=== PATIENT | female | born 2000 | race Two or more races ===

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

== ENCOUNTER → 2019-02-01 | Outpatient (CLI) | payer OTHER ==
--- NOTE | 2019-02-01 17:15 | REP ---
HISTORY: Supervision of normal . Multiple ultrasonographic images of the gravid uterus show a single living intrauterine gestation in the cephalic presentation. Doppler interrogation of the heart shows a heart rate of 172 beats per minute. The placenta is posterior and not low lying. The cervix measures 3.9 cm in length and is closed. The subjective amniotic fluid level is within normal limits. BPD 2.8 cm = 15 weeks 1 days HC 10.4 cm = 14 weeks 6 days AC 8.6 cm = 14 weeks 6 days FL 1.6 cm = 14 weeks 6 days The estimated weight is 108 grams, which is at the 40th percentile for a 14 week 6 day gestational age. The fetus was too small for a anatomical screen which should be performed at 20 to 22 weeks gestation. IMPRESSION: Single living intrauterine gestation as described above with an estimated gestational age of 14 weeks 6 days via composite criteria and an estimated date of delivery of 07/27/2019 by today's exam. Electronically Signed by Carlos Covarrubias DO 02/01/2019 06:01 P
== END ==
LOC: M RAD 15:04
PROVIDERS: ATTEND Obstetrics & Gynecology
DX: Z36.87 Encounter for antenatal screening for uncertain dates (principal); O26.849 Uterine size-date discrepancy, unspecified trimester; Z3A.14 14 weeks gestation of pregnancy

== ENCOUNTER 2019-03-01 17:13 | Emergency (ER) | payer OTHER ==
[~2019-03-01] VITALS: Ht 154.9 cm; Wt 40.9 kg
[2019-03-01 17:42] LABS: BASO % 0.2 % (0.0-1.0); EOS % 0.1 % (0.0-3.0); HEMATOCRIT 31.6 % (36.0-47.0); HEMOGLOBIN 10.1 g/dl (12.0-15.5); LYMPH # 0.8 10^3/uL (1.5-5.0); LYMPH % 3.7 % (24.0-44.0); MEAN CORPUSCULAR HEMOGLOBIN 27.7 pg (27.0-33.0); MEAN CORPUSCULAR VOLUME 86.8 fl (80.0-96.0); MONO # 0.8 10^3/uL (0.0-0.8); MONO % 3.8 % (0.0-5.0); NEUTROPHILS # 18.4 10^3/uL (1.5-8.5); NEUTROPHILS % 91.5 % (36.0-66.0); PLATELET COUNT, AUTOMATED 393 10^3/uL (150-450); RED BLOOD COUNT 3.64 10^6/uL (4.00-5.40); WHITE BLOOD COUNT 20.1 10^3/uL (4.0-10.0)
[2019-03-01 18:01] LABS: BLOOD UREA NITROGEN 8 MG/DL (7-18); CALCIUM LEVEL 8.7 MG/DL (8.5-10.1); CARBON DIOXIDE LEVEL 21 MEQ/L (21-32); CHLORIDE LEVEL 111 MEQ/L (98-107); CREATININE FOR GFR 0.62 MG/DL (0.55-1.30); GLUCOSE, FASTING 109 MG/DL (70-100); POTASSIUM SERUM 4.1 MEQ/L (3.5-5.1); SODIUM LEVEL 140 MEQ/L (136-145)
[2019-03-01] MEDS ORDERED: MORPHINE 4 MG/ML 1ML VIAL/SYRINGE (J2270) IV ONE (20:00)
[2019-03-01] MEDS ORDERED: ISOVUE-370 76% 100ML VIAL (Q9967) As Ordered ONE (20:01)
[2019-03-01 21:16] VITALS: BP 117/57
[2019-03-01 21:21] LABS: ALBUMIN 2.8 GM/DL (3.2-5.2); BILIRUBIN,DIRECT 0.1 MG/DL (0.0-0.2); BILIRUBIN,TOTAL 0.3 MG/DL (0.2-1.0); TOTAL PROTEIN 6.1 GM/DL (6.4-8.2)
--- NOTE | 2019-03-01 21:27 | REPVR ---
EXAM: CT Abdomen and Pelvis With Contrast EXAM DATE/TIME: 03/01/2019 8:06 PM CLINICAL HISTORY: 18 years old, female; Fever; Abdominal pain; Generalized; Prior surgery; Surgery date: 3-7 days post-operative; Additional info: Abd, pelvic, back pain, fever, p/o dnc, ab TECHNIQUE: Imaging protocol: Computed tomography of the abdomen and pelvis with intravenous contrast. Radiation optimization: All CT scans at this facility use at least one of these dose optimization techniques: automated exposure control; mA and/or kV adjustment per patient size (includes targeted exams where dose is matched to clinical indication); or iterative reconstruction. Contrast material: ISOVUE 370; Contrast volume: 100 ml; Contrast route: IV; COMPARISON: CT ABD PELVIS W/O CONTRAST 07/27/2018 10:48 AM FINDINGS: Liver: Normal. No mass. Gallbladder and bile ducts: Normal. No calcified stones. No ductal dilation. Pancreas: Normal. No ductal dilation. Spleen: Normal. No splenomegaly. Adrenals: Normal. No mass. Kidneys and ureters: Normal. No hydronephrosis. Stomach and bowel: Moderately dilated fluid filled large and small bowel loops are present. Appendix: The appendix is not seen as a separate structure. Intraperitoneal space: Unremarkable. No free air. No significant fluid collection. Vasculature: There is a circumaortic left renal vein. Lymph nodes: Unremarkable. No enlarged lymph nodes. Bladder: Unremarkable as visualized. Reproductive: The uterus is enlarged measuring 10.6 x 6.5 x 8.7 cm.Fluid is noted within the endometrial canal. Bones/joints: Apparent underlying dextroscoliosis of the lumbar spine. No acute fracture. Soft tissues: Unremarkable. IMPRESSION: 1. Generalized ileus. 2. Enlarged uterus with fluid in the endometrial canal consistent with history of recent dilatation and curettage. Endometritis should be excluded on clinical grounds Electronically signed by: Denise Wynne On 03/01/2019 21:26:43 PM
[2019-03-01] MEDS ORDERED: cefTRIAXone SOD 1 GM in D5W MINI-BAG PLUS 50 ML IV ONE (21:45)
[2019-03-01] MEDS ORDERED: CIPR-249 PO (22:40)
[2019-03-02] MEDS ORDERED: FLAG500T PO (09:07)
--- NOTE | 2019-03-06 11:59 | ED PDOC ---
Post-Departure Follow-Up dr dinae faxed formal report of ct abd/p for fu Ryley Araujo MD Mar 06, 2019 11:59
== END 2019-03-01 22:51 | disposition home or self-care (01) ==
LOC: M ED 17:13
DX: N10 Acute pyelonephritis (principal); F17.200 Nicotine dependence, unspecified, uncomplicated
CPT/HCPCS: 74177; 80048; 80076; 81001; 83605; 84702; 85025; 86850; 86900; 86901; 87040; 87088; 87186; 87210; 96374; 99284; J0696; J2270; Q9967

== ENCOUNTER 2019-03-12 09:31 | Emergency (ER) | payer OTHER ==
[~2019-03-12] VITALS: Ht 157.5 cm; Wt 37.3 kg
[~2019-03-12 09:31] MED LIST changes: +CIPR-249 PO; +FLAG500T PO
[2019-03-12] MEDS ORDERED: CIPR500T3 (09:39)
[2019-03-12] MEDS ORDERED: ACETAMINOPHEN TAB 650MG DOSE (2X325MG) PO ONE (12:45)
[2019-03-12 13:28] LABS: BASO # 0.1 10^3/uL (0.0-0.2); EOS # 0.1 10^3/uL (0.0-0.5); EOS % 1.3 % (0.0-3.0); HEMATOCRIT 36.8 % (36.0-47.0); HEMOGLOBIN 11.2 g/dl (12.0-15.5); LYMPH # 2.2 10^3/uL (1.5-5.0); LYMPH % 36.5 % (24.0-44.0); MEAN CORPUSCULAR HEMOGLOBIN 26.4 pg (27.0-33.0); MEAN CORPUSCULAR HGB CONC 30.4 g/dl (32.0-36.5); MEAN CORPUSCULAR VOLUME 86.6 fl (80.0-96.0); MONO # 0.5 10^3/uL (0.0-0.8); MONO % 8.4 % (0.0-5.0); NEUTROPHILS # 3.1 10^3/uL (1.5-8.5); NEUTROPHILS % 52.3 % (36.0-66.0); PLATELET COUNT, AUTOMATED 719 10^3/uL (150-450); RED BLOOD COUNT 4.25 10^6/uL (4.00-5.40)
[2019-03-12 13:43] LABS: BLOOD UREA NITROGEN 9 MG/DL (7-18); CALCIUM LEVEL 9.6 MG/DL (8.5-10.1); CARBON DIOXIDE LEVEL 22 MEQ/L (21-32); CHLORIDE LEVEL 108 MEQ/L (98-107); CREATININE FOR GFR 0.71 MG/DL (0.55-1.30); GLUCOSE, FASTING 80 MG/DL (70-100); SODIUM LEVEL 139 MEQ/L (136-145)
[2019-03-12 14:10] LABS: HCG, SERUM QUALITATIVE POSITIVE (NEGATIVE)
[2019-03-12 15:09] LABS: ALT/SGPT 13 U/L (12-78); BILIRUBIN,DIRECT 0.2 MG/DL (0.0-0.2); BILIRUBIN,TOTAL 0.7 MG/DL (0.2-1.0); HCG, SERUM QUANTITATIVE 8 MIU/ML; LIPASE 117 U/L (73-393); TOTAL PROTEIN 8.4 GM/DL (6.4-8.2)
[2019-03-12 16:47] LABS: CHLAMYDIA DNA AMPLIFICATION NEGATIVE (NEGATIVE); GC DNA AMPLIFICATION NEGATIVE (NEGATIVE)
--- NOTE | 2019-03-12 17:39 | REPVR ---
PROCEDURE INFORMATION: Exam: US First Trimester, Transabdominal and US , Transvaginal Exam date and time: 03/12/2019 4:52 PM Clinical history: 19 years old, female; Pain; Other: D and c done 02/23/2019; Gestational age or lmp: Unk; Additional info: Pain, eval for iup TECHNIQUE: Imaging protocol: Real-time transabdominal obstetrical ultrasound of the maternal pelvis and a first trimester , less than 14 weeks 0 days, with image documentation. Transvaginal imaging was used for better evaluation of the fetus and adnexa. COMPARISON: US OBS SINGEL GEST 02/01/2019 3:14 PM FINDINGS: GESTATION: Gestation: No intrauterine gestational sac is identified. Heart rate: N/A. Placenta: N/A. Amniotic fluid: N/A. BIOMETRY: Estimated gestational age: N/A. MATERNAL: Uterus: Uterus measures 7.9 x 4.2 x 8.6 cm. AP endometrial stripe thickness measures 1 mm. Cervix: Unremarkable. Right adnexa: Right ovary measures 2.1 x 2.9 x 1.6 cm. Positive blood flow. Left adnexa: Left ovary measures 2.9 x 3.2 x 1.2 cm. Positive blood flow. Intraperitoneal: No intraperitoneal free fluid. IMPRESSION: No intrauterine gestation or evidence of retained products of conception. Electronically signed by: Ileana Henry On 03/12/2019 17:39:42 PM
--- NOTE | 2019-03-12 21:44 | REPVR ---
PROCEDURE INFORMATION: Exam: MR Lumbar Spine Without Contrast. Exam date and time: 03/12/2019 9:04 PM Clinical history: 19 years old, female; Low back pain; Patient HX: Left sided tingling, chest pain, nki priors on pacs. Best images due to pts inability to lie still; Additional info: Low back pain, left leg weakness TECHNIQUE: Imaging protocol: Multiplanar magnetic resonance images of the lumbar spine without intravenous contrast. COMPARISON: MRI-Spine, L.S. without con 06/14/2014 9:39 AM FINDINGS: Vertebrae: There is no fracture. There is a mild thoracolumbar dextroscoliosis. Alignment is otherwise normal. STIR images demonstrate no evidence of marrow edema or marrow infiltrating lesion. Spinal cord: The lower thoracic spinal cord, conus and cauda equina are normal. There is no evidence of thecal sac or nerve root impingement. T12-L1: No central stenosis, foraminal stenosis or disc bulge. L1-L2: No significant disc disease. No significant spinal stenosis. L2-L3: No significant disc disease. No significant spinal stenosis. L3-L4: No significant disc disease. No significant spinal stenosis. L4-L5: No significant disc disease. No significant spinal stenosis. L5-S1: No significant disc disease. No significant spinal stenosis. Soft tissues: There is no evidence of paraspinous or intraspinal soft tissue mass, hemorrhage or fluid collection. IMPRESSION: Normal lumbar spine MRI. Electronically signed by: Shiva Lin On 03/12/2019 21:43:51 PM
[2019-03-12 22:02] VITALS: BP 129/83
== END 2019-03-12 22:25 | disposition home or self-care (01) ==
LOC: M ED 09:31
DX: M54.5 Low back pain (principal); M41.9 Scoliosis, unspecified; F17.200 Nicotine dependence, unspecified, uncomplicated

== ENCOUNTER 2019-03-14 11:23 | Inpatient (IN) | payer OTHER ==
[~2019-03-14] VITALS: Ht 157.5 cm; Wt 38.3 kg
[~2019-03-14 11:23] MED LIST changes: +CIPR500T3
[2019-03-14 11:44] LABS: HEMATOCRIT 38.1 % (36.0-47.0); HEMOGLOBIN 11.9 g/dl (12.0-15.5); MEAN CORPUSCULAR HEMOGLOBIN 26.7 pg (27.0-33.0); MEAN CORPUSCULAR HGB CONC 31.2 g/dl (32.0-36.5); MEAN CORPUSCULAR VOLUME 85.6 fl (80.0-96.0); PLATELET COUNT, AUTOMATED 815 10^3/uL (150-450); RED BLOOD COUNT 4.45 10^6/uL (4.00-5.40); WHITE BLOOD COUNT 9.7 10^3/uL (4.0-10.0)
[2019-03-14 12:06] LABS: HCG, SERUM QUALITATIVE NEGATIVE (NEGATIVE)
[2019-03-14 12:31] LABS: ACETAMINOPHEN LEVEL < 2.0 UG/ML (10.0-30.0); ALBUMIN 4.2 GM/DL (3.2-5.2); ALT/SGPT 12 U/L (12-78); BILIRUBIN,DIRECT 0.2 MG/DL (0.0-0.2); BILIRUBIN,TOTAL 0.7 MG/DL (0.2-1.0); BLOOD UREA NITROGEN 10 MG/DL (7-18); CALCIUM LEVEL 9.3 MG/DL (8.5-10.1); CARBON DIOXIDE LEVEL 21 MEQ/L (21-32); CHLORIDE LEVEL 106 MEQ/L (98-107); CREATININE FOR GFR 1.04 MG/DL (0.55-1.30); ETHYL ALCOHOL (ETHANOL) < 0.003 % (0.000-0.010); GLUCOSE, FASTING 104 MG/DL (70-100); POTASSIUM SERUM 3.7 MEQ/L (3.5-5.1); SALICYLATE LEVEL 1.7 MG/DL (5.0-30.0); SODIUM LEVEL 141 MEQ/L (136-145); THYROID STIMULATING HORMONE 0.716 uIU/ML (0.463-3.98); TOTAL PROTEIN 8.4 GM/DL (6.4-8.2)
[2019-03-14 15:24] LABS: AMPHETAMINES LEVEL URINE NEGATIVE (NEGATIVE); BARBITURATES URINE NEGATIVE (NEGATIVE); BENZODIAZEPINES URINE NEGATIVE (NEGATIVE); CANNABINOIDS URINE POSITIVE (NEGATIVE); COCAINE METABOLITE URINE NEGATIVE (NEGATIVE); METHADONE URINE NEGATIVE (NEGATIVE); OPIATES URINE NEGATIVE (NEGATIVE); PHENCYCLIDINE URINE NEGATIVE (NEGATIVE)
[2019-03-14] MEDS ORDERED: MOM 30ML SUSPENSION UDC PO PRN (17:15)
[2019-03-14] MEDS ORDERED: MAALOX 30 ML SUSP *UDC PO PRN (17:15)
[2019-03-14] MEDS: ACETAMINOPHEN TAB 650MG DOSE (2X325MG) PO PRN (19:52)
[2019-03-15 06:23] VITALS: BP 125/82
--- NOTE | 2019-03-15 08:19 | MHHPEPDOC ---
[facility] History & Physical History and Physical New Patient Aron Diaz MRN: N/A Date of : N/A Date of Service: 03/15/2019 Chief Complaint "I need to walk." History of Present Illness The patient, a 19-year-old woman, presented to [facility] in a psychotic state having been wandering on our parking lot where she was noted to be fairly distorted and unable to care for herself. She was brought in and admitted. When I attempted to meet her on the unit, she was still fairly confused and altered. She was unable to engage in any meaningful interview stating that she felt that she "need to go to the park and was writing various nonsensical statements on paper." Review Of Systems Unable to engage due to severity of psychosis. Past Psychiatric History History of inpatient admissions, last in July 2018. Currently follows up with . Was on Invega in the past, but reportedly has had noncompliance with a reported diagnosis of schizoaffective disorder. Allergies Please see below. Family Psychiatric History Unable to gauge due to patient's severe psychosis and thought blocking. Social History The patient lives in local area. Has never been . Has reportedly a 2-year-old child. Graduated the 10th grade and then had GED. Unclear if she has any legal charges. Never been in the . Substance Abuse History Patient's unable to answer any meaningful questions as she's still fairly sick. Medical History Unknown if any past medical history. Mental Status Examination General: Poor hygiene Speech: Pressured Thought processes: Tangential with cling associations MSK: Smooth and coordinated gait, no signs of tremors or involuntary orofacial movements Thought content: Paranoid and bizarre Abstract reasoning, and computation: Impaired Description of associations: Impaired Description of abnormal or psychotic thoughts: Unable to answer question Judgment: Poor Insight: Poor Orientation: Alert and orientated 3 Cognition: Grossly normal Recent and remote memory: Intact Attention span and concentration: Impaired secondary to thought process Fund of knowledge: Adequate Mood: "I need to go to the park" Affect: Flat with little reactivity Diagnoses Schizoaffective disorder. Cannabis use disorder, unspecified. Assessment and Plan Schizoaffective disorder: We'll restart Invega 3 mg nightly and offered to patient. Cannabis use disorder: We'll evaluate when patient's more clear to determine severity. Disposition The patient will need to have an admission likely lasting longer than 2 mi dnights in order to treat her severe psychosis and impairs ability to take care of herself. Problem List 1. Altered thoughts. 2. Substance use. Initial Treatment Plan 1. Patient was admitted on a 38 legal status. 2. Complete history was obtained. 3. With patients permission, family will be contacted and database will be expanded. 4. Patients medication regimen will be reviewed and changed accordingly. 5. Patient will be provided with protected environment. 6. Patient will be treated with individual, group, and milieu therapies. 7. Patient will receive supportive psych-education. 8. Discharge planning will commence immediately. 9. Outpatient follow-up treatment will be strongly recommended. 10. The initial treatment plan will focus initially on: Estimated Length Of Stay Four days. Time Spent 20 minutes. Vital Signs Vital Signs Date Time Temp Pulse Resp B/P (MAP) Pulse Ox O2 Delivery O2 Flow Rate FiO2 03/15/19 06:23 99.2 73 16 125/82 (96) 03/14/19 18:02 100 Room Air Laboratory Data 24H Labs Laboratory Tests 2 03/14/19 11:30: Nucleated Red Blood Cells % (auto) 0.0, Anion Gap 14, Calcium Level 9.3, Aspartate Amino Transf (AST/SGOT) 11, Alanine Aminotransferase (ALT/SGPT) 12, Alkaline Phosphatase 73, Total Bilirubin 0.7, Direct Bilirubin 0.2, Total Protein 8.4H, Albumin 4.2, Albumin/Globulin Ratio 1.00, Thyroid Stimulating Hormone (TSH) 0.716, Human Chorionic Gonadotropin, Qual NEGATIVE, Salicylates Level 1.7L, Acetaminophen Level < 2.0L, Ethyl Alcohol Level < 0.003 03/14/19 14:38: Urine Color YELLOW, Urine Appearance TURBIDH, Urine pH 6.0, Urine Specific [place] 1.026, Urine Protein 1+H, Urine Glucose (UA) NEGATIVE, Urine Ketones 2+H, Urine Blood 1+H, Urine Nitrite NEGATIVE, Urine Bilirubin NEGATIVE, Urine Urobilinogen 0.2, Urine Leukocyte Esterase NEGATIVE, Urine WBC (Auto) 1, Urine RBC (Auto) 0, Urine Hyaline Casts (Auto) 0, Urine Bacteria (Auto) NEGATIVE, Urine Squamous Epithelial Cells 2, Urine Amorphous Sediment MODERATEH, Urine Mucus (Auto) LARGE, Urine Sperm (Auto) , Urine Amphetamines Screen NEGATIVE, Urine Benzodiazepines Screen NEGATIVE, Urine Opiates Screen NEGATIVE, Urine Methadone Screen NEGATIVE, Urine Barbiturates Screen NEGATIVE, Urine Phencyclidine Screen NEGATIVE, Urine Cocaine Metabolite Screen NEGATIVE, Urine Cannabinoids Screen POSITIVEH CBC/BMP Laboratory Tests 03/14/19 11:30 Red Blood Count 4.45, Mean Corpuscular Volume 85.6, Mean Corpuscular Hemoglobin 26.7 L, Mean Corpuscular Hemoglobin Concent 31.2 L, Red Cell Distribution Width 15.7 H Medications No Active Prescriptions or Reported Meds Allergies Coded Allergies: No Known Allergies (Unverified , 12/21/18) EVELIN PEREZ DO Mar 15, 2019 08:19
[2019-03-15] MEDS ORDERED: INFLUENZA QUADRIVALENT PF VACCINE 0.5ML SYRINGE (90686) IM ONE (09:00)
--- NOTE | 2019-03-15 17:39 | CR.PDOC ---
General Date of Consultation: Mar 15, 2019 Consultation REASON FOR CONSULTATION/CHIEF COMPLAINT: Physical exam HISTORY OF PRESENT ILLNESS: Patient is 19 years old female with past medical history of psychoaffective disorder, tobacco abuse, drug abuse presented hospital with acute psychosis. Patient denied any health condition except mental. Patient denies fever, chills, nausea, no any neurological deficit, no skin rash vomiting, palpitations, shortness of breath, diarrhea or dysuria ALLERGIES: Please see below. ROS 10 point review system is negative except mentioned above HOME MEDICATIONS: Please see below. PAST MEDICAL HISTORY: 1. Psychoaffective disorder, depression, suicidal ideation, tobacco abuse PAST SURGICAL HISTORY: None FAMILY HISTORY: Father: Healthy Mother: Patient stated that mother has mental condition SOCIAL HISTORY: Tobacco use: Smokes 3 cigarettes a day ETOH: Occasional Illicit drug use: Morphine, marijuana, Lyrica IV drug use: Morphine PHYSICAL EXAMINATION: VITAL SIGNS: Please see below. GENERAL APPEARANCE: Flat affect HEENT: PERRLA, EOMI RESPIRATORY: CTA CARDIOVASCULAR: S1-S2 ABDOMEN: Nontender nondistended EXTREMITIES: No swelling, no cyanosis NEUROLOGICAL: No focal deficiency LABORATORY DATA: Please see below. ASSESSMENT/PLAN: Patient is 19 years old female with past medical history of psychoaffective disorder, tobacco abuse, drug abuse presented hospital with acute psychosis. Patient doesn't have any acute cardiopulmonary, neurological, skin, gastrointestinal, diseases. Patient told me she would like to be tested for HIV and hepatitis. Vital Signs/I&O Vital Signs Date Time Temp Pulse Resp B/P (MAP) Pulse Ox O2 Delivery O2 Flow Rate FiO2 03/15/19 06:23 99.2 73 16 125/82 (96) 03/14/19 18:02 100 Room Air Allergies Coded Allergies: No Known Allergies (Unverified , 12/21/18) Home Medications No Active Prescriptions or Reported Meds LEWIS PULIDO DO Mar 15, 2019 17:39
[2019-03-15 18:48] VITALS: BP 100/60
[2019-03-15] MEDS ORDERED: PALIPERIDONE 3 MG ER TAB (INVEGA) PO SCH (21:00)
[2019-03-16] VITALS (9 sets, daily range): BP systolic 90–138; BP diastolic 49–81
[2019-03-16] MEDS: traZODone 50 MG TAB PO PRN ×2 (00:06→20:10)
[2019-03-16] MEDS ORDERED: diphenhydrAMINE INJ 50MG/ML VIAL (J1200) IM STA (01:17)
[2019-03-16] MEDS ORDERED: HALOPERIDOL 5 MG/ML VIAL (J1630) IM STA (01:17)
[2019-03-16] MEDS ORDERED: LORazepam 2 MG/ML VIAL (J2060) IM STA (01:17)
--- NOTE | 2019-03-16 01:34 | MHIR ---
General Date: Mar 16, 2019 Time Initiated: 12:00 Restraint Documentation Order/Evaluation FACE TO FACE: [Yes]. PHYSICIAN ASSESSMENT: patient was agitated, agitating other patients, not re directable, yelling, screaming in the hallways, being profane, verbally and phy sically aggressive, she hit one of the safety aid REASON FOR RESTRAINT: Patient poses imminent danger of harming self or others: As above, patient is dangerous to others, she is also showing behavioral pro blems, at times she acts normally and then, she acts aggressively/abusive. She grabbed a chair and put it in front of the door. Mood and affect were labile. DE-ESCALATION INTERVENTIONS ATTEMPTED BEFORE USE OF RESTRAINTS: Staff support, re direction, offered PRN's, attempted de escalating her. [MECHANICAL AND/OR CHEMICAL] RESTRAINTS USED: Both LENGTH OF TIME ORDERED IN RESTRAINTS: 240 minutes. WHEN TO DISCONTINUE RESTRAINTS: When the patient is no longer a threat to themselves or others Post evaluation of restraint due in 24 hours. NEVIN CRANE MD Mar 16, 2019 01:34
[2019-03-16 16:06] LABS: HEPATITIS C VIRUS ABY INDEX 0.1 INDEX (<0.8); HIV 1&2 SCREEN CENTAUR NEGATIVE (NEGATIVE)
--- NOTE | 2019-03-16 18:50 | MHIPNPDOC ---
[facility] Progress Note Progress Note Inpatient Progress Note Aron Diaz MRN: N/A Date of : N/A Date of Service: 03/16/2019 History of Present Illness The patient, a 19-year-old woman, presented to [facility] in a psychotic state having been wandering on our parking lot where she was noted to be fairly distorted and unable to care for herself. She was brought in and admitted. When I attempted to meet her on the unit, she was still fairly confused and altered. She was unable to engage in any meaningful interview stating that she felt that she "need to go to the park and was writing various nonsensical statements on paper." Interval History The patient's attempted to be met with today. She's able to answer more questions. She had been coded the previous evening, sedated with medications due to becoming violent suddenly. She's met within the office with the door open as the patient has a history of becoming fairly violent. She sits bizarrely on the chair and answers a few questions saying she has "no problems." She has become much less focused on writing various odd statements, but has still continued having difficulty with her overall focus. She at the end of the interview becomes tearful in unusual way, sitting in the office, requiring to be put on a wheelchair to be taken back to her room, as she becomes fairly still. She has not taken the Invega last night, but did take trazodone. She reports that she does not want to take the Invega even after prompting. Review Of Systems General: Denies fever or weight changes Cardiovascular: Denies Chest pain or palpations GI: Denies Nausea, vomiting, or bowel changes Respiratory: Denies shortness of breath or cough Neuro: Denies dizziness, tremors Derm: Denies any rashes or pruritus : Denies any dysuria or urinary difficulty MSK: Denies any muscle tightness or stiffness HEENT: Denies any vision changes or headaches Heme/Lymph: denies any bruising or bleeding Endo: denies any cold/heat intolerance or water intake changes Psychotherapy None on this visit. Vital Signs Reviewed. Mental Status Examination General: Poor hygiene Speech: Sparse Thought processes: Tangential with cling associations MSK: Smooth and coordinated gait, no signs of tremors or involuntary orofacial movements Thought content: Paranoid and bizarre Abstract reasoning, and computation: Impaired Description of associations: Impaired Description of abnormal or psychotic thoughts: Unable to answer question Judgment: Poor Insight: Poor Orientation: Alert and orientated 3 Cognition: Grossly normal Recent and remote memory: Intact Attention span and concentration: Impaired secondary to thought process Fund of knowledge: Adequate Mood: "I've no problems" Affect: Flat with little reactivity Diagnoses Schizoaffective disorder. Cannabis use disorder, unspecified. Assessment and Plan Schizoaffective disorder: Continue to offer Invega 3 mg nightly. Cannabis use disorder: We'll evaluate when patient's more clear to determine severity. Disposition The patient will need a further inpatient admission due to her severe psychosis impairing her ability to care for herself. She remains bizarre and likely a danger to herself and others due to her severely impairing mental status. Time Spent 20 minutes [id number]. Tuesday Vital Signs Vital Signs Date Time Temp Pulse Resp B/P (MAP) Pulse Ox O2 Delivery O2 Flow Rate FiO2 03/16/19 18:24 99.6 96 16 116/81 (93) 03/16/19 03:05 100 03/14/19 18:02 Room Air Laboratory Data 24H Labs Laboratory Tests 2 03/16/19 14:41: Hepatitis C Antibody Index 0.1, HIV Antigen/Antibody Combo Qual NEGATIVE Current Medications Current Medications Medications (Trade) Dose Ordered Sig/Jordy Route PRN Reason Start Time Stop Time Status Last Admin Dose Admin Acetaminophen (Tylenol Tab) 650 mg Q6HP PRN PO HEADACHE or DISCOMFORT 03/14/19 17:15 03/14/19 19:52 Al Hydrox/Mg Hydrox/Simethicone (Mylanta) 30 ml Q4HP PRN PO HEARTBURN/INDIGESTION 03/14/19 17:15 Diphenhydramine HCl (Benadryl) 50 mg STAT STAT IM 03/16/19 01:17 03/16/19 01:20 DC 03/16/19 01:39 Haloperidol (Haldol) 10 mg STAT STAT IM 03/16/19 01:17 03/16/19 01:20 DC 03/16/19 01:39 Home Med (Med Rec Complete!) ASDIRECTED XX 03/14/19 14:30 03/14/19 14:33 DC Lorazepam (Ativan) 2 mg STAT STAT IM 9/27/19 01:17 03/16/19 01:20 DC 03/16/19 01:39 Magnesium Hydroxide (Milk Of Magnesia) 30 ml DAILYPRN PRN PO CONSTIPATION 03/14/19 17:15 Olanzapine (ZyPREXA ZYDIS) 5 mg Q4HP PRN PO ANXIETY/AGITATION 03/16/19 18:00 Olanzapine (ZyPREXA ZYDIS) 10 mg QHS PO 03/16/19 21:00 Paliperidone (Invega) 3 mg QHS PO 03/15/19 21:00 03/16/19 17:55 DC 03/15/19 21:28 Trazodone HCl (Desyrel) 50 mg QHSP PRN PO INSOMNIA 03/14/19 17:15 03/16/19 00:06 Allergies Coded Allergies: No Known Allergies (Unverified , 12/21/18) EVELIN PEREZ DO Mar 16, 2019 18:50
[2019-03-16] MEDS: OLANZapine ORAL DISINTEGRATING TAB 5MG PO SCH (20:10)
[2019-03-16] MEDS: ACETAMINOPHEN TAB 650MG DOSE (2X325MG) PO PRN (21:06)
[2019-03-17] VITALS (9 sets, daily range): BP systolic 85–128; BP diastolic 54–85
[2019-03-17] MEDS: ACETAMINOPHEN TAB 650MG DOSE (2X325MG) PO PRN (06:48)
[2019-03-17] MEDS ORDERED: HALOPERIDOL 5 MG/ML VIAL (J1630) IM STA (08:40)
[2019-03-17] MEDS ORDERED: diphenhydrAMINE INJ 50MG/ML VIAL (J1200) IM STA (08:40)
[2019-03-17] MEDS ORDERED: LORazepam 2 MG/ML VIAL (J2060) IM STA (08:40)
--- NOTE | 2019-03-17 10:05 | MHIR ---
General Date: Mar 17, 2019 Time Initiated: 09:15 Restraint Documentation Order/Evaluation FACE TO FACE: Yes PHYSICIAN ASSESSMENT: attack member of staff REASON FOR RESTRAINT: Patient poses imminent danger of harming self or others: physically violent DE-ESCALATION INTERVENTIONS ATTEMPTED BEFORE USE OF RESTRAINTS:verbal, po offered [MECHANICAL AND/OR CHEMICAL] RESTRAINTS USED: IM Haldol 10mg, ativan 2, diphen 50mg LENGTH OF TIME ORDERED IN RESTRAINTS: 240 minutes. WHEN TO DISCONTINUE RESTRAINTS: able to remain in behavioral control Post evaluation of restraint due in 24 hours. EVELIN PEREZ DO Mar 17, 2019 10:05
--- NOTE | 2019-03-17 13:42 | MHIPNPDOC ---
[facility] Progress Note Progress Note Inpatient Progress Note Aron Diaz MRN: N/A Date of : N/A Date of Service: 03/17/2019 History of Present Illness The patient, a 19-year-old woman, presented to [facility] in a psychotic state having been wandering on our parking lot where she was noted to be fairly distorted and unable to care for herself. She was brought in and admitted. When I attempted to meet her on the unit, she was still fairly confused and altered. She was unable to engage in any meaningful interview stating that she felt that she "need to go to the park and was writing various nonsensical statements on paper." Interval History The patient is unable to be met with today as she was fairly agitating in the morning and required sedation. She was subsequently too fatigued to answer questions. She has had difficulty with agitation, bizarreness, unusual crying and screaming for no reason and wandering the halls in a bizarre manner, becoming agitated with little to no provocation. Later in the evening, she had placed a request for discharge in court hearing. Review Of Systems Unclear due to mental status. Psychotherapy None on this visit. Vital Signs Reviewed. Mental Status Examination General: Poor hygiene Speech: Minimal due to sedation Thought processes: Unknown MSK: No tremors Thought content: Unknown Abstract reasoning, and computation: Impaired Description of associations: Impaired Description of abnormal or psychotic thoughts: Unknown Judgment: Poor Insight: Poor Orientation: Somnolence Cognition: Unknown Recent and remote memory: Unknown Attention span and concentration: Unknown Fund of knowledge: Unknown Mood: "Ahh" Affect: Sedated and somnolence Diagnoses Schizoaffective disorder. Cannabis use disorder, unspecified. Assessment and Plan Schizoaffective disorder: Continue to offer Invega 3 mg nightly. We will pursue court usp and treatment over objection. Cannabis use disorder: We will evaluate when patient's more clear to determine severity. Disposition The patient will need further inpatient admission due to her severe psychosis and inability to care for self. Time Spent 10 minutes [id number]. Tuesday Vital Signs Vital Signs Date Time Temp Pulse Resp B/P (MAP) Pulse Ox O2 Delivery O2 Flow Rate FiO2 03/17/19 11:12 79 16 85/54 03/17/19 08:45 98.8 03/16/19 03:05 100 03/14/19 18:02 Room Air Laboratory Data 24H Labs Laboratory Tests 2 03/16/19 14:41: Hepatitis C Antibody Index 0.1, HIV Antigen/Antibody Combo Qual NEGATIVE Current Medications Current Medications Medications (Trade) Dose Ordered Sig/Jordy Route PRN Reason Start Time Stop Time Status Last Admin Dose Admin Acetaminophen (Tylenol Tab) 650 mg Q6HP PRN PO HEADACHE or DISCOMFORT 03/14/19 17:15 03/17/19 06:48 Al Hydrox/Mg Hydrox/Simethicone (Mylanta) 30 ml Q4HP PRN PO HEARTBURN/INDIGESTION 03/14/19 17:15 Diphenhydramine HCl (Benadryl) 50 mg STAT STAT IM 03/16/19 01:17 03/16/19 01:20 DC 03/16/19 01:39 Diphenhydramine HCl (Benadryl) 50 mg STAT STAT IM 03/17/19 08:40 03/17/19 08:43 DC 03/17/19 08:59 Haloperidol (Haldol) 10 mg STAT STAT IM 03/16/19 01:17 03/16/19 01:20 DC 03/16/19 01:39 Haloperidol (Haldol) 10 mg STAT STAT IM 03/17/19 08:40 03/17/19 08:43 DC 03/17/19 08:59 Home Med (Med Rec Complete!) ASDIRECTED XX 03/14/19 14:30 03/14/19 14:33 DC Lorazepam (Ativan) 2 mg STAT STAT IM 03/16/19 01:17 03/16/19 01:20 DC 03/16/19 01:39 Lorazepam (Ativan) 2 mg STAT STAT IM 03/17/19 08:40 03/17/19 08:43 DC 03/17/19 08:59 Magnesium Hydroxide (Milk Of Magnesia) 30 ml DAILYPRN PRN PO CONSTIPATION 03/14/19 17:15 03/17/19 02:02 Olanzapine (ZyPREXA ZYDIS) 5 mg Q4HP PRN PO ANXIETY/AGITATION 03/16/19 18:00 Olanzapine (ZyPREXA ZYDIS) 10 mg QHS PO 03/16/19 21:00 9/27/19 20:10 Paliperidone (Invega) 3 mg QHS PO 03/15/19 21:00 03/16/19 17:55 DC 03/15/19 21:28 Trazodone HCl (Desyrel) 50 mg QHSP PRN PO INSOMNIA 03/14/19 17:15 03/16/19 20:10 Allergies Coded Allergies: No Known Allergies (Unverified , 12/21/18) EVELIN PEREZ DO Mar 17, 2019 13:41
[2019-03-17] MEDS: traZODone 50 MG TAB PO PRN (20:56)
[2019-03-17] MEDS: OLANZapine ORAL DISINTEGRATING TAB 5MG PO SCH (20:56)
[2019-03-17] MEDS: OLANZapine ORAL DISINTEGRATING TAB 5MG PO PRN (23:36)
[2019-03-18] MEDS ORDERED: diphenhydrAMINE INJ 50MG/ML VIAL (J1200) IM STA (00:12)
[2019-03-18] MEDS ORDERED: LORazepam 2 MG/ML VIAL (J2060) IM STA ×2 (00:12→10:14)
[2019-03-18] MEDS ORDERED: HALOPERIDOL 5 MG/ML VIAL (J1630) IM STA (00:12)
[2019-03-18 06:35] VITALS: BP 95/48
[2019-03-18] MEDS ORDERED: chlorproMAZINE INJ 50MG/2ML AMP (J3230) IM STA (10:14)
[2019-03-18 10:30] VITALS: BP 118/60
[2019-03-18 10:45] VITALS: BP 102/62
[2019-03-18] MEDS: ACETAMINOPHEN TAB 650MG DOSE (2X325MG) PO PRN (11:04)
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
[2019-03-18 15:48] VITALS: BP 125/73
[2019-03-18] MEDS: traZODone 50 MG TAB PO PRN (20:43)
[2019-03-18] MEDS: OLANZapine ORAL DISINTEGRATING TAB 5MG PO SCH (20:43)
[2019-03-18] MEDS: OLANZapine ORAL DISINTEGRATING TAB 5MG PO PRN (23:00)
[2019-03-18] MEDS ORDERED: chlorproMAZINE 25 MG TAB (Q0161) PO ONE (23:12)
[2019-03-18] MEDS ORDERED: chlorproMAZINE INJ 50MG/2ML AMP (J3230) IM ONE (23:25)
[2019-03-19] VITALS (7 sets, daily range): BP systolic 105–138; BP diastolic 68–85
[2019-03-19] MEDS ORDERED: LORazepam 2 MG/ML VIAL (J2060) IM STA (06:39)
[2019-03-19] MEDS ORDERED: HALOPERIDOL 5 MG/ML VIAL (J1630) IM STA (06:39)
[2019-03-19] MEDS ORDERED: diphenhydrAMINE INJ 50MG/ML VIAL (J1200) IM STA (06:39)
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
--- NOTE | 2019-03-19 13:30 | MHPR ---
General Date: Mar 19, 2019 Time: 13:28 Post-Restraint Evaluation THE OUTCOME OF THE RESTRAINT: patient became able to become clam and leave restraints EFFECTIVENESS OF THE RESTRAINT: Mechanical and/or chemical: positive ANY EVIDENCE THAT THE PATIENT WAS AFFECTED EMOTIONALLY: no ANY NEED FOR COUNSELING/ASSISTANCE: unable to due to psychosis CHANGES IN TREATMENT PLAN: restart standing invega RECOMMENDATIONS FOR FUTURE INCIDENTS: close monitoring, aggression precautions EVELIN PEREZ DO Mar 19, 2019 13:29
[2019-03-19] MEDS: OLANZapine ORAL DISINTEGRATING TAB 5MG PO SCH (21:09)
[2019-03-20 00:14] LABS: HBV HBV DNA not detected IU/mL (.); HBVCOREDIFF1 Negative (Negative); HBVCOREDIFF2 Negative (Negative); HEPATITIS BE ANTIBODY Negative (Negative); HEPATITIS BE ANTIGEN Negative (Negative)
[2019-03-20] MEDS: traZODone 50 MG TAB PO PRN (01:55)
[2019-03-20] MEDS: PALIPERIDONE 3 MG ER TAB (INVEGA) PO SCH ×2 (02:45→21:00)
[2019-03-20] MEDS: OLANZapine ORAL DISINTEGRATING TAB 5MG PO PRN (02:46)
[2019-03-20 06:57] VITALS: BP 121/87
--- NOTE | 2019-03-20 14:14 | MHIPNPDOC ---
[facility] Progress Note Progress Note Inpatient Progress Note Aron Diaz MRN: N/A Date of : N/A Date of Service: 03/20/2019 History of Present Illness The patient, a 19-year-old woman, presented to [facility] in a psychotic state having been wandering on our parking lot where she was noted to be fairly distorted and unable to care for herself. She was brought in and admitted. When I attempted to meet her on the unit, she was still fairly confused and altered. She was unable to engage in any meaningful interview stating that she felt that she "need to go to the park and was writing various nonsensical statements on paper." Interval History The patient is able to be met with today. She's been much less agitated. She had taken her Invega the previous evening. She does not remember taking it. She does report having a history of a tick bite and although distorted is able to discuss some aspects of her care. She reports that she is "fine", feels that her mother is mentally ill. She still remains on a distant one to one, but has been able to be around others with much less stimulation. She has not been attending groups and is pending court retention this Tuesday. Review Of Systems General: Denies any fever, chills, or appetite changes Cardiovascular: Denies Chest pain or palpations GI: Denies Nausea, vomiting, or bowel changes Respiratory: Denies shortness of breath or cough Neuro: Denies dizziness, tremors Derm: Denies any rashes or pruritus : Denies any urinary pain or dysfunction MSK: Denies any muscle tightness or stiffness HEENT: Denies any vision changes or headaches Heme/Lymph: denies any bruising or bleeding Endo: Denies any cold/heat intolerance or water intake changes Psychotherapy None on this visit. Vital Signs Reviewed. Mental Status Examination General: Poor hygiene Speech: Answers only to questions Thought processes: Tangential. MSK: No tremors Thought content: Bizarre. Abstract reasoning, and computation: Impaired Description of associations: Impaired Description of abnormal or psychotic thoughts: Denies suicidal or homicidal ideation. Denies auditory or visual hallucinations. However, appears to be responding to internal stimuli Judgment: Poor Insight: Poor Orientation: Alert and oriented to surrounding Cognition: Grossly intact Recent and remote memory: Mildly impaired Attention span and concentration: Mildly impaired due to her thought process Fund of knowledge: Poor Mood: "Okay" Affect: Flat with little reactivity. Diagnoses Schizoaffective disorder. Cannabis use disorder, unspecified. Assessment and Plan Schizoaffective disorder: continue Invega 3 mg nightly. Cannabis use disorder, unspecified: continue to monitor possible contribution. Will perform Lyme titers due to reported history of exposure to ticks. Disposition The patient will need further inpatient admission due to her severe psychosis and inability to care for self. Time Spent 15 minutes [id number] Tuesday Vital Signs Vital Signs Date Time Temp Pulse Resp B/P (MAP) Pulse Ox O2 Delivery O2 Flow Rate FiO2 03/20/19 06:57 98.3 120 14 121/87 (98) 03/19/19 08:58 100 03/14/19 18:02 Room Air Current Medications Current Medications Medications (Trade) Dose Ordered Sig/Jordy Route PRN Reason Start Time Stop Time Status Last Admin Dose Admin Acetaminophen (Tylenol Tab) 650 mg Q6HP PRN PO HEADACHE or DISCOMFORT 03/14/19 17:15 03/18/19 11:04 Al Hydrox/Mg Hydrox/Simethicone (Mylanta) 30 ml Q4HP PRN PO HEARTBURN/INDIGESTION 03/14/19 17:15 Chlorpromazine HCl (Thorazine) 150 mg STAT STAT IM 03/18/19 10:14 03/18/19 10:17 DC 03/18/19 10:34 Diphenhydramine HCl (Benadryl) 50 mg STAT STAT IM 03/16/19 01:17 03/16/19 01:20 DC 03/16/19 01:39 Diphenhydramine HCl (Benadryl) 50 mg STAT STAT IM 03/17/19 08:40 03/17/19 08:43 DC 03/17/19 08:59 Diphenhydramine HCl (Benadryl) 50 mg STAT STAT IM 03/18/19 00:12 03/18/19 00:15 DC 03/18/19 00:31 Diphenhydramine HCl (Benadryl) 100 mg STAT STAT IM 03/19/19 06:39 03/19/19 06:42 DC 03/19/19 06:56 Haloperidol (Haldol) 10 mg STAT STAT IM 03/16/19 01:17 03/16/19 01:20 DC 03/16/19 01:39 Haloperidol (Haldol) 10 mg STAT STAT IM 03/17/19 08:40 03/17/19 08:43 DC 03/17/19 08:59 Haloperidol (Haldol) 10 mg STAT STAT IM 03/18/19 00:12 03/18/19 00:14 DC 03/18/19 00:30 Haloperidol (Haldol) 15 mg STAT STAT IM 03/19/19 06:39 03/19/19 06:42 DC 03/19/19 06:57 Home Med (Med Rec Complete!) ASDIRECTED XX 03/14/19 14:30 03/14/19 14:33 DC Lorazepam (Ativan) 1 mg STAT STAT IM 03/18/19 10:14 03/18/19 10:17 DC 03/18/19 10:33 Lorazepam (Ativan) 2 mg STAT STAT IM 03/16/19 01:17 03/16/19 01:20 DC 03/16/19 01:39 Lorazepam (Ativan) 2 mg STAT STAT IM 03/17/19 08:40 03/17/19 08:43 DC 03/17/19 08:59 Lorazepam (Ativan) 2 mg STAT STAT IM 03/18/19 00:12 03/18/19 00:14 DC 03/18/19 00:31 Lorazepam (Ativan) 2 mg STAT STAT IM 03/19/19 06:39 03/19/19 06:42 DC 03/19/19 06:57 Magnesium Hydroxide (Milk Of Magnesia) 30 ml DAILYPRN PRN PO CONSTIPATION 03/14/19 17:15 03/17/19 02:02 Olanzapine (ZyPREXA ZYDIS) 5 mg Q4HP PRN PO ANXIETY/AGITATION 03/16/19 18:00 03/20/19 02:46 Olanzapine (ZyPREXA ZYDIS) 10 mg QHS PO 03/16/19 21:00 03/19/19 21:09 Paliperidone (Invega) 3 mg QHS PO 03/15/19 21:00 03/16/19 17:55 DC 03/15/19 21:28 Paliperidone (Invega) 3 mg QHS PO 03/19/19 21:00 03/20/19 02:45 Trazodone HCl (Desyrel) 50 mg QHSP PRN PO INSOMNIA 03/14/19 17:15 03/20/19 01:55 Allergies Coded Allergies: No Known Allergies (Unverified , 12/21/18) EVELIN PEREZ DO Mar 20, 2019 14:14
[2019-03-20 16:48] VITALS: BP 131/84
[2019-03-20] MEDS: OLANZapine ORAL DISINTEGRATING TAB 5MG PO SCH (21:00)
[2019-03-21] VITALS (7 sets, daily range): BP systolic 105–125; BP diastolic 68–78
[2019-03-21] MEDS: OLANZapine ORAL DISINTEGRATING TAB 5MG PO PRN (06:47)
[2019-03-21] MEDS ORDERED: chlorproMAZINE INJ 50MG/2ML AMP (J3230) IM ONE (09:00)
[2019-03-21] MEDS ORDERED: LORazepam 2 MG/ML VIAL (J2060) IM ONE (09:00)
--- NOTE | 2019-03-21 10:15 | MHIR ---
General Date: Mar 21, 2019 Time Initiated: 09:16 Restraint Documentation Order/Evaluation FACE TO FACE: yes PHYSICIAN ASSESSMENT: aggressive uncontrolled REASON FOR RESTRAINT: Patient poses imminent danger of harming self or others: throwing clothing around the room, unable to be controlled, threatening to other patients DE-ESCALATION INTERVENTIONS ATTEMPTED BEFORE USE OF RESTRAINTS:verbal [MECHANICAL AND/OR CHEMICAL] RESTRAINTS USED: Thorzaine 100mg IM/ativan 1mg LENGTH OF TIME ORDERED IN RESTRAINTS: 240 minutes. WHEN TO DISCONTINUE RESTRAINTS: behavioral control Post evaluation of restraint due in 24 hours. EVELIN PEREZ DO Mar 21, 2019 10:15
--- NOTE | 2019-03-21 10:16 | MHIPNPDOC ---
[facility] Progress Note Progress Note Inpatient Progress Note Aron Diaz MRN: N/A Date of : N/A Date of Service: 03/21/2019 History of Present Illness The patient, a 19-year-old woman, presented to [facility] in a psychotic state having been wandering on our parking lot where she was noted to be fairly distorted and unable to care for herself. She was brought in and admitted. When I attempted to meet her on the unit, she was still fairly confused and altered. She was unable to engage in any meaningful interview stating that she felt that she "need to go to the park and was writing various nonsensical statements on paper." Interval History The patient is attempted to be met with today. She does engage this provider. We meet in her room. However, her one-to-one is observing the door is open as the patient can become highly agitated. She requests of the door closed; however, this provider explained his uncomfortability with that prospect due to her re cent aggression. The patient has been coded nearly daily in the morning for bizarre behavior, including taking off her clothes. She is unable to remember the instance when spoken to. She states she is "fine," bizarrely staring off into the wall, saying that she does not want to take medications as she "doesn't need them." She has now attended groups and still remains bizarre and confused, and at times appears delusional, feeling that people are out to get her putting thoughts in her head or are conspiring against her. Review Of Systems General: Denies any fever, chills, or appetite changes Cardiovascular: Denies Chest pain or palpations GI: Denies Nausea, vomiting, or bowel changes Respiratory: Denies shortness of breath or cough Neuro: Denies dizziness, tremors Derm: Denies any rashes or pruritus : Denies any urinary pain or dysfunction MSK: Denies any muscle tightness or stiffness HEENT: Denies any vision changes or headaches Heme/Lymph: denies any bruising or bleeding Endo: Denies any cold/heat intolerance or water intake changes Psychotherapy None on this visit. Vital Signs Reviewed. Mental Status Examination General: Poor hygiene Speech: Answers only to questions Thought processes: Tangential. MSK: No tremors Thought content: Bizarre. Abstract reasoning, and computation: Impaired Description of associations: Impaired Description of abnormal or psychotic thoughts: Denies suicidal or homicidal ideation. Denies auditory or visual hallucinations. However, appears to be responding to internal stimuli Judgment: Poor Insight: Poor Orientation: Alert and oriented to surrounding Cognition: Grossly intact Recent and remote memory: Mildly impaired Attention span and concentration: Mildly impaired due to her thought process Fund of knowledge: Poor Mood: "Okay" Affect: Flat with little reactivity. Diagnoses Schizoaffective disorder. Cannabis use disorder, unspecified. Assessment and Plan Schizoaffective disorder: continue Invega 3 mg nightly. Cannabis use disorder, unspecified: continue to monitor possible contribution. Will perform Lyme titers due to reported history of exposure to ticks. Disposition The patient will need further inpatient admission due to her severe psychosis and inability to care for self. Time Spent 15 minutes face to face. Tuesday Vital Signs Vital Signs Date Time Temp Pulse Resp B/P (MAP) Pulse Ox O2 Delivery O2 Flow Rate FiO2 03/21/19 06:30 98.7 121 16 105/72 (83) 03/19/19 08:58 100 Current Medications Current Medications Medications (Trade) Dose Ordered Sig/Jordy Route PRN Reason Start Time Stop Time Status Last Admin Dose Admin Acetaminophen (Tylenol Tab) 650 mg Q6HP PRN PO HEADACHE or DISCOMFORT 03/14/19 17:15 03/18/19 11:04 Al Hydrox/Mg Hydrox/Simethicone (Mylanta) 30 ml Q4HP PRN PO HEARTBURN/INDIGESTION 03/14/19 17:15 Chlorpromazine HCl (Thorazine) 150 mg STAT STAT IM 03/18/19 10:14 03/18/19 10:17 DC 03/18/19 10:34 Diphenhydramine HCl (Benadryl) 50 mg STAT STAT IM 03/16/19 01:17 03/16/19 01:20 DC 03/16/19 01:39 Diphenhydramine HCl (Benadryl) 50 mg STAT STAT IM 03/17/19 08:40 03/17/19 08:43 DC 03/17/19 08:59 Diphenhydramine HCl (Benadryl) 50 mg STAT STAT IM 03/18/19 00:12 03/18/19 00:15 DC 03/18/19 00:31 Diphenhydramine HCl (Benadryl) 100 mg STAT STAT IM 03/19/19 06:39 03/19/19 06:42 DC 03/19/19 06:56 Haloperidol (Haldol) 10 mg STAT STAT IM 03/16/19 01:17 03/16/19 01:20 DC 03/16/19 01:39 Haloperidol (Haldol) 10 mg STAT STAT IM 03/17/19 08:40 03/17/19 08:43 DC 03/17/19 08:59 Haloperidol (Haldol) 10 mg STAT STAT IM 03/18/19 00:12 03/18/19 00:14 DC 03/18/19 00:30 Haloperidol (Haldol) 15 mg STAT STAT IM 03/19/19 06:39 03/19/19 06:42 DC 03/19/19 06:57 Home Med (Med Rec Complete!) ASDIRECTED XX 03/14/19 14:30 03/14/19 14:33 DC Lorazepam (Ativan) 1 mg STAT STAT IM 03/18/19 10:14 03/18/19 10:17 DC 03/18/19 10:33 Lorazepam (Ativan) 2 mg STAT STAT IM 03/16/19 01:17 03/16/19 01:20 DC 03/16/19 01:39 Lorazepam (Ativan) 2 mg STAT STAT IM 03/17/19 08:40 03/17/19 08:43 DC 03/17/19 08:59 Lorazepam (Ativan) 2 mg STAT STAT IM 03/18/19 00:12 03/18/19 00:14 DC 03/18/19 00:31 Lorazepam (Ativan) 2 mg STAT STAT IM 03/19/19 06:39 03/19/19 06:42 DC 03/19/19 06:57 Magnesium Hydroxide (Milk Of Magnesia) 30 ml DAILYPRN PRN PO CONSTIPATION 03/14/19 17:15 03/17/19 02:02 Olanzapine (ZyPREXA ZYDIS) 5 mg Q4HP PRN PO ANXIETY/AGITATION 03/16/19 18:00 03/21/19 06:47 Olanzapine (ZyPREXA ZYDIS) 10 mg QHS PO 03/16/19 21:00 03/19/19 21:09 Paliperidone (Invega) 3 mg QHS PO 03/15/19 21:00 03/16/19 17:55 DC 03/15/19 21:28 Paliperidone (Invega) 3 mg QHS PO 03/19/19 21:00 03/20/19 02:45 Trazodone HCl (Desyrel) 50 mg QHSP PRN PO INSOMNIA 03/14/19 17:15 03/20/19 01:55 Allergies Coded Allergies: No Known Allergies (Unverified , 12/21/18) EVELIN PEREZ DO Mar 21, 2019 10:16
[2019-03-21] MEDS ORDERED: PROPRANOLOL 10 MG TAB PO ONE (15:00)
--- NOTE | 2019-03-21 18:34 | MHPR ---
General Date: Mar 16, 2019 Time: 08:30 Post-Restraint Evaluation THE OUTCOME OF THE RESTRAINT: it was positive, she was able to calm down EFFECTIVENESS OF THE RESTRAINT: Mechanical and/or chemical: Both, it was positive. ANY EVIDENCE THAT THE PATIENT WAS AFFECTED EMOTIONALLY: Not in a negative way, she was able to calm down, she was still paranoid but she was not agitated or aggressive as she was before the restraints. ANY NEED FOR COUNSELING/ASSISTANCE: Re direction because she's still psychotic, support, PRN medications CHANGES IN TREATMENT PLAN: will need to be closely monitored (she is already). will continue to be on her PRN's, maybe consider adding or increasing her medi cation. RECOMMENDATIONS FOR FUTURE INCIDENTS: Provide PRN medications, attempt de escalation. (this was done), provide support and re directions. Patient is psychotic, these episodes will cease when her psychosis gets better.. THIS IS A LATE ENTRY. THE PATIENT WAS SEEN ON 03/16/19 NEVIN CRANE MD Mar 21, 2019 18:34
[2019-03-21] MEDS: PALIPERIDONE 3 MG ER TAB (INVEGA) PO SCH (21:00)
[2019-03-21] MEDS: OLANZapine ORAL DISINTEGRATING TAB 5MG PO SCH (21:00)
[2019-03-21] MEDS ORDERED: LORazepam 2 MG TAB PO ONE (22:45)
--- NOTE | 2019-03-22 08:19 | MHIPNPDOC ---
[facility] Progress Note Progress Note Inpatient Progress Note Aron Diaz MRN: N/A Date of : N/A Date of Service: 03/22/2019 History of Present Illness The patient, a 19-year-old woman, presented to [facility] in a psychotic state having been wandering on our parking lot where she was noted to be fairly distorted and unable to care for herself. She was brought in and admitted. When I attempted to meet her on the unit, she was still fairly confused and altered. She was unable to engage in any meaningful interview stating that she felt that she "need to go to the park and was writing various nonsensical statements on paper." Interval History The patient is attempting to be met with, however, she was still fairly altered this morning, requiring sedation and was unable to answer my questions for the majority of the day due to sedation. She walked around the unit and at times staff reported that she would talk about going to court, however, when the [facility] legal deputy attorney general appeared, she declined to go to court and when prompted by staff, she was amenable to taking her meds this evening. She still gets coated nearly regularly due to bizarre behavior where she'll throw her clothes off, become aggressive and be completely uncontrollable putting herself into danger. Review Of Systems Unable due to sedation. Psychotherapy None on this visit. Vital Signs Reviewed. Mental Status Examination General: Poor hygiene Speech: Sparse due to sedation Thought processes: Tangential. MSK: No tremors Thought content: Bizarre. Abstract reasoning, and computation: Impaired Description of associations: Impaired Description of abnormal or psychotic thoughts: Denies suicidal or homicidal ideation. Denies auditory or visual hallucinations. However, appears to be responding to internal stimuli Judgment: Poor Insight: Poor Orientation: Sedated due to medication Cognition: Grossly intact Recent and remote memory: Mildly impaired Attention span and concentration: Mildly impaired due to her thought process Fund of knowledge: Poor Mood: "Sedated" Affect: Sedation Diagnoses Schizoaffective disorder. Cannabis use disorder, unspecified. Assessment and Plan Schizoaffective disorder: Continue Invega 3 mg nightly, augment with 10 mg of Zyprexa in order to gain more control of her psychosis Cannabis use disorder, unspecified: continue to monitor possible contribution. Will perform Lyme titers due to reported history of exposure to ticks. Disposition The patient will need further inpatient admission due to her severe psychosis and inability to care for self. Time Spent Ten minutes. Vital Signs Vital Signs Date Time Temp Pulse Resp B/P (MAP) Pulse Ox O2 Delivery O2 Flow Rate FiO2 03/21/19 16:14 98.8 103 16 125/78 (94) 03/21/19 10:52 100 Laboratory Data 24H Labs Laboratory Tests 2 03/21/19 12:47: Current Medications Current Medications Medications (Trade) Dose Ordered Sig/Jordy Route PRN Reason Start Time Stop Time Status Last Admin Dose Admin Acetaminophen (Tylenol Tab) 650 mg Q6HP PRN PO HEADACHE or DISCOMFORT 03/14/19 17:15 03/18/19 11:04 Al Hydrox/Mg Hydrox/Simethicone (Mylanta) 30 ml Q4HP PRN PO HEARTBURN/INDIGESTION 03/14/19 17:15 Chlorpromazine HCl (Thorazine) 150 mg STAT STAT IM 03/18/19 10:14 03/18/19 10:17 DC 03/18/19 10:34 Diphenhydramine HCl (Benadryl) 50 mg STAT STAT IM 03/16/19 01:17 03/16/19 01:20 DC 03/16/19 01:39 Diphenhydramine HCl (Benadryl) 50 mg STAT STAT IM 03/17/19 08:40 03/17/19 08:43 DC 03/17/19 08:59 Diphenhydramine HCl (Benadryl) 50 mg STAT STAT IM 03/18/19 00:12 03/18/19 00:15 DC 03/18/19 00:31 Diphenhydramine HCl (Benadryl) 100 mg STAT STAT IM 03/19/19 06:39 03/19/19 06:42 DC 03/19/19 06:56 Haloperidol (Haldol) 10 mg STAT STAT IM 03/16/19 01:17 03/16/19 01:20 DC 03/16/19 01:39 Haloperidol (Haldol) 10 mg STAT STAT IM 03/17/19 08:40 03/17/19 08:43 DC 03/17/19 08:59 Haloperidol (Haldol) 10 mg STAT STAT IM 03/18/19 00:12 03/18/19 00:14 DC 03/18/19 00:30 Haloperidol (Haldol) 15 mg STAT STAT IM 03/19/19 06:39 03/19/19 06:42 DC 03/19/19 06:57 Home Med (Med Rec Complete!) ASDIRECTED XX 03/14/19 14:30 03/14/19 14:33 DC Lorazepam (Ativan) 1 mg STAT STAT IM 03/18/19 10:14 03/18/19 10:17 DC 03/18/19 10:33 Lorazepam (Ativan) 2 mg STAT STAT IM 03/16/19 01:17 03/16/19 01:20 DC 03/16/19 01:39 Lorazepam (Ativan) 2 mg STAT STAT IM 03/17/19 08:40 03/17/19 08:43 DC 03/17/19 08:59 Lorazepam (Ativan) 2 mg STAT STAT IM 03/18/19 00:12 03/18/19 00:14 DC 03/18/19 00:31 Lorazepam (Ativan) 2 mg STAT STAT IM 03/19/19 06:39 03/19/19 06:42 DC 03/19/19 06:57 Magnesium Hydroxide (Milk Of Magnesia) 30 ml DAILYPRN PRN PO CONSTIPATION 03/14/19 17:15 03/17/19 02:02 Olanzapine (ZyPREXA ZYDIS) 5 mg Q4HP PRN PO ANXIETY/AGITATION 03/16/19 18:00 03/21/19 06:47 Olanzapine (ZyPREXA ZYDIS) 10 mg QHS PO 03/16/19 21:00 03/19/19 21:09 Paliperidone (Invega) 3 mg QHS PO 03/15/19 21:00 03/16/19 17:55 DC 03/15/19 21:28 Paliperidone (Invega) 3 mg QHS PO 03/19/19 21:00 03/20/19 02:45 Trazodone HCl (Desyrel) 50 mg QHSP PRN PO INSOMNIA 03/14/19 17:15 03/20/19 01:55 Allergies Coded Allergies: No Known Allergies (Unverified , 12/21/18) EVELIN PEREZ DO Mar 22, 2019 08:19
[2019-03-22] MEDS: ACETAMINOPHEN TAB 650MG DOSE (2X325MG) PO PRN (08:50)
[2019-03-22] MEDS ORDERED: OLANZapine INTRAMUSCULAR 10 MG VIAL (S0166) IM STA (10:22)
--- NOTE | 2019-03-22 11:06 | MHIR ---
General Date: Mar 22, 2019 Time Initiated: 10:47 Restraint Documentation Order/Evaluation FACE TO FACE:Yes PHYSICIAN ASSESSMENT:aggressive, threatening REASON FOR RESTRAINT: Patient poses imminent danger of harming self or others: yelling, lashing out at staff DE-ESCALATION INTERVENTIONS ATTEMPTED BEFORE USE OF RESTRAINTS: verbal, redirection, PO medications [MECHANICAL AND/OR CHEMICAL] RESTRAINTS USED: Olanzapine 10mg IM, more than 24hr since Ativan dose LENGTH OF TIME ORDERED IN RESTRAINTS: 240 minutes. WHEN TO DISCONTINUE RESTRAINTS: when able to be non violent Post evaluation of restraint due in 24 hours. EVELIN PEREZ DO Mar 22, 2019 11:05
[2019-03-22 11:15] VITALS: BP 118/78
[2019-03-22 18:00] VITALS: BP 131/95
[2019-03-22] MEDS: OLANZapine ORAL DISINTEGRATING TAB 5MG PO SCH (22:04)
[2019-03-22] MEDS: PALIPERIDONE 3 MG ER TAB (INVEGA) PO SCH (22:04)
[2019-03-23 00:06] LABS: Lyme Disease IgG/IgM Antibodie <0.91 ISR (0.00-0.90); Lyme Disease IgM Ab Quantitati <0.80 index (0.00-0.79)
[2019-03-23] MEDS: traZODone 50 MG TAB PO PRN (01:38)
[2019-03-23] MEDS: OLANZapine ORAL DISINTEGRATING TAB 5MG PO PRN ×2 (03:10→09:20)
--- NOTE | 2019-03-23 09:41 | MHIPNPDOC ---
[facility] Progress Note Progress Note Inpatient Progress Note Aron Diaz MRN: N/A Date of : N/A Date of Service: 03/23/2019 History of Present Illness The patient, a 19-year-old woman, presented to [facility] in a psychotic state having been wandering on our parking lot where she was noted to be fairly distorted and unable to care for herself. She was brought in and admitted. When I attempted to meet her on the unit, she was still fairly confused and altered. She was unable to engage in any meaningful interview stating that she felt that she "need to go to the park and was writing various nonsensical statements on paper." Interval History The patient is met with today. She does request to meet with me and does remember my name today. She is somewhat less bizarre. She has taken her medication last night and states that she does not wish to go to court and court was canceled for today. The patient was met within her room with the sitter present. She still maintains that "there is no problem," but reports she will take the medication. She does not want to have it forced on her, however, she still has been coded today again needing intramuscular injection of Haldol as she became increasingly more agitated. The patient has become less bizarre over today as she has been on a combination of Invega and olanzapine in night, which appears to be slowing down her tangential thought process. Her Lyme disease panel came back negative and it appears that the patient's psychosis slowly resolving further supporting the diagnosis of schizophrenia versus schizoaffective disorder. The patient reports no significant side effects, however, she interacts only superficially with this provider. She does cry inappropriately at times and had made unusual and contradictory statements, stating that she was starving herself, but that she was also hungry and then when redirected, went to get food. Review Of Systems General: Denies fever or appetite changes Cardiovascular: Denies Chest pain or palpitations GI: Denies Nausea, vomiting, or bowel changes Respiratory: Denies shortness of breath or cough Neuro: Denies dizziness, tremors Derm: Denies any rashes or pruritus : Denies any dysuria or urinary dysfunction MSK: Denies any muscle tightness or stiffness HEENT: Denies any vision changes or headaches Heme/Lymph: Denies any bruising or bleeding Endo: Denies any cold/heat intolerance or water intake changes Psychotherapy None on this visit. Vital Signs Reviewed. Mental Status Examination General: Poor hygiene Speech: Sparse, only answers to questions Thought processes: Less tangential MSK: No tremors Thought content: Bizarre and contradictory Abstract reasoning, and computation: Impaired Description of associations: Impaired Description of abnormal or psychotic thoughts: Denies suicidal or homicidal ideation. Denies auditory or visual hallucinations. However, appears to be responding to internal stimuli Judgment: Poor Insight: Poor Orientation: Alert and oriented to surroundings Cognition: Grossly intact Recent and remote memory: Continue to be mildly impaired Attention span and concentration: Mildly impaired Fund of knowledge: Poor Mood: "Okay" Affect: Bizarre flat affect with inappropriate crying, unprovoked Diagnoses Schizoaffective disorder. Cannabis use disorder, unspecified. Assessment and Plan Schizoaffective disorder: Continue Invega 3 mg nightly, augment with 10 mg of Zyprexa in order to gain more control of her psychosis Cannabis use disorder, unspecified: continue to monitor possible contribution. Disposition The patient will need further inpatient admission due to her severe psychosis and inability to care for self. Time Spent 15 minutes [id number] Tuesday Vital Signs Vital Signs Date Time Temp Pulse Resp B/P (MAP) Pulse Ox O2 Delivery O2 Flow Rate FiO2 03/22/19 18:00 99.2 108 20 131/95 (107) 03/22/19 11:15 100 Current Medications Current Medications Medications (Trade) Dose Ordered Sig/Jordy Route PRN Reason Start Time Stop Time Status Last Admin Dose Admin Acetaminophen (Tylenol Tab) 650 mg Q6HP PRN PO HEADACHE or DISCOMFORT 03/14/19 17:15 03/22/19 08:50 Al Hydrox/Mg Hydrox/Simethicone (Mylanta) 30 ml Q4HP PRN PO HEARTBURN/INDIGESTION 03/14/19 17:15 Chlorpromazine HCl (Thorazine) 150 mg STAT STAT IM 03/18/19 10:14 03/18/19 10:17 DC 03/18/19 10:34 Diphenhydramine HCl (Benadryl) 50 mg STAT STAT IM 03/16/19 01:17 03/16/19 01:20 DC 03/16/19 01:39 Diphenhydramine HCl (Benadryl) 50 mg STAT STAT IM 03/17/19 08:40 03/17/19 08:43 DC 03/17/19 08:59 Diphenhydramine HCl (Benadryl) 50 mg STAT STAT IM 03/18/19 00:12 03/18/19 00:15 DC 03/18/19 00:31 Diphenhydramine HCl (Benadryl) 100 mg STAT STAT IM 03/19/19 06:39 03/19/19 06:42 DC 03/19/19 06:56 Haloperidol (Haldol) 10 mg STAT STAT IM 03/16/19 01:17 03/16/19 01:20 DC 03/16/19 01:39 Haloperidol (Haldol) 10 mg STAT STAT IM 03/17/19 08:40 03/17/19 08:43 DC 03/17/19 08:59 Haloperidol (Haldol) 10 mg STAT STAT IM 03/18/19 00:12 03/18/19 00:14 DC 03/18/19 00:30 Haloperidol (Haldol) 15 mg STAT STAT IM 03/19/19 06:39 03/19/19 06:42 DC 03/19/19 06:57 Home Med (Med Rec Complete!) ASDIRECTED XX 03/14/19 14:30 03/14/19 14:33 DC Lorazepam (Ativan) 1 mg STAT STAT IM 03/18/19 10:14 03/18/19 10:17 DC 03/18/19 10:33 Lorazepam (Ativan) 2 mg STAT STAT IM 03/16/19 01:17 03/16/19 01:20 DC 03/16/19 01:39 Lorazepam (Ativan) 2 mg STAT STAT IM 03/17/19 08:40 03/17/19 08:43 DC 03/17/19 08:59 Lorazepam (Ativan) 2 mg STAT STAT IM 03/18/19 00:12 03/18/19 00:14 DC 03/18/19 00:31 Lorazepam (Ativan) 2 mg STAT STAT IM 03/19/19 06:39 03/19/19 06:42 DC 03/19/19 06:57 Magnesium Hydroxide (Milk Of Magnesia) 30 ml DAILYPRN PRN PO CONSTIPATION 03/14/19 17:15 03/17/19 02:02 Olanzapine (ZyPREXA ZYDIS) 5 mg Q4HP PRN PO ANXIETY/AGITATION 03/16/19 18:00 03/23/19 09:20 Olanzapine (ZyPREXA ZYDIS) 10 mg QHS PO 03/16/19 21:00 03/22/19 22:04 Olanzapine (Zyprexa Intramuscular) 10 mg STAT STAT IM 03/22/19 10:22 03/22/19 10:26 DC 03/22/19 10:41 Paliperidone (Invega) 3 mg QHS PO 03/15/19 21:00 03/16/19 17:55 DC 03/15/19 21:28 Paliperidone (Invega) 3 mg QHS PO 03/19/19 21:00 03/22/19 22:04 Trazodone HCl (Desyrel) 50 mg QHSP PRN PO INSOMNIA 03/14/19 17:15 03/23/19 01:38 Allergies Coded Allergies: No Known Allergies (Unverified , 12/21/18) EVELIN PEREZ DO Mar 23, 2019 09:41
[2019-03-23] MEDS ORDERED: HALOPERIDOL 10 MG TAB PO ONE (12:45)
[2019-03-23] MEDS ORDERED: HALOPERIDOL 5 MG/ML VIAL (J1630) IM ONE (12:45)
[2019-03-23 15:43] VITALS: BP 138/53
[2019-03-23] MEDS: PALIPERIDONE 3 MG ER TAB (INVEGA) PO SCH (20:27)
[2019-03-23] MEDS: OLANZapine ORAL DISINTEGRATING TAB 5MG PO SCH (20:27)
[2019-03-24] MEDS: OLANZapine ORAL DISINTEGRATING TAB 5MG PO PRN (09:11)
[2019-03-24 16:06] VITALS: BP 135/84
--- NOTE | 2019-03-24 20:04 | MHIPNPDOC ---
[facility] Progress Note Progress Note DATE OF SERVICE: 03/24/19 HISTORY: As per ED report upon admission: "pt states, "I'm sad because I miss my son." Pt is very guarded throughout interview, but reports feeling suicidal with no plan for an unknown amt of time.States her son(age 1) resides with his Father and reports she's been unable to see him which is triggering suicidal thoughts. Admits she has not been taking medication or attending outpt tx for unknown amt of time. Again, interview was very limited therefore PSA contacted pt's mother(Hannah Monroy, )for additional details. Spoke to pt's Mother who reports pt was diagnosed with Schizoaffective Disorder Jul, 2018. Admits she's been doing fairly well until about one month ago where she's been "hanging out with some bad people." Mother suspects she's been abusing drugs again which is triggering paranoia and delusions. Apparently, pt is trying to predict her future and believes the devil is coming after her if "her day does not go as predicted." Mother adds pt missed last appt with K[facility], currently non-compliant with medication. Today, pt appeared confused after pt walked to Mother's work from her residence and did not know her name. Additionally, pt has been responding to internal stimuli, but pt denies AH/VH to" VITAL SIGNS: See below. NEW TEST RESULTS: See below CURRENT MEDICATIONS: See below. MENTAL STATUS EXAMINATION: Patient is a 19 -year old female, who is alert, cooperative, dressed in hospital clothes, laying in bed. Speech: Is normal rate, tone and volume. spontaneous and fluent.. Language skills are fair. Thought processes including: disorganized, she can't remember why she has been admitted, she is still psychotic. Thought content: paranoid delusions, although they are less intense, she still is responding to internal stimuli although she tries to minimize her symptoms. Description of associations: loose. Description of abnormal or psychotic thoughts: paranoid delusions, ideas of reference, she denies t/A/V/ hallucinations, but she's responding to internal stimuli Judgment: Poor Insight: Poor Orientation: to place and person but not to date and time Recent and remote memory: Limited at this time, she's disorganized Attention span and concentration: Poor Mood: Sad/depressed . Affect: mood congruent, constricted. DIAGNOSES: 1. Schizoaffective Disorder ASSESSMENT: the patient has remained in behavioral control the whole day. she wanted to see me because she was curious as of why she was admitted back in July 2018, when she was under my care. I told her just a few facts and after that, she was able to tell me the rest of the story. She tells me that she was told that her HCG was 8 and she is concerned about that, she wants me to tell her if this is true or not. she's still delusional, disorganized. she has not been aggressive/violent today. She seems depressed and reports feeling depressed because she is away fom her son. MANAGEMENT PLAN: As per Dr. Shah TIME SPENT: 15 minutes. Vital Signs Vital Signs Date Time Temp Pulse Resp B/P (MAP) Pulse Ox O2 Delivery O2 Flow Rate FiO2 03/24/19 16:06 98.1 100 16 135/84 (101) 03/22/19 11:15 100 Current Medications Current Medications Medications (Trade) Dose Ordered Sig/Jordy Route PRN Reason Start Time Stop Time Status Last Admin Dose Admin Acetaminophen (Tylenol Tab) 650 mg Q6HP PRN PO HEADACHE or DISCOMFORT 03/14/19 17:15 03/22/19 08:50 Al Hydrox/Mg Hydrox/Simethicone (Mylanta) 30 ml Q4HP PRN PO HEARTBURN/INDIGESTION 03/14/19 17:15 Chlorpromazine HCl (Thorazine) 150 mg STAT STAT IM 03/18/19 10:14 03/18/19 10:17 DC 03/18/19 10:34 Diphenhydramine HCl (Benadryl) 50 mg STAT STAT IM 03/16/19 01:17 03/16/19 01:20 DC 03/16/19 01:39 Diphenhydramine HCl (Benadryl) 50 mg STAT STAT IM 03/17/19 08:40 03/17/19 08:43 DC 03/17/19 08:59 Diphenhydramine HCl (Benadryl) 50 mg STAT STAT IM 03/18/19 00:12 03/18/19 00:15 DC 03/18/19 00:31 Diphenhydramine HCl (Benadryl) 100 mg STAT STAT IM 03/19/19 06:39 03/19/19 06:42 DC 03/19/19 06:56 Haloperidol (Haldol) 10 mg STAT STAT IM 03/16/19 01:17 03/16/19 01:20 DC 03/16/19 01:39 Haloperidol (Haldol) 10 mg STAT STAT IM 03/17/19 08:40 03/17/19 08:43 DC 03/17/19 08:59 Haloperidol (Haldol) 10 mg STAT STAT IM 03/18/19 00:12 03/18/19 00:14 DC 03/18/19 00:30 Haloperidol (Haldol) 15 mg STAT STAT IM 03/19/19 06:39 03/19/19 06:42 DC 03/19/19 06:57 Home Med (Med Rec Complete!) ASDIRECTED XX 03/14/19 14:30 03/14/19 14:33 DC Lorazepam (Ativan) 1 mg STAT STAT IM 03/18/19 10:14 03/18/19 10:17 DC 03/18/19 10:33 Lorazepam (Ativan) 2 mg STAT STAT IM 03/16/19 01:17 03/16/19 01:20 DC 03/16/19 01:39 Lorazepam (Ativan) 2 mg STAT STAT IM 03/17/19 08:40 03/17/19 08:43 DC 03/17/19 08:59 Lorazepam (Ativan) 2 mg STAT STAT IM 03/18/19 00:12 03/18/19 00:14 DC 03/18/19 00:31 Lorazepam (Ativan) 2 mg STAT STAT IM 03/19/19 06:39 03/19/19 06:42 DC 03/19/19 06:57 Magnesium Hydroxide (Milk Of Magnesia) 30 ml DAILYPRN PRN PO CONSTIPATION 03/14/19 17:15 03/17/19 02:02 Olanzapine (ZyPREXA ZYDIS) 5 mg Q4HP PRN PO ANXIETY/AGITATION 03/16/19 18:00 03/24/19 09:11 Olanzapine (ZyPREXA ZYDIS) 10 mg QHS PO 03/16/19 21:00 03/23/19 20:27 Olanzapine (Zyprexa Intramuscular) 10 mg STAT STAT IM 03/22/19 10:22 03/22/19 10:26 DC 03/22/19 10:41 Paliperidone (Invega) 3 mg QHS PO 03/15/19 21:00 03/16/19 17:55 DC 03/15/19 21:28 Paliperidone (Invega) 3 mg QHS PO 03/19/19 21:00 03/23/19 17:54 DC 03/22/19 22:04 Paliperidone (Invega) 6 mg QHS PO 03/23/19 21:00 03/23/19 20:27 Trazodone HCl (Desyrel) 50 mg QHSP PRN PO INSOMNIA 03/14/19 17:15 03/23/19 12:38 DC 03/23/19 01:38 Allergies Coded Allergies: No Known Allergies (Unverified , 12/21/18) NEVIN CRANE MD Mar 24, 2019 20:04
[2019-03-24] MEDS: PALIPERIDONE 3 MG ER TAB (INVEGA) PO SCH (20:40)
[2019-03-24] MEDS: OLANZapine ORAL DISINTEGRATING TAB 5MG PO SCH (20:40)
[2019-03-25] MEDS: OLANZapine ORAL DISINTEGRATING TAB 5MG PO PRN (08:08)
[2019-03-25 16:06] VITALS: BP 124/64
[2019-03-25] MEDS: PALIPERIDONE 3 MG ER TAB (INVEGA) PO SCH (20:16)
[2019-03-25] MEDS: OLANZapine ORAL DISINTEGRATING TAB 5MG PO SCH (20:16)
[2019-03-26] MEDS: OLANZapine ORAL DISINTEGRATING TAB 5MG PO PRN ×2 (01:13→17:55)
--- NOTE | 2019-03-26 09:29 | MHIPNPDOC ---
[facility] Progress Note Progress Note Inpatient Progress Note Aron Diaz MRN: N/A Date of : N/A Date of Service: 03/26/2019 History of Present Illness The patient, a 19-year-old woman, presented to [facility] in a psychotic state having been wandering on our parking lot where she was noted to be fairly distorted and unable to care for herself. She was brought in and admitted. When I attempted to meet her on the unit, she was still fairly confused and altered. She was unable to engage in any meaningful interview stating that she felt that she "need to go to the park and was writing various nonsensical statements on paper." Interval History The patient was met with in the hallway. She still remembered this provider. She was still somewhat bizarre, but her grooming has improved as she was freshly groomed. She is still on sitter, but has had no behavioral problems overnight or during the weekend. She initially had asked about her diagnosis earlier in the day, but appeared fixated on having an EKG as someone had "told her something was wrong with her heart." The patient still remain bizarre switching to various topics such as being "cursed" and "wanting to go", but does not appear to stay on this line of questioning very long. She does go to some of the creative arts groups and is increasing her activity and becoming more social. She has been taking the medication fairly consistently. Review Of Systems General: Denies fever or appetite changes Cardiovascular: Denies Chest pain or palpitations GI: Denies Nausea, vomiting, or bowel changes Respiratory: Denies shortness of breath or cough Neuro: Denies dizziness, tremors Derm: Denies any rashes or pruritus : Denies any dysuria or urinary dysfunction MSK: Denies any muscle tightness or stiffness HEENT: Denies any vision changes or headaches Heme/Lymph: Denies any bruising or bleeding Endo: Denies any cold/heat intolerance or water intake changes Psychotherapy None on this visit. Vital Signs Reviewed. Mental Status Examination General: improved hygiene Speech: Improved Thought processes: Less tangential MSK: No tremors Thought content: Bizarre and contradictory Abstract reasoning, and computation: Impaired Description of associations: Impaired Description of abnormal or psychotic thoughts: Denies suicidal or homicidal ideation. Denies auditory or visual hallucinations. Does not appear to be responding to internal stimuli Judgment: Mildly improved Insight: Poor Orientation: Alert and oriented to surroundings Cognition: Grossly intact Recent and remote memory: Continue to be mildly impaired Attention span and concentration: Mildly impaired Fund of knowledge: Poor Mood: "Okay" Affect: Less bizarre Diagnoses Schizoaffective disorder. Cannabis use disorder, unspecified. Assessment and Plan Schizoaffective disorder: Increase Invega to 9 mg nightly with decreasing Zyprexa to 5 mg as a cross titration. EKG will be done as she has gone a significant amount of Thorazine and does have mild tachycardia. Cannabis use disorder, unspecified: continue to monitor possible contribution. Disposition The patient will need further inpatient admission due to her severe psychosis and inability to care for self. Time Spent 15 minutes face to face. Tuesday Vital Signs Vital Signs Date Time Temp Pulse Resp B/P (MAP) Pulse Ox O2 Delivery O2 Flow Rate FiO2 03/25/19 16:06 98.2 89 16 124/64 (84) 03/22/19 11:15 100 Current Medications Current Medications Medications (Trade) Dose Ordered Sig/Jordy Route PRN Reason Start Time Stop Time Status Last Admin Dose Admin Acetaminophen (Tylenol Tab) 650 mg Q6HP PRN PO HEADACHE or DISCOMFORT 03/14/19 17:15 03/22/19 08:50 Al Hydrox/Mg Hydrox/Simethicone (Mylanta) 30 ml Q4HP PRN PO HEARTBURN/INDIGESTION 03/14/19 17:15 Chlorpromazine HCl (Thorazine) 150 mg STAT STAT IM 03/18/19 10:14 03/18/19 10:17 DC 03/18/19 10:34 Diphenhydramine HCl (Benadryl) 50 mg STAT STAT IM 03/16/19 01:17 03/16/19 01:20 DC 03/16/19 01:39 Diphenhydramine HCl (Benadryl) 50 mg STAT STAT IM 03/17/19 08:40 03/17/19 08:43 DC 03/17/19 08:59 Diphenhydramine HCl (Benadryl) 50 mg STAT STAT IM 03/18/19 00:12 03/18/19 00:15 DC 03/18/19 00:31 Diphenhydramine HCl (Benadryl) 100 mg STAT STAT IM 03/19/19 06:39 03/19/19 06:42 DC 03/19/19 06:56 Haloperidol (Haldol) 10 mg STAT STAT IM 03/16/19 01:17 03/16/19 01:20 DC 03/16/19 01:39 Haloperidol (Haldol) 10 mg STAT STAT IM 03/17/19 08:40 03/17/19 08:43 DC 03/17/19 08:59 Haloperidol (Haldol) 10 mg STAT STAT IM 03/18/19 00:12 03/18/19 00:14 DC 03/18/19 00:30 Haloperidol (Haldol) 15 mg STAT STAT IM 03/19/19 06:39 03/19/19 06:42 DC 03/19/19 06:57 Home Med (Med Rec Complete!) ASDIRECTED XX 03/14/19 14:30 03/14/19 14:33 DC Lorazepam (Ativan) 1 mg STAT STAT IM 03/18/19 10:14 03/18/19 10:17 DC 03/18/19 10:33 Lorazepam (Ativan) 2 mg STAT STAT IM 03/16/19 01:17 03/16/19 01:20 DC 03/16/19 01:39 Lorazepam (Ativan) 2 mg STAT STAT IM 03/17/19 08:40 03/17/19 08:43 DC 03/17/19 08:59 Lorazepam (Ativan) 2 mg STAT STAT IM 03/18/19 00:12 03/18/19 00:14 DC 03/18/19 00:31 Lorazepam (Ativan) 2 mg STAT STAT IM 03/19/19 06:39 03/19/19 06:42 DC 03/19/19 06:57 Magnesium Hydroxide (Milk Of Magnesia) 30 ml DAILYPRN PRN PO CONSTIPATION 03/14/19 17:15 03/17/19 02:02 Olanzapine (ZyPREXA ZYDIS) 5 mg Q4HP PRN PO ANXIETY/AGITATION 03/16/19 18:00 03/26/19 01:13 Olanzapine (ZyPREXA ZYDIS) 10 mg QHS PO 03/16/19 21:00 03/25/19 20:16 Olanzapine (Zyprexa Intramuscular) 10 mg STAT STAT IM 03/22/19 10:22 03/22/19 10:26 DC 03/22/19 10:41 Paliperidone (Invega) 3 mg QHS PO 03/15/19 21:00 03/16/19 17:55 DC 03/15/19 21:28 Paliperidone (Invega) 3 mg QHS PO 03/19/19 21:00 03/23/19 17:54 DC 03/22/19 22:04 Paliperidone (Invega) 6 mg QHS PO 03/23/19 21:00 03/25/19 20:16 Trazodone HCl (Desyrel) 50 mg QHSP PRN PO INSOMNIA 03/14/19 17:15 03/23/19 12:38 DC 03/23/19 01:38 Allergies Coded Allergies: No Known Allergies (Unverified , 12/21/18) EVELIN PEREZ DO Mar 26, 2019 09:29
[2019-03-26] MEDS: ACETAMINOPHEN TAB 650MG DOSE (2X325MG) PO PRN (12:17)
[2019-03-26 15:45] VITALS: BP 136/87
[2019-03-26] MEDS: PALIPERIDONE 3 MG ER TAB (INVEGA) PO SCH (22:03)
[2019-03-26] MEDS: OLANZapine ORAL DISINTEGRATING TAB 5MG PO SCH (22:03)
[2019-03-27] MEDS: OLANZapine ORAL DISINTEGRATING TAB 5MG PO PRN (00:37)
[2019-03-27 06:36] VITALS: BP 137/70
--- NOTE | 2019-03-27 12:11 | MHIPNPDOC ---
[facility] Progress Note Progress Note Inpatient Progress Note Aron Diaz MRN: N/A Date of : N/A Date of Service: 03/27/2019 History of Present Illness The patient, a 19-year-old woman, presented to [facility] in a psychotic state having been wandering on our parking lot where she was noted to be fairly distorted and unable to care for herself. She was brought in and admitted. When I attempted to meet her on the unit, she was still fairly confused and altered. She was unable to engage in any meaningful interview stating that she felt that she "need to go to the park and was writing various nonsensical statements on paper." Interval History The patient is met with today. She does request to meet with me, does remember. She does feel somewhat upset, however, she is still somewhat bizarre. She's gotten her regular clothes and has been getting dressed and has much better hygiene. She reports that she feels "fine" and that she "doesn't need medication." However, she still has difficulty focusing on one conversation. She has had notably some more intrusive behavior per staff, however, no aggression and she has been off the one-to-one. She does talk about being sad that she can't see her son due to living restrictions. However, she still has difficulty focusing on one subject, feeling that she is "cursed." She has no significant cling associations in her speech; jumping from one topic to the next. She has been attending groups and is notably more amenable to interviews. Review Of Systems General: Denies fever or appetite changes Cardiovascular: Denies Chest pain or palpitations GI: Denies Nausea, vomiting, or bowel changes Respiratory: Denies shortness of breath or cough Neuro: Denies dizziness, tremors Derm: Denies any rashes or pruritus : Denies any dysuria or urinary dysfunction MSK: Denies any muscle tightness or stiffness HEENT: Denies any vision changes or headaches Heme/Lymph: Denies any bruising or bleeding Endo: Denies any cold/heat intolerance or water intake changes Psychotherapy None on this visit. Vital Signs Reviewed. Mental Status Examination General: improved hygiene Speech: Improved Thought processes: Less tangential MSK: No tremors Thought content: Bizarre and contradictory Abstract reasoning, and computation: Impaired Description of associations: Impaired Description of abnormal or psychotic thoughts: Denies suicidal or homicidal ideation. Denies auditory or visual hallucinations. Does not appear to be responding to internal stimuli Judgment: Mildly improved Insight: Poor Orientation: Alert and oriented to surroundings Cognition: Grossly intact Recent and remote memory: Continue to be mildly impaired Attention span and concentration: Mildly impaired secondary to thought process. Fund of knowledge: Poor Mood: "Okay" Affect: Less flat Diagnoses Schizoaffective disorder. Cannabis use disorder, unspecified. Assessment and Plan Schizoaffective disorder: Continue Invega 9 mg nightly, Zyprexa 5 with plan to taper off of Zyprexa fully before discontinuing. EKG within normal limits, no significant findings. Cannabis use disorder, unspecified: continue to monitor possible contribution. Disposition The patient will need further inpatient admission due to her severe psychosis and inability to care for self. Time Spent 15 minutes [id number]. Tuesday Vital Signs Vital Signs Date Time Temp Pulse Resp B/P (MAP) Pulse Ox O2 Delivery O2 Flow Rate FiO2 03/27/19 06:36 97.8 105 16 137/70 (92) 03/22/19 11:15 100 Current Medications Current Medications Medications (Trade) Dose Ordered Sig/Jordy Route PRN Reason Start Time Stop Time Status Last Admin Dose Admin Acetaminophen (Tylenol Tab) 650 mg Q6HP PRN PO HEADACHE or DISCOMFORT 03/14/19 17:15 03/26/19 12:17 Al Hydrox/Mg Hydrox/Simethicone (Mylanta) 30 ml Q4HP PRN PO HEARTBURN/INDIGESTION 03/14/19 17:15 Chlorpromazine HCl (Thorazine) 150 mg STAT STAT IM 03/18/19 10:14 03/18/19 10:17 DC 03/18/19 10:34 Diphenhydramine HCl (Benadryl) 50 mg STAT STAT IM 03/16/19 01:17 03/16/19 01:20 DC 03/16/19 01:39 Diphenhydramine HCl (Benadryl) 50 mg STAT STAT IM 03/17/19 08:40 03/17/19 08:43 DC 03/17/19 08:59 Diphenhydramine HCl (Benadryl) 50 mg STAT STAT IM 03/18/19 00:12 03/18/19 00:15 DC 03/18/19 00:31 Diphenhydramine HCl (Benadryl) 100 mg STAT STAT IM 03/19/19 06:39 03/19/19 06:42 DC 03/19/19 06:56 Haloperidol (Haldol) 10 mg STAT STAT IM 03/16/19 01:17 03/16/19 01:20 DC 03/16/19 01:39 Haloperidol (Haldol) 10 mg STAT STAT IM 03/17/19 08:40 03/17/19 08:43 DC 03/17/19 08:59 Haloperidol (Haldol) 10 mg STAT STAT IM 03/18/19 00:12 03/18/19 00:14 DC 03/18/19 00:30 Haloperidol (Haldol) 15 mg STAT STAT IM 03/19/19 06:39 03/19/19 06:42 DC 03/19/19 06:57 Home Med (Med Rec Complete!) ASDIRECTED XX 03/14/19 14:30 03/14/19 14:33 DC Lorazepam (Ativan) 1 mg STAT STAT IM 03/18/19 10:14 03/18/19 10:17 DC 03/18/19 10:33 Lorazepam (Ativan) 2 mg STAT STAT IM 03/16/19 01:17 03/16/19 01:20 DC 03/16/19 01:39 Lorazepam (Ativan) 2 mg STAT STAT IM 03/17/19 08:40 03/17/19 08:43 DC 03/17/19 08:59 Lorazepam (Ativan) 2 mg STAT STAT IM 03/18/19 00:12 03/18/19 00:14 DC 03/18/19 00:31 Lorazepam (Ativan) 2 mg STAT STAT IM 03/19/19 06:39 03/19/19 06:42 DC 03/19/19 06:57 Magnesium Hydroxide (Milk Of Magnesia) 30 ml DAILYPRN PRN PO CONSTIPATION 03/14/19 17:15 03/17/19 02:02 Olanzapine (ZyPREXA ZYDIS) 5 mg Q4HP PRN PO ANXIETY/AGITATION 03/16/19 18:00 03/27/19 00:37 Olanzapine (ZyPREXA ZYDIS) 5 mg QHS PO 03/26/19 21:00 03/26/19 22:03 Olanzapine (ZyPREXA ZYDIS) 10 mg QHS PO 03/16/19 21:00 03/26/19 14:42 DC 03/25/19 20:16 Olanzapine (Zyprexa Intramuscular) 10 mg STAT STAT IM 03/22/19 10:22 03/22/19 10:26 DC 03/22/19 10:41 Paliperidone (Invega) 3 mg QHS PO 03/15/19 21:00 03/16/19 17:55 DC 03/15/19 21:28 Paliperidone (Invega) 3 mg QHS PO 03/19/19 21:00 03/23/19 17:54 DC 03/22/19 22:04 Paliperidone (Invega) 6 mg QHS PO 03/23/19 21:00 03/26/19 14:42 DC 03/25/19 20:16 Paliperidone (Invega) 9 mg QHS PO 03/26/19 21:00 03/26/19 22:03 Trazodone HCl (Desyrel) 50 mg QHSP PRN PO INSOMNIA 03/14/19 17:15 03/23/19 12:38 DC 03/23/19 01:38 Allergies Coded Allergies: No Known Allergies (Unverified , 12/21/18) EVELIN PEREZ DO Mar 27, 2019 12:11
[2019-03-27 17:58] VITALS: BP 134/78
[2019-03-27] MEDS: OLANZapine ORAL DISINTEGRATING TAB 5MG PO SCH (23:23)
[2019-03-27] MEDS: PALIPERIDONE 3 MG ER TAB (INVEGA) PO SCH (23:23)
[2019-03-28 06:27] VITALS: BP 145/70
--- NOTE | 2019-03-28 08:15 | ECGEPIP ---
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
[2019-03-28] MEDS: ACETAMINOPHEN TAB 650MG DOSE (2X325MG) PO PRN (08:45)
--- NOTE | 2019-03-28 16:33 | MHIPNPDOC ---
[facility] Progress Note Progress Note Inpatient Progress Note Aron Diaz MRN: N/A Date of : N/A Date of Service: 03/28/2019 History of Present Illness The patient, a 19-year-old woman, presented to [facility] in a psychotic state having been wandering on our parking lot where she was noted to be fairly distorted and unable to care for herself. She was brought in and admitted. When I attempted to meet her on the unit, she was still fairly confused and altered. She was unable to engage in any meaningful interview stating that she felt that she "need to go to the park and was writing various nonsensical statements on paper." Interval History The patient is attempted to be met with. She is still psychotic, but more interviewable. She reports that she feels suspicious where she reports any eye movements indicate that one is "lying." She continues to report that she is "cursed and sad" that she is not able to see her son as his birthday is next day. She reports that she still has difficulty understanding why she is here and her diagnosis, however, when attempting to explain to her she bizarrely stares at this provider and walks away. She's had no violent outbursts and generally has been well-behaved on the unit. Review Of Systems General: Denies fever or appetite changes Cardiovascular: Denies Chest pain or palpitations GI: Denies Nausea, vomiting, or bowel changes Respiratory: Denies shortness of breath or cough Neuro: Denies dizziness, tremors Derm: Denies any rashes or pruritus : Denies any dysuria or urinary dysfunction MSK: Denies any muscle tightness or stiffness HEENT: Denies any vision changes or headaches Heme/Lymph: Denies any bruising or bleeding Endo: Denies any cold/heat intolerance or water intake changes Psychotherapy None on this visit. Vital Signs Reviewed. Mental Status Examination General: improved hygiene Speech: Sparse Thought processes: Less tangential MSK: No tremors Thought content: Bizarre and contradictory Abstract reasoning, and computation: Impaired Description of associations: Impaired Description of abnormal or psychotic thoughts: Denies suicidal or homicidal ideation. Denies auditory or visual hallucinations. Does not appear to be responding to internal stimuli Judgment: Mildly improved Insight: Poor Orientation: Alert and oriented to surroundings Cognition: Grossly intact Recent and remote memory: Continue to be mildly impaired Attention span and concentration: Mildly impaired secondary to thought process. Fund of knowledge: Poor Mood: "Okay" Affect: Less flat Change speech to sparse. Diagnoses Schizoaffective disorder. Cannabis use disorder, unspecified. Assessment and Plan Schizoaffective disorder: Continue Invega 9 mg nightly. Discontinue Zyprexa. Start Depakote 250 mg nightly. Specialist review indicates abnormal rhythm with some tachycardia, referral to hospitalist for further workup. Cannabis use disorder, unspecified: continue to monitor possible contribution. Disposition The patient will need further inpatient admission due to her severe psychosis and inability to care for self. Time Spent 15 minutes [id number]. Tuesday Vital Signs Vital Signs Date Time Temp Pulse Resp B/P (MAP) Pulse Ox O2 Delivery O2 Flow Rate FiO2 03/28/19 06:27 99.2 120 16 145/70 (95) 03/22/19 11:15 100 Current Medications Current Medications Medications (Trade) Dose Ordered Sig/Jordy Route PRN Reason Start Time Stop Time Status Last Admin Dose Admin Acetaminophen (Tylenol Tab) 650 mg Q6HP PRN PO HEADACHE or DISCOMFORT 03/14/19 17:15 03/28/19 08:45 Al Hydrox/Mg Hydrox/Simethicone (Mylanta) 30 ml Q4HP PRN PO HEARTBURN/INDIGESTION 03/14/19 17:15 03/28/19 06:13 Chlorpromazine HCl (Thorazine) 150 mg STAT STAT IM 03/18/19 10:14 03/18/19 10:17 DC 03/18/19 10:34 Diphenhydramine HCl (Benadryl) 50 mg STAT STAT IM 03/16/19 01:17 03/16/19 01:20 DC 03/16/19 01:39 Diphenhydramine HCl (Benadryl) 50 mg STAT STAT IM 03/17/19 08:40 03/17/19 08:43 DC 03/17/19 08:59 Diphenhydramine HCl (Benadryl) 50 mg STAT STAT IM 03/18/19 00:12 03/18/19 00:15 DC 03/18/19 00:31 Diphenhydramine HCl (Benadryl) 100 mg STAT STAT IM 03/19/19 06:39 03/19/19 06:42 DC 03/19/19 06:56 Haloperidol (Haldol) 10 mg STAT STAT IM 03/16/19 01:17 03/16/19 01:20 DC 03/16/19 01:39 Haloperidol (Haldol) 10 mg STAT STAT IM 03/17/19 08:40 03/17/19 08:43 DC 03/17/19 08:59 Haloperidol (Haldol) 10 mg STAT STAT IM 03/18/19 00:12 03/18/19 00:14 DC 03/18/19 00:30 Haloperidol (Haldol) 15 mg STAT STAT IM 03/19/19 06:39 03/19/19 06:42 DC 03/19/19 06:57 Home Med (Med Rec Complete!) ASDIRECTED XX 03/14/19 14:30 03/14/19 14:33 DC Lorazepam (Ativan) 1 mg STAT STAT IM 03/18/19 10:14 03/18/19 10:17 DC 03/18/19 10:33 Lorazepam (Ativan) 2 mg STAT STAT IM 03/16/19 01:17 03/16/19 01:20 DC 03/16/19 01:39 Lorazepam (Ativan) 2 mg STAT STAT IM 03/17/19 08:40 03/17/19 08:43 DC 03/17/19 08:59 Lorazepam (Ativan) 2 mg STAT STAT IM 03/18/19 00:12 03/18/19 00:14 DC 03/18/19 00:31 Lorazepam (Ativan) 2 mg STAT STAT IM 03/19/19 06:39 03/19/19 06:42 DC 03/19/19 06:57 Magnesium Hydroxide (Milk Of Magnesia) 30 ml DAILYPRN PRN PO CONSTIPATION 03/14/19 17:15 03/17/19 02:02 Olanzapine (ZyPREXA ZYDIS) 5 mg Q4HP PRN PO ANXIETY/AGITATION 03/16/19 18:00 03/27/19 00:37 Olanzapine (ZyPREXA ZYDIS) 5 mg QHS PO 03/26/19 21:00 03/27/19 23:23 Olanzapine (ZyPREXA ZYDIS) 10 mg QHS PO 03/16/19 21:00 03/26/19 14:42 DC 10/6/19 20:16 Olanzapine (Zyprexa Intramuscular) 10 mg STAT STAT IM 03/22/19 10:22 03/22/19 10:26 DC 03/22/19 10:41 Paliperidone (Invega) 3 mg QHS PO 03/15/19 21:00 03/16/19 17:55 DC 03/15/19 21:28 Paliperidone (Invega) 3 mg QHS PO 03/19/19 21:00 03/23/19 17:54 DC 03/22/19 22:04 Paliperidone (Invega) 6 mg QHS PO 03/23/19 21:00 03/26/19 14:42 DC 03/25/19 20:16 Paliperidone (Invega) 9 mg QHS PO 03/26/19 21:00 03/27/19 23:23 Trazodone HCl (Desyrel) 50 mg QHSP PRN PO INSOMNIA 03/14/19 17:15 03/23/19 12:38 DC 03/23/19 01:38 Allergies Coded Allergies: No Known Allergies (Unverified , 12/21/18) EVELIN PEREZ DO Mar 28, 2019 16:33
[2019-03-28 17:54] VITALS: BP 134/68
[2019-03-28] MEDS: OLANZapine ORAL DISINTEGRATING TAB 5MG PO SCH (20:42)
[2019-03-28] MEDS: PALIPERIDONE 3 MG ER TAB (INVEGA) PO SCH (20:42)
[2019-03-29 06:46] VITALS: BP 126/64
[2019-03-29] MEDS: OLANZapine ORAL DISINTEGRATING TAB 5MG PO PRN (08:11)
--- NOTE | 2019-03-29 08:34 | HPEPDOC ---
General Date of Admission Mar 14, 2019 at 17:12 Date of Service: Mar 29, 2019 Attending Physician: SHAUN PAT MD Chief Complaint The patient is a 19-year-old female admitted with a reason for visit of Unspecified Psycotic Disorder. Source: Patient, RN/MD, Old records Exam Limitations: No limitations Timing/Duration: Day(s) Severity: Mild History of Present Illness Medical Consultation from Inpatient Mental Unit for Abnormal EKG-Physical Examination 19 years old female had abnormal EKG showing sinus tachycardia with ventricular rate of 100 and QT/QTC of 332/389, MD interval of 134 and QRS duration of 86. She denies chest pain, dizziness, shortness of breath, heart palpitations, numbness, tingling and nausea, vomiting when EKG was taken. 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 She denies all other having hypertension, diabetes, hyperlipidemia, kidney disease and any recent sexually transmitted infections except mental. Home Medications No Active Prescriptions or Reported Meds Allergies Coded Allergies: No Known Allergies (Unverified , 12/21/18) Past Medical History Medical History See HPI Surgical History None Family History Significant Family History: Other (Mother-Mental health) Social History * Smoker: current smoker, cigarettes Alcohol: occationally Drugs: marijuana, prescription drugs (Lyrica), IV drug use (Morphine) Recent Travel/Sick Contacts: Denies: Recent travel, Recent sick contacts Psychosocial History: Depression, Emotional problems, Prior suicide attempt, Other (Schzioaffective Disorder) A-FIB/CHADSVASC A-FIB History Current/History of A-Fib/PAF?: No Review of Systems Skin: Denies: Rash, Lesions, Jaundice, Bruising, Itching, Dry, Breakdown, Nail Changes, Other Gastrointestinal: Denies: Nausea, Vomiting, Abdominal Pain, Diarrhea, Constipation, Melena, Hematochezia, Other Symptoms Genitourinary: Denies: Dysuria, Frequency, Incontinence, Hematuria, Retention, Other Symptoms Hematologic: Denies: Bruising, Bleeding Excessively, Petecchia, Purpura, Enlarged Lymph Nodes, Other Hematologic Endocrine: Denies: Polydipsia, Polyphagia, Polyuria, Heat Intolerance, Cold Intolerance, Other Endocrine Sx Musculoskeletal: Denies: Neck Pain, Back Pain, Shoulder Pain, Arm Pain, Hand Pain, Leg Pain, Foot Pain, Joint Pain, Muscle Pain, Spasms, Other Symptoms Psych: Reports: Depression Physical Examination General Exam: Positive: Alert, Cooperative Eye Exam: Positive: PERRLA, Conjunctiva & lids normal, EOMI ENT Exam: Positive: Atraumatic, Mucous membr. moist/pink, Pharynx Normal, Other ENT (Left ceruminosis) Neck Exam: Positive: Supple, +2 carotid pulse wo bruit Chest Exam: Positive: Clear to auscultation, Normal air movement Heart Exam: Positive: Normal S1, Normal S2 Telemetry: Positive: No significant arrhythmia Abdomen Exam: Positive: Normal bowel sounds, Soft Extremity Exam: Positive: Normal pulses Skin Exam: Positive: Nl turgor and temperature Neuro Exam: Positive: Normal Gait, Normal Speech, Normal Tone, Cranial Nerves 3-12 NL Psych Exam: Positive: Oriented x 3, Other (somnolent, flat affect, untrusting of nursing staff members ) Vital Signs Vital Signs Date Time Temp Pulse Resp B/P (MAP) Pulse Ox O2 Delivery O2 Flow Rate FiO2 03/29/19 06:46 98.1 116 14 126/64 (84) Problems (1) Sinus tachycardia by electrocardiogram Status: Acute Discussed With: Patient Problem Specific Plan: Monitor Clinically, Repeat Tests Problem Text: 19 years old female with past medical history of psychoaffective disorder, tobacco abuse, drug abuse presented hospital with acute psychosis. She had abnormal EKG showing sinus tachycardia and BMP showed abnormal fasting blood glucose level of 104 and CBC Hemoglobin 11.4. Abnormal EKG Plan Monitor Vital Signs Repeat EKG Cardiac labs: Check trop, CK, lipid panel, Magnesium, Phosphorous, CBC, TSH with Free T4 Abnormal Fasting Glucose-Acute Check Hemoglobin A1c, Fasting CMP Anemia-Acute Check-Ferritin, Transferrin, Iron with TIBC Ceruminosis-Acute Debrox otic 5-6 drops to both ears x bid x 4 days. Suicidal Ideation/-Acute on Chronic Continue to follow Mental Health Unit Psychiatry recommendations and plan Psychoaffective disorder, depression, suicidal ideation, tobacco abuse Prognosis: Good DVT Prophylaxis: Low Risk Discharge: Pending on Inpatient Mental Health Plan / VTE VTE Prophylaxis Ordered?: No VTE Exclusion Mechanical Proph: Low Risk for VTE VTE Exclusion Pharmacological: At Low Risk for VTE Plan Diet: Continue Current Activity: Continue Current Medications: Other Med: (Debrox for cerumen impaction/excessive cerumen buildup) Diagnostics: Check Labs, Repeat EKG Anticipated Discharge: Psych MARCO OSORIO Mar 29, 2019 08:34
[2019-03-29 09:29] LABS: BASO # 0.1 10^3/uL (0.0-0.2); BASO % 0.9 % (0.0-1.0); EOS # 0.2 10^3/uL (0.0-0.5); EOS % 1.9 % (0.0-3.0); HEMATOCRIT 37.4 % (36.0-47.0); HEMOGLOBIN 11.1 g/dl (12.0-15.5); LYMPH # 2.1 10^3/uL (1.5-5.0); LYMPH % 26.3 % (24.0-44.0); MEAN CORPUSCULAR HEMOGLOBIN 24.9 pg (27.0-33.0); MEAN CORPUSCULAR HGB CONC 29.7 g/dl (32.0-36.5); MONO # 0.6 10^3/uL (0.0-0.8); NEUTROPHILS # 5.2 10^3/uL (1.5-8.5); NEUTROPHILS % 63.7 % (36.0-66.0); PLATELET COUNT, AUTOMATED 451 10^3/uL (150-450); RED BLOOD COUNT 4.45 10^6/uL (4.00-5.40); WHITE BLOOD COUNT 8.1 10^3/uL (4.0-10.0)
[2019-03-29 09:36] LABS: BLOOD UREA NITROGEN 9 MG/DL (7-18); CARBON DIOXIDE LEVEL 25 MEQ/L (21-32); CHLORIDE LEVEL 110 MEQ/L (98-107); CREATININE FOR GFR 0.77 MG/DL (0.55-1.30); GLUCOSE, FASTING 77 MG/DL (70-100); POTASSIUM SERUM 4.3 MEQ/L (3.5-5.1); SODIUM LEVEL 142 MEQ/L (136-145)
[2019-03-29 09:37] LABS: ALT/SGPT 33 U/L (12-78); BILIRUBIN,TOTAL 0.3 MG/DL (0.2-1.0); CPK CREATINE PHOSPHOKINASE 56 U/L (26-192); MAGNESIUM LEVEL 2.2 MG/DL (1.8-2.4); PHOSPHORUS LEVEL 3.3 MG/DL (2.5-4.9); TOTAL PROTEIN 8.2 GM/DL (6.4-8.2); TROPONIN I < 0.02 NG/ML (< 0.10)
[2019-03-29 09:42] LABS: FREE T4 1.17 NG/DL (0.78-1.33); PERCENT SATURATION 4.6 % (13.2-45.0); THYROID STIMULATING HORMONE 1.01 uIU/ML (0.463-3.98)
[2019-03-29 10:22] LABS: HEMOGLOBIN A1c 5.2 %
--- NOTE | 2019-03-29 10:53 | MHIPNPDOC ---
[facility] Progress Note Progress Note Inpatient Progress Note Aron Diaz MRN: N/A Date of : N/A Date of Service: 03/29/2019 History of Present Illness The patient, a 19-year-old woman, presented to [facility] in a psychotic state having been wandering on our parking lot where she was noted to be fairly distorted and unable to care for herself. She was brought in and admitted. When I attempted to meet her on the unit, she was still fairly confused and altered. She was unable to engage in any meaningful interview stating that she felt that she "need to go to the park and was writing various nonsensical statements on paper." Interval History The patient is attempted to be met with. She still remains somewhat distorted, able to participate in interview, but it is fairly limited in scope at this time. She notes that she's unhappy as her son's birthday is today. She is tearful. However she reports that she is "fine" and doesn't take any "medications." She has not been violent overnight and has become much more behaviorally controlled since she started taking medication regularly. She's been off the 1:1 attending groups. Review Of Systems General: Denies fever or appetite changes Cardiovascular: Denies Chest pain or palpitations GI: Denies Nausea, vomiting, or bowel changes Respiratory: Denies shortness of breath or cough Neuro: Denies dizziness, tremors Derm: Denies any rashes or pruritus : Denies any dysuria or urinary dysfunction MSK: Denies any muscle tightness or stiffness HEENT: Denies any vision changes or headaches Heme/Lymph: Denies any bruising or bleeding Endo: Denies any cold/heat intolerance or water intake changes Psychotherapy None on this visit. Vital Signs Reviewed. Mental Status Examination General: improved hygiene Speech: Sparse Thought processes: Less tangential MSK: No tremors Thought content: Bizarre and contradictory Abstract reasoning, and computation: Impaired Description of associations: Impaired Description of abnormal or psychotic thoughts: Denies suicidal or homicidal ideation. Denies auditory or visual hallucinations. Does not appear to be responding to internal stimuli Judgment: Mildly improved Insight: Poor Orientation: Alert and oriented to surroundings Cognition: Grossly intact Recent and remote memory: Continue to be mildly impaired Attention span and concentration: Mildly impaired secondary to thought process. Fund of knowledge: Poor Mood: "Okay" Affect: Less flat Change speech to sparse. Diagnoses Schizoaffective disorder. Cannabis use disorder, unspecified. Assessment and Plan Schizoaffective disorder: Continue Invega 9 mg nightly. Continue Depakote 250 mg nightly. Hospitalist review in process for EKG and tachycardia. Cannabis use disorder, unspecified: continue to monitor possible contribution. Disposition The patient will need further inpatient admission due to her severe psychosis and inability to care for self. Time Spent 15 minutes [id number]. Vital Signs Vital Signs Date Time Temp Pulse Resp B/P (MAP) Pulse Ox O2 Delivery O2 Flow Rate FiO2 03/29/19 06:46 98.1 116 14 126/64 (84) Laboratory Data 24H Labs Laboratory Tests 2 03/29/19 08:40: Immature Granulocyte % (Auto) 0.2, White Blood Count 8.1, Red Blood Count 4.45, Hemoglobin 11.1L, Hematocrit 37.4, Mean Corpuscular Volume 84.0, Mean Corpuscular Hemoglobin 24.9L, Mean Corpuscular Hemoglobin Concent 29.7L, Red Cell Distribution Width 16.0H, Platelet Count 451H, Neutrophils (%) (Auto) 63.7, Lymphocytes (%) (Auto) 26.3, Monocytes (%) (Auto) 7.0H, Eosinophils (%) (Auto) 1.9, Basophils (%) (Auto) 0.9, Neutrophils # (Auto) 5.2, Lymphocytes # (Auto) 2.1, Monocytes # (Auto) 0.6, Eosinophils # (Auto) 0.2, Basophils # (Auto) 0.1, Nucleated Red Blood Cells % (auto) 0.0, Anion Gap 7L, Estimated Mean Plasma Glucose 103, Hemoglobin A1c 5.2, Blood Urea Nitrogen 9, Creatinine 0.77, Sodium Level 142, Potassium Level 4.3, Chloride Level 110H, Carbon Dioxide Level 25, Calcium Level 9.0, Phosphorus Level 3.3, Aspartate Amino Transf (AST/SGOT) 11, Alanine Aminotransferase (ALT/SGPT) 33, Total Creatine Kinase 56, Alkaline Christy sphatase 76, Total Bilirubin 0.3, Total Protein 8.2, Albumin 4.0, Magnesium Level 2.2, Iron Level 19L, Total Iron Binding Capacity 410, Transferrin % Saturation 4.6L, Ferritin 7L, Troponin I < 0.02, Albumin/Globulin Ratio 0.95L, Thyroid Stimulating Hormone (TSH) 1.010, Free Thyroxine 1.17 CBC/BMP Laboratory Tests 03/29/19 08:40 Red Blood Count 4.45, Mean Corpuscular Volume 84.0, Mean Corpuscular Hemoglobin 24.9 L, Mean Corpuscular Hemoglobin Concent 29.7 L, Red Cell Distribution Width 16.0 H, Neutrophils (%) (Auto) 63.7, Lymphocytes (%) (Auto) 26.3, Monocytes (%) (Auto) 7.0 H, Eosinophils (%) (Auto) 1.9, Basophils (%) (Auto) 0.9, Neutrophils # (Auto) 5.2, Lymphocytes # (Auto) 2.1, Monocytes # (Auto) 0.6, Eosinophils # (Auto) 0.2, Basophils # (Auto) 0.1, Calcium Level 9.0, Phosphorus Level 3.3, Aspartate Amino Transf (AST/SGOT) 11, Alanine Aminotransferase (ALT/SGPT) 33, Total Creatine Kinase 56, Alkaline Phosphatase 76, Total Bilirubin 0.3, Total Protein 8.2, Albumin 4.0 Current Medications Current Medications Medications (Trade) Dose Ordered Sig/Jordy Route PRN Reason Start Time Stop Time Status Last Admin Dose Admin Acetaminophen (Tylenol Tab) 650 mg Q6HP PRN PO HEADACHE or DISCOMFORT 03/14/19 17:15 03/28/19 08:45 Al Hydrox/Mg Hydrox/Simethicone (Mylanta) 30 ml Q4HP PRN PO HEARTBURN/INDIGESTION 03/14/19 17:15 03/28/19 06:13 Chlorpromazine HCl (Thorazine) 150 mg STAT STAT IM 03/18/19 10:14 03/18/19 10:17 DC 03/18/19 10:34 Diphenhydramine HCl (Benadryl) 50 mg STAT STAT IM 03/16/19 01:17 03/16/19 01:20 DC 03/16/19 01:39 Diphenhydramine HCl (Benadryl) 50 mg STAT STAT IM 03/17/19 08:40 03/17/19 08:43 DC 03/17/19 08:59 Diphenhydramine HCl (Benadryl) 50 mg STAT STAT IM 03/18/19 00:12 03/18/19 00:15 DC 03/18/19 00:31 Diphenhydramine HCl (Benadryl) 100 mg STAT STAT IM 03/19/19 06:39 03/19/19 06:42 DC 03/19/19 06:56 Haloperidol (Haldol) 10 mg STAT STAT IM 03/16/19 01:17 03/16/19 01:20 DC 03/16/19 01:39 Haloperidol (Haldol) 10 mg STAT STAT IM 03/17/19 08:40 03/17/19 08:43 DC 03/17/19 08:59 Haloperidol (Haldol) 10 mg STAT STAT IM 03/18/19 00:12 03/18/19 00:14 DC 03/18/19 00:30 Haloperidol (Haldol) 15 mg STAT STAT IM 03/19/19 06:39 03/19/19 06:42 DC 03/19/19 06:57 Home Med (Med Rec Complete!) ASDIRECTED XX 03/14/19 14:30 03/14/19 14:33 DC Lorazepam (Ativan) 1 mg STAT STAT IM 03/18/19 10:14 03/18/19 10:17 DC 03/18/19 10:33 Lorazepam (Ativan) 2 mg STAT STAT IM 03/16/19 01:17 03/16/19 01:20 DC 03/16/19 01:39 Lorazepam (Ativan) 2 mg STAT STAT IM 03/17/19 08:40 03/17/19 08:43 DC 03/17/19 08:59 Lorazepam (Ativan) 2 mg STAT STAT IM 03/18/19 00:12 03/18/19 00:14 DC 03/18/19 00:31 Lorazepam (Ativan) 2 mg STAT STAT IM 03/19/19 06:39 03/19/19 06:42 DC 03/19/19 06:57 Magnesium Hydroxide (Milk Of Magnesia) 30 ml DAILYPRN PRN PO CONSTIPATION 03/14/19 17:15 03/17/19 02:02 Olanzapine (ZyPREXA ZYDIS) 5 mg Q4HP PRN PO ANXIETY/AGITATION 03/16/19 18:00 03/29/19 08:11 Olanzapine (ZyPREXA ZYDIS) 5 mg QHS PO 03/26/19 21:00 03/28/19 20:42 Olanzapine (ZyPREXA ZYDIS) 10 mg QHS PO 03/16/19 21:00 03/26/19 14:42 DC 03/25/19 20:16 Olanzapine (Zyprexa Intramuscular) 10 mg STAT STAT IM 03/22/19 10:22 03/22/19 10:26 DC 03/22/19 10:41 Paliperidone (Invega) 3 mg QHS PO 03/15/19 21:00 03/16/19 17:55 DC 03/15/19 21:28 Paliperidone (Invega) 3 mg QHS PO 03/19/19 21:00 03/23/19 17:54 DC 03/22/19 22:04 Paliperidone (Invega) 6 mg QHS PO 03/23/19 21:00 03/26/19 14:42 DC 03/25/19 20:16 Paliperidone (Invega) 9 mg QHS PO 03/26/19 21:00 03/28/19 20:42 Trazodone HCl (Desyrel) 50 mg QHSP PRN PO INSOMNIA 03/14/19 17:15 03/23/19 12:38 DC 03/23/19 01:38 Allergies Coded Allergies: No Known Allergies (Unverified , 12/21/18) EVELIN PEREZ DO Mar 29, 2019 10:53
[2019-03-29 18:22] VITALS: BP 125/76
[2019-03-29] MEDS: PALIPERIDONE 3 MG ER TAB (INVEGA) PO SCH (20:43)
[2019-03-29] MEDS: DIVALPROEX 250MG *ER* TAB PO SCH (20:43)
[2019-03-29] MEDS: CARBAMIDE PEROXIDE 6.5% OTIC SOLN 15ML AU SCH (21:00)
[2019-03-30 06:13] VITALS: BP 139/86
[2019-03-30] MEDS: CARBAMIDE PEROXIDE 6.5% OTIC SOLN 15ML AU SCH ×2 (08:03→22:02)
[2019-03-30] MEDS: OLANZapine ORAL DISINTEGRATING TAB 5MG PO PRN (11:34)
[2019-03-30 14:50] VITALS: BP 134/78
[2019-03-30] MEDS: LORazepam 1 MG TAB PO PRN (15:52)
[2019-03-30 15:56] LABS: BASO # 0.1 10^3/uL (0.0-0.2); BASO % 0.7 % (0.0-1.0); EOS # 0.1 10^3/uL (0.0-0.5); EOS % 0.8 % (0.0-3.0); HEMATOCRIT 36.4 % (36.0-47.0); HEMOGLOBIN 10.9 g/dl (12.0-15.5); LYMPH # 2.8 10^3/uL (1.5-5.0); LYMPH % 28.7 % (24.0-44.0); MEAN CORPUSCULAR HGB CONC 29.9 g/dl (32.0-36.5); MEAN CORPUSCULAR VOLUME 83.5 fl (80.0-96.0); MONO # 0.7 10^3/uL (0.0-0.8); MONO % 6.9 % (0.0-5.0); NEUTROPHILS % 62.5 % (36.0-66.0); PLATELET COUNT, AUTOMATED 448 10^3/uL (150-450); RED BLOOD COUNT 4.36 10^6/uL (4.00-5.40); WHITE BLOOD COUNT 9.6 10^3/uL (4.0-10.0)
[2019-03-30] MEDS: FERROUS SULFATE 325MG TAB PO SCH (16:20)
[2019-03-30 16:27] LABS: BLOOD UREA NITROGEN 7 MG/DL (7-18); CALCIUM LEVEL 8.8 MG/DL (8.5-10.1); CARBON DIOXIDE LEVEL 25 MEQ/L (21-32); CHLORIDE LEVEL 108 MEQ/L (98-107); CREATININE FOR GFR 0.67 MG/DL (0.55-1.30); GLUCOSE, FASTING 97 MG/DL (70-100); POTASSIUM SERUM 3.8 MEQ/L (3.5-5.1); SODIUM LEVEL 139 MEQ/L (136-145)
[2019-03-30 17:29] VITALS: BP 134/78
[2019-03-30] MEDS: PALIPERIDONE 3 MG ER TAB (INVEGA) PO SCH (22:02)
[2019-03-30] MEDS: DIVALPROEX 250MG *ER* TAB PO SCH (22:02)
[2019-03-30] MEDS: DOCUSATE SODIUM 100 MG CAP PO SCH (22:02)
[2019-03-31 06:42] VITALS: BP 100/69
[2019-03-31] MEDS: FERROUS SULFATE 325MG TAB PO SCH (08:32)
[2019-03-31] MEDS: ATENOLOL 12.5MG PER 1/2 TABLET PO SCH (08:33)
[2019-03-31] MEDS: DOCUSATE SODIUM 100 MG CAP PO SCH ×2 (08:33→20:38)
[2019-03-31] MEDS: CARBAMIDE PEROXIDE 6.5% OTIC SOLN 15ML AU SCH ×2 (08:34→20:39)
--- NOTE | 2019-03-31 09:53 | ECGEPIP ---
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
--- NOTE | 2019-03-31 10:07 | ECGEPIP ---
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
[2019-03-31] MEDS: OLANZapine ORAL DISINTEGRATING TAB 5MG PO PRN (10:33)
[2019-03-31 15:58] VITALS: BP 98/54
[2019-03-31] MEDS: PALIPERIDONE 3 MG ER TAB (INVEGA) PO SCH (20:39)
[2019-03-31] MEDS: DIVALPROEX 250MG *ER* TAB PO SCH (20:39)
[2019-03-31] MEDS: LORazepam 1 MG TAB PO PRN (22:13)
[2019-04-01 06:33] VITALS: BP 120/72
[2019-04-01] MEDS: DOCUSATE SODIUM 100 MG CAP PO SCH ×2 (08:42→20:27)
[2019-04-01] MEDS: FERROUS SULFATE 325MG TAB PO SCH (08:42)
[2019-04-01] MEDS: CARBAMIDE PEROXIDE 6.5% OTIC SOLN 15ML AU SCH ×2 (08:43→20:28)
[2019-04-01] MEDS: ATENOLOL 12.5MG PER 1/2 TABLET PO SCH (08:43)
[2019-04-01 15:54] VITALS: BP 107/54
[2019-04-01] MEDS: LORazepam 1 MG TAB PO PRN (20:27)
[2019-04-01] MEDS: DIVALPROEX 250MG *ER* TAB PO SCH (20:27)
[2019-04-01] MEDS: PALIPERIDONE 3 MG ER TAB (INVEGA) PO SCH (20:27)
[2019-04-02 06:21] VITALS: BP 109/57
[2019-04-02] MEDS: CARBAMIDE PEROXIDE 6.5% OTIC SOLN 15ML AU SCH (09:00)
[2019-04-02] MEDS: OLANZapine ORAL DISINTEGRATING TAB 5MG PO PRN (09:01)
[2019-04-02] MEDS: DOCUSATE SODIUM 100 MG CAP PO SCH ×2 (09:01→20:58)
[2019-04-02] MEDS: FERROUS SULFATE 325MG TAB PO SCH (09:01)
[2019-04-02] MEDS: ATENOLOL 12.5MG PER 1/2 TABLET PO SCH (09:01)
[2019-04-02] MEDS: ACETAMINOPHEN TAB 650MG DOSE (2X325MG) PO PRN (09:02)
--- NOTE | 2019-04-02 10:19 | MHIPNPDOC ---
[facility] Progress Note Progress Note Inpatient Progress Note Aron Diaz MRN: N/A Date of : N/A Date of Service: 04/02/2019 History of Present Illness The patient, a 19-year-old woman, presented to [facility] in a psychotic state having been wandering on our parking lot where she was noted to be fairly distorted and unable to care for herself. She was brought in and admitted. When I attempted to meet her on the unit, she was still fairly confused and altered. She was unable to engage in any meaningful interview stating that she felt that she "need to go to the park and was writing various nonsensical statements on paper." Interval History The patient's met with today. She's still fairly bizarre and delusional at times, however, she's becoming more focused and able to interact with an interview. She consented to having the first loading dose of paliperidone. She did ask this provider whether "it stops her from having babies." Discussed with patient that it would not and that it's possible to have children while on it. The patient became fairly tired and then laid down. She consented to a short interview where she still continues to have difficulty understanding why she's here. She had revoked the release for her mother over the weekend reporting that her sister would give her mother information. The patient has been attending groups much more interested, has had no major behavioral problems over the weekend and no further violent outbursts. She reports that she's feeling "more clear and less depressed." Review Of Systems General: Denies fever or appetite changes Cardiovascular: Denies Chest pain or palpitations GI: Denies Nausea, vomiting, or bowel changes Respiratory: Denies shortness of breath or cough Neuro: Denies dizziness, tremors Derm: Denies any rashes or pruritus : Denies any dysuria or urinary dysfunction MSK: Denies any muscle tightness or stiffness HEENT: Denies any vision changes or headaches Heme/Lymph: Denies any bruising or bleeding Endo: Denies any cold/heat intolerance or water intake changes Psychotherapy None on this visit. Vital Signs Reviewed. Mental Status Examination General: Good hygiene Speech: Less sparse Thought processes: More linear, but circumstantial primarily. MSK: No tremors Thought content: Continues to be bizarre, but less so Abstract reasoning, and computation: Mildly impaired Description of associations: Impaired Description of abnormal or psychotic thoughts: Denies suicidal or homicidal ideation. Denies auditory or visual hallucinations. Does not appear to be responding to internal stimuli Judgment: Mildly improved Insight: Poor Orientation: Alert and oriented to surroundings Cognition: Grossly intact Recent and remote memory: Continue to be mildly impaired Attention span and concentration: Mildly impaired secondary to thought process. Fund of knowledge: Poor Mood: "Okay" Affect: Less flat Diagnoses Schizoaffective disorder. Cannabis use disorder, unspecified. Assessment and Plan Schizoaffective disorder: Continue Invega 9 mg nightly, Depakote 250 mg nightly. Hospitalist started low-dose beta isabel for her tachycardia as there does not appear to be overt cardiovascular pathology. Gave patient first dose of Invega Sustenna 254 mg with next dose in 3 to 5 days at 254 making mild improvements. Cannabis use disorder, unspecified: continue to monitor possible contribution. Disposition The patient will need further inpatient admission due to her severe psychosis and inability to care for self. She continues to need significant prompting for feeding herself and attending to very basic needs. She generally is impaired to the point where she's unable to cooperate with basic discharge planning or navigating her rudimentary need such as food intake, which requires still prompting. Time Spent 15 minutes. Tuesday Vital Signs Vital Signs Date Time Temp Pulse Resp B/P (MAP) Pulse Ox O2 Delivery O2 Flow Rate FiO2 04/02/19 09:01 130 139/82 04/02/19 06:21 98.8 14 03/30/19 14:50 99 Current Medications Current Medications Medications (Trade) Dose Ordered Sig/Jordy Route PRN Reason Start Time Stop Time Status Last Admin Dose Admin Acetaminophen (Tylenol Tab) 650 mg Q6HP PRN PO HEADACHE or DISCOMFORT 03/14/19 17:15 04/02/19 09:02 Al Hydrox/Mg Hydrox/Simethicone (Mylanta) 30 ml Q4HP PRN PO HEARTBURN/INDIGESTION 03/14/19 17:15 03/28/19 06:13 Atenolol (Tenormin) 12.5 mg DAILY PO 03/31/19 09:00 04/02/19 09:01 Carbamide Peroxide (Debrox) 5 drop BID AU 03/29/19 21:00 04/02/19 09:01 DC 04/02/19 09:00 Chlorpromazine HCl (Thorazine) 150 mg STAT STAT IM 03/18/19 10:14 03/18/19 10:17 DC 03/18/19 10:34 Diphenhydramine HCl (Benadryl) 50 mg STAT STAT IM 03/16/19 01:17 03/16/19 01:20 DC 03/16/19 01:39 Diphenhydramine HCl (Benadryl) 50 mg STAT STAT IM 03/17/19 08:40 03/17/19 08:43 DC 03/17/19 08:59 Diphenhydramine HCl (Benadryl) 50 mg STAT STAT IM 03/18/19 00:12 03/18/19 00:15 DC 03/18/19 00:31 Diphenhydramine HCl (Benadryl) 100 mg STAT STAT IM 03/19/19 06:39 03/19/19 06:42 DC 03/19/19 06:56 Divalproex Sodium (Depakote Er) 250 mg QHS PO 03/29/19 21:00 04/01/19 20:27 Docusate Sodium (Colace) 100 mg BID PO 03/30/19 21:00 04/02/19 09:01 Ferrous Sulfate (Ferrous Sulfate) 325 mg DAILY PO 03/30/19 09:00 04/02/19 09:01 Haloperidol (Haldol) 10 mg STAT STAT IM 03/16/19 01:17 03/16/19 01:20 DC 03/16/19 01:39 Haloperidol (Haldol) 10 mg STAT STAT IM 03/17/19 08:40 03/17/19 08:43 DC 03/17/19 08:59 Haloperidol (Haldol) 10 mg STAT STAT IM 03/18/19 00:12 03/18/19 00:14 DC 03/18/19 00:30 Haloperidol (Haldol) 15 mg STAT STAT IM 03/19/19 06:39 03/19/19 06:42 DC 03/19/19 06:57 Home Med (Med Rec Complete!) ASDIRECTED XX 03/14/19 14:30 03/14/19 14:33 DC Lorazepam (Ativan) 1 mg Q6HP PRN PO ANXIETY/AGITATION 03/30/19 15:45 04/01/19 20:27 Lorazepam (Ativan) 1 mg STAT STAT IM 03/18/19 10:14 03/18/19 10:17 DC 03/18/19 10:33 Lorazepam (Ativan) 2 mg STAT STAT IM 03/16/19 01:17 03/16/19 01:20 DC 03/16/19 01:39 Lorazepam (Ativan) 2 mg STAT STAT IM 03/17/19 08:40 03/17/19 08:43 DC 03/17/19 08:59 Lorazepam (Ativan) 2 mg STAT STAT IM 03/18/19 00:12 03/18/19 00:14 DC 03/18/19 00:31 Lorazepam (Ativan) 2 mg STAT STAT IM 03/19/19 06:39 03/19/19 06:42 DC 03/19/19 06:57 Magnesium Hydroxide (Milk Of Magnesia) 30 ml DAILYPRN PRN PO CONSTIPATION 03/14/19 17:15 03/17/19 02:02 Olanzapine (ZyPREXA ZYDIS) 5 mg Q4HP PRN PO ANXIETY/AGITATION 03/16/19 18:00 04/02/19 09:01 Olanzapine (ZyPREXA ZYDIS) 5 mg QHS PO 03/26/19 21:00 03/29/19 10:58 DC 03/28/19 20:42 Olanzapine (ZyPREXA ZYDIS) 10 mg QHS PO 03/16/19 21:00 03/26/19 14:42 DC 03/25/19 20:16 Olanzapine (Zyprexa Intramuscular) 10 mg STAT STAT IM 03/22/19 10:22 03/22/19 10:26 DC 03/22/19 10:41 Paliperidone (Invega) 3 mg QHS PO 03/15/19 21:00 03/16/19 17:55 DC 03/15/19 21:28 Paliperidone (Invega) 3 mg QHS PO 03/19/19 21:00 03/23/19 17:54 DC 03/22/19 22:04 Paliperidone (Invega) 6 mg QHS PO 03/23/19 21:00 03/26/19 14:42 DC 03/25/19 20:16 Paliperidone (Invega) 9 mg QHS PO 03/26/19 21:00 04/01/19 20:27 Trazodone HCl (Desyrel) 50 mg QHSP PRN PO INSOMNIA 03/14/19 17:15 03/23/19 12:38 DC 03/23/19 01:38 Allergies Coded Allergies: No Known Allergies (Unverified , 12/21/18) EVELIN PEREZ DO Apr 02, 2019 10:19
[2019-04-02] MEDS ORDERED: PALIPERIDONE PALMITATE 234MG/1.5ML INJ (INVEGA)(J2426)(FREE PSY INPT ONLY) IM ONE (12:00)
[2019-04-02 15:39] VITALS: BP 111/53
[2019-04-02] MEDS: DIVALPROEX 250MG *ER* TAB PO SCH (20:58)
[2019-04-02] MEDS: PALIPERIDONE 3 MG ER TAB (INVEGA) PO SCH (20:59)
[2019-04-02] MEDS ORDERED: TEMAZEPAM 7.5 MG CAP PO ONE (22:15)
[2019-04-03] MEDS: OLANZapine ORAL DISINTEGRATING TAB 5MG PO PRN (01:21)
[2019-04-03 06:50] VITALS: BP 108/69
[2019-04-03] MEDS: FERROUS SULFATE 325MG TAB PO SCH (08:05)
[2019-04-03] MEDS: DOCUSATE SODIUM 100 MG CAP PO SCH ×2 (08:05→20:06)
[2019-04-03] MEDS: ATENOLOL 12.5MG PER 1/2 TABLET PO SCH (08:07)
--- NOTE | 2019-04-03 11:56 | MHIPNPDOC ---
[facility] Progress Note Progress Note Aron Diaz Inpatient Progress Note Aron Diaz Select Gender MRN: N/A Date of : MM/DD/YYYY Date of Service: 04/03/2019 History of Present Illness The patient, a 19-year-old woman, presented to [facility] in a psychotic state having been wandering on our parking lot where she was noted to be fairly distorted and unable to care for herself. She was brought in and admitted. When I attempted to meet her on the unit, she was still fairly confused and altered. She was unable to engage in any meaningful interview stating that she felt that she "need to go to the park and was writing various nonsensical statements on paper." Interval History The patient is met with today. She is much more clear. She is able to have much more cogent conversation. She describes that she does not remember the events that led her into the hospital. When she was told about them, she appeared quite surprised. She has been much more amenable. She has been taking care of herself, attending to her needs, although at times she does have a bizarre stare. She has made significant improvement since her injection. She reports that she is feeling much improved and staff appeared to support this. She is able to have much more cogent conversations and is able to relay information about how she feels. She is much less semantically/bizarrely preoccupied. No behavioral problems overnight, has been off the 1:1 sitter for sometime. Review Of Systems General: Denies fever or weight changes Cardiovascular: Denies Chest pain or palpations GI: Denies Nausea, vomiting, or bowel changes Respiratory: Denies shortness of breath or cough Neuro: Denies dizziness, tremors Derm: Denies any rashes or pruritus : Denies any dysuria or sexual dysfunction MSK: Denies any muscle tightness or stiffness HEENT: Denies any vision changes or headaches Heme/Lymph: denies any bruising or bleeding Endo: denies any cold/heat intolerance or water intake changes Psychotherapy None on this visit. Vital Signs Reviewed. Mental Status Examination General: Good hygiene Speech: Fluid Thought processes: Linear MSK: No tremors Thought content: Significantly less bizarre Abstract reasoning, and computation: Approaching normal Description of associations: Approaching normal Description of abnormal or psychotic thoughts: Denies suicidal or homicidal ideation. Denies auditory or visual hallucinations. Does not appear to be responding to internal stimuli Judgment: Improved Insight: Improved Orientation: Alert and oriented to surroundings Cognition: Grossly intact Recent and remote memory: Impairment likely secondary to psychotic process, but current recent memory is intact Attention span and concentration: Intact Fund of knowledge: Improved Mood: "Okay" Affect: More euthymic Diagnoses Schizoaffective disorder. Cannabis use disorder, unspecified. Assessment and Plan Schizoaffective disorder: Continue Invega 9 mg nightly as well as Depakote 250 mg nightly. Invega Sustenna before discharge, potentially . Cannabis use disorder, unspecified: continue to monitor possible contribution. Disposition The patient will need another few days of observation in order to ensure that her improvements are sustained and proper discharge will need to be undertaken. Time Spent 15 minutes [id number]. Vital Signs Vital Signs Date Time Temp Pulse Resp B/P (MAP) Pulse Ox O2 Delivery O2 Flow Rate FiO2 04/03/19 08:07 120 135/67 04/03/19 06:50 98.6 12 03/30/19 14:50 99 Current Medications Current Medications Medications (Trade) Dose Ordered Sig/Jordy Route PRN Reason Start Time Stop Time Status Last Admin Dose Admin Acetaminophen (Tylenol Tab) 650 mg Q6HP PRN PO HEADACHE or DISCOMFORT 03/14/19 17:15 04/02/19 09:02 Al Hydrox/Mg Hydrox/Simethicone (Mylanta) 30 ml Q4HP PRN PO HEARTBURN/INDIGESTION 03/14/19 17:15 03/28/19 06:13 Atenolol (Tenormin) 12.5 mg DAILY PO 03/31/19 09:00 04/03/19 08:07 Carbamide Peroxide (Debrox) 5 drop BID AU 03/29/19 21:00 04/02/19 09:01 DC 04/02/19 09:00 Chlorpromazine HCl (Thorazine) 150 mg STAT STAT IM 03/18/19 10:14 03/18/19 10:17 DC 03/18/19 10:34 Diphenhydramine HCl (Benadryl) 50 mg STAT STAT IM 03/16/19 01:17 03/16/19 01:20 DC 03/16/19 01:39 Diphenhydramine HCl (Benadryl) 50 mg STAT STAT IM 03/17/19 08:40 03/17/19 08:43 DC 03/17/19 08:59 Diphenhydramine HCl (Benadryl) 50 mg STAT STAT IM 03/18/19 00:12 03/18/19 00:15 DC 03/18/19 00:31 Diphenhydramine HCl (Benadryl) 100 mg STAT STAT IM 03/19/19 06:39 03/19/19 06:42 DC 03/19/19 06:56 Divalproex Sodium (Depakote Er) 250 mg QHS PO 03/29/19 21:00 04/02/19 20:58 Docusate Sodium (Colace) 100 mg BID PO 03/30/19 21:00 04/03/19 08:05 Ferrous Sulfate (Ferrous Sulfate) 325 mg DAILY PO 03/30/19 09:00 04/03/19 08:05 Haloperidol (Haldol) 10 mg STAT STAT IM 03/16/19 01:17 03/16/19 01:20 DC 03/16/19 01:39 Haloperidol (Haldol) 10 mg STAT STAT IM 03/17/19 08:40 03/17/19 08:43 DC 03/17/19 08:59 Haloperidol (Haldol) 10 mg STAT STAT IM 03/18/19 00:12 03/18/19 00:14 DC 03/18/19 00:30 Haloperidol (Haldol) 15 mg STAT STAT IM 03/19/19 06:39 03/19/19 06:42 DC 03/19/19 06:57 Home Med (Med Rec Complete!) ASDIRECTED XX 03/14/19 14:30 03/14/19 14:33 DC Lorazepam (Ativan) 1 mg Q6HP PRN PO ANXIETY/AGITATION 03/30/19 15:45 04/01/19 20:27 Lorazepam (Ativan) 1 mg STAT STAT IM 03/18/19 10:14 03/18/19 10:17 DC 03/18/19 10:33 Lorazepam (Ativan) 2 mg STAT STAT IM 03/16/19 01:17 03/16/19 01:20 DC 03/16/19 01:39 Lorazepam (Ativan) 2 mg STAT STAT IM 03/17/19 08:40 03/17/19 08:43 DC 03/17/19 08:59 Lorazepam (Ativan) 2 mg STAT STAT IM 03/18/19 00:12 03/18/19 00:14 DC 03/18/19 00:31 Lorazepam (Ativan) 2 mg STAT STAT IM 03/19/19 06:39 03/19/19 06:42 DC 03/19/19 06:57 Magnesium Hydroxide (Milk Of Magnesia) 30 ml DAILYPRN PRN PO CONSTIPATION 03/14/19 17:15 03/17/19 02:02 Olanzapine (ZyPREXA ZYDIS) 5 mg Q4HP PRN PO ANXIETY/AGITATION 03/16/19 18:00 04/03/19 01:21 Olanzapine (ZyPREXA ZYDIS) 5 mg QHS PO 03/26/19 21:00 03/29/19 10:58 DC 03/28/19 20:42 Olanzapine (ZyPREXA ZYDIS) 10 mg QHS PO 03/16/19 21:00 03/26/19 14:42 DC 03/25/19 20:16 Olanzapine (Zyprexa Intramuscular) 10 mg STAT STAT IM 03/22/19 10:22 03/22/19 10:26 DC 03/22/19 10:41 Paliperidone (Invega) 3 mg QHS PO 03/15/19 21:00 03/16/19 17:55 DC 03/15/19 21:28 Paliperidone (Invega) 3 mg QHS PO 03/19/19 21:00 03/23/19 17:54 DC 03/22/19 22:04 Paliperidone (Invega) 6 mg QHS PO 03/23/19 21:00 03/26/19 14:42 DC 03/25/19 20:16 Paliperidone (Invega) 9 mg QHS PO 03/26/19 21:00 04/02/19 20:59 Trazodone HCl (Desyrel) 50 mg QHSP PRN PO INSOMNIA 03/14/19 17:15 03/23/19 12:38 DC 03/23/19 01:38 Allergies Coded Allergies: No Known Allergies (Unverified , 12/21/18) EVELIN PEREZ DO Apr 03, 2019 11:56
[2019-04-03 16:05] VITALS: BP 119/66
[2019-04-03] MEDS: PALIPERIDONE 3 MG ER TAB (INVEGA) PO SCH (20:06)
[2019-04-03] MEDS: DIVALPROEX 250MG *ER* TAB PO SCH (20:06)
[2019-04-03] MEDS: traZODone 50 MG TAB PO PRN (21:34)
[2019-04-04] MEDS: OLANZapine ORAL DISINTEGRATING TAB 5MG PO PRN (02:38)
[2019-04-04 06:21] VITALS: BP 129/70
[2019-04-04] MEDS: FERROUS SULFATE 325MG TAB PO SCH (08:53)
[2019-04-04] MEDS: DOCUSATE SODIUM 100 MG CAP PO SCH ×2 (08:53→21:19)
[2019-04-04] MEDS: ATENOLOL 12.5MG PER 1/2 TABLET PO SCH (08:53)
[2019-04-04] MEDS: LORazepam 1 MG TAB PO PRN (08:54)
--- NOTE | 2019-04-04 10:57 | MHIPNPDOC ---
[facility] Progress Note Progress Note Aron Diaz Inpatient Progress Note Aron Diaz Select Gender MRN: N/A Date of : MM/DD/YYYY Date of Service: 04/04/2019 History of Present Illness The patient, a 19-year-old woman, presented to [facility] in a psychotic state having been wandering on our parking lot where she was noted to be fairly distorted and unable to care for herself. She was brought in and admitted. When I attempted to meet her on the unit, she was still fairly confused and altered. She was unable to engage in any meaningful interview stating that she felt that she "need to go to the park and was writing various nonsensical statements on paper." Interval History The patient is met with today, she is doing much better, she has been , she reports she is feeling "good" and "like myself again." Staff noticed a significant improvement, she is attending to all of her needs, although at times she does have a blank stare. She has not been endorsing any bizarre or delusional ideation. She reports that she is "fine" taking the Invega Sustenna, but she does report some sedation from the Depakote at night. She will be to get the next dose of Invega tomorrow with the dose to be continued as an outpatient. Review Of Systems General: Denies fever or weight changes Cardiovascular: Denies Chest pain or palpations GI: Denies Nausea, vomiting, or bowel changes Respiratory: Denies shortness of breath or cough Neuro: Denies dizziness, tremors Derm: Denies any rashes or pruritus : Denies any dysuria or sexual dysfunction MSK: Denies any muscle tightness or stiffness HEENT: Denies any change in vision change or headaches Heme/Lymph: denies any bruising or bleeding Endo: denies any cold/heat intolerance or water intake changes Psychotherapy None on this visit. Vital Signs Reviewed. Mental Status Examination General: Good hygiene Speech: Fluid Thought processes: Linear MSK: No tremors Thought content: No bizarre thoughts provoked, future orientated. Abstract reasoning, and computation: Intact. Description of associations: Intact. Description of abnormal or psychotic thoughts: Denies suicidal or homicidal ideation. Denies auditory or visual hallucinations. Does not appear to be respon ding to internal stimuli Judgment: Improved Insight: Improved Orientation: Alert and oriented to surroundings Cognition: Grossly intact Recent and remote memory: Intact Attention span and concentration: Intact Fund of knowledge: Improved Mood: "Okay" Affect: Euthymic with a slightly constricted range. Diagnoses Schizoaffective disorder. Cannabis use disorder, unspecified. Assessment and Plan Schizoaffective disorder: Discontinue oral Invega and Depakote as too sedating. Will give injection tomorrow as second in series where patient will then resume monthly injections after she leaves with discharge tomorrow. Cannabis use disorder, unspecified: continue to monitor possible contribution. Disposition Discharge tomorrow if clinical stability continue. Time Spent 15 minutes [id number]. Vital Signs Vital Signs Date Time Temp Pulse Resp B/P (MAP) Pulse Ox O2 Delivery O2 Flow Rate FiO2 04/04/19 08:53 118 121/69 04/04/19 06:21 98.1 16 03/30/19 14:50 99 Current Medications Current Medications Medications (Trade) Dose Ordered Sig/Jordy Route PRN Reason Start Time Stop Time Status Last Admin Dose Admin Acetaminophen (Tylenol Tab) 650 mg Q6HP PRN PO HEADACHE or DISCOMFORT 03/14/19 17:15 04/02/19 09:02 Al Hydrox/Mg Hydrox/Simethicone (Mylanta) 30 ml Q4HP PRN PO HEARTBURN/INDIGESTION 03/14/19 17:15 03/28/19 06:13 Atenolol (Tenormin) 12.5 mg DAILY PO 03/31/19 09:00 04/04/19 08:53 Carbamide Peroxide (Debrox) 5 drop BID AU 03/29/19 21:00 04/02/19 09:01 DC 04/02/19 09:00 Chlorpromazine HCl (Thorazine) 150 mg STAT STAT IM 03/18/19 10:14 03/18/19 10:17 DC 03/18/19 10:34 Diphenhydramine HCl (Benadryl) 50 mg STAT STAT IM 03/16/19 01:17 03/16/19 01:20 DC 03/16/19 01:39 Diphenhydramine HCl (Benadryl) 50 mg STAT STAT IM 03/17/19 08:40 03/17/19 08:43 DC 03/17/19 08:59 Diphenhydramine HCl (Benadryl) 50 mg STAT STAT IM 03/18/19 00:12 03/18/19 00:15 DC 03/18/19 00:31 Diphenhydramine HCl (Benadryl) 100 mg STAT STAT IM 03/19/19 06:39 03/19/19 06:42 DC 03/19/19 06:56 Divalproex Sodium (Depakote Er) 250 mg QHS PO 03/29/19 21:00 04/03/19 20:06 Docusate Sodium (Colace) 100 mg BID PO 03/30/19 21:00 04/04/19 08:53 Ferrous Sulfate (Ferrous Sulfate) 325 mg DAILY PO 03/30/19 09:00 04/04/19 08:53 Haloperidol (Haldol) 10 mg STAT STAT IM 03/16/19 01:17 03/16/19 01:20 DC 03/16/19 01:39 Haloperidol (Haldol) 10 mg STAT STAT IM 03/17/19 08:40 03/17/19 08:43 DC 03/17/19 08:59 Haloperidol (Haldol) 10 mg STAT STAT IM 03/18/19 00:12 03/18/19 00:14 DC 03/18/19 00:30 Haloperidol (Haldol) 15 mg STAT STAT IM 03/19/19 06:39 03/19/19 06:42 DC 03/19/19 06:57 Home Med (Med Rec Complete!) ASDIRECTED XX 03/14/19 14:30 03/14/19 14:33 DC Lorazepam (Ativan) 1 mg Q6HP PRN PO ANXIETY/AGITATION 03/30/19 15:45 04/04/19 08:54 Lorazepam (Ativan) 1 mg STAT STAT IM 03/18/19 10:14 03/18/19 10:17 DC 03/18/19 10:33 Lorazepam (Ativan) 2 mg STAT STAT IM 03/16/19 01:17 03/16/19 01:20 DC 03/16/19 01:39 Lorazepam (Ativan) 2 mg STAT STAT IM 03/17/19 08:40 03/17/19 08:43 DC 03/17/19 08:59 Lorazepam (Ativan) 2 mg STAT STAT IM 03/18/19 00:12 03/18/19 00:14 DC 03/18/19 00:31 Lorazepam (Ativan) 2 mg STAT STAT IM 03/19/19 06:39 03/19/19 06:42 DC 03/19/19 06:57 Magnesium Hydroxide (Milk Of Magnesia) 30 ml DAILYPRN PRN PO CONSTIPATION 03/14/19 17:15 03/17/19 02:02 Olanzapine (ZyPREXA ZYDIS) 5 mg Q4HP PRN PO ANXIETY/AGITATION 03/16/19 18:00 04/04/19 02:38 Olanzapine (ZyPREXA ZYDIS) 5 mg QHS PO 03/26/19 21:00 03/29/19 10:58 DC 03/28/19 20:42 Olanzapine (ZyPREXA ZYDIS) 10 mg QHS PO 03/16/19 21:00 03/26/19 14:42 DC 03/25/19 20:16 Olanzapine (Zyprexa Intramuscular) 10 mg STAT STAT IM 03/22/19 10:22 03/22/19 10:26 DC 03/22/19 10:41 Paliperidone (Invega) 3 mg QHS PO 03/15/19 21:00 03/16/19 17:55 DC 03/15/19 21:28 Paliperidone (Invega) 3 mg QHS PO 03/19/19 21:00 03/23/19 17:54 DC 03/22/19 22:04 Paliperidone (Invega) 6 mg QHS PO 03/23/19 21:00 03/26/19 14:42 DC 03/25/19 20:16 Paliperidone (Invega) 9 mg QHS PO 03/26/19 21:00 04/03/19 20:06 Trazodone HCl (Desyrel) 50 mg QHSP PRN PO INSOMNIA 03/14/19 17:15 03/23/19 12:38 DC 03/23/19 01:38 Trazodone HCl (Desyrel) 50 mg QHSP PRN PO INSOMNIA 04/03/19 17:15 04/03/19 21:34 Allergies Coded Allergies: No Known Allergies (Unverified , 12/21/18) EVELIN PEREZ DO Apr 04, 2019 10:57
[2019-04-04 16:10] VITALS: BP 107/56
[2019-04-04] MEDS: traZODone 50 MG TAB PO PRN (21:19)
[2019-04-05 06:14] VITALS: BP 117/75
[2019-04-05] MEDS ORDERED: INVE234I IM (07:21)
[2019-04-05] MEDS ORDERED: ATEN25TA PO (07:21)
[2019-04-05] MEDS ORDERED: TRAZ-252 PO (07:21)
[2019-04-05] MEDS ORDERED: PALIPERIDONE PALMITATE 234MG/1.5ML INJ (INVEGA)(J2426)(FREE PSY INPT ONLY) IM ONE (08:00)
[2019-04-05 08:46] VITALS: BP 134/79
[2019-04-05] MEDS: ATENOLOL 12.5MG PER 1/2 TABLET PO SCH (08:46)
[2019-04-05] MEDS: FERROUS SULFATE 325MG TAB PO SCH (08:46)
[2019-04-05] MEDS: DOCUSATE SODIUM 100 MG CAP PO SCH (08:50)
[2019-04-05] MEDS ORDERED: PALIPERIDONE PALMITATE 156MG/1ML INJ(INVEGA)(J2426)(FREE PSY INPT ONLY) IM ONE (09:00)
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
== END 2019-04-05 14:10 | disposition home or self-care (01) | DRG 750 ==
LOC: M ED 11:23 → M ED INP 17:12 → M PSY 18:20
PROVIDERS: ADMIT Psychiatry & Neurology Psychiatry; ATTEND Psychiatry & Neurology Addiction Medicine
DX: F25.9 Schizoaffective disorder, unspecified (principal); Z91.14 Patient's other noncompliance with medication regimen; D64.9 Anemia, unspecified; F12.10 Cannabis abuse, uncomplicated; Z81.8 Family history of other mental and behavioral disorders; F17.210 Nicotine dependence, cigarettes, uncomplicated; R00.0 Tachycardia, unspecified; H61.23 Impacted cerumen, bilateral

== ENCOUNTER 2019-05-23 15:34 | Emergency (ER) | payer OTHER ==
[~2019-05-23] VITALS: Ht 157.5 cm; Wt 41.4 kg
[~2019-05-23 15:34] MED LIST changes: +ATEN25TA PO; +INVE234I IM; +TRAZ-252 PO
[2019-05-23] MEDS ORDERED: ACETAMINOPHEN TAB 650MG DOSE (2X325MG) PO ONE (16:45)
[2019-05-23 17:00] VITALS: BP 107/66
== END 2019-05-23 17:06 | disposition left against medical advice (07) ==
LOC: M ED 15:34
DX: Z53.21 Procedure and treatment not carried out due to patient leaving prior to being seen by health care provider (principal); R10.12 Left upper quadrant pain; F20.9 Schizophrenia, unspecified; F17.200 Nicotine dependence, unspecified, uncomplicated; Z79.899 Other long term (current) drug therapy

== ENCOUNTER 2019-06-14 11:33 | Emergency (ER) | payer OTHER ==
[~2019-06-14] VITALS: Ht 154.9 cm; Wt 43.9 kg
[2019-06-14] MEDS ORDERED: OLAN5TAB PO (11:41)
[2019-06-14] MEDS ORDERED: BACT800T5 PO (12:36)
[2019-06-14 12:46] VITALS: BP 120/81
== END 2019-06-14 12:47 | disposition home or self-care (01) ==
LOC: M ED 11:33
DX: N39.0 Urinary tract infection, site not specified (principal); R31.9 Hematuria, unspecified; F17.200 Nicotine dependence, unspecified, uncomplicated; Z79.899 Other long term (current) drug therapy

== ENCOUNTER 2020-01-23 21:16 | Inpatient (IN) | payer MEDICAID, OTHER ==
[~2020-01-23 21:16] MED LIST changes: +BACT800T5 PO; +OLAN5TAB PO
[2020-01-24] MEDS ORDERED: ACETAMINOPHEN TAB 650MG DOSE (2X325MG) ONE (16:39)
[2020-01-24] MEDS ORDERED: traZODone 50 MG TAB ONE (20:48)
[2020-01-24] MEDS ORDERED: haloperidoL 5 MG TAB ONE (20:48)
[2020-01-24] MEDS ORDERED: OLANZapine ORAL DISINTEGRATING TAB 5MG ONE (20:48)
[2020-01-25] MEDS ORDERED: haloperidoL 5 MG TAB ONE ×2 (08:41→20:39)
[2020-01-25] MEDS ORDERED: traZODone 50 MG TAB ONE (20:39)
[2020-01-25] MEDS ORDERED: OLANZapine ORAL DISINTEGRATING TAB 5MG ONE (21:50)
[2020-01-26] MEDS ORDERED: haloperidoL 5 MG TAB ONE ×2 (09:28→20:06)
[2020-01-26] MEDS ORDERED: ONDANSETRON 4 MG ORAL DISINTEGRATING TAB ONE (09:28)
[2020-01-26] MEDS ORDERED: OLANZapine ORAL DISINTEGRATING TAB 5MG ONE ×2 (14:27→20:06)
[2020-01-26] MEDS ORDERED: HALOPERIDOL DECANOATE 100 MG/ML VIAL (J1631) ONE (18:05)
[2020-01-26] MEDS ORDERED: traZODone 50 MG TAB ONE (20:06)
[2020-01-27] MEDS ORDERED: traZODone 50 MG TAB ONE (02:03)
[2020-01-27] MEDS ORDERED: OLANZapine ORAL DISINTEGRATING TAB 5MG ONE (08:00)
[2020-01-27] MEDS ORDERED: haloperidoL 5 MG TAB ONE (08:00)
[2020-02-22 12:48] LABS: HEMATOCRIT 37.8 % (36.0-47.0); HEMOGLOBIN 12.3 g/dl (12.0-15.5); MEAN CORPUSCULAR HEMOGLOBIN 28.3 pg (27.0-33.0); MEAN CORPUSCULAR HGB CONC 32.5 g/dl (32.0-36.5); MEAN CORPUSCULAR VOLUME 87.1 fl (80.0-96.0); PLATELET COUNT, AUTOMATED 423 10^3/uL (150-450); RED BLOOD COUNT 4.34 10^6/uL (4.00-5.40)
[2020-04-11 08:49] LABS: ACETAMINOPHEN LEVEL < 2.0 UG/ML (10.0-30.0); ALBUMIN 4.7 GM/DL (3.2-5.2); ALT/SGPT 19 U/L (12-78); AMPHETAMINES LEVEL URINE NEGATIVE (NEGATIVE); BARBITURATES URINE NEGATIVE (NEGATIVE); BENZODIAZEPINES URINE NEGATIVE (NEGATIVE); BILIRUBIN,DIRECT 0.2 MG/DL (0.0-0.2); BILIRUBIN,TOTAL 0.4 MG/DL (0.2-1.0); BLOOD UREA NITROGEN 9 MG/DL (7-18); CALCIUM LEVEL 9.3 MG/DL (8.5-10.1); CANNABINOIDS URINE POSITIVE (NEGATIVE); CARBON DIOXIDE LEVEL 26 MEQ/L (21-32); CHLORIDE LEVEL 107 MEQ/L (98-107); COCAINE METABOLITE URINE NEGATIVE (NEGATIVE); CREATININE FOR GFR 0.85 MG/DL (0.55-1.30); ETHYL ALCOHOL (ETHANOL) < 0.003 % (0.000-0.010); GLOMERULAR FILTRATION RATE > 60.0 (>60); GLUCOSE, FASTING 101 MG/DL (70-100); METHADONE URINE NEGATIVE (NEGATIVE); OPIATES URINE NEGATIVE (NEGATIVE); PHENCYCLIDINE URINE NEGATIVE (NEGATIVE); POTASSIUM SERUM 3.6 MEQ/L (3.5-5.1); SODIUM LEVEL 141 MEQ/L (136-145); THYROID STIMULATING HORMONE 0.939 uIU/ML (0.463-3.98); TOTAL PROTEIN 8.4 GM/DL (6.4-8.2)
[2020-04-18 14:18] LABS: HCG, SERUM QUALITATIVE NEGATIVE (NEGATIVE)
[2020-04-21 20:19] LABS: ALT/SGPT 16 IU/L (0-32); AMYLASE 45 U/L (25-115); LIPASE 93 U/L (73-393)
== END 2020-01-27 14:30 | disposition home or self-care (01) | DRG 750 ==
LOC: M ED 21:16 → M PSY 01-24 04:45 → M ED 01-24 21:16
PROVIDERS: ADMIT Orthopaedic Surgery; ATTEND Orthopaedic Surgery
DX: F25.0 Schizoaffective disorder, bipolar type (principal); F17.210 Nicotine dependence, cigarettes, uncomplicated; M54.5 Low back pain; F12.90 Cannabis use, unspecified, uncomplicated

== ENCOUNTER 2020-03-24 15:07 | Emergency (ER) | payer MEDICAID, OTHER ==
[~2020-03-24] VITALS: Ht 154.9 cm; Wt 43.7 kg
[2020-03-24 15:08] VITALS: BP 121/60
[2020-03-24] MEDS ORDERED: GABA-843 (15:19)
[2020-03-24] MEDS ORDERED: BENZ0.5T23 (15:19)
[2020-03-24] MEDS ORDERED: haloperidol (15:19)
== END 2020-03-24 16:37 | disposition left against medical advice (07) ==
LOC: M ED 15:07
DX: Z53.21 Procedure and treatment not carried out due to patient leaving prior to being seen by health care provider (principal)

== ENCOUNTER → 2020-03-30 | Outpatient (CLI) | payer OTHER ==
[~2020-03-30] MED LIST changes: +BENZ0.5T23; +GABA-843; +haloperidol
--- NOTE | 2020-04-01 08:19 | REP ---
SCOLIOSIS SERIES: 2-VIEWS HISTORY: Back pain. COMPARISION RADIOGRAPHS: 05/31/2014. FINDINGS: ( cut out :32 to 1:04), previously 7 degrees. No structural vertebral anomaly is seen. IMPRESSION: S-shaped scoliotic curve. Evidence of progression as above. MTDD
== END ==
LOC: M RAD 12:14
PROVIDERS: ATTEND Nurse Practitioner Family
DX: M41.55 Other secondary scoliosis, thoracolumbar region (principal)

== ENCOUNTER → 2020-04-03 | Outpatient (REF) | payer OTHER, MEDICAID ==
[2020-04-03 18:06] LABS: APPEARANCE, URINE TURBID (CLEAR); BACTERIA, URINE AUTO 1+ (NEGATIVE); BILIRUBIN, URINE AUTO NEGATIVE (NEGATIVE); BLOOD, URINE BLOOD 3+ (NEGATIVE); COLOR, URINE YELLOW (YELLOW); GLUCOSE, URINE (UA) AUTO NEGATIVE (NEGATIVE); KETONE, URINE AUTO TRACE mg/dL (NEGATIVE); LEUKOCYTE ESTERASE, URINE AUTO 3+ (NEGATIVE); MUCUS, URINE LARGE (NEGATIVE); NITRITE, URINE AUTO NEGATIVE (NEGATIVE); PROTEIN, URINE AUTO 2+ mg/dL (NEGATIVE); RBC, URINE AUTO TNTC /HPF (0-3); SPECIFIC GRAVITY URINE AUTO 1.024 (1.002-1.035); SQUAMOUS EPITHELIAL CELL UR AU 1 /HPF (0-6); UROBILINOGEN, URINE AUTO 0.2 mg/dL (0.0-2.0); WBC, URINE AUTO TNTC /HPF (0-3)
== END ==
LOC: M LAB REF 17:10
PROVIDERS: ATTEND Nurse Practitioner Family
DX: R30.0 Dysuria (principal); N39.0 Urinary tract infection, site not specified

== ENCOUNTER 2021-04-11 15:59 | Emergency (ER) | payer OTHER, MEDICAID ==
[~2021-04-11] VITALS: Ht 154.9 cm; Wt 38.7 kg
[~2021-04-11 15:59] MED LIST changes: +GABA-282; -GABA-843; +OLAN1TAB16 PO; -OLAN5TAB PO
--- OUTSIDE RECORDS SUMMARY | 2021-04-11 16:09 | CCD ---
Author Author [facility] Address Unknown Phone Unavailable Care Team Providers Care Rn Patient Services Name Role Phone Ant, Marce REWARDS CONSULTANT REWARDS CONSULTANT Unavailable Unavailable Analy Lara MD Unavailable Unavailable Analy Lara MD Unavailable Unavailable Analy Lara MD Unavailable Unavailable Analy Lara MD Unavailable Unavailable Analy Lara MD Unavailable Unavailable Analy Lara MD Unavailable Unavailable Analy Lara MD Unavailable Unavailable Analy Lara MD Unavailable Unavailable Green MOLD PULLER MOLD PULLER, Albina Unavailable Unavailable Green MOLD PULLER MOLD PULLER, Albina Unavailable Unavailable Green MOLD PULLER MOLD PULLER, Albina Unavailable Unavailable Green MOLD PULLER MOLD PULLER, Albina Unavailable Unavailable Green MOLD PULLER MOLD PULLER, Albina Unavailable Unavailable Ant, A Marce REWARDS CONSULTANT Unavailable Unavailable Ant, A Marce REWARDS CONSULTANT Unavailable Unavailable Ant, A Marce REWARDS CONSULTANT Unavailable Unavailable Ant, A Marce REWARDS CONSULTANT Unavailable Unavailable Ant, A Marce REWARDS CONSULTANT Unavailable Unavailable Ant, A Marce REWARDS CONSULTANT Unavailable Unavailable Ant, A Marce REWARDS CONSULTANT Unavailable Unavailable Ant, A Marce REWARDS CONSULTANT Unavailable Unavailable Ant, A Marce REWARDS CONSULTANT Unavailable Unavailable Ant, A Marce REWARDS CONSULTANT Unavailable Unavailable Ant, A Marce REWARDS CONSULTANT Unavailable Unavailable Ant, A Marce REWARDS CONSULTANT Unavailable Unavailable Ant, A Marce REWARDS CONSULTANT Unavailable Unavailable Ant, A Marce REWARDS CONSULTANT Unavailable Unavailable Ant, A Marce REWARDS CONSULTANT Unavailable Unavailable Atn, A Marce REWARDS CONSULTANT Unavailable Unavailable Ant, A Marce REWARDS CONSULTANT Unavailable Unavailable Ant, A Marce REWARDS CONSULTANT Unavailable Unavailable Ant, A Marce REWARDS CONSULTANT Unavailable Unavailable Ant, A Marce REWARDS CONSULTANT Unavailable Unavailable Ant, A Marce REWARDS CONSULTANT Unavailable Unavailable Ant, A Marce REWARDS CONSULTANT Unavailable Unavailable Ant, A Marce REWARDS CONSULTANT Unavailable Unavailable Ant, A Marce REWARDS CONSULTANT Unavailable Unavailable Ant, A Marce REWARDS CONSULTANT Unavailable Unavailable Ant, A Marce REWARDS CONSULTANT Unavailable Unavailable Ant, A Marce REWARDS CONSULTANT Unavailable Unavailable Ant, A Marce REWARDS CONSULTANT Unavailable Unavailable Ant, A Marce REWARDS CONSULTANT Unavailable Unavailable Ant, A Marce REWARDS CONSULTANT Unavailable Unavailable Ant, A Marce REWARDS CONSULTANT Unavailable Unavailable Re-disclosure Warning The records that you are about to access may contain information from federally-assisted alcohol or drug abuse programs. If such information is present, then the following federally mandated warning applies: This information has been disclosed to you from records protected by federal confidentiality rules (42 CFR part 2). The federal rules prohibit you from making any further disclosure of this information unless further disclosure is expressly permitted by the written consent of the person to whom it pertains or as otherwise permitted by 42 CFR part 2. A general authorization for the release of medical or other information is NOT sufficient for this purpose. The Federal rules restrict any use of the information to criminally investigate or prosecute any alcohol or drug abuse patient.The records that you are about to access may contain highly sensitive health information, the redisclosure of which is protected by Article 27-F of the [facility] Public Health law. If you continue you may have access to information: Regarding HIV / AIDS; Provided by facilities licensed or operated by the [facility] Office of Mental Health; or Provided by the [facility] Office for People With Developmental Disabilities. If such information is present, then the following [facility] mandated warning applies: This information has been disclosed to you from confidential records which are protected by state law. State law prohibits you from making any further disclosure of this information without the specific written consent of the person to whom it pertains, or as otherwise permitted by law. Any unauthorized further disclosure in violation of state law may result in a fine or mcfp sentence or both. A general authorization for the release of medical or other information is NOT sufficient authorization for further disc losure. Allergies and Adverse Reactions Type Description Substance Reaction Status Data Source(s ) Allergy to substance Allergy to substance Allergy to substance [facility] ([facility]) Allergy to substance Allergy to substance Allergy to substance [facility] ([facility]) Allergy to substance Allergy to substance Allergy to substance [facility] ([facility]) Family History Family Member Name Family Member Gender Family Member Status Date o f Status Description Data Source(s) Unknown Unknown Problem [facility] ([facility]) father's side Encounters Encounter Providers Location Date Indications Data Source(s ) Shelly Lara MD: [address] [place] [id number], Ph. Attender: Shelly Lara MD [facility] Medical 09/25/2020 12:00:00 AM EDT [facility] ([facility]) Shelly Lara MD: [address], [place] [address], Ph. Attender: Shelly Lara MD [facility] Medical 06/09/2020 12:00:00 AM EST [facility] ([facility]) Shelly Lara MD: [address], [place] [address], Ph. Attender: Shelly Lara MD [facility] Medical 06/09/2020 12:00:00 AM EST [facility] ([facility]) Shelly Lara MD: [address], [place] [address], Ph. Attender: Shelly Lara MD [facility] Medical 05/12/2020 12:00:00 AM EST [facility] ([facility]) Shelly Lara MD: [address] [place] [address], Ph. Attender: Shelly Lara MD [facility] Medical 05/12/2020 12:00:00 AM EST [facility] ([facility]) Shelly Lara MD: [address] [place] [address], Ph. Attender: Shelly Lara MD [facility] Medical 05/12/2020 12:00:00 AM EST [facility] ([facility]) OutpatientOFFICE VISIT, EST Attender: Albina Patel MOLD PULLER MOLD PULLER [place] [facility] 05/08/2020 02:15:00 PM EST - 05/08/2020 02:15:00 PM EST Human immunodeficiency virus [HIV] counselingOther sex counselingEncntr screen for infections w sexl mode of transmissEncounter for oth general cnsl and advice on contraceptionEncounter for initial prescription of injectable contracepEncounter for test, result negative Next[facility] ([facility]) Human immunodeficiency virus [HIV] couns eling Other sex counseling Encntr screen for infections w sexl mode of transmiss Encounter for oth general cnsl and advic e on contraception Encounter for initial prescription of in jectable contracep Encounter for test, result neg ative Outpatient Attender: DAWOOD SEAY FP 04/05/2020 02:09:[address] [facility] Outpatient Attender: Marce SEAY FP 04/05/2020 02:0 9:[address] [facility] Outpatient Attender: DAWOOD SEAY FP 04/04/2020 02:09:[address] [facility] Outpatient Attender: Marce SEAY FP 04/04/2020 02:0 9:[address] [facility] Outpatient Attender: DAWOOD SEAY FP 04/03/2020 03:38:[address] [facility] Outpatient Attender: DAWOOD SEAY FP 04/03/2020 02:43:[address] [facility] Outpatient Attender: DAWOOD SEAY FP 03/27/2020 11:53:[address] [facility] Outpatient Attender: DAWOOD SEAY FP 03/24/2020 04:44:[address] [facility] Outpatient Attender: DAWOOD SEAY FP 03/13/2020 11:27:[address] [facility] Outpatient Attender: DAWOOD SEAY FP 03/10/2020 02:14:[address] [facility] Outpatient Attender: Marce SEAY FP 03/10/2020 01:1 2:[address] [facility] Outpatient Attender: DAWOOD SEAY FP 02/29/2020 10:31:[address] [facility] Outpatient Attender: Marce SEAY FP 02/28/2020 02:4 9:[address] [facility] Outpatient Attender: Marce SEAY FP 02/21/2020 08:5 4:[address] [facility] Outpatient Attender: DAWOOD SEAY FP 02/18/2020 01:34:[address] [facility] Outpatient Attender: Marce Cain REWARDS CONSULTANT FP 02/15/2020 03:5 4:[address] [facility] Outpatient Attender: Marce Cain REWARDS CONSULTANT FP 02/15/2020 01:5 7:[address] [facility] Outpatient Attender: DAWOOD Cain REWARDS CONSULTANT FP 02/14/2020 03:25:[address] [facility] Outpatient Attender: DAWOOD Cain REWARDS CONSULTANT FP 02/14/2020 03:17:[address] [facility] Outpatient Attender: DAWOOD Cain REWARDS CONSULTANT FP 02/14/2020 02:35:[address] [facility] Outpatient Attender: Marce Cain REWARDS CONSULTANT 02/13/2020 02:1 8:[address] [facility] Outpatient Attender: Marce Cain REWARDS CONSULTANT FP 02/12/2020 03:2 2:[address] [facility] Outpatient Attender: Marce Cain REWARDS CONSULTANT 02/12/2020 02:2 5:[address] [facility] Medications Medication Brand Name Start Date Product Form Dose Route Admi nistrative Instructions Pharmacy Instructions Status Indications Reaction Description Data Source(s) medroxyprogesterone acetate 150 MG/ML In jectable Suspension medroxyprogesterone 150 mg/mL intramuscular suspension medroxyprogesterone 150 mg/mL intramuscu lar suspension 05/08/2020 12:00:00 AM EST active IM every 10-13 weeks [facility] ([facility] medroxyprogesterone acetate 150 MG/ML In jectable Suspension medroxyprogesterone 150 mg/mL intramuscular suspension medroxyprogesterone 150 mg/mL intramuscu lar suspension 05/28/2019 12:00:00 AM EST complet ed IM every 10-13 weeks [facility] ([facility]) Atenolol 25 MG Oral Tablet atenolol 25 m g tablet TAKE ONE-HALF TABLET BY MOUTH ONCE DAILY FOR heart rate atenolol 25 mg tablet TAKE ONE-HALF TABL ET BY MOUTH ONCE DAILY FOR heart rate completed atenolol 25 MG Oral Tablet [facility] ([facility]) olanzapine 5 MG Oral Tablet olanzapine 5 mg tablet TAKE ONE TABLET BY MOUTH AT BEDTIME olanzapine 5 mg tablet TAKE ONE TABLET BY MOUTH AT BEDTIME completed olanzapine 5 MG Oral Tablet ATHAntonietta VOGT ([facility]) Atenolol 25 MG Oral Tablet atenolol 25 m g tablet TAKE ONE-HALF TABLET BY MOUTH ONCE DAILY FOR heart rate atenolol 25 mg tablet TAKE ONE-HALF TABL ET BY MOUTH ONCE DAILY FOR heart rate completed atenolol 25 MG Oral Tablet [facility]IA ([facility]) Atenolol 25 MG Oral Tablet atenolol 25 mg tablet atenolol 25 mg tablet completed NextGen ([facility]) 1/2 tab once daily Atenolol 25 MG Oral Tablet atenolol 25 m g tablet TAKE ONE-HALF TABLET BY MOUTH ONCE DAILY FOR heart rate atenolol 25 mg tablet TAKE ONE-HALF TABL ET BY MOUTH ONCE DAILY FOR heart rate completed atenolol 25 MG Oral Tablet [facility] ([facility]) Sulfamethoxazole 800 MG / Trimethoprim 1 60 MG Oral Tablet sulfamethoxazole 800 mg-trimethoprim 160 mg tablet sulfamethoxazole 800 mg-trimethoprim 160 mg tablet completed sulfame thoxazole 800 MG / trimethoprim 160 MG Oral Tablet [facility]ONIA ([facility]) Sulfamethoxazole 800 MG / Trimethoprim 1 60 MG Oral Tablet sulfamethoxazole 800 mg-trimethoprim 160 mg tablet sulfamethoxazole 800 mg-trimethoprim 160 mg tablet completed sulfame thoxazole 800 MG / trimethoprim 160 MG Oral Tablet [facility] ([facility]) gabapentin 300 MG Oral Capsule gabapenti n 300 mg capsule TAKE ONE CAPSULE BY MOUTH TWICE DAILY NEEDED gabapentin 300 mg capsule TAKE ONE CAPSU LE BY MOUTH TWICE DAILY NEEDED completed gabapentin 300 MG Oral Capsule [facility] ([facility]) haloperidol decanoate 50 mg/mL intramuscular solution INJECT DIRECTED [id number] completed haloperidol de canoate 50 MG/ML Injection [facility]ONIA ([facility]) Sulfamethoxazole 800 MG / Trimethoprim 1 60 MG Oral Tablet sulfamethoxazole 800 mg-trimethoprim 160 mg tablet sulfamethoxazole 800 mg-trimethoprim 160 mg tablet completed sulfame thoxazole 800 MG / trimethoprim 160 MG Oral Tablet [facility]IA ([facility]) olanzapine 5 MG Oral Tablet olanzapine 5 mg tablet TAKE ONE TABLET BY MOUTH AT BEDTIME olanzapine 5 mg tablet TAKE ONE TABLET BY MOUTH AT BEDTIME completed olanzapine 5 MG Oral Tablet ATHE NA ([facility]) haloperidol decanoate 50 mg/mL intramuscular solution INJECT DIRECTED [id number] completed haloperidol de canoate 50 MG/ML Injection [facility]ONIA ([facility]) olanzapine 5 MG Oral Tablet olanzapine 5 mg tablet TAKE ONE TABLET BY MOUTH AT BEDTIME olanzapine 5 mg tablet TAKE ONE TABLET BY MOUTH AT BEDTIME completed olanzapine 5 MG Oral Tablet ATHE NA ([facility]) gabapentin 300 MG Oral Capsule gabapenti n 300 mg capsule TAKE ONE CAPSULE BY MOUTH TWICE DAILY NEEDED gabapentin 300 mg capsule TAKE ONE CAPSU LE BY MOUTH TWICE DAILY NEEDED completed gabapentin 300 MG Oral Capsule TONIA ([facility]) haloperidol decanoate 50 mg/mL intramuscular solution INJECT DIRECTED [id number] completed haloperidol de canoate 50 MG/ML Injection [facility]ONIA ([facility]) Insurance Providers Payer name Policy type / Coverage type Policy ID Covered green party ID Covered green party's relationship to alvarez Policy Alvarez Plan Information Medicaid Dental O [id number] S [id number] [facility] [id number] S [id number] [facility] [id number] S [id number] Medicaid Dental O [id number] S [id number] Medicaid S [id number] S [id number] Managed Care - Community Plan [facility] P [id number] S [id number] Managed Care - Community Plan [facility] P [id number] S [id number] Medicaid S [id number] S [id number] Managed Care - Community Plan [facility] P [id number] S [id number] Managed Care - Community Plan [facility] P [id number] S [id number] Medicaid S [id number] S [id number] Managed Care - Community Plan [facility] P [id number] S [id number] Managed Care - [facility] Community Plan P [id number] S [id number] Medicaid S [id number] S [id number] Managed Care - [facility] Community Plan P [id number] S [id number] Medicaid S [id number] S [id number] [facility] [id number] self [id number] Managed Care - [facility] Community Plan P [id number] S [id number] [place] [id number] SP [id number] V [id number] [facility] COMMUNITY PLAN [facility] [id number] SP [id number] [facility](MCAID) O [id number] S [id number] [facility] [id number] SP [id number] [place] [id number] SP [id number] [employer] COMMUNITY PLAN MCDHMO [id number] SP [id number] MEDICAID [id number] SP [id number] Managed Care - Community Plan [facility] P [id number] S [id number] SELF PAY ONLY [id number] SP [id number] [place] [id number] SP [id number] [facility] (HMO[facility] [id number] Self [id number] [facility](MCAID) P [id number] S [id number] D Managed Care [facility] O [id number] S [id number] D [facility] Care [facility] P UNAVAILABLE S UNAVAILABLE BLUE CROSS JHAVERI PLAN [id number] SP [id number] [facility] JHAVERI PLAN [id number] [facility] [id number] SF2 [id number] [employer] P [id number] S [id number] Problems, Conditions, and Diagnoses Code Display Name Description Problem Type Effective Dates Data Source(s) 788.1 Dysuria Dysuria 04/03/2020 03:36:[address] [facility] 882622912 Urinary tract infection, site not specif ied Urinary tract infection, site not specified 04/03/2020 03:36:[address] [facility] 53378991 Dysuria Dysuria Problem 04/03/2020 12:00:00 AM ED T [facility] ([facility]) 24233170 Urinary tract infectious disease Urinary Tract I nfectious Disease Problem 04/03/2020 12:00:00 AM EDT [facility] ([facility]) Surgeries/Procedures Procedure Description Date Indications Data Source(s) CVR Senior Research Executive.Svc. STI / H 05/08/2020 12:00:00 AM EST - 05/08/2020 12:00:00 AM EST [facility] ([facility]) CVR Senior Research Executive.Svc. Other 05/08/2020 12:00:00 AM EST - 2019 12:00:00 AM EST [facility] ([facility]) CVR Senior Research Executive.Svc. Contraceptive 05/08/2020 12 :00:00 AM EST - 05/08/2020 12:00:00 AM EST [facility] ([facility]) CVR Med.Svc. Height/Weight 05/08/2020 12 :00:00 AM EST - 05/08/2020 12:00:00 AM EST [facility] ([facility]) CVR Blood Pressure 05/08/2020 12:00:00 AM EST - 2019 12:00:00 AM EST [facility] ([facility]) HCS Without Test 05/08/2020 12:00:00 AM EST - 05/08/20 20 12:00:00 AM EST [facility] ([facility]) THER/PROPH/DIAG INJ, SC/IM 05/08/2020 12 :00:00 AM EST - 05/08/2020 12:00:00 AM EST [facility] ([facility]) Depo/Medroxyprogesterone Inj. 150 Mg Nurse/CA 05/08/2020 12:00:00 AM EST - 05/08/2020 12:00:00 AM EST [facility] ([facility]) CVR BC Ending Method HORM.INJ. 3 MOS 12:00:00 AM EST - 05/08/2020 12:00:00 AM EST [facility] ([facility]) N.GONORRHOEAE, URINE 05/08/2020 12:00:00 AM EST - 05/08/2020 12:00:00 AM EST [facility] ([facility]) CHYLMD TRACH, URINE 05/08/2020 12:00:00 AM EST - 05/08 12:00:00 AM EST [facility] ([facility]) OFFICE VISIT, EST 05/08/2020 12:00:00 AM EST - 020 12:00:00 AM EST [facility] ([facility]) URINE TEST 05/08/2020 12:00:00 AM EST - 05/08/2020 12:00:00 AM EST NextGen ([facility]) Results ID Date Data Source [id number] 05/08/2020 02:50:36 PM EST Next ([facility]) Name Value Range Interpretation Code Description Data Dot rce(s) Supporting Document(s) NegativeLot: [id number]: 08/17/2021 High Sensitivity Urine Test Gucci ([facility]) ID Date Data Source [id number] 04/03/2020 04:02:[address] [facility] Name Value Range Interpretation Code Description Data Dot rce(s) Supporting Document(s) APPEARANCE U TURBID CLEAR H [facility] SPEC GR URIN 1.024 1.002-1.035 N [facility] F [facility] UA COLOR YELLOW YELLOW N [facility] ID Date Data Source [id number] 04/03/2020 04:02:[address] [facility] Name Value Range Interpretation Code Description Data Dot rce(s) Supporting Document(s) URINECULTRTN NO GROWTH N [facility] ID Date Data Source [id number] 04/03/2020 02:42:[address] [facility] Measurements & CalculationsHeight: 62 inches (5 ft. 2 in.) 157.48 cm Weight: 91.2 pounds 41.45 kg Body Mass Index (BMI): 16.74BMI Interpretation: UnderweightBody Surface Area (BSA): 1.37Weight Management Education Done (Nutrition/Physical Activity)Vital SignsTemperature: 97.5FPulse Rate: 93 beats/minuteRespiratory Rate: 16 respirations/minuteBlood Pressure: 113/77 O2 Saturation: 98% Vital Signs performed by: Kiera Pierre MA, April 03, 2020 2:57 PMVital Signs performed by: Kiera Pierre MA, April 03, 2020 2:57 PMLabs In-House Urine TestsTest Result Reference Range Normal ValueRoutine Urinalysis Color: yellow Yellow Appearance: cloudy Clear Leukocytes: 2+ Negative Nitrite: negative Negative Urobilinogen: 4 Negative Protein: 3+ Negative pH: 6.0 5.0-6.5 Blood: 3+ Negative Specific [place]: 1.030 1.020>=1.030 Ketone: negative Negative Bilirubin: negative Negative Glucose: negative NegativeKiera Pierre MA, April 03, 2020 3:18 PMInitial Intake Information From: patientRoom #: 9Infectious Disease / Travel ScreeningRecent travel for you or any close contacts? NoHave you had any close contact with anyone diagnosed with or under investigation for COVID-19 (coronavirus)? NoFever? NoRespiratory symptoms: cough, cold, congestion, shortness of breath, difficulty breathing? NoLoss of smell? NoLoss of taste? NoSmoking, Tobacco, Vaping or Smoke Exposure StatusSmoke Status: current every day smokerTobacco Use: YesAdv to Quit: YesDo you vape? NoPassive Smoke Exposure: YesPassive Smoke Exposure comments: motherMenstrual HistoryLast Menstrual Period (LMP): 03/20/2020LMP History: DefiniteAny possibility of ? NoHealthcare HistorySince your last office visit...Have you been [facility] the [facility]: [facility]Have you been to an emergency room (ER) or urgent care clinic? [facility] - but left without being seenEmergency room (ER) or urgent care date reported today: 03/27/2020Have you seen another healthcare provider? No - community clinic Have you seen a dentist? Yes - [facility] date reported today: 03/2016Intake performed by: Kiera Pierre MA, April 03, 2020 2:48 PMRate Your HealthIn general, would you say your health is? GoodPain AssessmentAre you currently having any pain which... You would like your provider to address? Yes Affects your activity level? YesDepression Screening - PHQ-2Over the last two weeks, have you... Had little interest or pleasure in doing things? Not at all Been feeling down, depressed, or hopeless? Not at all PHQ-2 Score: 0Anxiety Screening - CARLO-2Over the last two weeks, have you been... Feeling nervous, anxious, or on edge? Several days Unable to stop or control worrying? Nearly every day CARLO-2 Score: 4Food InsecurityWithin the past year...Did you worry whether your food would run out before you got money to buy more? Never trueWas there a time when the food you bought didn't last and you didn't have money to get more? Never trueGeneralized Anxiety Disorder 7-Item Screening (CARLO-7)Answer Guide:0 = Not at all1 = Several days2 = Over half the days3 = Nearly every dayOver the last 2 weeks, how often have you been bothered by the following problems?Feeling nervous, anxious, or on edge: 1Not being able to stop or control worryinWorrying too much about different things: 3Trouble relaxinBeing so restless that it's hard to sit still: 3Becoming easily nguyen oyed or irritable: 3Feeling afraid as if something awful might happen: 3Answer Guide:0 = Not difficult at all1 = Somewhat difficult2 = Very difficult3 = Extremely difficultHow difficult have these made it for you to do your work, take care of things at home, or get along with other people? 3GAD-7 Screening Results CARLO-2 Score: 4GAD-7 Score: 19Functional Impairment: Extremely difficultRecommendation: Severe anxietyPain AssessmentPain ScaleNumeric Rating Scale: 5 / 10Location: back painDuration: chronicFrequency: DailyCharacter/Quality: aching, pressure and pinchingScreening, Brief Intervention, & Referral to Treatment (SBIRT)Pre-Screening Questions How many times have you have 4 or more drinks in a day? 0How many times have you used an illegal drug or used a prescription medication for a non-medical reason? 365Performed by: Kiera Pierre MA, April 03, 2020 2:51 PMPatient History Medical History:AnxietyBipolar disorderDepressionPTSDSchizophreniaSurgical History:Tonsillectomy adnoids removed Family History:FH AsthmaFH AllergiesFH DiabetesFH HypertensionFH Mental IllnessFH HepatitisSocial/Personal History:Single. Not homeless. Lives with her Mother and 1 younger sisterParents are separetedNo contact with her fatherNot employed. 11th grade WHSSex at : Female. Sexual orientation: Heterosexual. Gender identity: Female. Sexually Active: No. Advised to Quit/Tobacco Education: YesChief Complaintfollow-up visit back pain/anx/dep room 9History of Present Illness (HPI)20 YO female here for back pain and anxiety follow up. Pt states she went to [facility] ER last week with s/s of UTI but didn't stay to be seen. Pt states current symptoms are pain and burning with urinating and blood tinged urine. Pt states urine frequency, pain and burning started about 1 weeks ago. Pt refused flu vaccine today. HPI performed by: Marce SEAY, April 03, 2020 3:21 PMTransitions of Care InboundProblem ReviewProblem List was reviewed and/or updated during this visit.Medication Reconciliation & ReviewMedication List was reviewed and/or updated during this visit, including review of any gvvo-lrq-tobwckh medications, herbal therapies, and/or supplements.Allergy ReviewAllergy List was reviewed and/or updated during this visit.Adult Preventive CareProvider Calculated and Reviewed all Clinical Protocols for patient today. Screening Tobacco Screening: Smoking Status: current every day smoker (04/03/2020) Tobacco Use: Currently (04/03/2020) Advised to Quit: Yes (04/03/2020)Labs/Meds/Other Counseling-Nutrition and Physical Activity:BMI Interpretation: Underweight (04/03/2020) Counseling: Done (04/03/2020) Physical Activity: Done (04/03/2020)Cancer Screening Pap Smear/HPV TestingReviewed: Review of Systems General: Denies loss of appetite, chills, dizziness, fatigue, fever, continued fever, headache, feeling ill, sweats, night sweats, sleep disturbances, weight loss. Eyes: Denies blurring of vision, double vision, irritation, discharge, vision loss, eye pain, eye swelling, droop y eyelid, sensitivity to light, redness, itching. Ears/Nose/Throat: Denies earache, ear discharge, ringing in ears, decreased hearing, nasal congestion, nosebleeds, runny nose, sore throat, hoarseness, difficulty swallowing, dry mouth, tooth pain, bleeding gums, swollen glands. Cardiovascular: Denies chest pain, palpitations, feeling faint, trouble breathing w/exertion, SOB upon lying down, SOB at night, peripheral edema, elevated blood pressure, decreased heart rate. Respiratory: Denies cough, difficulty breathing, shortness of breath, excessive sputum, coughing up blood, wheezing, chest pain. Gastrointestinal: Denies nausea, vomiting, bleeding, burning, itching, irritation, cramps, diarrhea, constipation. Genitourinary: Complains of pain with urination, burning with urination, urinary frequency, urinary hesitancy, urinary urgency, urinary urgency at night, incomplete emptying, blood in urine. Denies urinary incontinence, absence of menstrual period, heavy menstrual period, prolonged me nstrual period, pelvic pain. Musculoskeletal: Complains of back pain. Denies joint pain, leg pain, other pain-see comments, joint swelling, body aches, muscle aches, muscle cramps, muscle weakness, stiffness, recent injury. Skin: Denies rash, hives, redness, itching, dryness, nail changes, suspicious lesions, athlete's foot, rash on palms, rash on bottom of feet. Neurologic: Denies muscle impairment, weakness, numbness/tingling, seizures, slurred speech, feeling faint, tremors, vertigo, paralysis on one side, paralysis on both sides. Psychiatric: Complains of depression, anxiety. Denies memory loss, mental disturbance, suicidal ideation, homicidal ideation, hallucinations, paranoia, feeling stressed, hearing voices. Endocrine: Denies cold intolerance, heat intolerance, excessive thirst, excessive hunger, excessive urination, weight loss, weight gain. Heme/Lymphatic: Denies abnormal bruising, bleeding, enlarged lymph nodes. Physical ExamGeneral Appearance: well nourished, well hydrated, no acute distressEyes, External: conjunctivae and lids normal, EOMIRespiratory, Auscultation: clear to auscultation bilaterally; no rales, rhonchi, or wheezesRespiratory, Effort: no intercostal retractions or use of accessory musclesCardiovascular, Auscultation: S1, S2 audible; no murmur, rub, or gallop; RRRPeripheral Circulation: no clubbing, cyanosis, edema, or varicositiesAbdomen: soft, non-tender, no masses, bowel sounds normalGait & Station: normalSkin, Inspection: no rashes, lesions, or ulcerationsOrientation: oriented to time, place, and personMood & Affect: no depression, anxiety, or agitationJudgment & Insight: intactCare Management Plan Transitions of CareInboundRate Your HealthIn general, would you say your health is? GoodAssessment & Plan Problems:Added: Urinary tract infection, site not specified (AUC90-E56.0) Assessment: Instructions: We have sent a prescription to your pharmacy today. Please take medication as prescribed. Please report any major side effects. Please try to maintain adequate intake of water daily and good personal hygiene.Dysuria (ICD- 788.1) (BFU09-K78.0) Assessment: Instructions: UA done in office positive for UTI. We have sent a prescription to treat with ABX, We will send urine to lab for culture.Assessed:Anxiety depression (ICD-300.4) (ZJU97-E96.8) Assessment: Instructions: Please continue medications as prescribed. Please continue to monitor, report and avoid triggers causing increased anxiety and or depression. Please keep your appointment with your specialist.BACK PAIN (ICD- 724.5) (LJT15-R19.9) Assessment: Instructions: We have made a referral for you today. We will contact you to set this up. Please continue medication as prescribed. Please try to avoid streneous activities.Assessment not Saved Anxiety depression (BTR01-Q50.8): Patient Instructions/Care Plan: Urinary tract infection- site not specified: We have sent a prescription to your pharmacy today. Please take medication as prescribed. Please report any major side effects. Please try to maintain adequate intake of water daily and good personal hygiene.Dysuria: UA done in office positive for UTI. We have sent a prescription to treat with ABX, We will send urine to lab for culture.Anxiety depression: Please continue medications as prescribed. Please continue to monitor, report and avoid triggers causing increased anxiety and or depression. Please keep your appointment with your specialist.BACK PAIN: We have made a referral for you today. We will contact you to set this up. Please continue medication as prescribed. Please try to avoid streneous activit ies. Plan developed in collaboration with patient and/or familyMedications:BACTRIM DS 800-160 MG ORAL TABLETBENZTROPINE MESYLATE 0.5 MG ORAL TABLETHALOPERIDOL 5 MG ORAL TABLETGABAPENTIN 300 MG ORAL CAPSULEBETAMETHASONE DIPROPIONATE AUG 0.05 % EXTERNAL CREAMTRAZODONE HCL 50 MG ORAL TABLETMedication Changes:New Prescription:BACTRIM DS 800-160 MG ORAL TABLET-take one tablet by mouth twice daily x 7 days Qty: 14[Tablet] Refills: 0 Method: ElectronicAllergies:* SKIN SO SOFT LOTION (Mild)Orders:Orthopaedics Consult [CPT-10195] Urinalysis-manual [CPT-49965] URINALYSIS [CPT-34959] Urine Culture & Sensitivity [CPT-66657] Adult - Ofc Vst, EST, Level III [CPT-62295] Follow-Up Return to clinic: as scheduled and as needed Clinical Visit Summary CompletedMedications:BACTRIM DS 800-160 MG ORAL TABLET (SULFAMETHOXAZOLE- TRIMETHOPRIM) take one tablet by mouth twice daily x 7 days #14[Tablet] x 0 Route:ORAL Entered and Authorized by: Marce SEAY Method used: Electronically to [facility]* (retail) [address] [place] [address] Note to Pharmacy: Route: ORAL; Indications: URINARY TRACT INFECTION, SITE NOT SPECIFIED RxID: [id number] signed by Marce SEAY on 04/04/2020 at 2:08 PM Name Value Range Interpretation Code Description Data Dot rce(s) Supporting Document(s) ID Date Data Source [id number] 04/03/2020 02:42:[address] [facility] Name Value Range Interpretation Code Description Data Dot rce(s) Supporting Document(s) APPEARANCE U cloudy [facility] BILIRUBIN UR negative [facility] BLOOD UR DIP 3+ [facility] GLUCOSE, URN negative [facility] KETONES URN negative [facility] NITRITE URN negative [facility] PH URINE 6.[address] [facility] PROTEIN, URN 3+ [facility] SPEC GR URIN 1.030 [facility] UA COLOR yellow [facility] UROBILINOGEN 4 [facility] WBC DIPSTK U 2+ [facility] ID Date Data Source [id number] 03/03/2020 04:34:[address] [facility] Measurements & CalculationsHeight: 62 inches 157.48 cm Weight: 94 pounds 42.73 kg Body Mass Index (BMI): 17.25BMI Interpretation: UnderweightBody Surface Area (BSA): 1.39Weight Management Education Done (Nutrition/Physical Activity)Vital SignsTemperature: 98.1FPulse Rate: 88 beats/minuteRespiratory Rate: 14 respirations/minuteBlood Pressure: 111/77 O2 Saturation: 98% Vital Signs performed by: Faye Jeffries LPN, March 03, 2020 4:35 PMVital Signs performed by: Faye Jeffries LPN, March 03, 2020 4:35 PMInitial Intake Information From: patientRoom #: 11Infectious Disease / Travel ScreeningRecent travel for you or any close contacts? NoHave you had any close contact with anyone diagnosed with or under investigation for COVID-19 (coronavirus)? NoFever? NoRespiratory symptoms: cough, cold, congestion, shortness of breath, difficulty breathing? NoLoss of smell? NoLoss of taste? NoSmoking, Tobacco, Vaping or Smoke Exposure StatusSmoke Status: current every day smokerTobacco Use: YesAdv to Quit: YesDo you vape? NoPassive Smoke Exposure: YesPassive Smoke Exposure comments: MotherMenstrual HistoryAny possibility of ? YesComments: Irregular periods Healthcare HistorySince your last office visit...Have you been admitted to the hospital? NoHave you been to an emergency room (ER) or urgent care clinic? NoHave you seen another healthcare provider? YesHave you seen a dentist? Yes - NCFHRate Your HealthIn general, would you say your health is? GoodPain AssessmentAre you currently having any pain which... You would like your provider to address? No Affects your activity level? NoDepression Screening - PHQ-2Over the last two weeks, have you... Had little interest or pleasure in doing things? Not at all Been feeling down, depressed, or hopeless? Not at all PHQ-2 Score: 0Anxiety Screening - CARLO-2Over the last two weeks, have you been... Feeling nervous, anxious, or on edge? Not at all Unable to stop or control worrying? Not at all CARLO-2 Score: 0Food InsecurityWithin the past year...Did you worry whether your food would run out before you got money to buy more? Never trueWas there a time when the food you bought didn't last and you didn't have money to get more? Never trueScreening, Brief Intervention, & Referral to Treatment (SBIRT)Pre-Screening Questions How many times have you have 4 or more drinks in a day? 0How many times have you used an illegal drug or used a prescription medication for a non-medical reason? 365Performed by: Faye Jeffries LPN, March 03, 2020 4:52 PMPatient History Medical History:AnxietyBipolar disorderDepressionPTSDSchizophreniaSurgical History:Tonsillectomy adnoids removed Family History:FH AsthmaFH AllergiesFH DiabetesFH HypertensionFH Mental IllnessFH HepatitisSocial/Personal History:Single. Not homeless. Lives with her Mother and 1 younger sisterParents are separetedNo contact with her fatherNot employed. 11th grade WHSSex at : Female. Sexual orientation: Heterosexual. Gender identity: Female. Sexually Active: No. Advised to Quit/Tobacco Education: YesChief Complaint anxiety/Depression room 11 follow-up visitHistory of Present Illness (HPI)19 YO female here for follow up on anxiety/depression Pt states took last antipsychotic medication this AM, requesting arefill of Haldol until seen bt Dr Lara. Pt states doing well on PO Haldol. Pt denies other concerns today. HPI performed by: Marce SEAY, March 03, 2020 5:05 PMTransitions of Care InboundProblem ReviewProblem List was reviewed and/or updated during this visit.Medication Reconciliation & ReviewMedication List was reviewed and/or updated during this visit, including review of any efqc-rez-ehcfwmj medications, herbal therapies, and/or supplements.Allergy ReviewAllergy List was reviewed and/or updated during this visit.Adult Preventive CareProvider Calculated and Reviewed all Clinical Protocols for patient today. Screening Tobacco Screening: Smoking Status: current every day smoker (03/03/2020) Tobacco Use: Currently (03/03/2020) Advised to Quit: Yes (03/03/2020)Labs/Meds/Other Counseling- Nutrition and Physical Activity:BMI Interpretation: Underweight (03/03/2020) Counseling: Done (03/03/2020) Physical Activity: Done (03/03/2020)Review of Systems General: Denies loss of appetite, chills, dizziness, fatigue, fever, continued fever, headache, feeling ill, sweats, night sweats, sleep disturbances, weight loss. Eyes: Denies blurring of vision, double vision, irritation, discharge, vision loss, eye pain, eye swelling, droopy eyelid, sensi tivity to light, redness, itching. Ears/Nose/Throat: Denies earache, ear discharge, ringing in ears, decreased hearing, nasal congestion, nosebleeds, runny nose, sore throat, hoarseness, difficulty swallowing, dry mouth, tooth pain, bleeding gums, swollen glands. Cardiovascular: Denies chest pain, palpitations, feeling faint, trouble breathing w/exertion, SOB upon lying down, SOB at night, peripheral edema, elevated blood pressure, decreased heart rate. Respiratory: Denies cough, difficulty breathing, shortness of breath, excessive sputum, coughing up blood, wheezing, chest pain. Breast: Denies discoloration, tenderness, breast changes, breast lump, nipple discharge. Gastrointestinal: Denies nausea, vomiting, bleeding, burning, itching, irritation, cramps, diarrhea, constipation. Genitourinary: Denies urinary incontinence, pain with urination, burning with urination, urinary frequency, urinary hesitancy, urinary urgency, urinary urgency at night, incomplete emptying, blood in urine. Muscu loskeletal: Denies back pain, joint pain, leg pain, other pain-see comments, joint swelling, body aches, muscle aches, muscle cramps, muscle weakness, stiffness, recent injury. Skin: Denies rash, hives, redness, itching, dryness, nail changes, suspicious lesions, athlete's foot, rash on palms, rash on bottom of feet. Neurologic: Denies muscle impairment, weakness, numbness/tingling, seizures, slurred speech, feeling faint, tremors, vertigo, paralysis on one side, paralysis on both sides. Psychiatric: Complains of anxiety. Denies depression, memory loss, mental disturbance, suicidal ideation, homicidal ideation, hallucinations, paranoia, feeling stressed, hearing voices. Endocrine: Denies cold intolerance, heat intolerance, excessive thirst, excessive hunger, excessive urination, weight loss, weight gain. Physical ExamGeneral Appearance: well nourished, well hydrated, no acute distressEyes, External: conjunctivae and lids normal, EOMIRespiratory, Auscultation: clear to auscultation bilaterally; no rales, rhonchi, or wheezesRespiratory, Effort: no intercostal retractions or use of accessory musclesCardiovascular, Auscultation: S1, S2 audible; no murmur, rub, or gallop; RRRPeripheral Circulation: no clubbing, cyanosis, edema, or varicositiesAbdomen: soft, non-tender, no masses, bowel sounds normalGait & Station: normalSkin, Inspection: no rashes, lesions, or ulcerationsOrientation: oriented to time, place, and personMood & Affect: no depression, anxiety, or agitationJudgment & Insight: intactCare Management Plan Transitions of CareInboundRate Your HealthIn general, would you say your health is? GoodAssessment & Plan Problems:Assessed:Schizoaffective disorder, bipolar (ICD-295.70) (MTO85-S32.9) Assessment: Instructions: We have sent a prescription to your pharmacy today. Please take medication as prescribed. Please report any major side effects. Please continue to monitor, report and avoid triggers causing increased anxiety and or depression. Please keep your esperanza eduled appointment with Dr Lara.Nicotine dependence, unspecified, uncomplicated (HSW99-Q85.200) Assessment: Instructions: Please continue to try to cut back on your smoking with a goal to quit. Please let us know if you need assistance in doing so.Assessment not SavedDecrease in appetite (ICD10- R63.0): Patient Instructions/Care Plan: Schizoaffective disorder- bipolar: We have sent a prescription to your pharmacy today. Please take medication as prescribed. Please report any major side effects. Please continue to monitor, report and avoid triggers causing increased anxiety and or depression. Please keep your scheduled appointment with Dr Lara.Nicotine dependence- unspecified- uncomplicated: Please continue to try to cut back on your smoking with a goal to quit. Please let us know if you need assistance in doing so. Plan developed in collaboration with patient and/or familyMedications:HALOPERIDOL 5 MG ORAL TABLETGABAPENTIN 300 MG ORAL CAPSULEBETAMETHASONE DIPROPIONATE AUG 0.05 % EXTERNAL CREAMTRAZODONE HCL 50 MG ORAL TABLETMedication Changes:New Prescription:HALOPERIDOL 5 MG ORAL TABLET-take one tablet by mouth twice dsaily Qty: 14[Tablet] Refills: 0 Method: ElectronicRemoved:ATENOLOL 25 MG ORAL TABLET-take .5mg po for HR for 7 daysAllergies:* SKIN SO SOFT LOTION (Mild)Orders:Adult - Ofc Vst, EST, Level III [CPT-64700] Follow-Up Return to clinic: as scheduled and as needed. Clinical Visit Summary CompletedMedications:HALOPERIDOL 5 MG ORAL TABLET (HALOPERIDOL) take one tablet by mouth twice dsaily #14[Tablet] x 0 Route:ORAL Entered and Authorized by: Marce SEAY Method used: Electronically to [facility]* (retail) [address] [place] [address] Note to Pharmacy: Route: ORAL; Indications: SCHIZOAFFECTIVE DISORDER, BIPOLAR RxID: [id number] signed by Marce SEAY on 03/10/2020 at 1:11 AM Name Value Range Interpretation Code Description Data Dot rce(s) Supporting Document(s) ID Date Data Source [id number] 02/18/2020 02:01:[address] [facility] Measurements & CalculationsHeight: 62 inches (5 ft. 2 in.) 157.48 cm Weight: 90 pounds 40.91 kg Body Mass Index (BMI): 16.52BMI Interpretation: UnderweightBody Surface Area (BSA): 1.36Weight Management Education Done (Nutrition/Physical Activity)Vital SignsTemperature: 97.7FPulse Rate: 95 beats/minuteRespiratory Rate: 14 respirations/minuteBlood Pressure: 119/87 O2 Saturation: 98% Vital Signs performed by: Faye Jeffries LPN, February 18, 2020 2:06 PMVital Signs performed by: Faye Jeffries LPN, February 18, 2020 2:06 PMInitial Intake Information From: patientRoom #: 11Infectious Disease / Travel ScreeningRecent travel for you or any close contacts? NoHave you had any close contact with anyone diagnosed with or under investigation for COVID-19 (coronavirus)? NoFever? NoRespiratory symptoms: cough, cold, congestion, shortness of breath, difficulty breathing? NoLoss of smell? NoLoss of taste? NoSmoking, Tobacco, Vaping or Smoke Exposure StatusSmoke Status: current every day smokerTobacco Use: YesAdv to Quit: YesDo you vape? NoMenstrual HistoryAny possibility of ? NoComments: irregular periods Healthcare HistorySince your last office visit...Have you been admitted to the hospital? Yes - [facility] MHHave you been to an emergency room (ER) or urgent care clinic? NoHave you seen another healthcare provider? NoHave you seen a dentist? Yes - NCFHIntake performed by: Faye Jeffries LPN, February 18, 2020 2:09 PMRate Your HealthIn general, would you say your health is? Very GoodPain AssessmentAre you currently having any pain which... You would like your provider to address? Yes Affects your activity level? YesDepression Screening - PHQ-2Over the last two weeks, have you... Had little interest or pleasure in doing things? Nearly every day Been feeling down, depressed, or hopeless? Not at all PHQ-2 Score: 3Anxiety Screening - CARLO-2Over the last two weeks, have you been... Feeling nervous, anxious, or on edge? Not at all Unable to stop or control worrying? Nearly every day CARLO-2 Score: 3Generalized Anxiety Disorder 7-Item Screening (CARLO-7)Answer Guide:0 = Not at all1 = Several days2 = Over half the days3 = Nearly every dayOver the last 2 weeks, how often have you been bothered by the following problems?Feeling nervous, anxious, or on edge: 0Not being able to stop or control worryinWorrying too much about different things: 3Trouble relaxinBeing so restless that it's hard to sit still: 3Becoming easily annoyed or irritable: 3Feeling afraid as if something awful might happen: 3Answer Guide:0 = Not difficult at all1 = Somewhat difficult2 = Very difficult3 = Extremely difficultHow difficult have these made it for you to do your work, take care of things at home, or get along with other people? 2GAD-7 Screening Results CARLO-2 Score: 3GAD-7 Score: 18Functional Impairment: Very difficultRecommendation: Severe anxietyPHQ-9 1. Over the last 2 weeks, patient reports the following frequency of symptoms: a. Little interest or pleasure in doing things -Nearly every day b. Feeling down, depressed, or hopeless -Not at all c. Trouble falling asleep, staying asleep, or sleeping too much -Nearly every day d. Feeling tired or having little energy -Nearly every day e. Poor appetite or overeating -Nearly every day f. Feeling bad about yourself, feeling that you are a failure, or feeling that you have let yourself or your family down -Nearly every day g. Trouble concentrating on things such as reading the newspaper or watching television -Nearly every day h. Moving or speaking so slowly that other people could have noticed. Or being so fidgety or restless that you have been moving around a lot more than usual -Nearly every day i. Thinking that you would be better off or that you want to hurt yourself in some way -Not at all2. If you checked off any problems, how difficult have these problems made it for you to do your work, take care of things at home, or get along with other people? -Extremely DifficultToday's PHQ-9 Results Score: 21 Severity: Severe Diagnosis Recommendation: Major Depression Functional Impairment: Extremely DifficultToday's Follow-Up Action Depression follow-up done. Follow-Up Action: chronic depression. scheduled to Dr Peck AssessmentPain ScaleNumeric Rating Scale: Location: backDuration: yearsFrequency: DailyCharacter/Quality: aching, pressure and pinchingIs the pain radiating? YesTo what body part(s) is the pain radiating? to legs Screening, Brief Intervention, & Referral to Treatment (SBIRT)Pre-Screening Questions How many times have you have 4 or more drinks in a day? 0How many times have you used an illegal drug or used a prescription medication for a non-medical reason? 365Performed by: Faye Jeffries LPN, February 18, 2020 2:13 PMPatient History Medical History:AnxietyBipolar disorderDepressionPTSDSchizophreniaSurgical History:Tonsillectomy adnoids removed Family History:FH AsthmaFH AllergiesFH DiabetesFH HypertensionFH Mental IllnessFH HepatitisSocial/Personal History:Single. Not homeless. Lives with her Mother and 1 younger sisterParents are separetedNo contact with her fatherNot employed. 11th grade WHSSex at : Female. Sexual orientation: Heterosexual. Gender identity: Female. Sexually Active: No. Advised to Quit/Tobacco Education: YesChief Complaintfollow-up visit anxiety/depression room 11History of Present Illness (HPI)19 yo female here today with concerns of increased back pain and increased anxiety that have been ongoing. Pt states as a child she did a lot of heavy lifting that hurt her back. Pt states pain is constnat..Pt states pain have been ongoing for about 6-7 year. Pt state feels like Scoliosis is getting worst. HPI performed by: Marce SEAY, February 18, 2020 2:40 PMTransitions of Care InboundProblem ReviewProblem List was reviewed and/or updated during this visit.Medication Reconciliation & ReviewMedication List was reviewed and/or updated during this visit, including review of any vzkw-psq-gaazrok medications, herbal therapies, and/or supplements.Allergy ReviewAllergy List was reviewed and/or updated during this visit.Adult Preventive CareProvider Calculated and Reviewed all Clinical Protocols for patient today. Screening Tobacco Screening: Smoking Status: current every day smoker (02/18/2020) Tobacco Use: Currently (02/18/2020) Advised to Quit: Yes (02/18/2020)Labs/Meds/Other Counseling- Nutrition and Physical Activity:BMI Interpretation: Underweight (02/18/2020) Counseling: Done (02/18/2020) Physical Activity: Done (02/18/2020)Review of Systems General: Denies loss of appetite, chills, dizziness, fatigue, fever, continued fever, headache, feeling ill, sweats, night sweats, sleep disturbances, weight loss. Eyes: Denies blurring of vision, double vision, irritation, discharge, vision loss, eye pain, eye swelling, droopy eyelid, sensitivity to light, redness, itching. Ears/Nose/Throat: Denies earache, ear discharge, ringing in ears, decreased hearing, nasal congestion, nosebleeds, runny nose, sore throat, hoarseness, difficulty swallowing, dry mouth, tooth pain, bleeding gums, swollen glands. Cardiovascular: Denies chest pain, palpitations, feeling faint, trouble breathing w/exertion, SOB upon lying down, SOB at night, peripheral edema, elevated blood pressure, decreased heart rate. Respiratory: Denies cough, difficulty breathing, shortness of breath, excessive sputum, coughing up blood, wheezing, chest pain. Breast: Denies discoloration, tenderness, breast changes, breast lump, nipple discharge. Gastrointestinal: Denies nausea, vomiting, diarrhea, constipation. Genitourinary: Denies urinary incontinence, pain with urination, burning with urination, urinary frequency, urinary hesitancy, urinary urgency, urinary urgency at night, incomplete emptying, blood in urine. Musculoskeletal: Complains of back pain. Denies joint pain, leg pain, other pain-see comments, joint swelling, body aches, muscle aches, muscle cramps, muscle weakness, stiffness, recent injury. Skin: Denies rash, hives, redness, itching, dryness, nail changes, suspicious lesions, athlete's foot, rash on palms, rash on bottom of feet. Neurologic: Denies muscle impairment, weakness, numbness/tingling, seizures, slurred speech, feeling faint, tremors, vertigo, paralysis on one side, paralysis on both sides. Psychiatric: Complains of anxiety. Endocrine: Denies cold intolerance, heat intolerance, excessive thirst, excessive hunger, excessive urination, weight loss, weight gain. Physical ExamGeneral Appearance: well nourished, well hydrated, no acute distressEyes, External: conjunctivae and lids normal, EOMIRespiratory, Auscultation: clear to auscultation bilaterally; no rales, rhonchi, or wheezesRespiratory, Effort: no intercostal retractions or use of ac cessory musclesCardiovascular, Auscultation: S1, S2 audible; no murmur, rub, or gallop; RRRPeripheral Circulation: no clubbing, cyanosis, edema, or varicositiesAbdomen: soft, non-tender, no masses, bowel sounds normalGait & Station: normalBack: lumbar pain on palpationSkin, Inspection: no rashes, lesions, or ulcerationsOrientation: oriented to time, place, and personMood & Affect: no depression, anxiety, or agitationJudgment & Insight: intactCare Management Plan Transitions of CareInboundRate Your HealthIn general, would you say your health is? Very GoodAssessment & Plan Problems:Assessed:Nicotine dependence, unspecified, uncomplicated (BRI07-V80.200) Assessment: 7 cigarettes daily. Instructions: Please continue to try to cut back on your smoking with a goal to quit. Please let us know if you need assistance in doing so.Scoliosis (ICD-737.30) (WEL94-E15.20) Assessment: Instructions: Xray ordered. We have sent a prescription to your pharmacy today. Please take medication as prescribed. Please report any major side effects.Anxiety depression (ICD-300.4) (UBD70-I40.8) Assessment: Instructions: Please continue medications as prescribed. Please continue to monitor, report and avoid triggers causing increased anxiety and or depression. Please let us know if you need additional assistance.Please keep your appointment with your specialist.BACK PAIN (ICD-724.5) (MSU85-X17.9) Assessment: Instructions: We have sent a prescription for you today. Please take medication as prescribed. Please report any major side effects. Please try to avoid streneous activities. We have made a referral for you with PT we will contact you to set this up.Patient Instructions/Care Plan: Nicotine dependence- unspecified- uncomplicated: Please continue to try to cut back on your smoking with a goal to quit. Please let us know if you need assistance in doing so.Scoliosis: Xray ordered. We have sent a prescription to your pharmacy today. Please take medication as prescribed. Please report any major side effects.Anxiety depression: Please continue medications as prescribed. Please continue to monitor, report and avoid triggers causing increased anxiety and or depression. Please let us know if you need additional assistance.Please keep your appointment with your specialist.BACK PAIN: We have sent a prescription for you today. Please take medication as prescribed. Please report any major side effects. Please try to avoid streneous activities. We have made a referral for you with PT we will contact you to set this up. Plan developed in collaboration with patient and/or familyMedications:GABAPENTIN 300 MG ORAL CAPSULEBETAMETHASONE DIPROPIONATE AUG 0.05 % EXTERNAL CREAMTRAZODONE HCL 50 MG ORAL TABLETATENOLOL 25 MG ORAL TABLETMedication Changes:Refilled:TRAZODONE HCL 50 MG ORAL TABLET-PO at bedtime PRN for insomina for 7 days Qty: 30[Tablet] Refills: 2 Method: ElectronicNew Prescription:GABAPENTIN 300 MG ORAL CAPSULE-take one tablet by mouth twice daily as needed Qty: 60[Capsule] Refills: 2 Method: ElectronicRemoved:ZYPREXA 5 MG ORAL TABLET-One at bedtime Qty: 30[Tablet] Refills: 1Allergies:* SKIN SO SOFT LOTION (Mild)Orders:Scoliosis Series [CPT-54935] Physical Therapy Consult [CPT-16790] Adult - Ofc Vst, EST, Level IV [CPT-08579] Follow-Up Return to clinic: 4-6 weeks for follow up. Clinical Visit Summary CompletedMedications:TRAZODONE HCL 50 MG ORAL TABLET (TRA ZODONE HCL) PO at bedtime PRN for insomina for 7 days #30[Tablet] x 2 Route:ORAL Entered and Authorized by: Marce SEAY Method used: Electronically to [facility]* (retail) [address] [place] [address] Note to Pharmacy: Route: ORAL; RxID: [id number] ZYPREXA 5 MG ORAL TABLET (OLANZAPINE) One at bedtime #30[Tablet] x 1 Route:ORAL Entered by: Marce SEAY Authorized by: Shelly Lara MD Method used: Electronically to [facility]* (retail) [address] [place] [address] RxID: [id number] 300 MG ORAL CAPSULE (GABAPENTIN) take one tablet by mouth twice daily as needed #60[Capsule] x 2 Route:ORAL Entered and Authorized by: Marce SEAY Method used: Electronically to [facility]* (retail) [address] [place] [address] Note to Pharmacy: Route: ORAL; Indications: BACK PAIN RxID: [id number] signed by Marce SEAY on 02/28/2020 at 11:28 AM Name Value Range Interpretation Code Description Data Dot rce(s) Supporting Document(s) Procedure Social History Code Duration Value Status Description Data Source(s ) 05/08/2020 12:00:00 AM EST Light cigarette smoker (1-9 cigs/day) completed Light cigarette smoker (1-9 cigs/day) [facility] ([facility]) Smoking 05/08/2020 12:00:00 AM EST Light tobacco smoker comple jacy Light tobacco smoker [facility] ([facility]) Vital Signs ID Date Data Source UNK Name Value Range Interpretation Code Description Data Source(s) Body height 62 [in_i] 62 [in_i] [facility] ([facility]) Body mass index (BMI) [Ratio] 18.1 kg/m2 18.1 k g/m2 [facility] ([facility]) Body weight 1580.8 [oz_av] 1580.8 [oz_av] ATHCONSTANCE A ([facility]) Body mass index (BMI) [Ratio] 16.4 kg/m2 16.4 k g/m2 [facility] ([facility]) Body weight 1430.4 [oz_av] 1430.4 [oz_av] ATHCONSTANCE A ([facility]) Body height 62 [in_i] 62 [in_i] [facility] ([facility]) Body height 62 [in_i] 62 [in_i] [facility] ([facility]) Body mass index (BMI) [Ratio] 16.4 kg/m2 16.4 k g/m2 [facility] ([facility]) Body weight 1430.4 [oz_av] 1430.4 [oz_av] ATHCONSTNACE A ([facility]) Body height 62 [in_i] 62 [in_i] [facility] ([facility]) Body mass index (BMI) [Ratio] 16.4 kg/m2 16.4 k g/m2 [facility] ([facility]) Body weight 1430.4 [oz_av] 1430.4 [oz_av] ATHEN A ([facility]) Body height 62 [in_i] 62 [in_i] [facility] ([facility]) Body mass index (BMI) [Ratio] 16.4 kg/m2 16.4 k g/m2 [facility] ([facility]) Body weight 1430.4 [oz_av] 1430.4 [oz_av] ATHEN A ([facility]) Body height 62 [in_i] 62 [in_i] [facility] ([facility]) Body mass index (BMI) [Ratio] 16.4 kg/m2 16.4 k g/m2 [facility] ([facility]) Body weight 1430.4 [oz_av] 1430.4 [oz_av] ATHEN A ([facility]) Body height 156.21 cm 156.21 cm [facility] Body weight 40.007 kg 40.007 kg [facility] Systolic blood pressure 117 mm[Hg] 117 mm[Hg] N [facility] ([facility]) Diastolic blood pressure 81 mm[Hg] 81 mm[Hg] [facility] ([facility]) Body mass index (BMI) [Ratio] 16.40 kg/m2 Underweight 16.4 0 kg/m2 [facility] ([facility]) Diastolic blood pressure 77 mm[Hg] 77 mm[Hg] [facility] ([facility]) Body height 62 [in_i] 62 [in_i] [facility] ([facility]) Body mass index (BMI) [Ratio] 16.74 kg/m2 16.74 kg/m2 [facility] ([facility]) Systolic blood pressure 113 mm[Hg] 113 mm[Hg] A THENA ([facility]) Body weight 1459.2 [oz_av] 1459.2 [oz_av] ATHEN A ([facility]) Body height 62 [in_i] 62 [in_i] [facility] ([facility]) Body mass index (BMI) [Ratio] 16.73 kg/m2 16.73 kg/m2 [facility] ([facility]) Body weight 1458.08 [oz_av] 1458.08 [oz_av] ATH SHELDON ([facility]) Body height 62 [in_i] 62 [in_i] [facility] ([facility]) Body mass index (BMI) [Ratio] 17.46 kg/m2 17.46 kg/m2 [facility] ([facility]) Body weight 1522.08 [oz_av] 1522.08 [oz_av] ATH SHELDON ([facility]) Diastolic blood pressure 77 mm[Hg] 77 mm[Hg] [facility] ([facility]) Body height 62 [in_i] 62 [in_i] [facility] ([facility]) Body mass index (BMI) [Ratio] 17.25 kg/m2 17.25 kg/m2 [facility] ([facility]) Systolic blood pressure 111 mm[Hg] 111 [facility]Hg[facility] Body weight 1504 [oz_av] 1504 [oz_av] [facility] ([facility]) Diastolic blood pressure 87 mm[Hg] 87 mm[Hg] [facility] ([facility]) Body height 62 [in_i] 62 [in_i] [facility] ([facility]) Systolic blood pressure 119 mm[Hg] 119 mm[Hg] A [facility] ([facility]) Body weight 1440 [oz_av] 1440 [oz_av] [facility] ([facility]) Diastolic blood pressure 87 mm[Hg] 87 mm[Hg] [facility] ([facility]) Body height 62 [in_i] 62 [in_i] [facility] ([facility]) Systolic blood pressure 119 mm[Hg] 119 mm[Hg] A [facility] ([facility]) Body weight 1440 [oz_av] 1440 [oz_av] [facility] ([facility]) Diastolic blood pressure 87 mm[Hg] 87 mm[Hg] [facility] ([facility]) Body height 62 [in_i] 62 [in_i] [facility] ([facility]) Body mass index (BMI) [Ratio] 16.52 kg/m2 16.52 kg/m2 [facility] ([facility]) Systolic blood pressure 119 mm[Hg] 119 mm[Hg] [facility] Body weight 1440 [oz_av] 1440 [oz_av] [facility] ([facility]) Patient Treatment Plan of Care Planned Activity Planned Date Details Description Data Source (s) medroxyprogesterone acetate 150 MG/ML Injectable Suspe nsion 05/08/2020 12:00:00 AM EST [facility] medroxy[facility] acetate 150 MG/ML Injectable Suspe nsion 05/28/2019 12:00:00 AM EST [facility] Sulfamethoxazole 800 MG / Trimethoprim 160 MG Oral Tablet [facility] ([facility]) olanzapine 5 MG Oral Tablet [facility] ([facility]) haloperidol decanoate 50 mg/mL intramuscular solution INJECT DIR ECTED [facility] ([facility]) gabapentin 300 MG Oral Capsule [facility] ([facility]) Atenolol 25 MG Oral Tablet A THENA ([facility]) Sulfamethoxazole 800 MG / Trimethoprim 160 MG Oral Tablet [facility] ([facility]) olanzapine 5 MG Oral Tablet [facility] ([facility]) haloperidol decanoate 50 mg/mL intramuscular solution INJECT DIR ECTED [facility] ([facility]) Atenolol 25 MG Oral Tablet A THENA ([facility]) Sulfamethoxazole 800 MG / Trimethoprim 160 MG Oral Tablet [facility] ([facility]) olanzapine 5 MG Oral Tablet [facility] ([facility]) haloperidol decanoate 50 mg/mL intramuscular solution INJECT DIR ECTED [facility] ([facility]) gabapentin 300 MG Oral Capsule [facility] ([facility]) Atenolol 25 MG Oral Tablet A THENA ([facility]) Atenolol 25 MG Oral Tablet N [facility] ([facility])
[2021-04-11 20:31] LABS: BASO % 0.3 % (0.0-1.0); EOS # 0.1 10^3/uL (0.0-0.5); EOS % 0.4 % (0.0-3.0); HEMATOCRIT 33.8 % (36.0-47.0); HEMOGLOBIN 10.9 g/dl (12.0-15.5); LYMPH # 2.6 10^3/uL (1.5-5.0); LYMPH % 19.2 % (24.0-44.0); MEAN CORPUSCULAR HEMOGLOBIN 28.5 pg (27.0-33.0); MEAN CORPUSCULAR HGB CONC 32.2 g/dl (32.0-36.5); MEAN CORPUSCULAR VOLUME 88.5 fl (80.0-96.0); MONO # 0.8 10^3/uL (0.0-0.8); MONO % 5.5 % (2.0-8.0); NEUTROPHILS # 10.2 10^3/uL (1.5-8.5); NEUTROPHILS % 74.2 % (36.0-66.0); PLATELET COUNT, AUTOMATED 339 10^3/uL (150-450); RED BLOOD COUNT 3.82 10^6/uL (4.00-5.40); WHITE BLOOD COUNT 13.7 10^3/uL (4.0-10.0)
--- OUTSIDE RECORDS SUMMARY | 2021-04-11 20:43 | CCD ---
Author Author [facility] Address Unknown Phone Unavailable Care Team Providers Care Agricultural Adviser Name Role Phone Ant, Marce PERSONAL PROTECTION SPECIALIST PERSONAL PROTECTION SPECIALIST Unavailable Unavailable Analy Lara MD Unavailable Unavailable Analy Lara MD Unavailable Unavailable Analy Lara MD Unavailable Unavailable Analy Lara MD Unavailable Unavailable Analy Lara MD Unavailable Unavailable Analy Lara MD Unavailable Unavailable Analy Lara MD Unavailable Unavailable Analy Lara MD Unavailable Unavailable Green COATING MIXER SUPERVISOR COATING MIXER SUPERVISOR, Albina Unavailable Unavailable Green COATING MIXER SUPERVISOR COATING MIXER SUPERVISOR, Albina Unavailable Unavailable Green COATING MIXER SUPERVISOR COATING MIXER SUPERVISOR, Albina Unavailable Unavailable Green COATING MIXER SUPERVISOR COATING MIXER SUPERVISOR, Albina Unavailable Unavailable Green COATING MIXER SUPERVISOR COATING MIXER SUPERVISOR, Albina Unavailable Unavailable Ant, A Marce PERSONAL PROTECTION SPECIALIST Unavailable Unavailable Ant, A Marce PERSONAL PROTECTION SPECIALIST Unavailable Unavailable Ant, A Marce PERSONAL PROTECTION SPECIALIST Unavailable Unavailable Ant, A Marce PERSONAL PROTECTION SPECIALIST Unavailable Unavailable Ant, A Marce PERSONAL PROTECTION SPECIALIST Unavailable Unavailable Ant, A Marce PERSONAL PROTECTION SPECIALIST Unavailable Unavailable Ant, A Marce PERSONAL PROTECTION SPECIALIST Unavailable Unavailable Ant, A Marce PERSONAL PROTECTION SPECIALIST Unavailable Unavailable Ant, A Marce PERSONAL PROTECTION SPECIALIST Unavailable Unavailable Ant, A Marce PERSONAL PROTECTION SPECIALIST Unavailable Unavailable Ant, A Marce PERSONAL PROTECTION SPECIALIST Unavailable Unavailable Ant, A Marce PERSONAL PROTECTION SPECIALIST Unavailable Unavailable Ant, A Marce PERSONAL PROTECTION SPECIALIST Unavailable Unavailable Ant, A Marce PERSONAL PROTECTION SPECIALIST Unavailable Unavailable Ant, A Marce PERSONAL PROTECTION SPECIALIST Unavailable Unavailable Ant, A Marce PERSONAL PROTECTION SPECIALIST Unavailable Unavailable Ant, A Marce PERSONAL PROTECTION SPECIALIST Unavailable Unavailable Ant, A Marce PERSONAL PROTECTION SPECIALIST Unavailable Unavailable Ant, A Marce PERSONAL PROTECTION SPECIALIST Unavailable Unavailable Ant, A Marce PERSONAL PROTECTION SPECIALIST Unavailable Unavailable Ant, A Marce PERSONAL PROTECTION SPECIALIST Unavailable Unavailable Ant, A Marce PERSONAL PROTECTION SPECIALIST Unavailable Unavailable Ant, A Marce PERSONAL PROTECTION SPECIALIST Unavailable Unavailable Ant, A Marce PERSONAL PROTECTION SPECIALIST Unavailable Unavailable Ant, A Marce PERSONAL PROTECTION SPECIALIST Unavailable Unavailable Ant, A Marce PERSONAL PROTECTION SPECIALIST Unavailable Unavailable Ant, A Marce PERSONAL PROTECTION SPECIALIST Unavailable Unavailable Ant, A Marce PERSONAL PROTECTION SPECIALIST Unavailable Unavailable Ant, A Marce PERSONAL PROTECTION SPECIALIST Unavailable Unavailable Ant, A Marce PERSONAL PROTECTION SPECIALIST Unavailable Unavailable Ant, A Marce PERSONAL PROTECTION SPECIALIST Unavailable Unavailable Re-disclosure Warning The records that [...] law may result in a fine or senior living sentence or both. A general authorization for the release of medical or other information is NOT sufficient authorization for further disc losure. Allergies and Adverse Reactions Type Description Substance Reaction Status Data Source(s ) Allergy to substance Allergy to substance Allergy to substance [place] ([facility]) Allergy to substance Allergy to substance Allergy to substance [facility] ([facility]) Allergy to substance Allergy to substance Allergy to substance [facility] ([facility]) Family History Family Member Name Family Member Gender Family Member Status Date o f Status Description Data Source(s) Unknown Unknown Problem [facility] ([facility]) father's side Encounters Encounter Providers Location Date Indications Data Source(s ) Shlely Lara MD: [address] [place] [phone], Ph. Attender: Shelly Lara MD [facility] Medical 09/25/2020 12:00:00 AM EDT [place] ([facility]) Shelly Lara MD: [address], [place] [address], Ph. Attender: Shelly Lara MD [facility] Medical 06/09/2020 12:00:00 AM EST [facility] ([facility]) Shelly Lara MD: [address], [place] [address], Ph. Attender: Shelly Lara MD [facility] Medical 06/09/2020 12:00:00 AM EST [facility] ([facility]) Shelly Lara MD: [address], [place] [address], Ph. Attender: Shelly Lara MD [facility] Medical 05/12/2020 12:00:00 AM EST [facility] ([facility]) Shelly Lara MD: [address] [place] [address], Ph. Attender: Shelly Lara MD [facility] Medical 05/12/2020 12:00:00 AM EST [facility] ([facility]) Shelly Lara MD: [address] [place] [address], Ph. Attender: Shelly Lara MD [facility] Medical 05/12/2020 12:00:00 AM EST [facility] ([facility]) OutpatientOFFICE VISIT, EST Attender: Albina Patel COATING MIXER SUPERVISOR COATING MIXER SUPERVISOR MI Oates 05/08/2020 02:15:00 PM EST - 05/08/2020 02:15:00 PM EST Human immunodeficiency virus [HIV] counselingOther sex counselingEncntr screen for infections w sexl mode of transmissEncounter for oth general cnsl and advice on contraceptionEncounter for initial prescription of injectable contracepEncounter for test, result negative [facility] ([facility]) Human immunodeficiency virus [HIV] couns eling Other sex counseling Encntr screen for infections w sexl mode of transmiss Encounter for oth general cnsl and advic e on contraception Encounter for initial prescription of in jectable contracep Encounter for test, result neg ative Outpatient Attender: DAWOOD SEAY FP 04/05/2020 02:09:00 P M EDT [facility] Outpatient Attender: Marce SEAY FP 04/05/2020 02:0 9:00 PM EDT [facility] Outpatient Attender: DAWOOD SEAY FP 04/04/2020 02:09:02 P M EDT [facility] Outpatient Attender: Marce SEAY FP 04/04/2020 02:0 9:01 PM EDT [facility] Outpatient Attender: DAWOOD SEAY FP 04/03/2020 03:38:03 P M EDT [facility] Outpatient Attender: DAWOOD SEAY FP 04/03/2020 02:43:01 P M EDT [facility] Outpatient Attender: DAWOOD SEAY FP 03/27/2020 11:53:01 A M EDT [facility] Outpatient Attender: DAWOOD SEAY FP 03/24/2020 04:44:00 P M EDT [facility] Outpatient Attender: DAWOOD SEAY FP 03/13/2020 11:27:01 A M EDT [facility] Outpatient Attender: DAWOOD SEAY FP 03/10/2020 02:14:01 P M EDT [facility] Outpatient Attender: Marce SEAY FP 03/10/2020 01:1 2:00 AM EDT [facility] Outpatient Attender: DAWOOD SEAY FP 02/29/2020 10:31:00 A M EDT [facility] Outpatient Attender: Marce SEAY FP 02/28/2020 02:4 9:35 PM EDT [facility] Outpatient Attender: Marce SEAY FP 02/21/2020 08:5 4:04 AM EDT [facility] Outpatient Attender: DAWOOD SEAY FP 02/18/2020 01:34:01 P M EDT [facility] Outpatient Attender: Marce Cain PERSONAL PROTECTION SPECIALIST FP 02/15/2020 03:5 4:09 PM EDT [facility] Outpatient Attender: Marce Cain PERSONAL PROTECTION SPECIALIST FP 02/15/2020 01:5 7:02 PM EDT [facility] Outpatient Attender: DAWOOD Cain PERSONAL PROTECTION SPECIALIST FP 02/14/2020 03:25:00 P M EDT [facility] Outpatient Attender: DAWOOD Cain PERSONAL PROTECTION SPECIALIST FP 02/14/2020 03:17:00 P M EDT [facility] Outpatient Attender: DAWOOD Cain PERSONAL PROTECTION SPECIALIST FP 02/14/2020 02:35:00 P M EDT [facility] Outpatient Attender: Marce Cain PERSONAL PROTECTION SPECIALIST 02/13/2020 02:1 8:00 PM EDT [facility] Outpatient Attender: Marce Cain PERSONAL PROTECTION SPECIALIST FP 02/12/2020 03:2 2:00 PM EDT [facility] Outpatient Attender: Marce Cain PERSONAL PROTECTION SPECIALIST 02/12/2020 02:2 5:02 PM EDT [facility] Medications Medication Brand Name Start Date Product Form Dose Route Admi nistrative Instructions Pharmacy Instructions Status Indications Reaction Description Data Source(s) medroxyprogesterone acetate 150 MG/ML In jectable Suspension medroxyprogesterone 150 mg/mL intramuscular suspension medroxyprogesterone 150 mg/mL intramuscu lar suspension 05/08/2020 12:00:00 AM EST active IM every 10-13 weeks [facility] ([facility] medroxyprogesterone acetate 150 MG/ML In jectable Suspension medroxyprogesterone 150 mg/mL intramuscular suspension medroxyprogesterone 150 mg/mL intramuscu lar suspension 05/28/2019 12:00:00 AM EST complet ed IM every 10-13 weeks [facility] ([facility]) Atenolol 25 MG Oral Tablet atenolol 25 m g tablet TAKE ONE-HALF TABLET BY MOUTH ONCE DAILY FOR heart rate atenolol 25 mg tablet TAKE ONE-HALF TABL ET BY MOUTH ONCE DAILY FOR heart rate completed atenolol 25 MG Oral Tablet [place] ([facility]) olanzapine 5 MG Oral Tablet olanzapine 5 mg tablet TAKE ONE TABLET BY MOUTH AT BEDTIME olanzapine 5 mg tablet TAKE ONE TABLET BY MOUTH AT BEDTIME completed olanzapine 5 MG Oral Tablet ATHAntonietta VOGT ([facility]) Atenolol 25 MG Oral Tablet atenolol 25 m g tablet TAKE ONE-HALF TABLET BY MOUTH ONCE DAILY FOR heart rate atenolol 25 mg tablet TAKE ONE-HALF TABL ET BY MOUTH ONCE DAILY FOR heart rate completed atenolol 25 MG Oral Tablet [facility] ([facility]) Atenolol 25 MG Oral Tablet atenolol 25 mg tablet atenolol 25 mg tablet completed [facility] ([facility]) 1/2 tab once daily Atenolol 25 MG Oral Tablet atenolol 25 m g tablet TAKE ONE-HALF TABLET BY MOUTH ONCE DAILY FOR heart rate atenolol 25 mg tablet TAKE ONE-HALF TABL ET BY MOUTH ONCE DAILY FOR heart rate completed atenolol 25 MG Oral Tablet [place] ([facility]) Sulfamethoxazole 800 MG / Trimethoprim 1 60 MG Oral Tablet sulfamethoxazole 800 mg-trimethoprim 160 mg tablet sulfamethoxazole 800 mg-trimethoprim 160 mg tablet completed sulfame thoxazole 800 MG / trimethoprim 160 MG Oral Tablet [facility] ([facility]) Sulfamethoxazole 800 MG / Trimethoprim 1 60 MG Oral Tablet sulfamethoxazole 800 mg-trimethoprim 160 mg tablet sulfamethoxazole 800 mg-trimethoprim 160 mg tablet completed sulfame thoxazole 800 MG / trimethoprim 160 MG Oral Tablet [place] ([facility]) gabapentin 300 MG Oral Capsule gabapenti n 300 mg capsule TAKE ONE CAPSULE BY MOUTH TWICE DAILY NEEDED gabapentin 300 mg capsule TAKE ONE CAPSU LE BY MOUTH TWICE DAILY NEEDED completed gabapentin 300 MG Oral Capsule [place] ([facility]) haloperidol decanoate 50 mg/mL intramuscular solution INJECT DIRECTED [id number] completed haloperidol de canoate 50 MG/ML Injection [facility] ([facility]) Sulfamethoxazole 800 MG / Trimethoprim 1 60 MG Oral Tablet sulfamethoxazole 800 mg-trimethoprim 160 mg tablet sulfamethoxazole 800 mg-trimethoprim 160 mg tablet completed sulfame thoxazole 800 MG / trimethoprim 160 MG Oral Tablet [facility] ([facility]) olanzapine 5 MG Oral Tablet olanzapine 5 mg tablet TAKE ONE TABLET BY MOUTH AT BEDTIME olanzapine 5 mg tablet TAKE ONE TABLET BY MOUTH AT BEDTIME completed olanzapine 5 MG Oral Tablet ATHE NA ([facility]) haloperidol decanoate 50 mg/mL intramuscular solution INJECT DIRECTED [id number] completed haloperidol de canoate 50 MG/ML Injection [facility] ([facility]) olanzapine 5 MG Oral Tablet olanzapine 5 mg tablet TAKE ONE TABLET BY MOUTH AT BEDTIME olanzapine 5 mg tablet TAKE ONE TABLET BY MOUTH AT BEDTIME completed olanzapine 5 MG Oral Tablet ATHE NA ([facility]) gabapentin 300 MG Oral Capsule gabapenti n 300 mg capsule TAKE ONE CAPSULE BY MOUTH TWICE DAILY NEEDED gabapentin 300 mg capsule TAKE ONE CAPSU LE BY MOUTH TWICE DAILY NEEDED completed gabapentin 300 MG Oral Capsule [facility] ([facility]) haloperidol decanoate 50 mg/mL intramuscular solution INJECT DIRECTED [id number] completed haloperidol de canoate 50 MG/ML Injection [facility] ([facility]) Insurance Providers Payer name Policy type / Coverage type Policy ID Covered constitution party ID Covered constitution party's relationship to alvarez Policy Alvarez Plan Information Medicaid Dental O [id number] S [id number] [facility] [id number] S [id number] D [facility] O [id number] S [id number] Medicaid Dental O [id number] S [id number] Medicaid S [id number] S [id number] Managed Care - Community Plan [facility] P [id number] S [id number] Managed Care - Community Plan [facility] P [id number] S [id number] Medicaid S [id number] S [id number] Managed Care - Community Plan [facility] P [id number] S [id number] Managed Care - Community Plan [facility] P [id number] S [id number] Medicaid S [id number] S [id number] Managed Care - Community Plan [facility] P [id number] S [id number] Managed Care - [facility] Community Plan P [id number] S [id number] Medicaid S [id number] S [id number] Managed Care - [facility] Community Plan P [id number] S [id number] Medicaid S [id number] S [id number] [facility] [id number] self [id number] Managed Care - [facility] Community Plan P [id number] S [id number] [place] [id number] SP [id number] V [id number] [facility] COMMUNITY PLAN [facility] [id number] SP [id number] [facility](MCAID) O [id number] S [id number] [facility] [id number] SP [id number] [facility] [id number] SP [id number] [employer] COMMUNITY PLAN MCDHMO [id number] SP [id number] MEDICAID [id number] SP [id number] Managed Care - Community Plan [facility] P [id number] S [id number] SELF PAY ONLY [id number] SP [id number] [place] [id number] SP [id number] [facility] (HMO) [id number] Self [id number] [facility](MCAID) P [id number] S [id number] D Managed Care [facility] O [id number] S [id number] D [facility] Care [facility] P UNAVAILABLE S UNAVAILABLE [employer]UE [employer] JHAVERI PLAN [id number] SP [id number] [facility] JHAVERI PLAN [id number] [facility] [id number] SF2 [id number] [employer] P [id number] S [id number] Problems, Conditions, and Diagnoses Code Display Name Description Problem Type Effective Dates Data Source(s) 788.1 Dysuria Dysuria 04/03/2020 03:36:52 PM ED T [facility] [id number] Urinary tract infection, site not specif ied Urinary tract infection, site not specified 04/03/2020 03:36:52 PM EDT [facility] [id number] Dysuria Dysuria Problem 04/03/2020 12:00:00 AM ED T [place] ([facility]) [id number] Urinary tract infectious disease Urinary Tract I nfectious Disease Problem 04/03/2020 12:00:00 AM EDT [place] ([facility]) Surgeries/Procedures Procedure Description Date Indications Data Source(s) CVR Neurosurgery Spine Physician.Svc. STI / H 05/08/2020 12:00:00 AM EST - 05/08/2020 12:00:00 AM EST [facility] ([facility]) CVR Neurosurgery Spine Physician.Svc. Other 05/08/2020 12:00:00 AM EST - 2019 12:00:00 AM EST [facility] ([facility]) CVR Neurosurgery Spine Physician.Svc. Contraceptive 05/08/2020 12 :00:00 AM EST - 05/08/2020 12:00:00 AM EST [facility] ([facility]) CVR Med.Svc. Height/Weight 05/08/2020 12 :00:00 AM EST - 05/08/2020 12:00:00 AM EST [facility] ([facility]) CVR Blood Pressure 05/08/2020 12:00:00 AM EST - 2019 12:00:00 AM EST [facility] ([facility]) HCS Without Test 05/08/2020 12:00:00 AM EST - 05/08/20 20 12:00:00 AM EST [facility] ([facility]) THER/PROPH/DIAG INJ, SC/IM 05/08/2020 12 :00:00 AM EST - 05/08/2020 12:00:00 AM EST [facility] ([facility]) Depo/Medroxyprogesterone Inj. 150 Mg Nurse/CA 05/08/2020 12:00:00 AM EST - 05/08/2020 12:00:00 AM EST [facility] ([facility]) CVR BC Ending Method HORM.INJ. 3 MOS 12:00:00 AM EST - 05/08/2020 12:00:00 AM EST [facility] ([facility]) N.GONORRHOEAE, URINE 05/08/2020 12:00:00 AM EST - 05/08/2020 12:00:00 AM EST [facility] ([facility]) CHYLMD TRACH, URINE 05/08/2020 12:00:00 AM EST - 05/08 12:00:00 AM EST [facility] ([facility]) OFFICE VISIT, EST 05/08/2020 12:00:00 AM EST - 020 12:00:00 AM EST [facility] ([facility]) URINE TEST 05/08/2020 12:00:00 AM EST - 05/08/2020 12:00:00 AM EST [facility] ([facility]) Results ID Date Data Source [id number] 05/08/2020 02:50:36 PM EST Next ([facility]) Name Value Range Interpretation Code Description Data Dot rce(s) Supporting Document(s) NegativeLot: [id number]: 08/17/2021 High Sensitivity Urine Test [facility] ([facility]) ID Date Data Source [id number] 04/03/2020 04:02:00 PM EDT [facility] Name Value Range Interpretation Code Description Data Dot rce(s) Supporting Document(s) APPEARANCE U TURBID CLEAR H [facility] SPEC GR URIN 1.024 1.002-1.035 N [facility] F [facility] UA COLOR YELLOW YELLOW N [facility] ID Date Data Source [id number] 04/03/2020 04:02:00 PM EDT [facility] Name Value Range Interpretation Code Description Data Dot rce(s) Supporting Document(s) URINECULTRTN NO GROWTH N [facility] ID Date Data Source [id number] 04/03/2020 02:42:44 PM EDT [facility] Measurements & CalculationsHeight: 62 inches (5 ft. [...] pH: 6.0 5.0-6.5 Blood: 3+ Negative Specific [place]: 1.030 1.020>=1.030 Ketone: negative Negative Bilirubin: negative [...] [facility]: [facility]Have you been to an emergency room (ER) or urgent care clinic? Yes - [facility] ER - but left without being seenEmergency [...] follow up. Pt states she went to [facility] ER last week with s/s of UTI [...] during this visit, including review of any qdsq-rnp-jwifjat medications, herbal therapies, and/or supplements.Allergy ReviewAllergy List [...] Problems:Added: Urinary tract infection, site not specified (USF60-D93.0) Assessment: Instructions: We have sent a prescription to your pharmacy today. Please take medication as prescribed. Please report any major side effects. Please try to maintain adequate intake of water daily and good personal hygiene.Dysuria (ICD- 788.1) (TNF46-R72.0) Assessment: Instructions: UA done in office positive for UTI. We have sent a prescription to treat with ABX, We will send urine to lab for culture.Assessed:Anxiety depression (ICD-300.4) (VAE28-I42.8) Assessment: Instructions: Please continue medications as prescribed. Please continue to monitor, report and avoid triggers causing increased anxiety and or depression. Please keep your appointment with your specialist.BACK PAIN (ICD- 724.5) (DOD01-O57.9) Assessment: Instructions: We have made a referral for you today. We will contact you to set this up. Please continue medication as prescribed. Please try to avoid streneous activities.Assessment not Saved Anxiety depression (TYK04-X86.8): Patient Instructions/Care Plan: Urinary tract infection- site [...] ElectronicAllergies:* SKIN SO SOFT LOTION (Mild)Orders:Orthopaedics Consult [CPT-87304] Urinalysis-manual [CPT-15759] URINALYSIS [CPT-28129] Urine Culture & Sensitivity [CPT-08822] Adult - Ofc Vst, EST, Level III [CPT-43320] Follow-Up Return to clinic: as scheduled and as needed Clinical Visit Summary CompletedMedications:BACTRIM DS 800-160 MG ORAL TABLET (SULFAMETHOXAZOLE- TRIMETHOPRIM) take one tablet by mouth twice daily x 7 days #14[Tablet] x 0 Route:ORAL Entered and Authorized by: Marce SEAY Method used: Electronically to [facility]* (retail) [address] [place] [address] Note to Pharmacy: Route: ORAL; Indications: URINARY TRACT INFECTION, SITE NOT SPECIFIED RxID: [id number] signed by Marce SEAY on 04/04/2020 at 2:08 PM Name Value Range Interpretation Code Description Data Dot rce(s) Supporting Document(s) ID Date Data Source [id number] 04/03/2020 02:42:44 PM EDT [facility] Name Value Range Interpretation Code Description Data Dot rce(s) Supporting Document(s) APPEARANCE U cloudy [facility] BILIRUBIN UR negative [facility] BLOOD UR DIP 3+ [facility] GLUCOSE, URN negative [facility] KETONES URN negative [facility] NITRITE URN negative [facility] PH URINE 6.0 [facility] PROTEIN, URN 3+ [facility] SPEC GR URIN 1.030 [facility] UA COLOR yellow [facility] UROBILINOGEN 4 [facility] WBC DIPSTK U 2+ [facility] ID Date Data Source [id number] 03/03/2020 04:34:35 PM EDT [facility] Measurements & CalculationsHeight: 62 inches 157.48 cm [...] during this visit, including review of any yiuj-lun-ttqrsgk medications, herbal therapies, and/or supplements.Allergy ReviewAllergy List [...] GoodAssessment & Plan Problems:Assessed:Schizoaffective disorder, bipolar (ICD-295.70) (BQQ90-A26.9) Assessment: Instructions: We have sent a prescription to your pharmacy today. Please take medication as prescribed. Please report any major side effects. Please continue to monitor, report and avoid triggers causing increased anxiety and or depression. Please keep your esperanza eduled appointment with Dr Lara.Nicotine dependence, unspecified, uncomplicated (ZOC72-C42.200) Assessment: Instructions: Please continue to try to [...] (Mild)Orders:Adult - Ofc Vst, EST, Level III [CPT-21467] Follow-Up Return to clinic: as scheduled and as needed. Clinical Visit Summary CompletedMedications:HALOPERIDOL 5 MG ORAL TABLET (HALOPERIDOL) take one tablet by mouth twice dsaily #14[Tablet] x 0 Route:ORAL Entered and Authorized by: Marce SEAY Method used: Electronically to [facility]* (retail) [address] [place] [address] Note to Pharmacy: Route: ORAL; Indications: SCHIZOAFFECTIVE DISORDER, BIPOLAR RxID: [id number] signed by Marce SEAY on 03/10/2020 at 1:11 AM Name Value Range Interpretation Code Description Data Dot rce(s) Supporting Document(s) ID Date Data Source [id number] 02/18/2020 02:01:17 PM EDT [facility] Measurements & CalculationsHeight: 62 inches (5 ft. [...] been admitted to the hospital? Yes - [facility] MHHave you been to an emergency [...] during this visit, including review of any tvnp-har-zczfumc medications, herbal therapies, and/or supplements.Allergy ReviewAllergy List [...] GoodAssessment & Plan Problems:Assessed:Nicotine dependence, unspecified, uncomplicated (IKT10-S91.200) Assessment: 7 cigarettes daily. Instructions: Please continue to try to cut back on your smoking with a goal to quit. Please let us know if you need assistance in doing so.Scoliosis (ICD-737.30) (WIA94-C92.20) Assessment: Instructions: Xray ordered. We have sent a prescription to your pharmacy today. Please take medication as prescribed. Please report any major side effects.Anxiety depression (ICD-300.4) (CGM08-N43.8) Assessment: Instructions: Please continue medications as prescribed. Please continue to monitor, report and avoid triggers causing increased anxiety and or depression. Please let us know if you need additional assistance.Please keep your appointment with your specialist.BACK PAIN (ICD-724.5) (WGY19-X64.9) Assessment: Instructions: We have sent a prescription [...] 1Allergies:* SKIN SO SOFT LOTION (Mild)Orders:Scoliosis Series [CPT-58948] Physical Therapy Consult [CPT-06757] Adult - Ofc Vst, EST, Level IV [CPT-46437] Follow-Up Return to clinic: 4-6 weeks for follow up. Clinical Visit Summary CompletedMedications:TRAZODONE HCL 50 MG ORAL TABLET (TRA ZODONE HCL) PO at bedtime PRN for insomina for 7 days #30[Tablet] x 2 Route:ORAL Entered and Authorized by: Marce SEAY Method used: Electronically to [facility]* (retail) [address] [place] [address] Note to Pharmacy: Route: ORAL; RxID: [id number] ZYPREXA 5 MG ORAL TABLET (OLANZAPINE) One at bedtime #30[Tablet] x 1 Route:ORAL Entered by: Marce SEAY Authorized by: Shelly Lara MD Method used: Electronically to [facility]* (retail) [address] [place] [address] RxID: [id number] 300 MG ORAL CAPSULE (GABAPENTIN) take one tablet by mouth twice daily as needed #60[Capsule] x 2 Route:ORAL Entered and Authorized by: Marce SEAY Method used: Electronically to [facility]* (retail) [address] [place] [address] Note to Pharmacy: Route: ORAL; Indications: BACK PAIN RxID: [id number] signed by Marce SEAY on 02/28/2020 at 11:28 AM Name Value Range Interpretation Code Description Data Dot rce(s) Supporting Document(s) Procedure Social History Code Duration Value Status Description Data Source(s ) 05/08/2020 12:00:00 AM EST Light cigarette smoker (1-9 cigs/day) completed Light cigarette smoker (1-9 cigs/day) [facility] ([facility]) Smoking 05/08/2020 12:00:00 AM EST Light tobacco smoker comple jacy Light tobacco smoker [facility] ([facility]) Vital Signs ID Date Data Source UNK Name Value Range Interpretation Code Description Data Source(s) Body height 62 [in_i] 62 [in_i] TONIA ([facility]) Body mass index (BMI) [Ratio] 18.1 kg/m2 18.1 k g/m2 TONIA ([facility]) Body weight 1580.8 [oz_av] 1580.8 [oz_av] ATHCONSTANCE Coleman ([facility]) Body height 62 [in_i] 62 [in_i] TONIA ([facility]) Body mass index (BMI) [Ratio] 16.4 kg/m2 16.4 k g/m2 TONIA ([facility]) Body weight 1430.4 [oz_av] 1430.4 [oz_av] ATHCONSTANCE Coleman ([facility]) Body height 62 [in_i] 62 [in_i] TONIA ([facility]) Body mass index (BMI) [Ratio] 16.4 kg/m2 16.4 k g/m2 TONIA ([facility]) Body weight 1430.4 [oz_av] 1430.4 [oz_av] ATHEN Jared ([facility]) Body height 62 [in_i] 62 [in_i] TONIA ([facility]) Body height 62 [in_i] 62 [in_i] TONIA ([facility]) Body mass index (BMI) [Ratio] 16.4 kg/m2 16.4 k g/m2 TONIA ([facility]) Body weight 1430.4 [oz_av] 1430.4 [oz_av] ATHEN A ([facility]) Body mass index (BMI) [Ratio] 16.4 kg/m2 16.4 k g/m2 TONIA ([facility]) Body weight 1430.4 [oz_av] 1430.4 [oz_av] ATHEN A ([facility]) Body height 62 [in_i] 62 [in_i] TONIA ([facility]) Body mass index (BMI) [Ratio] 16.4 kg/m2 16.4 k g/m2 TONIA ([facility]) Body weight 1430.4 [oz_av] 1430.4 [oz_av] ATHEN A ([facility]) Body height 156.21 cm 156.21 cm [facility] ([facility]) Body weight 40.007 kg 40.007 kg [facility] ([facility]) Systolic blood pressure 117 mm[Hg] 117 mm[Hg] N extGen ([facility]) Diastolic blood pressure 81 mm[Hg] 81 mm[Hg] [facility] ([facility]) Body mass index (BMI) [Ratio] 16.40 kg/m2 Underweight 16.4 0 kg/m2 [facility] ([facility]) Diastolic blood pressure 77 mm[Hg] 77 mm[Hg] TONIA ([facility]) Body height 62 [in_i] 62 [in_i] TONIA ([facility]) Body mass index (BMI) [Ratio] 16.74 kg/m2 16.74 kg/m2 TONIA ([facility]) Systolic blood pressure 113 mm[Hg] 113 mm[Hg] A THENA ([facility]) Body weight 1459.2 [oz_av] 1459.2 [oz_av] ATHEN A ([facility]) Body height 62 [in_i] 62 [in_i] TONIA ([facility]) Body mass index (BMI) [Ratio] 16.73 kg/m2 16.73 kg/m2 TONIA ([facility]) Body weight 1458.08 [oz_av] 1458.08 [oz_av] ATH SHELDON ([facility]) Body height 62 [in_i] 62 [in_i] TONIA ([facility]) Body mass index (BMI) [Ratio] 17.46 kg/m2 17.46 kg/m2 TONIA ([facility]) Body weight 1522.08 [oz_av] 1522.08 [oz_av] ATH SHELDON ([facility]) Diastolic blood pressure 77 mm[Hg] 77 mm[Hg] TONIA ([facility]) Body height 62 [in_i] 62 [in_i] TONIA ([facility]) Body mass index (BMI) [Ratio] 17.25 kg/m2 17.25 kg/m2 TONIA ([facility]) Systolic blood pressure 111 mm[Hg] 111 mm[Hg] [facility]) Body weight 1504 [oz_av] 1504 [oz_av] TONIA ([facility]) Diastolic blood pressure 87 mm[Hg] 87 mm[Hg] TONIA ([facility]) Body height 62 [in_i] 62 [in_i] TONIA ([facility]) Systolic blood pressure 119 mm[Hg] 119 mm[Hg] A [facility] ([facility]) Body weight 1440 [oz_av] 1440 [oz_av] TONIA ([facility]) Diastolic blood pressure 87 mm[Hg] 87 mm[Hg] TONIA ([facility]) Body height 62 [in_i] 62 [in_i] TONIA ([facility]) Systolic blood pressure 119 mm[Hg] 119 mm[Hg] A [facility] ([facility]) Body weight 1440 [oz_av] 1440 [oz_av] TONIA ([facility]) Diastolic blood pressure 87 mm[Hg] 87 mm[Hg] TONIA ([facility]) Body height 62 [in_i] 62 [in_i] TONIA ([facility]) Body mass index (BMI) [Ratio] 16.52 kg/m2 16.52 kg/m2 TONIA ([facility]) Systolic blood pressure 119 mm[Hg] 119 mm[Hg] A [facility]) Body weight 1440 [oz_av] 1440 [oz_av] TONIA ([facility]) Patient Treatment Plan of Care Planned Activity Planned Date Details Description Data Source (s) medroxyprogesterone acetate 150 MG/ML Injectable Suspe nsion 05/08/2020 12:00:00 AM EST [facility] medroxyprogesterone acetate 150 MG/ML Injectable Suspe nsion 05/28/2019 12:00:00 AM EST [facility] Sulfamethoxazole 800 MG / Trimethoprim 160 MG Oral Tablet TONIA ([facility]) olanzapine 5 MG Oral Tablet TONIA ([facility]) haloperidol decanoate 50 mg/mL intramuscular solution INJECT DIR ECTED TONIA ([facility]) gabapentin 300 MG Oral Capsule TONIA ([facility]) Atenolol 25 MG Oral Tablet A THENA ([facility]) Sulfamethoxazole 800 MG / Trimethoprim 160 MG Oral Tablet TONIA ([facility]) olanzapine 5 MG Oral Tablet TONIA ([facility]) haloperidol decanoate 50 mg/mL intramuscular solution INJECT DIR ECTED TONIA ([facility]) Atenolol 25 MG Oral Tablet A THENA ([facility]) Sulfamethoxazole 800 MG / Trimethoprim 160 MG Oral Tablet TONIA ([facility]) olanzapine 5 MG Oral Tablet TONIA ([facility]) haloperidol decanoate 50 mg/mL intramuscular solution INJECT DIR ECTED TONIA ([facility]) gabapentin 300 MG Oral Capsule TONIA ([facility]) Atenolol 25 MG Oral Tablet A THENA ([facility]) Atenolol 25 MG Oral Tablet N extGen ([facility])
[2021-04-11 20:55] LABS: BLOOD UREA NITROGEN 3 MG/DL (7-18); CALCIUM LEVEL 7.7 MG/DL (8.5-10.1); CARBON DIOXIDE LEVEL 25 MEQ/L (21-32); CHLORIDE LEVEL 106 MEQ/L (98-107); CREATININE FOR GFR 0.38 MG/DL (0.55-1.30); GLOMERULAR FILTRATION RATE > 60.0 (>60); GLUCOSE, FASTING 79 MG/DL (70-100); POTASSIUM SERUM 3.6 MEQ/L (3.5-5.1); SODIUM LEVEL 138 MEQ/L (136-145)
[2021-04-11 21:52] LABS: GC DNA AMPLIFICATION NEGATIVE (NEGATIVE)
[2021-04-11 22:10] LABS: HCG, SERUM QUANTITATIVE 25821 MIU/ML
[2021-04-11] MEDS ORDERED: ONDA4TAB6 PO (22:45)
[2021-04-11 22:51] VITALS: BP 110/55
--- NOTE | 2021-04-11 23:59 | REPVR ---
PROCEDURE INFORMATION: Exam: US , Limited Exam date and time: 04/11/2021 10:26 PM Age: 21 years old Clinical indication: Lmp or gestational age (in weeks): 18wks; Vag bleeding; ; Additional info: , vaginal bleeding lmp 12/01/20 TECHNIQUE: Imaging protocol: Real-time ultrasound of the maternal uterus with image documentation. Exam focused on the clinical indication. COMPARISON: US OBS SINGEL GEST 02/01/2019 3:14 PM FINDINGS: Last menstrual period: 12/01/2020 Gestation: There is a single live intrauterine . Presentation: Cephalic Placenta: No placenta previa or perigestational hemorrhage is noted. The location of the placenta is anterior and above the lower uterine segment. Amniotic fluid: Within normal limits. Amniotic fluid index: 9.7 cm (8.9-20.6) DOPPLER: Umbilical artery Doppler: PSV = 30 cm/s. EDV = 8.55 cm/s. S/D ratio = 3.51. RI = 0.72. There is normal continuous forward flow in the umbilical artery during diastole and no absent or reversed end-diastolic flow is noted. MATERNAL: Cervix: The cervix is closed and measures 3.3 cm in length. Right adnexa: There is a 2 cm x 0.7 cm x 1.3 cm thick walled hypoechoic right ovarian cyst. The color Doppler flow and spectral waveforms within the right ovary are within normal limits, without evidence for right ovarian torsion. Left adnexa: The left ovary was not visualized due to obscuration by intestinal gas. IMPRESSION: 1. Single live intrauterine in cephalic presentation. 2. No perigestational hemorrhage or placental previa identified. Electronically signed by: Kaz Finch On 04/11/2021 23:58:27 PM
== END 2021-04-11 23:00 | disposition home or self-care (01) ==
LOC: M ED 15:59
DX: O99.012 Anemia complicating pregnancy, second trimester (principal); O99.112 Other diseases of the blood and blood-forming organs and certain disorders involving the immune mechanism complicating pregnancy, second trimester; D72.829 Elevated white blood cell count, unspecified; O99.282 Endocrine, nutritional and metabolic diseases complicating pregnancy, second trimester; E83.51 Hypocalcemia; O26.892 Other specified pregnancy related conditions, second trimester; M41.9 Scoliosis, unspecified; O99.342 Other mental disorders complicating pregnancy, second trimester; F20.9 Schizophrenia, unspecified; O99.332 Smoking (tobacco) complicating pregnancy, second trimester; F17.210 Nicotine dependence, cigarettes, uncomplicated; Z3A.18 18 weeks gestation of pregnancy

== ENCOUNTER → 2021-04-14 | Outpatient (CLI) | payer OTHER, MEDICAID ==
[~2021-04-14] MED LIST changes: +ONDA4TAB6 PO
[2021-04-14 18:00] LABS: HEMATOCRIT 36.3 % (36.0-47.0); HEMOGLOBIN 11.5 g/dl (12.0-15.5); MEAN CORPUSCULAR HGB CONC 31.7 g/dl (32.0-36.5); MEAN CORPUSCULAR VOLUME 88.5 fl (80.0-96.0); PLATELET COUNT, AUTOMATED 383 10^3/uL (150-450); WHITE BLOOD COUNT 13.6 10^3/uL (4.0-10.0)
[2021-04-14 19:37] LABS: GC DNA AMPLIFICATION NEGATIVE (NEGATIVE)
[2021-04-14 21:47] LABS: HEPATITIS C VIRUS ABY INDEX < 0.0 INDEX (<0.8); HIV 1&2 SCREEN CENTAUR NEGATIVE (NEGATIVE)
== END ==
LOC: M PLALAB 14:03
PROVIDERS: ATTEND Advanced Practice Midwife
DX: Z34.92 Encounter for supervision of normal pregnancy, unspecified, second trimester (principal); Z3A.00 Weeks of gestation of pregnancy not specified

== ENCOUNTER → 2021-04-28 | Outpatient (CLI) | payer OTHER, MEDICAID ==
--- NOTE | 2021-04-28 16:15 | REP ---
INDICATION: ANATOMY. COMPARISON: 04/11/2021. TECHNIQUE: Real-time sonographic evaluation of the gravid uterus performed. Transabdominal and endovaginal imaging utilized. FINDINGS: Estimated gestational age is21 weeks 1 day, EDC 09/07/2021. Today's measurements indicate appropriate growth. Presentation: Transverse Placenta anterior, grade 1, without evidence of placenta previa. heart rate is recorded at 153 beats per minute. Amniotic fluid is subjectively normal. Closed cervical length is measured at 4.1 cm. Biometry chart: BPD: 49 mm, 20 weeks 6 days, 42nd percentile. HC: 182 mm, 20 weeks 4 days, 34th percentile AC: 157 mm, 20 weeks 6 days, 43rd percentile Femur length: 33 mm, 20 weeks 1 days, 25th percentile HC to AC ratio: 1.16, normal range 1.05-1.24. Estimated weight: 360g, 18th percentile. anatomy: Cranium: Grossly normal Lateral Ventricles/Choroid Plexus: Grossly normal Posterior Fossa/Cerebellum: Grossly normal Nose/lips/profile: Grossly normal Four chamber heart: Grossly normal Right ventricular outflow tract: Grossly normal Left ventricular outflow tract: Grossly normal Left-sided stomach: Grossly normal Kidneys: Grossly normal Bladder: Grossly normal Cord Insertion: Grossly normal 3 vessel cord: Grossly normal Spine: Not well seen due to position. IMPRESSION: Viable single intrauterine gestation as above. <Electronically signed by Hitesh Masters > 04/28/21 [id number]
== END ==
LOC: M WHC 08:04
PROVIDERS: ATTEND Advanced Practice Midwife
DX: Z36.9 Encounter for antenatal screening, unspecified (principal); Z3A.21 21 weeks gestation of pregnancy

== ENCOUNTER 2021-05-21 16:13 | Emergency (ER) | payer OTHER, MEDICAID ==
[~2021-05-21] VITALS: Ht 157.5 cm; Wt 40.3 kg
[2021-05-21 16:14] VITALS: BP 117/62
[2021-05-21] MEDS ORDERED: NEUR600T PO (16:19)
[2021-05-21] MEDS ORDERED: HALO5TA (16:20)
[2021-05-21] MEDS ORDERED: BENZ0.5T23 (16:20)
--- OUTSIDE RECORDS SUMMARY | 2021-05-21 16:22 | CCD ---
Author Author [facility] Organization [facility] ems Address Unknown Phone Unavailable Care Team Providers Care Novelty Maker Name Role Phone Terence Quigley Unavailable PROBLEMS Type Condition ICD9-CM Code [id number] Code Onset Dates Condition S tatus W/U Status Risk SNOMED Code Notes Problem Supervision of other normal Z34.80 Ac tive confirm [id number] ALLERGIES No Known Allergies ENCOUNTERS from 1999 to 2021-04-15 Encounter Location Date Provider Diagnosis [facility] [address] [facility] [phone] [place] [address] Mar, Terence Quigley Encounter for superv ision of normal in second trimester Z34.92 and 19 weeks gestation of Z3A.19 IMMUNIZATIONS No Information SOCIAL HISTORY Tobacco Use: Social History Observation Description Date Details (start date - stop date) Current Smoker Sex Assigned At : Social History Observation Description Sex Assigned At Unknown Tobacco Use: Question Answer Notes Are you a: current every day smoker REASON FOR REFERRAL No Information VITAL SIGNS Weight 85.0 lbs Mar, Weight-kg 38.56 kg Mar, Height 61 in Mar, BMI 16.061 kg/m2 Mar, Blood pressure systolic 108 mm Hg Mar, Blood pressure diastolic 68 mm Hg Mar, MEDICATIONS Medication SIG (Take, Route, Frequency, Duration) Notes Start Da te End Date Status Tylenol 325 MG 1 tablet as needed Orally every 4 hrs Active 27-1 MG 1 tablet Orally Once a day Active PROCEDURES No Information RESULTS Component Value Reference Range Type and Screen Prenatal1 Reviewed date:04/15/2021 11:35:31 Interpretation: Performing Lab:[facility], [facility] [address] [address] , ,[place] [address] AB SCREEN PNP1 GEL (VIS) NEGATIVE CBC - Complete Blood Count Reviewed date:04/15/2021 11:35:12 Interpretation: Performing Lab:[facility] [address] [address] , ,[place] [address] WHITE BLOOD COUNT 13.6 4.0-10.0 RED BLOOD COUNT 4.10 4.00-5.40 HEMOGLOBIN 11.5 12.0-15.5 HEMATOCRIT 36.3 36.0-47.0 MEAN CORPUSCULAR VOLUME 88.5 80.0-96.0 MEAN CORPUSCULAR HEMOGLOBIN 28.0 27.0-33.0 MEAN CORPUSCULAR HGB CONC 31.7 32.0-36.5 RED CELL DISTRIBUTION WIDTH 15.6 11.5-14.5 PLATELET COUNT, AUTOMATED 383 150-450 CHLAMYDIA & GC DNA AMPLIFICAT Reviewed date:04/15/2021 11:35:19 Interpretation: Performing Lab:[facility] [address] [place] [address] , ,[place] [address] CHLAMYDIA DNA AMPLIFICATION NEGATIVE NEGATIVE GC DNA AMPLIFICATION NEGATIVE NEGATIVE HEPATITIS C ANTIBODY INDEX Reviewed date:04/15/2021 11:35:23 Interpretation: Performing Lab:[facility] [address] [place] [address] , ,[place] [address] HEPATITIS C VIRUS FABIENNE INDEX < 0.0 <0.8 HIV 1and2 ANTIBODY SCREEN Reviewed date:04/15/2021 11:35:05 Interpretation: Performing Lab:[facility] [address] [place] [address] , ,[place] [address] SYPHILIS ANTIBODY (RPR SCREEN) Reviewed date:04/15/2021 11:35:08 Interpretation: Performing Lab:[facility] [address] [place] [address] , ,[place] [address] SYPHILIS NONREACTIVE NONREACTIVE RUBELLA IMMUNE STATUS IgG Reviewed date:04/15/2021 11:35:15 Interpretation: Performing Lab:[facility] [address] [address] , ,[place] [address] RUBELLA IgG QUALITATIVE IMMUNE IMMUNE HBSAG Reviewed date:04/15/2021 11:35:26 Interpretation: Performing Lab:[facility] [address] [address] , ,[place] [address] HBsAg NEGATIVE NEGATIVE REASON FOR VISIT 1st pn per broni (18 wks) MEDICAL (GENERAL) HISTORY Type Description Date Medical History Arrhythmia Medical History Scoliosis, Unspecified Medical History Schizophrenia, Unspecified Surgical History D & C 03/05/2019 Surgical History T & A 2013 Hospitalization History childbirth Goals Section No Information Health Concerns No Information MEDICAL EQUIPMENT No Information MENTAL STATUS No Information FUNCTIONAL STATUS No Information ASSESSMENTS Encounter Date Diagnosis Assessment Notes Treatment Notes Treatm ent Clinical Notes Mar, Encounter for supervision of normal in second trimester (ICD-10 - Z34.92) Mar, 19 weeks gestation of (ICD-10 - Z3A.19 ) PLAN OF TREATMENT Treatment Notes Test Name Order Date URINE CULTURE 2021-04-14 [facility] OBS COMPLETE US 2021-04-14 Next Appt Details 4 Weeks Reason: Provider Name:Rosa Cheng, 2021-05-12 02:00:00 PM, [address] [facility], , [place], [address], Insurance Providers Payer Name Payer Address Payer Phone Insured Name Patient Relati onship to Insured Coverage Start Date Coverage End Date [facility] [employer] [facility] [address] [facility] [phone] SUKUMAR JEFFERSON self
--- OUTSIDE RECORDS SUMMARY | 2021-05-21 16:22 | CCD ---
Author Author [facility] Organization [facility] Address Unknown Phone Unavailable Care Team Providers Care Multimedia Engineer Name Role Phone Rae Michaud Unavailable PROBLEMS Type Condition ICD9-CM Code [id number] Code Onset Dates Condition S tatus W/U Status Risk SNOMED Code Notes Problem Supervision of other normal Z34.80 Ac tive confirm [id number] ALLERGIES No Known Allergies ENCOUNTERS from 1999 to 2021-04-14 Encounter Location Date Provider Diagnosis [facility] [address] [place] [address] [place] [address] Mar, Rae Michaud IMMUNIZATIONS No Information SOCIAL HISTORY Tobacco Use: Social History Observation Description Date Details (start date - stop date) Current Smoker Sex Assigned At : Social History Observation Description Sex Assigned At Unknown Tobacco Use: Question Answer Notes Are you a: current every day smoker REASON FOR REFERRAL No Information VITAL SIGNS No information MEDICATIONS Medication SIG (Take, Route, Frequency, Duration) Notes Start Da te End Date Status Tylenol 325 MG 1 tablet as needed Orally every 4 hrs Active 27-1 MG 1 tablet Orally Once a day Active PROCEDURES No Information RESULTS No Results REASON FOR VISIT appt MEDICAL (GENERAL) HISTORY Type Description Date Medical History Arrhythmia Medical History Scoliosis, Unspecified Medical History Schizophrenia, Unspecified Surgical History D & C 03/05/2019 Surgical History T & A 2013 Hospitalization History childbirth Goals Section No Information Health Concerns No Information MEDICAL EQUIPMENT No Information MENTAL STATUS No Information FUNCTIONAL STATUS No Information ASSESSMENTS No Information PLAN OF TREATMENT Next Appt Details Provider Name:Rosa Cheng, 2021-05-12 02:00:00 PM, [address] [facility] [phone], [place], [address], Insurance Providers Payer Name Payer Address Payer Phone Insured Name Patient Relati onship to Insured Coverage Start Date Coverage End Date [facility] [employer] [facility] [facility] [address] [facility] [phone] SUKUMAR JEFFERSON self
--- OUTSIDE RECORDS SUMMARY | 2021-05-21 16:23 | CCD ---
Author Author [facility] Organization [facility] Address Unknown Phone Unavailable Care Team Providers Care Tank Pumper Panelboard Name Role Phone Ant, Marce HEALTH TECHNICAL WRITER HEALTH TECHNICAL WRITER Unavailable Unavailable Analy Lara MD Unavailable Unavailable Analy Lara MD Unavailable Unavailable Analy Lara MD Unavailable Unavailable Analy Lara MD Unavailable Unavailable Analy Lara MD Unavailable Unavailable Analy Lara MD Unavailable Unavailable Analy Lara MD Unavailable Unavailable Analy Lara MD Unavailable Unavailable Analy Lara MD Unavailable Unavailable Green PLANNING ENGINEER PLANNING ENGINEER, Albina Unavailable Unavailable Green PLANNING ENGINEER PLANNING ENGINEER, Albina Unavailable Unavailable Green PLANNING ENGINEER PLANNING ENGINEER, Albina Unavailable Unavailable Green PLANNING ENGINEER PLANNING ENGINEER, Albina Unavailable Unavailable Green PLANNING ENGINEER PLANNING ENGINEER, Albina Unavailable Unavailable Ant, A Marce HEALTH TECHNICAL WRITER Unavailable Unavailable Ant, A Marce HEALTH TECHNICAL WRITER Unavailable Unavailable Ant, A Marce HEALTH TECHNICAL WRITER Unavailable Unavailable Ant, A Marce HEALTH TECHNICAL WRITER Unavailable Unavailable Ant, A Marce HEALTH TECHNICAL WRITER Unavailable Unavailable Ant, A Marce HEALTH TECHNICAL WRITER Unavailable Unavailable Ant, A Marce HEALTH TECHNICAL WRITER Unavailable Unavailable Ant, A Marce HEALTH TECHNICAL WRITER Unavailable Unavailable Ant, A Marce HEALTH TECHNICAL WRITER Unavailable Unavailable Ant, A Marce HEALTH TECHNICAL WRITER Unavailable Unavailable Ant, A Marce HEALTH TECHNICAL WRITER Unavailable Unavailable Ant, A Marce HEALTH TECHNICAL WRITER Unavailable Unavailable Ant, A Marce HEALTH TECHNICAL WRITER Unavailable Unavailable Ant, A Macre HEALTH TECHNICAL WRITER Unavailable Unavailable Ant, A Marce HEALTH TECHNICAL WRITER Unavailable Unavailable Ant, A Marce HEALTH TECHNICAL WRITER Unavailable Unavailable Ant, A Marce HEALTH TECHNICAL WRITER Unavailable Unavailable Ant, A Marce HEALTH TECHNICAL WRITER Unavailable Unavailable Ant, A Marce HEALTH TECHNICAL WRITER Unavailable Unavailable Ant, A Marce HEALTH TECHNICAL WRITER Unavailable Unavailable Ant, A Marce HEALTH TECHNICAL WRITER Unavailable Unavailable Ant, A Marce HEALTH TECHNICAL WRITER Unavailable Unavailable Ant, A Marce HEALTH TECHNICAL WRITER Unavailable Unavailable Ant, A Marce HEALTH TECHNICAL WRITER Unavailable Unavailable Ant, A Marce HEALTH TECHNICAL WRITER Unavailable Unavailable Ant, A Marce HEALTH TECHNICAL WRITER Unavailable Unavailable Ant, A Marce HEALTH TECHNICAL WRITER Unavailable Unavailable Ant, A Marce HEALTH TECHNICAL WRITER Unavailable Unavailable Ant, A Marce HEALTH TECHNICAL WRITER Unavailable Unavailable Ant, A Marce HEALTH TECHNICAL WRITER Unavailable Unavailable Ant, A Marce HEALTH TECHNICAL WRITER Unavailable Unavailable Re-disclosure Warning The records that [...] is protected by Article 27-F of the [facility] Public Health law. If you continue you may have access to information: Regarding HIV / AIDS; Provided by facilities licensed or operated by the [facility] Office of Mental Health; or Provided by the [facility] Office for People With Developmental Disabilities. If such information is present, then the following [facility] mandated warning applies: This information has [...] law may result in a fine or skilled nursing sentence or both. A general authorization for the release of medical or other information is NOT sufficient authorization for further disc losure. Allergies and Adverse Reactions Type Description Substance Reaction Status Data Source(s ) Allergy to substance Allergy to substance Allergy to substance TONIA ([facility]) Allergy to substance Allergy to substance Allergy to substance TONIA ([facility]) Allergy to substance Allergy to substance Allergy to substance TONIA ([facility]) Family History Family Member Name Family Member Gender Family Member Status Date o f Status Description Data Source(s) Unknown Unknown Problem MEDENT ([facility]) father's side Encounters Encounter Providers Location Date Indications Data Source(s ) ( NEW) [facility] OB Visit [address] [place] [id number] 04/14/2021 12:00:00 AM EDT eCW1 ([facility]) Unknown [address] [facility] [address] 04/11/2021 12:00:00 AM EDT eCW1 ([facility]) Shelly Lara MD: [address], [place] [address], Ph. Attender: Shelly Lara MD [facility] Medical 09/25/2020 12:00:00 AM EDT TONIA ([facility]) Shelly Lara MD: [address], [place] [address], Ph. Attender: Shelly Lara MD [facility] Medical 06/09/2020 12:00:00 AM EST TONIA ([facility]) Shelly Lara MD: [address], [place] [address], Ph. Attender: Shelly Lara MD [facility] Medical 06/09/2020 12:00:00 AM EST TONIA ([facility]) Sehlly Lara MD: [address], [place] [address], Ph. Attender: Shelly Lara MD [facility] Medical 05/12/2020 12:00:00 AM EST TONIA ([facility]) Shelly Lara MD: [address], [place] [address], Ph. Attender: Shelly Lara MD [facility] Medical 05/12/2020 12:00:00 AM EST TONIA ([facility]) Shelly Lara MD: [address], [place] [address], Ph. Attender: Shelly Lara MD [facility] 05/12/2020 12:00:00 AM EST TONIA ([facility]) OFFICE VISIT, ESTOutpatient Attender: Albina Patel NP PLANNING ENGINEER PPHEAVENBARBI Иван 05/08/2020 02:15:00 PM EST - 05/08/2020 02:15:00 PM EST Human immunodeficiency virus [HIV] counselingOther sex counselingEncntr screen for infections w sexl mode of transmissEncounter for oth general cnsl and advice on contraceptionEncounter for initial prescription of injectable contracepEncounter for test, result negative NextGen ([facility]) Human immunodeficiency virus [HIV] couns eling Other sex counseling Encntr screen for infections w sexl mode of transmiss Encounter for oth general cnsl and advic e on contraception Encounter for initial prescription of in jectable contracep Encounter for test, result neg ative Outpatient Attender: DAWOOD SEAY 04/05/2020 02:09:00 P M EDT [facility] Outpatient Attender: Marce SEAY 04/05/2020 02:0 9:00 PM EDT [facility] Outpatient Attender: DAWOOD SEAY 04/04/2020 02:09:[address] [facility] Outpatient Attender: Marce SEAY 04/04/2020 02:0 9:01 PM EDT [facility] Outpatient Attender: DAWOOD SEAY 04/03/2020 03:38:[address] [facility] Outpatient Attender: DAWOOD JOSE 04/03/2020 [facility]: [facility]2020 11[facility]53[facility] DA[facility]OD SE[facility] 03/24/2020 04[facility]44[facility] Medications Medication Brand Name Start Date Product Form Dose Route Admi nistrative Instructions Pharmacy Instructions Status Indications Reaction Description Data Source(s) medroxyprogesterone acetate 150 MG/ML In jectable Suspension medroxyprogesterone 150 mg/mL intramuscular suspension medroxyprogesterone 150 mg/mL intramuscu lar suspension 05/08/2020 12:00:00 AM EST active IM every 10-13 weeks NextGen ([facility]) medroxyprogesterone acetate 150 MG/ML In jectable Suspension medroxyprogesterone 150 mg/mL intramuscular suspension medroxyprogesterone 150 mg/mL intramuscu lar suspension 05/28/2019 12:00:00 AM EST complet ed IM every 10-13 weeks NextGen ([facility]) Atenolol 25 MG Oral Tablet atenolol 25 m g tablet TAKE ONE-HALF TABLET BY MOUTH ONCE DAILY FOR heart rate atenolol 25 mg tablet TAKE ONE-HALF TABL ET BY MOUTH ONCE DAILY FOR heart rate completed atenolol 25 MG Oral Tablet TONIA ([facility]) olanzapine 5 MG Oral Tablet olanzapine 5 mg tablet TAKE ONE TABLET BY MOUTH AT BEDTIME olanzapine 5 mg tablet TAKE ONE TABLET BY MOUTH AT BEDTIME completed olanzapine 5 MG Oral Tablet ATHE SIN ([facility]) Atenolol 25 MG Oral Tablet atenolol 25 m g tablet TAKE ONE-HALF TABLET BY MOUTH ONCE DAILY FOR heart rate atenolol 25 mg tablet TAKE ONE-HALF TABL ET BY MOUTH ONCE DAILY FOR heart rate completed atenolol 25 MG Oral Tablet TONIA ([facility]) Atenolol 25 MG Oral Tablet atenolol 25 mg tablet atenolol 25 mg tablet completed NextGen ([facility]) 1/2 tab once daily Atenolol 25 MG Oral Tablet atenolol 25 m g tablet TAKE ONE-HALF TABLET BY MOUTH ONCE DAILY FOR heart rate atenolol 25 mg tablet TAKE ONE-HALF TABL ET BY MOUTH ONCE DAILY FOR heart rate completed atenolol 25 MG Oral Tablet TONIA ([facility]) Sulfamethoxazole 800 MG / Trimethoprim 1 60 MG Oral Tablet sulfamethoxazole 800 mg-trimethoprim 160 mg tablet sulfamethoxazole 800 mg-trimethoprim 160 mg tablet completed sulfame thoxazole 800 MG / trimethoprim 160 MG Oral Tablet TONIA ([facility]) Sulfamethoxazole 800 MG / Trimethoprim 1 60 MG Oral Tablet sulfamethoxazole 800 mg-trimethoprim 160 mg tablet sulfamethoxazole 800 mg-trimethoprim 160 mg tablet completed sulfame thoxazole 800 MG / trimethoprim 160 MG Oral Tablet TONIA ([facility]) gabapentin 300 MG Oral Capsule gabapenti n 300 mg capsule TAKE ONE CAPSULE BY MOUTH TWICE DAILY NEEDED gabapentin 300 mg capsule TAKE ONE CAPSU LE BY MOUTH TWICE DAILY NEEDED completed gabapentin 300 MG Oral Capsule TONIA ([facility]) haloperidol decanoate 50 mg/mL intramuscular solution INJECT DIRECTED [id number] completed haloperidol de canoate 50 MG/ML Injection TONIA ([facility]) Sulfamethoxazole 800 MG / Trimethoprim 1 60 MG Oral Tablet sulfamethoxazole 800 mg-trimethoprim 160 mg tablet sulfamethoxazole 800 mg-trimethoprim 160 mg tablet completed sulfame thoxazole 800 MG / trimethoprim 160 MG Oral Tablet TONIA ([facility]) olanzapine 5 MG Oral Tablet olanzapine 5 mg tablet TAKE ONE TABLET BY MOUTH AT BEDTIME olanzapine 5 mg tablet TAKE ONE TABLET BY MOUTH AT BEDTIME completed olanzapine 5 MG [facility] haloperidol decanoate 50 mg/mL intramuscular solution INJECT DIRECTED [id number] completed haloperidol de canoate 50 MG/ML Injection TONIA ([facility]) olanzapine 5 MG Oral Tablet olanzapine 5 mg tablet TAKE ONE TABLET BY MOUTH AT BEDTIME olanzapine 5 mg tablet TAKE ONE TABLET BY MOUTH AT BEDTIME completed olanzapine 5 MG Oral Tablet [facility] gabapentin 300 MG Oral Capsule gabapenti n 300 mg capsule TAKE ONE CAPSULE BY MOUTH TWICE DAILY NEEDED gabapentin 300 mg capsule TAKE ONE CAPSU LE BY MOUTH TWICE DAILY NEEDED completed gabapentin 300 MG Oral Capsule [place] ([facility]) haloperidol decanoate 50 mg/mL intramuscular solution INJECT DIRECTED [id number] completed haloperidol de canoate 50 MG/ML Injection TONIA ([facility]) Insurance Providers Payer name Policy type / Coverage type Policy ID Covered constitution party ID Covered constitution party's relationship to alvarez Policy Alvarez Plan Information Medicaid Dental O [id number] S [id number] D Managed Care [facility] P [id number] S [id number] D Managed Care [facility] O [id number] S [id number] Medicaid Dental O [id number] S [id number] Medicaid S [id number] S [id number] Managed Care - Community Plan [facility] P [id number] S [id number] Managed Care - Community Plan [facility] P [id number] S [id number] Medicaid S [id number] S [id number] Managed Care - Community Plan [facility] P [id number] S [id number] Managed Care - Community Plan [facility] P [id number] S [id number] Medicaid S [id number] S [id number] Managed Care - Community Plan [facility] P [id number] S [id number] Managed Care - [facility] Community Plan P [id number] S [id number] Medicaid S [id number] S [id number] Managed Care - [facility] Community Plan P [id number] S [id number] Medicaid S [id number] S [id number] Managed Care - [facility] Community Plan P [id number] S [id number] [facility] [id number] self [id number] [place] [id number] SP [id number] V [id number] [facility] COMMUNITY PLAN MCDHMO [id number] SP [id number] [facility] COMMUNITY PLAN MCDHMO [id number] SP [id number] [facility](MCAID) O [id number] S [id number] [facility] TARYN [id number] SP [id number] [place] [id number] SP [id number] MEDICAID [id number] SP [id number] Managed Care - Community Plan [facility] P [id number] S [id number] SELF PAY ONLY [id number] SP [id number] CLARY [id number] SP [id number] [facility] Health Maintenance Organization (HMO) [id number] Self [id number] [facility](MCAID) P [id number] S [id number] D Managed Care [facility] O [id number] S [id number] D Managed Care [facility] P UNAVAILABLE S UNAVAILABLE BLUE CROSS JHAVERI PLAN [id number] SP [id number] BLUE CROSS JHAVERI PLAN [id number] [facility] [id number] SF2 [id number] [employer] P [id number] S [id number] Problems, Conditions, and Diagnoses Code Display Name Description Problem Type Effective Dates Data Source(s) Z34.80 care Supervision of other normal Andie lagunas 04/14/2021 12:00:00 AM EDT eCW1 ([facility]) 788.1 Dysuria Dysuria 04/03/2020 03:36:52 PM ED T [facility] [id number] Urinary tract infection, site not specif ied Urinary tract infection, site not specified 04/03/2020 03:36:52 PM EDT [facility] [id number] Dysuria Dysuria Problem 04/03/2020 12:00:00 AM ED T [place] ([facility]) [id number] Urinary tract infectious disease Urinary Tract I nfectious Disease Problem 04/03/2020 12:00:00 AM EDT TONIA ([facility]) Surgeries/Procedures Procedure Description Date Indications Data Source(s) CVR Spiral Runner.Svc. STI / H 05/08/2020 12:00:00 AM EST - 05/08/2020 12:00:00 AM EST NextGen ([facility]) CVR Spiral Runner.Svc. Other 05/08/2020 12:00:00 AM EST - 2019 12:00:00 AM EST [facility]Gen ([facility]) CVR Spiral Runner.Svc. Contraceptive 05/08/2020 12 :00:00 AM EST - 05/08/2020 12:00:00 AM EST NextGen ([facility]) CVR Med.Svc. Height/Weight 05/08/2020 12 :00:00 AM EST - 05/08/2020 12:00:00 AM EST NextGen ([facility]) CVR Blood Pressure 05/08/2020 12:00:00 AM EST - 2019 12:00:00 AM EST NextGen ([facility]) HCS Without Test 05/08/2020 12:00:00 AM EST - 05/08/20 20 12:00:00 AM EST NextGen ([facility]) THER/PROPH/DIAG INJ, SC/IM 05/08/2020 12 :00:00 AM EST - 05/08/2020 12:00:00 AM EST NextGen ([facility]) Depo/Medroxyprogesterone Inj. 150 Mg Nurse/CA 05/08/2020 12:00:00 AM EST - 05/08/2020 12:00:00 AM EST NextGen ([facility]) CVR BC Ending Method HORM.INJ. 3 MOS 12:00:00 AM EST - 05/08/2020 12:00:00 AM EST NextGen ([facility]) N.GONORRHOEAE, URINE 05/08/2020 12:00:00 AM EST - 05/08/2020 12:00:00 AM EST NextGen ([facility]) CHYLMD TRACH, URINE 05/08/2020 12:00:00 AM EST - 05/08 12:00:00 AM EST NextGen ([facility]) OFFICE VISIT, EST 05/08/2020 12:00:00 AM EST - 020 12:00:00 AM EST NextGen ([facility]) URINE TEST 05/08/2020 12:00:00 AM EST - 05/08/2020 12:00:00 AM EST NextGen ([facility]) Results ID Date Data Source HBSAG 04/14/2021 12:00:00 AM EDT eCW1 ([facility]) Name Value Range Interpretation Code Description Data Odt rce(s) Supporting Document(s) NEGATIVE NEGATIVE HBsAg eCW1 ([facility]) ID Date Data Source RUBELLA IMMUNE STATUS IgG 04/14/2021 12:00:00 AM EDT eCW1 ([facility]) Name Value Range Interpretation Code Description Data Dot rce(s) Supporting Document(s) IMMUNE IMMUNE RUBELLA IgG QUALITATIVE eCW1 ( [facility]) ID Date Data Source SYPHILIS ANTIBODY (RPR SCREEN) 04/14/2021 12:00:00 AM EDT eC W1 ([facility]) Name Value Range Interpretation Code Description Data Dot rce(s) Supporting Document(s) NONREACTIVE NONREACTIVE SYPHILIS eCW1 ([facility]) ID Date Data Source [id number] 04/14/2021 12:00:00 AM EDT eCW1 ([facility]) Name Value Range Interpretation Code Description Data Dot rce(s) Supporting Document(s) HIV 1and2 ANTIBODY SCREEN eCW1 ([facility]) ID Date Data Source HEPATITIS C ANTIBODY INDEX 04/14/2021 12:00:00 AM EDT eCW1 ( [facility]) Name Value Range Interpretation Code Description Data Dot rce(s) Supporting Document(s) < 0.0 <0.8 HEPATITIS C VIRUS FABIENNE IND EX eCW1 ([facility]) ID Date Data Source CHLAMYDIA & GC DNA AMPLIFICAT 04/14/2021 12:00:00 AM EDT eCW 1 ([facility]) Name Value Range Interpretation Code Description Data Dot rce(s) Supporting Document(s) Chlamydia trachomatis rRNA [Presence] in Unspecified specimen by Probe and target amplification method NEGATIVE NEGATIVE CHLAMYDIA DNA AMPLIFICATION eCW1 ([facility]) ID Date Data Source CBC - Complete Blood Count 04/14/2021 12:00:00 AM EDT eCW1 ( [facility]) Name Value Range Interpretation Code Description Data Dot rce(s) Supporting Document(s) 13.6 4.0-10.0 WHITE BLOOD COUNT eCW1 ([facility]) 4.10 4.00-5.40 RED BLOOD COUNT eCW1 ([facility]) 88.5 80.0-96.0 MEAN CORPUSCULAR VOLUME e CW1 ([facility]) 11.5 12.0-15.5 HEMOGLOBIN eCW1 ([facility]) 36.3 36.0-47.0 HEMATOCRIT eCW1 ([facility]) 28.0 27.0-33.0 MEAN CORPUSCULAR HEMOGLOB IN eCW1 ([facility]) 31.7 32.0-36.5 MEAN CORPUSCULAR HGB CONC eCW1 ([facility]) 15.6 11.5-14.5 RED CELL DISTRIBUTION WID TH eCW1 ([facility]) 383 150-450 PLATELET COUNT, AUTOMATED eCW1 ([facility]) ID Date Data Source Type and Screen Prenatal1 04/14/2021 12:00:00 AM EDT eCW1 ([facility]) Name Value Range Interpretation Code Description Data Dot rce(s) Supporting Document(s) NEGATIVE AB SCREEN PNP1 GEL (VIS) eCW1 ([facility]) ID Date Data Source [id number] 05/08/2020 02:50:36 PM EST NextGen ([facility]) Name Value Range Interpretation Code Description Data Dot rce(s) Supporting Document(s) NegativeLot: [id number]: 08/17/2021 High Sensitivity Urine Test NextGen ([facility]) ID Date Data Source [id number] 04/03/2020 04:02:00 PM EDT [facility] Name Value Range Interpretation Code Description Data Dot rce(s) Supporting Document(s) APPEARANCE U TURBID CLEAR H [facility] SPEC GR URIN 1.024 1.002-1.035 N [facility] F [facility] UA COLOR YELLOW YELLOW N [facility] ID Date Data Source [id number] 04/03/2020 04:02:00 PM EDT [facility] Name Value Range Interpretation Code Description Data Dot rce(s) Supporting Document(s) URINECULTRTN NO GROWTH N [facility] ID Date Data Source [id number] 04/03/2020 02:42:44 PM EDT [facility] Measurements & CalculationsHeight: 62 inches (5 [...] pH: 6.0 5.0-6.5 Blood: 3+ Negative Specific [place]: 1.030 1.020>=1.030 Ketone: negative Negative Bilirubin: negative [...] (ER) or urgent care clinic? Yes - [facility] ER - but left without [...] follow up. Pt states she went to [facility] ER last week with s/s [...] during this visit, including review of any ezrj-[id number] medications, herbal therapies, and/or supplements.Allergy ReviewAllergy List [...] Problems:Added: Urinary tract infection, site not specified (JHV42-V03.0) Assessment: Instructions: We have sent a prescription to your pharmacy today. Please take medication as prescribed. Please report any major side effects. Please try to maintain adequate intake of water daily and good personal hygiene.Dysuria (ICD- 788.1) (JJY55-Z31.0) Assessment: Instructions: UA done in office positive for UTI. We have sent a prescription to treat with ABX, We will send urine to lab for culture.Assessed:Anxiety depression (ICD-300.4) (UQK71-Z44.8) Assessment: Instructions: Please continue medications as prescribed. Please continue to monitor, report and avoid triggers causing increased anxiety and or depression. Please keep your appointment with your specialist.BACK PAIN (ICD- 724.5) (EBV71-M25.9) Assessment: Instructions: We have made a referral for you today. We will contact you to set this up. Please continue medication as prescribed. Please try to avoid streneous activities.Assessment not Saved Anxiety depression (NZK72-D25.8): Patient Instructions/Care Plan: Urinary tract infection- site [...] ElectronicAllergies:* SKIN SO SOFT LOTION (Mild)Orders:Orthopaedics Consult [CPT-79579] Urinalysis-manual [CPT-81446] URINALYSIS [CPT-02187] Urine Culture & Sensitivity [CPT-84991] Adult - Ofc Vst, EST, Level III [CPT-24641] Follow-Up Return to clinic: as scheduled and as needed Clinical Visit Summary CompletedMedications:BACTRIM DS 800-160 MG ORAL TABLET (SULFAMETHOXAZOLE- TRIMETHOPRIM) take one tablet by mouth twice daily x 7 days #14[Tablet] x 0 Route:ORAL Entered and Authorized by: Marce SEAY Method used: Electronically to [facility]* (retail) [address] [place] [address] Note to Pharmacy: Route: ORAL; Indications: URINARY TRACT INFECTION, SITE NOT SPECIFIED RxID: [id number] signed by Marce SEAY on 04/04/2020 at 2:08 PM Name Value Range Interpretation Code Description Data Dot rce(s) Supporting Document(s) ID Date Data Source [id number] 04/03/2020 02:42:44 PM EDT [facility] Name Value Range Interpretation Code Description Data Dot rce(s) Supporting Document(s) APPEARANCE U cloudy [facility] BILIRUBIN UR negative [facility] BLOOD UR DIP 3+ [facility] GLUCOSE, URN negative [facility] KETONES URN negative [facility] NITRITE URN negative [facility] PH URINE 6.0 [facility] PROTEIN, URN 3+ [facility] SPEC GR URIN 1.030 [facility] UA COLOR yellow [facility] [facility] UROBILINOGEN 4 [facility] WBC DIPSTK U 2+ [facility] Procedure Social History Code Duration Value Status Description Data Source(s ) Smoking 04/14/2021 12:00:00 AM EDT Current Smoker completed Curre nt Smoker eCW1 ([facility]) Smoking 04/14/2021 12:00:00 AM EDT Current Smoker completed Curre nt Smoker eCW1 ([facility]) 05/08/2020 12:00:00 AM EST Light cigarette smoker (1-9 cigs/day) completed Light cigarette smoker (1-9 cigs/day) [facility] ([facility]) Smoking 05/08/2020 12:00:00 AM EST Light tobacco smoker comple jacy Light tobacco smoker [facility] ([facility]) Vital Signs ID Date Data Source UNK Name Value Range Interpretation Code Description Data Source(s) Body weight 85.0 [lb_av] 85.0 [lb_av] eCW1 ([facility]) Body weight 38.56 kg 38.56 kg [facility] ([facility]) Body height 61 [in_i] 61 [in_i] eCW1 ([facility]) Body mass index (BMI) [Ratio] 16.061 kg/m2 16.0 61 kg/m2 [facility] ([facility]) Systolic blood pressure 108 mm[Hg] 108 mm[Hg] e CW1 ([facility]) Diastolic blood pressure 68 mm[Hg] 68 mm[Hg] eCW1 ([facility]) Body height 62 [in_i] 62 [in_i] TONIA ([facility]) Body mass index (BMI) [Ratio] 18.1 kg/m2 18.1 k g/m2 TONIA ([facility]) Body weight 1580.8 [oz_av] 1580.8 [oz_av] ATHCONSTANCE A ([facility]) Body mass index (BMI) [Ratio] 16.4 kg/m2 16.4 k g/m2 TONIA ([facility]) Body weight 1430.4 [oz_av] 1430.4 [oz_av] ATHCONSTANCE A ([facility]) Body height 62 [in_i] 62 [in_i] TONIA ([facility]) Body mass index (BMI) [Ratio] 16.4 kg/m2 16.4 k g/m2 TONIA ([facility]) Body weight 1430.4 [oz_av] 1430.4 [oz_av] ATHCONSTANCE Coleman ([facility]) Body height 62 [in_i] 62 [in_i] TONIA ([facility]) Body height 62 [in_i] 62 [in_i] TONIA ([facility]) Body mass index (BMI) [Ratio] 16.4 kg/m2 16.4 k g/m2 TONIA ([facility]) Body weight 1430.4 [oz_av] 1430.4 [oz_av] ATHCONSTANCE A ([facility]) Body height 62 [in_i] 62 [in_i] TONIA ([facility]) Body mass index (BMI) [Ratio] 16.4 kg/m2 16.4 k g/m2 TONIA ([facility]) Body weight 1430.4 [oz_av] 1430.4 [oz_av] ATHEN A ([facility]) Body height 62 [in_i] 62 [in_i] TONIA ([facility]) Body mass index (BMI) [Ratio] 16.4 kg/m2 16.4 k g/m2 TONIA ([facility]) Body weight 1430.4 [oz_av] 1430.4 [oz_av] ATHCONSTANCE Coleman ([facility]) Body height 156.21 cm 156.21 [facility] Body weight 40.007 kg 40.007 kg [facility] ([facility]) Systolic blood pressure 117 mm[Hg] 117 mm[Hg] N [facility] ([facility]) Diastolic blood pressure 81 mm[Hg] 81 mm[Hg] [facility] ([facility]) Body mass index (BMI) [Ratio] 16.40 kg/m2 Underweight 16.4 0 kg/m2 [facility] ([facility]) Diastolic blood pressure 77 mm[Hg] 77 mm[Hg] TONIA ([facility]) Body height 62 [in_i] 62 [in_i] TONIA ([facility]) Body mass index (BMI) [Ratio] 16.74 kg/m2 16.74 kg/m2 TONIA ([facility]) Systolic blood pressure 113 mm[Hg] 113 mm[Hg] A THENA ([facility]) Body weight 1459.2 [oz_av] 1459.2 [oz_av] ATHEN A ([facility]) Patient Treatment Plan of Care Planned Activity Planned Date Details Description Data Source (s) medroxyprogesterone acetate 150 MG/ML Injectable Suspe nsion 05/08/2020 12:00:00 AM EST [facility] medroxyprogesterone acetate 150 MG/ML Injectable Suspe nsion 05/28/2019 12:00:00 AM EST [facility] ([facility]) Sulfamethoxazole 800 MG / Trimethoprim 160 MG Oral Tablet TONIA ([facility]) olanzapine 5 MG Oral Tablet TONIA ([facility]) haloperidol decanoate 50 mg/mL intramuscular solution INJECT DIR ECTED TONIA ([facility]) gabapentin 300 MG Oral Capsule TONIA ([facility]) Atenolol 25 MG Oral Tablet A THENA ([facility]) Sulfamethoxazole 800 MG / Trimethoprim 160 MG Oral Tablet TONIA ([facility]) olanzapine 5 MG Oral Tablet TONIA ([facility]) haloperidol decanoate 50 mg/mL intramuscular solution INJECT DIR ECTED TONIA ([facility]) Atenolol 25 MG Oral Tablet A THENA ([facility]) Sulfamethoxazole 800 MG / Trimethoprim 160 MG Oral Tablet TONIA ([facility]) olanzapine 5 MG Oral Tablet TONIA ([facility]) haloperidol decanoate 50 mg/mL intramuscular solution INJECT DIR ECTED TONIA ([facility]) gabapentin 300 MG Oral Capsule TONIA ([facility]) Atenolol 25 MG Oral Tablet A THENA ([facility]) Atenolol 25 MG Oral Tablet N [facility] ([facility])
--- OUTSIDE RECORDS SUMMARY | 2021-05-22 05:30 | CCD ---
Author Author [facility] Organization [facility] Address Unknown Phone Unavailable Care Team Providers Care Biogeographer Name Role Phone Ant, Marce TRIMMING PRESS OPERATOR TRIMMING PRESS OPERATOR Unavailable Unavailable Analy Lara MD Unavailable Unavailable Analy Lara MD Unavailable Unavailable Analy Lara MD Unavailable Unavailable Analy Lara MD Unavailable Unavailable Analy Lara MD Unavailable Unavailable Analy Lara MD Unavailable Unavailable Analy Lara MD Unavailable Unavailable Analy Lara MD Unavailable Unavailable Analy Lara MD Unavailable Unavailable Green FARM MANAGER FARM MANAGER, Albina Unavailable Unavailable Green FARM MANAGER FARM MANAGER, Albina Unavailable Unavailable Green FARM MANAGER FARM MANAGER, Albina Unavailable Unavailable Green FARM MANAGER FARM MANAGER, Albina Unavailable Unavailable Green FARM MANAGER FARM MANAGER, Albina Unavailable Unavailable Ant, A Marce TRIMMING PRESS OPERATOR Unavailable Unavailable Ant, A Marce TRIMMING PRESS OPERATOR Unavailable Unavailable Ant, A Marce TRIMMING PRESS OPERATOR Unavailable Unavailable Ant, A Marce TRIMMING PRESS OPERATOR Unavailable Unavailable Ant, A Marce TRIMMING PRESS OPERATOR Unavailable Unavailable Ant, A Marce TRIMMING PRESS OPERATOR Unavailable Unavailable Ant, A Marce TRIMMING PRESS OPERATOR Unavailable Unavailable Ant, A Marce TRIMMING PRESS OPERATOR Unavailable Unavailable Ant, A Marce TRIMMING PRESS OPERATOR Unavailable Unavailable Ant, A Marce TRIMMING PRESS OPERATOR Unavailable Unavailable Ant, A Marce TRIMMING PRESS OPERATOR Unavailable Unavailable Ant, A Marce TRIMMING PRESS OPERATOR Unavailable Unavailable Ant, A Marce TRIMMING PRESS OPERATOR Unavailable Unavailable Ant, A Marce TRIMMING PRESS OPERATOR Unavailable Unavailable Ant, A Marce TRIMMING PRESS OPERATOR Unavailable Unavailable Ant, A Marce TRIMMING PRESS OPERATOR Unavailable Unavailable Ant, A Marce TRIMMING PRESS OPERATOR Unavailable Unavailable Ant, A Marce TRIMMING PRESS OPERATOR Unavailable Unavailable Atn, A Marce TRIMMING PRESS OPERATOR Unavailable Unavailable Ant, A Marce TRIMMING PRESS OPERATOR Unavailable Unavailable Ant, A Marce TRIMMING PRESS OPERATOR Unavailable Unavailable Ant, A Marce TRIMMING PRESS OPERATOR Unavailable Unavailable Ant, A Marce TRIMMING PRESS OPERATOR Unavailable Unavailable Ant, A Marce TRIMMING PRESS OPERATOR Unavailable Unavailable Ant, A Marce TRIMMING PRESS OPERATOR Unavailable Unavailable Ant, A Marce TRIMMING PRESS OPERATOR Unavailable Unavailable Ant, A Marce TRIMMING PRESS OPERATOR Unavailable Unavailable Ant, A Marce TRIMMING PRESS OPERATOR Unavailable Unavailable Ant, A Marce TRIMMING PRESS OPERATOR Unavailable Unavailable Ant, A Marce TRIMMING PRESS OPERATOR Unavailable Unavailable Ant, A Marce TRIMMING PRESS OPERATOR Unavailable Unavailable Re-disclosure Warning The records that [...] is protected by Article 27-F of the [facility] Public Health law. If you continue you may have access to information: Regarding HIV / AIDS; Provided by facilities licensed or operated by the [facility] Office of Mental Health; or Provided by the [facility] Office for People With Developmental Disabilities. If such information is present, then the following [facility] mandated warning applies: This information has [...] Allergy to substance Allergy to substance TONIA ([facility]) Allergy to substance Allergy to substance Allergy to substance [facility]IA ([facility]) Allergy to substance Allergy to substance Allergy to substance TONIA ([facility]) Family History Family Member Name Family Member Gender Family Member Status Date o f Status Description Data Source(s) Unknown Unknown Problem MEDENT ([facility]) father's side Encounters Encounter Providers Location Date Indications Data Source(s ) ( NEW) [facility] Visit [address] [place] [id number] 04/14/2021 12:00:00 AM EDT eCW1 ([facility]) Unknown [address] [facility] [address] 04/11/2021 12:00:00 AM EDT eCW1 ([facility]) Shelly Lara MD: [address], [place] [address], Ph. Attender: Shelly Lara MD [facility] Medical 09/25/2020 12:00:00 AM EDT TONIA ([facility]) Shelly Lara MD: [address], [place] [address], Ph. Attender: Shelly Lara MD [facility] Medical 06/09/2020 12:00:00 AM EST TONIA ([facility]) Shelly Lara MD: [address], [place] [address], Ph. Attender: Shelly Lara MD [facility] Medical 06/09/2020 12:00:00 AM EST TONIA ([facility]) Shelly Lara MD: [address], [place] [address], Ph. Attender: Shelly Lara MD [facility] Medical 05/12/2020 12:00:00 AM EST TONIA ([facility]) Shelly Lara MD: [address], [place] [address], Ph. Attender: Shelly Lara MD [facility] Medical 05/12/2020 12:00:00 AM EST TONIA ([facility]) Shelly Lara MD: [address], [place] [address], Ph. Attender: Shelly Lara MD [facility] Medical 05/12/2020 12:00:00 AM EST TONIA ([facility]) OFFICE VISIT, ESTOutpatient Attender: Albina Patel NP FARM MANAGER PPHEAVENBARBI Иван 05/08/2020 02:15:00 PM EST - 05/08/2020 02:15:00 PM EST Human immunodeficiency virus [HIV] counselingOther sex counselingEncntr screen for infections w sexl mode of transmissEncounter for oth general cnsl and advice on contraceptionEncounter for initial prescription of injectable contracepEncounter for test, result negative NextGen ([facility]) Human immunodeficiency virus [HIV] couns eling Other sex counseling Encntr screen for infections w sexl mode of transmiss Encounter for oth general cnsl and advic e on contraception Encounter for initial prescription of in jectable contracep Encounter for test, result neg ative Outpatient Attender: DAWOOD SEAY 04/05/2020 02:09:00 P M EDT [facility] Outpatient Attender: Marce SEAY 04/05/2020 02:0 9:00 PM EDT [facility] Outpatient Attender: DAWOOD SEAY 04/04/2020 02:09:02 P M [facility] Outpatient Attender: Marce SEAY 04/04/2020 02:0 9:01 PM EDT [facility] Outpatient Attender: DAWOOD SEAY 04/03/2020 03:38:03 P M [facility] Outpatient Attender: DAWOOD JOSE 04/03/2020 02:43:01 P [...] every 10-13 weeks NextGen ([facility]) medroxyprogesterone acetate 150 MG/ML In jectable Suspension medroxyprogesterone 150 mg/mL intramuscular suspension medroxyprogesterone 150 mg/mL intramuscu lar suspension 05/28/2019 12:00:00 AM EST complet ed IM every 10-13 weeks NextGen ([facility]) Atenolol 25 MG Oral Tablet atenolol 25 m g tablet TAKE ONE-HALF TABLET BY MOUTH ONCE DAILY FOR heart rate atenolol 25 mg tablet TAKE ONE-HALF TABL ET BY MOUTH ONCE DAILY FOR heart rate completed atenolol 25 MG Oral Tablet TONIA ([facility]) olanzapine 5 MG Oral Tablet olanzapine 5 mg tablet TAKE ONE TABLET BY MOUTH AT BEDTIME olanzapine 5 mg tablet TAKE ONE TABLET BY MOUTH AT BEDTIME completed olanzapine 5 MG Oral Tablet ATHE [place] ([facility]) Atenolol 25 MG Oral Tablet atenolol 25 m g tablet TAKE ONE-HALF TABLET BY MOUTH ONCE DAILY FOR heart rate atenolol 25 mg tablet TAKE ONE-HALF TABL ET BY MOUTH ONCE DAILY FOR heart rate completed atenolol 25 MG Oral Tablet TONIA ([facility]) Atenolol 25 MG Oral Tablet atenolol 25 mg tablet atenolol 25 mg tablet completed NextGen ([facility]) 1/2 tab once daily Atenolol 25 MG Oral Tablet atenolol 25 m g tablet TAKE ONE-HALF TABLET BY MOUTH ONCE DAILY FOR heart rate atenolol 25 mg tablet TAKE ONE-HALF TABL ET BY MOUTH ONCE DAILY FOR heart rate completed atenolol 25 MG Oral Tablet TONIA ([facility]) Sulfamethoxazole 800 MG / Trimethoprim 1 60 MG Oral Tablet sulfamethoxazole 800 mg-trimethoprim 160 mg tablet sulfamethoxazole 800 mg-trimethoprim 160 mg tablet completed sulfame thoxazole 800 MG / trimethoprim 160 MG Oral Tablet TONIA ([facility]) Sulfamethoxazole 800 MG / Trimethoprim 1 60 MG Oral Tablet sulfamethoxazole 800 mg-trimethoprim 160 mg tablet sulfamethoxazole 800 mg-trimethoprim 160 mg tablet completed sulfame thoxazole 800 MG / trimethoprim 160 MG Oral Tablet TONIA ([facility]) gabapentin 300 MG Oral Capsule gabapenti n 300 mg capsule TAKE ONE CAPSULE BY MOUTH TWICE DAILY NEEDED gabapentin 300 mg capsule TAKE ONE CAPSU LE BY MOUTH TWICE DAILY NEEDED completed gabapentin 300 MG Oral Capsule TONIA ([facility]) haloperidol decanoate 50 mg/mL intramuscular solution INJECT DIRECTED [id number] completed haloperidol de canoate 50 MG/ML Injection TONIA ([facility]) Sulfamethoxazole 800 MG / Trimethoprim 1 60 MG Oral Tablet sulfamethoxazole 800 mg-trimethoprim 160 mg tablet sulfamethoxazole 800 mg-trimethoprim 160 mg tablet completed sulfame thoxazole 800 MG / trimethoprim 160 MG Oral Tablet TONIA ([facility]) olanzapine 5 MG Oral Tablet olanzapine 5 mg tablet TAKE ONE TABLET BY MOUTH AT BEDTIME olanzapine 5 mg tablet TAKE ONE TABLET BY MOUTH AT BEDTIME completed olanzapine 5 MG [facility] haloperidol decanoate 50 mg/mL intramuscular solution INJECT DIRECTED [id number] completed haloperidol de canoate 50 MG/ML Injection TONIA ([facility]) olanzapine 5 MG Oral Tablet olanzapine 5 mg tablet TAKE ONE TABLET BY MOUTH AT BEDTIME olanzapine 5 mg tablet TAKE ONE TABLET BY MOUTH AT BEDTIME completed olanzapine 5 MG [facility] gabapentin 300 MG Oral Capsule gabapenti n 300 mg capsule TAKE ONE CAPSULE BY MOUTH TWICE DAILY NEEDED gabapentin 300 mg capsule TAKE ONE CAPSU LE BY MOUTH TWICE DAILY NEEDED completed gabapentin 300 MG Oral Capsule [place] ([facility]) haloperidol decanoate 50 mg/mL intramuscular solution INJECT DIRECTED [id number] completed haloperidol de canoate 50 MG/ML Injection TONIA ([facility]) Insurance Providers Payer name Policy type / Coverage type Policy ID Covered alliance party ID Covered alliance party's relationship to alvarez Policy Alvarez Plan Information Medicaid Dental O [id number] S [id number] D [facility] P [id number] S [id number] D Managed Care [facility] O [id number] S [id number] Medicaid Dental O [id number] S [id number] Medicaid S [id number] S [id number] Managed Care - Community Plan [facility] P [id number] S [id number] Managed Care - Community Plan [facility] P [id number] S [id number] Medicaid S [id number] S [id number] Managed Care - Community Plan [facility] P [id number] S [id number] Managed Care - Community Plan [facility] P [id number] S [id number] Medicaid S [id number] S [id number] Managed Care - Community Plan [facility] P [id number] S [id number] Managed Care - [facility] Community Plan P [id number] S [id number] Medicaid S [id number] S [id number] Managed Care - [facility] Community Plan P [id number] S [id number] Medicaid S [id number] S [id number] Managed Care - [facility] Community Plan P [id number] S [id number] [facility] [id number] self [id number] [place] [id number] SP [id number] V [id number] [facility] COMMUNITY PLAN MCDHMO [id number] SP [id number] [facility] COMMUNITY PLAN MCDHMO [id number] SP [id number] [facility](MCAID) O [id number] S [id number] [facility] TARYN [id number] SP [id number] [place]ED[place] [id number] SP [id number] MEDICAID [id number] SP [id number] Managed Care - Community Plan [facility] P [id number] S [id number] SELF PAY ONLY [id number] SP [id number] CLARY [id number] SP [id number] [facility] Health Maintenance Organization (HMO) [id number] Self [id number] [facility](MCAID) P [id number] S [id number] D Managed Care [facility] O [id number] S [id number] D Managed Care [facility] P UNAVAILABLE S UNAVAILABLE BLUE CROSS JHAVERI PLAN [id number] SP [id number] BLUE CROSS JHAVERI PLAN [id number] [facility] [id number] SF2 [id number] [employer] P [id number] S [id number] Problems, Conditions, and Diagnoses Code Display Name Description Problem Type Effective Dates Data Source(s) Z34.80 care Supervision of other normal Andie lagunas 04/14/2021 12:00:00 AM EDT eCW1 ([facility]) 788.1 Dysuria Dysuria 04/03/2020 03:36:52 PM ED T [facility] [id number] Urinary tract infection, site not specif ied Urinary tract infection, site not specified 04/03/2020 03:36:52 PM EDT [facility] [id number] Dysuria Dysuria Problem 04/03/2020 12:00:00 AM ED T [place] ([facility]) [id number] Urinary tract infectious disease Urinary Tract I nfectious Disease Problem 04/03/2020 12:00:00 AM EDT TONIA ([facility]) Surgeries/Procedures Procedure Description Date Indications Data Source(s) CVR Marketing Programs Manager.Svc. STI / H 05/08/2020 12:00:00 AM EST - 05/08/2020 12:00:00 AM EST NextGen ([facility]) CVR Marketing Programs Manager.Svc. Other 05/08/2020 12:00:00 AM EST - 2019 12:00:00 AM EST [facility]Gen ([facility]) CVR Marketing Programs Manager.Svc. Contraceptive 05/08/2020 12 :00:00 AM EST - 05/08/2020 12:00:00 AM EST NextGen ([facility]) CVR Med.Svc. Height/Weight 05/08/2020 12 :00:00 AM EST - 05/08/2020 12:00:00 AM EST NextGen ([facility]) CVR Blood Pressure 05/08/2020 12:00:00 AM EST - 2019 12:00:00 AM EST NextGen ([facility]) HCS Without Test 05/08/2020 12:00:00 AM EST - 05/08/20 20 12:00:00 AM EST NextGen ([facility]) THER/PROPH/DIAG INJ, SC/IM 05/08/2020 12 :00:00 AM EST - 05/08/2020 12:00:00 AM EST NextGen ([facility]) Depo/Medroxyprogesterone Inj. 150 Mg Nurse/CA 05/08/2020 12:00:00 AM EST - 05/08/2020 12:00:00 AM EST NextGen ([facility]) CVR BC Ending Method HORM.INJ. 3 MOS 12:00:00 AM EST - 05/08/2020 12:00:00 AM EST NextGen ([facility]) N.GONORRHOEAE, URINE 05/08/2020 12:00:00 AM EST - 05/08/2020 12:00:00 AM EST NextGen ([facility]) CHYLMD TRACH, URINE 05/08/2020 12:00:00 AM EST - 05/08 12:00:00 AM EST NextGen ([facility]) OFFICE VISIT, EST 05/08/2020 12:00:00 AM EST - 020 12:00:00 AM EST NextGen ([facility]) URINE TEST 05/08/2020 12:00:00 AM EST - 05/08/2020 12:00:00 AM EST NextGen ([facility]) Results ID Date Data Source HBSAG 04/14/2021 12:00:00 AM EDT eCW1 ([facility]) Name Value Range Interpretation Code Description Data Dot rce(s) Supporting Document(s) NEGATIVE NEGATIVE HBsAg eCW1 ([facility]) ID Date Data Source RUBELLA IMMUNE STATUS IgG 04/14/2021 12:00:00 AM EDT eCW1 ([facility]) Name Value Range Interpretation Code Description Data Dot rce(s) Supporting Document(s) IMMUNE IMMUNE RUBELLA IgG QUALITATIVE eCW1 ( [facility]) ID Date Data Source SYPHILIS ANTIBODY (RPR SCREEN) 04/14/2021 12:00:00 AM EDT eC W1 ([facility]) Name Value Range Interpretation Code Description Data Dot rce(s) Supporting Document(s) NONREACTIVE NONREACTIVE SYPHILIS eCW1 ([facility]) ID Date Data Source [id number] 04/14/2021 12:00:00 AM EDT eCW1 ([facility]) Name Value Range Interpretation Code Description Data Dot rce(s) Supporting Document(s) HIV 1and2 ANTIBODY SCREEN eCW1 ([facility]) ID Date Data Source HEPATITIS C ANTIBODY INDEX 04/14/2021 12:00:00 AM EDT eCW1 ( [facility]) Name Value Range Interpretation Code Description Data Dot rce(s) Supporting Document(s) < 0.0 <0.8 HEPATITIS C VIRUS FABIENNE IND EX eCW1 ([facility]) ID Date Data Source CHLAMYDIA & GC DNA AMPLIFICAT 04/14/2021 12:00:00 AM EDT eCW 1 ([facility]) Name Value Range Interpretation Code Description Data Dot rce(s) Supporting Document(s) Chlamydia trachomatis rRNA [Presence] in Unspecified specimen by Probe and target amplification method NEGATIVE NEGATIVE CHLAMYDIA DNA AMPLIFICATION eCW1 ([facility]) ID Date Data Source CBC - Complete Blood Count 04/14/2021 12:00:00 AM EDT eCW1 ( [facility]) Name Value Range Interpretation Code Description Data Dot rce(s) Supporting Document(s) 13.6 4.0-10.0 WHITE BLOOD COUNT eCW1 ([facility]) 4.10 4.00-5.40 RED BLOOD COUNT eCW1 (On license of [facility]) 88.5 80.0-96.0 MEAN CORPUSCULAR VOLUME e CW1 ([facility]) 11.5 12.0-15.5 HEMOGLOBIN eCW1 ([facility]) 36.3 36.0-47.0 HEMATOCRIT eCW1 ([facility]) 28.0 27.0-33.0 MEAN CORPUSCULAR HEMOGLOB IN eCW1 ([facility]) 31.7 32.0-36.5 MEAN CORPUSCULAR HGB CONC eCW1 ([facility]) 15.6 11.5-14.5 RED CELL DISTRIBUTION WID TH eCW1 ([facility]) 383 150-450 PLATELET COUNT, AUTOMATED eCW1 ([facility]) ID Date Data Source Type and Screen Prenatal1 04/14/2021 12:00:00 AM EDT eCW1 ([facility]) Name Value Range Interpretation Code Description Data Dot rce(s) Supporting Document(s) NEGATIVE AB SCREEN PNP1 GEL (VIS) eCW1 ([facility]) ID Date Data Source [id number] 05/08/2020 02:50:36 PM EST NextGen ([facility]) Name Value Range Interpretation Code Description Data Dot rce(s) Supporting Document(s) NegativeLot: [id number]: 08/17/2021 High Sensitivity Urine Test NextGen ([facility]) ID Date Data Source [id number] 04/03/2020 04:02:00 PM EDT [facility] Name Value Range Interpretation Code Description Data Dot rce(s) Supporting Document(s) APPEARANCE U TURBID CLEAR H [facility] SPEC GR URIN 1.024 1.002-1.035 N [facility] F [facility] UA COLOR YELLOW YELLOW N [facility] ID Date Data Source [id number] 04/03/2020 04:02:00 PM EDT [facility] Name Value Range Interpretation Code Description Data Dot rce(s) Supporting Document(s) URINECULTRTN NO GROWTH N [facility] ID Date Data Source [id number] 04/03/2020 02:42:44 PM EDT [facility] Measurements & CalculationsHeight: 62 inches (5 [...] pH: 6.0 5.0-6.5 Blood: 3+ Negative Specific [place]: 1.030 1.020>=1.030 Ketone: negative Negative Bilirubin: negative [...] [facility]: [facility]Have you been to an emergency room (ER) or urgent care clinic? Yes - [facility] ER - but left without being [...] follow up. Pt states she went to [facility] ER last week with s/s of UTI [...] during this visit, including review of any [id number] medications, herbal therapies, and/or supplements.Allergy ReviewAllergy List [...] Problems:Added: Urinary tract infection, site not specified (HCJ36-Y08.0) Assessment: Instructions: We have sent a prescription to your pharmacy today. Please take medication as prescribed. Please report any major side effects. Please try to maintain adequate intake of water daily and good personal hygiene.Dysuria (ICD- 788.1) (YDW90-Q76.0) Assessment: Instructions: UA done in office positive for UTI. We have sent a prescription to treat with ABX, We will send urine to lab for culture.Assessed:Anxiety depression (ICD-300.4) (JCO91-A15.8) Assessment: Instructions: Please continue medications as prescribed. Please continue to monitor, report and avoid triggers causing increased anxiety and or depression. Please keep your appointment with your specialist.BACK PAIN (ICD- 724.5) (EVC13-R27.9) Assessment: Instructions: We have made a referral for you today. We will contact you to set this up. Please continue medication as prescribed. Please try to avoid streneous activities.Assessment not Saved Anxiety depression (KYL40-I81.8): Patient Instructions/Care Plan: Urinary tract infection- site [...] ElectronicAllergies:* SKIN SO SOFT LOTION (Mild)Orders:Orthopaedics Consult [CPT-49564] Urinalysis-manual [CPT-59352] URINALYSIS [CPT-58001] Urine Culture & Sensitivity [CPT-51448] Adult - Ofc Vst, EST, Level III [CPT-89001] Follow-Up Return to clinic: as scheduled and as needed Clinical Visit Summary CompletedMedications:BACTRIM DS 800-160 MG ORAL TABLET (SULFAMETHOXAZOLE- TRIMETHOPRIM) take one tablet by mouth twice daily x 7 days #14[Tablet] x 0 Route:ORAL Entered and Authorized by: Marce SEAY Method used: Electronically to [facility]* (retail) [address] [place] [address] Note to Pharmacy: Route: ORAL; Indications: URINARY TRACT INFECTION, SITE NOT SPECIFIED RxID: [id number] signed by Marce SEAY on 04/04/2020 at 2:08 PM Name Value Range Interpretation Code Description Data Dot rce(s) Supporting Document(s) ID Date Data Source [id number] 04/03/2020 02:42:44 PM EDT [facility] Name Value Range Interpretation Code Description Data Dot rce(s) Supporting Document(s) APPEARANCE U cloudy [facility] BILIRUBIN UR negative [facility] BLOOD UR DIP 3+ [facility] GLUCOSE, URN negative [facility] KETONES URN negative [facility] NITRITE URN negative [facility] PH URINE 6.0 [facility] PROTEIN, URN 3+ [facility] SPEC GR URIN 1.030 [facility] UA COLOR yellow [facility] UROBILINOGEN 4 [facility] WBC DIPSTK U 2+ [facility] Procedure Social History Code Duration Value Status Description Data Source(s ) Smoking 04/14/2021 12:00:00 AM EDT Current Smoker completed Curre nt Smoker eCW1 ([facility]) Smoking 04/14/2021 12:00:00 AM EDT Current Smoker completed Curre nt Smoker [facility] [facility]) 05/08/2020 12:00:00 AM EST Light cigarette smoker (1-9 cigs/day) completed Light cigarette smoker (1-9 cigs/day) [facility] ([facility]) Smoking 05/08/2020 12:00:00 AM EST Light tobacco smoker comple jacy Light tobacco smoker [facility] ([facility]) Vital Signs ID Date Data Source UNK Name Value Range Interpretation Code Description Data Source(s) Body weight 85.0 [lb_av] 85.0 [lb_av] eCW1 ([facility]) Body weight 38.[address] [facility] ([facility]) Body height 61 [in_i] 61 [in_i] eCW1 ([facility]) Body mass index (BMI) [Ratio] 16.061 kg/m2 16.0 61 kg/m2 [facility] ([facility]) Systolic blood pressure 108 mm[Hg] 108 mm[Hg] e CW1 ([facility]) Diastolic blood pressure 68 mm[Hg] 68 mm[Hg] eCW1 ([facility]) Body height 62 [in_i] 62 [in_i] TONIA ([facility]) Body mass index (BMI) [Ratio] 18.1 kg/m2 18.1 k g/m2 TONIA ([facility]) Body weight 1580.8 [oz_av] 1580.8 [oz_av] ATHCONSTANCE A ([facility]) Body mass index (BMI) [Ratio] 16.4 kg/m2 16.4 k g/m2 TONIA ([facility]) Body weight 1430.4 [oz_av] 1430.4 [oz_av] ATHCONSTANCE A ([facility]) Body height 62 [in_i] 62 [in_i] TONIA ([facility]) Body mass index (BMI) [Ratio] 16.4 kg/m2 16.4 k g/m2 TONIA ([facility]) Body weight 1430.4 [oz_av] 1430.4 [oz_av] ATHCONSTANCE Coleman ([facility]) Body height 62 [in_i] 62 [in_i] TONIA ([facility]) Body height 62 [in_i] 62 [in_i] TONIA ([facility]) Body mass index (BMI) [Ratio] 16.4 kg/m2 16.4 k g/m2 TONIA ([facility]) Body weight 1430.4 [oz_av] 1430.4 [oz_av] ATHCONSTANCE A ([facility]) Body height 62 [in_i] 62 [in_i] TONIA ([facility]) Body mass index (BMI) [Ratio] 16.4 kg/m2 16.4 k g/m2 TONIA ([facility]) Body weight 1430.4 [oz_av] 1430.4 [oz_av] ATHEN A ([facility]) Body height 62 [in_i] 62 [in_i] TONIA ([facility]) Body mass index (BMI) [Ratio] 16.4 kg/m2 16.4 k g/m2 TONIA ([facility]) Body weight 1430.4 [oz_av] 1430.4 [oz_av] ATHCONSTANCE Coleman ([facility]) Body height 156.21 cm 156.21 [facility] Body weight 40.007 kg 40.007 kg [facility] ([facility]) Systolic blood pressure 117 mm[Hg] 117 mm[Hg] N [facility] ([facility]) Diastolic blood pressure 81 mm[Hg] 81 mm[Hg] [facility] ([facility]) Body mass index (BMI) [Ratio] 16.40 kg/m2 Underweight 16.4 0 kg/m2 [facility] ([facility]) Diastolic blood pressure 77 mm[Hg] 77 mm[Hg] TONIA ([facility]) Body height 62 [in_i] 62 [in_i] TONIA ([facility]) Body mass index (BMI) [Ratio] 16.74 kg/m2 16.74 kg/m2 TONIA ([facility]) Systolic blood pressure 113 mm[Hg] 113 mm[Hg] A THENA ([facility]) Body weight 1459.2 [oz_av] 1459.2 [oz_av] ATHEN A ([facility]) Patient Treatment Plan of Care Planned Activity Planned Date Details Description Data Source (s) medroxyprogesterone acetate 150 MG/ML Injectable Suspe nsion 05/08/2020 12:00:00 AM EST [facility] medroxyprogesterone acetate 150 MG/ML Injectable Suspe nsion 05/28/2019 12:00:00 AM EST [facility] ([facility]) Sulfamethoxazole 800 MG / Trimethoprim 160 MG Oral Tablet TONIA ([facility]) olanzapine 5 MG Oral Tablet TONIA ([facility]) haloperidol decanoate 50 mg/mL intramuscular solution INJECT DIR ECTED TONIA ([facility]) gabapentin 300 MG Oral Capsule TONIA ([facility]) Atenolol 25 MG Oral Tablet A THENA ([facility]) Sulfamethoxazole 800 MG / Trimethoprim 160 MG Oral Tablet TONIA ([facility]) olanzapine 5 MG Oral Tablet TONIA ([facility]) haloperidol decanoate 50 mg/mL intramuscular solution INJECT DIR ECTED TONIA ([facility]) Atenolol 25 MG Oral Tablet A THENA ([facility]) Sulfamethoxazole 800 MG / Trimethoprim 160 MG Oral Tablet TONIA ([facility]) olanzapine 5 MG Oral Tablet TONIA ([facility]) haloperidol decanoate 50 mg/mL intramuscular solution INJECT DIR ECTED TONIA ([facility]) gabapentin 300 MG Oral Capsule TONIA ([facility]) Atenolol 25 MG Oral Tablet A THENA ([facility]) Atenolol 25 MG Oral Tablet N [facility] ([facility])
== END 2021-05-22 07:16 | disposition left against medical advice (07) ==
LOC: M ED 16:13
DX: Z53.29 Procedure and treatment not carried out because of patient's decision for other reasons (principal)

== ENCOUNTER 2021-08-18 19:02 | Emergency (ER) | payer MEDICAID, OTHER ==
[~2021-08-18] VITALS: Ht 157.5 cm; Wt 35.3 kg
[2021-08-18 19:02] VITALS: BP 148/95
[~2021-08-18 19:02] MED LIST changes: +ACET-683 PO; +HALO5TAB33; +IBUP-1022 PO; +NEUR600T PO; +OMEP10CASR PO
[2021-08-18] MEDS ORDERED: ISOVUE-370 76% 100ML VIAL As Ordered ONE (23:32)
== END 2021-08-18 21:46 | disposition home or self-care (01) ==
LOC: M ED 19:02
DX: F43.20 Adjustment disorder, unspecified (principal); F33.9 Major depressive disorder, recurrent, unspecified; F17.210 Nicotine dependence, cigarettes, uncomplicated; F12.20 Cannabis dependence, uncomplicated

== ENCOUNTER 2021-08-20 04:24 | Inpatient (IN) | payer MEDICAID, OTHER ==
[~2021-08-20] VITALS: Ht 157.5 cm; Wt 39.2 kg
[2021-08-20 05:15] LABS: HEMATOCRIT 39.2 % (36.0-47.0); HEMOGLOBIN 11.5 g/dl (12.0-15.5); MEAN CORPUSCULAR HEMOGLOBIN 22.7 pg (27.0-33.0); MEAN CORPUSCULAR HGB CONC 29.3 g/dl (32.0-36.5); MEAN CORPUSCULAR VOLUME 77.3 fl (80.0-96.0); PLATELET COUNT, AUTOMATED 558 10^3/uL (150-450); RED BLOOD COUNT 5.07 10^6/uL (4.00-5.40); WHITE BLOOD COUNT 10.4 10^3/uL (4.0-10.0)
[2021-08-20 05:42] LABS: HCG, SERUM QUALITATIVE NEGATIVE (NEGATIVE)
[2021-08-20 05:43] LABS: RSV AMPLIFICATION NEGATIVE (NEGATIVE)
[2021-08-20 05:48] LABS: ACETAMINOPHEN LEVEL < 2.0 UG/ML (10.0-30.0); ALBUMIN 3.4 GM/DL (3.2-5.2); ALT/SGPT 19 U/L (12-78); BILIRUBIN,DIRECT 0.2 MG/DL (0.0-0.2); BILIRUBIN,TOTAL 0.5 MG/DL (0.2-1.0); BLOOD UREA NITROGEN 8 MG/DL (7-18); CALCIUM LEVEL 8.9 MG/DL (8.5-10.1); CARBON DIOXIDE LEVEL 26 MEQ/L (21-32); CHLORIDE LEVEL 113 MEQ/L (98-107); ETHYL ALCOHOL (ETHANOL) < 0.003 % (0.000-0.010); GLOMERULAR FILTRATION RATE > 60.0 (>60); GLUCOSE, FASTING 87 MG/DL (70-100); POTASSIUM SERUM 4.3 MEQ/L (3.5-5.1); SALICYLATE LEVEL < 1.7 MG/DL (5.0-30.0); SODIUM LEVEL 144 MEQ/L (136-145); THYROID STIMULATING HORMONE 0.647 uIU/ML (0.358-3.740); TOTAL PROTEIN 6.9 GM/DL (6.4-8.2)
[2021-08-20 06:28] LABS: AMPHETAMINES LEVEL URINE NEGATIVE (NEGATIVE); BARBITURATES URINE NEGATIVE (NEGATIVE); BENZODIAZEPINES URINE NEGATIVE (NEGATIVE); CANNABINOIDS URINE POSITIVE (NEGATIVE); COCAINE METABOLITE URINE NEGATIVE (NEGATIVE); METHADONE URINE NEGATIVE (NEGATIVE); OPIATES URINE NEGATIVE (NEGATIVE); PHENCYCLIDINE URINE NEGATIVE (NEGATIVE)
[2021-08-20] MEDS ORDERED: OLANZapine ORAL DISINTEGRATING TAB 5MG PO ONE (10:15)
[2021-08-20] MEDS ORDERED: HOME MED LIST COMPLETE! XX SCH (11:05)
[2021-08-20] MEDS ORDERED: MOM 30ML SUSPENSION UDC PO PRN (13:30)
[2021-08-20 17:40] VITALS: BP 147/83
[2021-08-20] MEDS ORDERED: OLANZapine 5 MG TAB PO SCH (21:00)
[2021-08-20] MEDS: diphenhydrAMINE 25MG CAP PO PRN (21:15)
[2021-08-20] MEDS: OLANZapine ORAL DISINTEGRATING TAB 5MG PO PRN (21:15)
[2021-08-21] MEDS: traZODone 50 MG TAB PO PRN ×2 (01:27→23:02)
[2021-08-21] MEDS: OLANZapine ORAL DISINTEGRATING TAB 5MG PO PRN ×3 (01:27→23:02)
[2021-08-21 06:25] VITALS: BP 145/94
[2021-08-21] MEDS: NICOTINE 21MG/24HR 1 EA TRANSDERMAL TD SCH (09:00)
[2021-08-21 15:08] VITALS: BP 145/94
[2021-08-21 17:49] VITALS: BP 120/72
[2021-08-21] MEDS: OLANZapine 5 MG TAB PO SCH (21:20)
[2021-08-21] MEDS: CARBAMIDE PEROXIDE 6.5% OTIC SOLN 15ML AU SCH (21:20)
[2021-08-22 06:11] VITALS: BP 138/91
[2021-08-22 07:58] LABS: CHOLESTEROL RISK RATIO 3.4 (<5)
[2021-08-22] MEDS: NICOTINE 21MG/24HR 1 EA TRANSDERMAL TD SCH (07:58)
[2021-08-22] MEDS: CARBAMIDE PEROXIDE 6.5% OTIC SOLN 15ML AU SCH ×2 (07:58→21:43)
[2021-08-22 16:51] VITALS: BP 133/81
[2021-08-22] MEDS: OLANZapine 5 MG TAB PO SCH (21:43)
[2021-08-23] VITALS (7 sets, daily range): BP systolic 118–152; BP diastolic 59–94
[2021-08-23] MEDS: NICOTINE 21MG/24HR 1 EA TRANSDERMAL TD SCH (08:54)
[2021-08-23] MEDS: CARBAMIDE PEROXIDE 6.5% OTIC SOLN 15ML AU SCH ×2 (08:54→21:00)
[2021-08-23] MEDS: OLANZapine ORAL DISINTEGRATING TAB 5MG PO PRN (09:20)
[2021-08-23] MEDS ORDERED: HALOPERIDOL 5MG/ML VIAL (J1630 PER 1) IM STA (11:18)
[2021-08-23] MEDS ORDERED: LORazepam 2 MG/ML VIAL IM STA (11:18)
[2021-08-23] MEDS ORDERED: diphenhydrAMINE 50MG/ML VIAL (J1200) IM STA (11:18)
[2021-08-23] MEDS: OLANZapine 5 MG TAB PO SCH (21:23)
[2021-08-23] MEDS: MAALOX 30 ML SUSP *UDC PO PRN (22:39)
[2021-08-24] MEDS: diphenhydrAMINE 25MG CAP PO PRN (01:48)
[2021-08-24] MEDS: OLANZapine ORAL DISINTEGRATING TAB 5MG PO PRN (01:48)
[2021-08-24 07:04] VITALS: BP 127/85
[2021-08-24] MEDS: NICOTINE 21MG/24HR 1 EA TRANSDERMAL TD SCH (09:26)
[2021-08-24] MEDS: CARBAMIDE PEROXIDE 6.5% OTIC SOLN 15ML AU SCH ×2 (09:27→20:01)
[2021-08-24] MEDS: DIVALPROEX 250MG *ER* TAB PO SCH (11:08)
[2021-08-24] MEDS: IBUPROFEN 400MG TAB PO PRN (18:16)
[2021-08-24 18:21] VITALS: BP 130/84
[2021-08-24] MEDS: OLANZapine 5 MG TAB PO SCH (20:01)
[2021-08-24] MEDS: traZODone 50 MG TAB PO PRN (20:01)
[2021-08-25] MEDS: diphenhydrAMINE 25MG CAP PO PRN ×3 (01:35→22:42)
[2021-08-25] MEDS ORDERED: DIVALPROEX 500 MG TAB PO ONE (02:00)
[2021-08-25 06:37] VITALS: BP 152/99
[2021-08-25] MEDS: CARBAMIDE PEROXIDE 6.5% OTIC SOLN 15ML AU SCH (08:15)
[2021-08-25] MEDS: DIVALPROEX 250MG *ER* TAB PO SCH (08:16)
[2021-08-25] MEDS: NICOTINE 21MG/24HR 1 EA TRANSDERMAL TD SCH (08:16)
[2021-08-25] MEDS: BENZTROPINE 1 MG TAB PO PRN (10:26)
[2021-08-25 17:50] VITALS: BP 130/84
[2021-08-25] MEDS: OLANZapine 5 MG TAB PO SCH (22:42)
[2021-08-26 07:02] VITALS: BP 142/83
[2021-08-26] MEDS: DIVALPROEX 500MG *ER* TAB PO SCH (08:42)
[2021-08-26] MEDS: NICOTINE 21MG/24HR 1 EA TRANSDERMAL TD SCH (08:46)
[2021-08-26 18:47] VITALS: BP 131/75
[2021-08-26] MEDS: OLANZapine 10 MG TAB PO SCH (20:01)
[2021-08-26] MEDS: diphenhydrAMINE 25MG CAP PO PRN (20:01)
[2021-08-27 06:19] VITALS: BP 133/75
[2021-08-27] MEDS: DIVALPROEX 500MG *ER* TAB PO SCH (08:39)
[2021-08-27] MEDS: NICOTINE 21MG/24HR 1 EA TRANSDERMAL TD SCH (08:42)
[2021-08-27 18:04] VITALS: BP 130/79
[2021-08-27] MEDS: OLANZapine 10 MG TAB PO SCH (20:31)
[2021-08-27] MEDS: traZODone 50 MG TAB PO PRN (20:31)
[2021-08-27] MEDS: diphenhydrAMINE 25MG CAP PO PRN (20:32)
[2021-08-28 06:25] VITALS: BP 128/73
[2021-08-28] MEDS: NICOTINE 21MG/24HR 1 EA TRANSDERMAL TD SCH (09:00)
[2021-08-28] MEDS: DIVALPROEX 500MG *ER* TAB PO SCH (09:37)
[2021-08-28] MEDS: diphenhydrAMINE 25MG CAP PO PRN ×2 (11:46→22:26)
[2021-08-28 19:23] VITALS: BP 132/74
[2021-08-28] MEDS: traZODone 50 MG TAB PO PRN (21:09)
[2021-08-29 07:07] VITALS: BP 136/80
[2021-08-29] MEDS: NICOTINE 21MG/24HR 1 EA TRANSDERMAL TD SCH (09:00)
[2021-08-29] MEDS: DIVALPROEX 500MG *ER* TAB PO SCH (09:55)
[2021-08-29] MEDS: diphenhydrAMINE 25MG CAP PO PRN ×3 (14:14→22:53)
[2021-08-29 18:49] VITALS: BP 128/82
[2021-08-29] MEDS: IBUPROFEN 400MG TAB PO PRN (20:09)
[2021-08-29] MEDS: traZODone 50 MG TAB PO PRN ×2 (21:59→22:53)
[2021-08-30 06:36] VITALS: BP 122/80
[2021-08-30] MEDS: NICOTINE 21MG/24HR 1 EA TRANSDERMAL TD SCH ×2 (09:00→16:32)
[2021-08-30] MEDS: DIVALPROEX 500MG *ER* TAB PO SCH ×2 (09:00→12:23)
[2021-08-30] MEDS: diphenhydrAMINE 25MG CAP PO PRN (12:20)
[2021-08-30 18:50] VITALS: BP 124/76
[2021-08-31] MEDS: diphenhydrAMINE 25MG CAP PO PRN ×2 (00:02→20:07)
[2021-08-31] MEDS: traZODone 50 MG TAB PO PRN ×2 (00:02→20:07)
[2021-08-31 06:36] VITALS: BP 138/78
[2021-08-31] MEDS: DIVALPROEX 500MG *ER* TAB PO SCH (09:00)
[2021-08-31] MEDS: NICOTINE 21MG/24HR 1 EA TRANSDERMAL TD SCH (09:18)
[2021-08-31 16:24] VITALS: BP 138/88
[2021-09-01 07:43] VITALS: BP 118/76
[2021-09-01] MEDS: NICOTINE 21MG/24HR 1 EA TRANSDERMAL TD SCH ×2 (09:00→11:25)
[2021-09-01] MEDS: DIVALPROEX 500MG *ER* TAB PO SCH (09:10)
[2021-09-01] MEDS: diphenhydrAMINE 25MG CAP PO PRN (14:06)
[2021-09-01 16:32] VITALS: BP 122/88
[2021-09-02 06:16] VITALS: BP 130/70
[2021-09-02] MEDS: VALPROIC ACID 250MG/5ML SOL ORAL SYRINGE *DRAW UP EXACT DOSE PO SCH ×4 (08:21→20:48)
[2021-09-02] MEDS: NICOTINE 21MG/24HR 1 EA TRANSDERMAL TD SCH (08:25)
[2021-09-02 17:09] VITALS: BP 124/69
[2021-09-02] MEDS: diphenhydrAMINE 25MG CAP PO PRN (19:17)
[2021-09-03 06:58] VITALS: BP 122/78
[2021-09-03] MEDS: VALPROIC ACID 250MG/5ML SOL ORAL SYRINGE *DRAW UP EXACT DOSE PO SCH ×4 (08:10→21:01)
[2021-09-03] MEDS: NICOTINE 21MG/24HR 1 EA TRANSDERMAL TD SCH (08:11)
[2021-09-03] MEDS: BENZTROPINE 1 MG TAB PO PRN (10:04)
[2021-09-03] MEDS: diphenhydrAMINE 25MG CAP PO PRN ×2 (11:01→21:01)
[2021-09-03 19:01] VITALS: BP 128/74
[2021-09-04 06:53] VITALS: BP 134/80
[2021-09-04] MEDS: MAALOX 30 ML SUSP *UDC PO PRN (07:04)
[2021-09-04] MEDS: NICOTINE 21MG/24HR 1 EA TRANSDERMAL TD SCH ×3 (08:32→10:31)
[2021-09-04] MEDS: VALPROIC ACID 250MG/5ML SOL ORAL SYRINGE *DRAW UP EXACT DOSE PO SCH ×4 (08:32→20:31)
[2021-09-04] MEDS: BENZTROPINE 1 MG TAB PO PRN (10:08)
[2021-09-04 16:33] VITALS: BP 118/65
[2021-09-04] MEDS: IBUPROFEN 400MG TAB PO PRN (17:11)
[2021-09-04] MEDS: diphenhydrAMINE 25MG CAP PO PRN (21:53)
[2021-09-05 06:30] VITALS: BP 122/62
[2021-09-05] MEDS: VALPROIC ACID 250MG/5ML SOL ORAL SYRINGE *DRAW UP EXACT DOSE PO SCH ×4 (08:06→20:10)
[2021-09-05] MEDS: BENZTROPINE 1 MG TAB PO PRN (08:07)
[2021-09-05] MEDS: NICOTINE 21MG/24HR 1 EA TRANSDERMAL TD SCH (09:00)
[2021-09-05 16:14] VITALS: BP 133/90
[2021-09-05 17:10] VITALS: BP 122/74
[2021-09-05] MEDS: diphenhydrAMINE 25MG CAP PO PRN (21:29)
[2021-09-05] MEDS: IBUPROFEN 400MG TAB PO PRN (21:55)
[2021-09-06] MEDS: BENZTROPINE 1 MG TAB PO PRN ×2 (00:57→15:34)
[2021-09-06] MEDS: NICOTINE 21MG/24HR 1 EA TRANSDERMAL TD SCH (08:10)
[2021-09-06] MEDS: VALPROIC ACID 250MG/5ML SOL ORAL SYRINGE *DRAW UP EXACT DOSE PO SCH ×4 (08:10→21:22)
[2021-09-06] MEDS: MULTIVITAMINS/MINERALS THERAP 1 TAB PO SCH (14:16)
[2021-09-06] MEDS: diphenhydrAMINE 25MG CAP PO PRN ×2 (15:34→22:36)
[2021-09-06 17:51] VITALS: BP 124/74
[2021-09-07 06:50] VITALS: BP 108/62
[2021-09-07] MEDS: NICOTINE 21MG/24HR 1 EA TRANSDERMAL TD SCH (09:00)
[2021-09-07] MEDS: MULTIVITAMINS/MINERALS THERAP 1 TAB PO SCH (09:06)
[2021-09-07] MEDS: VALPROIC ACID 250MG/5ML SOL ORAL SYRINGE *DRAW UP EXACT DOSE PO SCH ×4 (09:06→19:55)
[2021-09-07 17:50] VITALS: BP 132/80
[2021-09-07] MEDS: diphenhydrAMINE 25MG CAP PO PRN (20:35)
[2021-09-08] MEDS: diphenhydrAMINE 25MG CAP PO PRN ×2 (02:41→11:40)
[2021-09-08 07:03] VITALS: BP 117/81
[2021-09-08] MEDS: NICOTINE 21MG/24HR 1 EA TRANSDERMAL TD SCH (09:00)
[2021-09-08] MEDS: MULTIVITAMINS/MINERALS THERAP 1 TAB PO SCH (09:19)
[2021-09-08] MEDS: VALPROIC ACID 250MG/5ML SOL ORAL SYRINGE *DRAW UP EXACT DOSE PO SCH ×3 (09:19→19:55)
[2021-09-08 18:00] VITALS: BP 138/76
[2021-09-09 06:00] VITALS: BP 130/62
[2021-09-09] MEDS: NICOTINE 21MG/24HR 1 EA TRANSDERMAL TD SCH (09:00)
[2021-09-09] MEDS ORDERED: HALOPERIDOL DECANOATE 100 MG/ML VIAL (J1631) IM SCH (09:00)
[2021-09-09] MEDS: HALOPERIDOL DECANOATE 100 MG/ML VIAL (J1631) IM SCH ×2 (09:32→09:39)
[2021-09-09] MEDS: VALPROIC ACID 250MG/5ML SOL ORAL SYRINGE *DRAW UP EXACT DOSE PO SCH ×4 (09:32→20:43)
[2021-09-09] MEDS: MULTIVITAMINS/MINERALS THERAP 1 TAB PO SCH (09:32)
[2021-09-09] MEDS: diphenhydrAMINE 25MG CAP PO PRN ×2 (11:58→20:44)
[2021-09-09 18:09] VITALS: BP 130/68
[2021-09-09] MEDS: traZODone 50 MG TAB PO PRN (20:43)
[2021-09-10 06:26] VITALS: BP 139/79
[2021-09-10] MEDS: MULTIVITAMINS/MINERALS THERAP 1 TAB PO SCH (08:32)
[2021-09-10] MEDS: VALPROIC ACID 250MG/5ML SOL ORAL SYRINGE *DRAW UP EXACT DOSE PO SCH ×3 (08:32→20:15)
[2021-09-10] MEDS: NICOTINE 21MG/24HR 1 EA TRANSDERMAL TD SCH (08:32)
[2021-09-10] MEDS: BENZTROPINE 1 MG TAB PO SCH ×2 (09:00→20:15)
[2021-09-10 18:58] VITALS: BP 140/68
[2021-09-10] MEDS: traZODone 50 MG TAB PO PRN (20:15)
[2021-09-10] MEDS: diphenhydrAMINE 25MG CAP PO PRN (20:15)
[2021-09-11] MEDS: diphenhydrAMINE 25MG CAP PO PRN (03:50)
[2021-09-11 06:27] VITALS: BP 132/80
[2021-09-11] MEDS: VALPROIC ACID 250MG/5ML SOL ORAL SYRINGE *DRAW UP EXACT DOSE PO SCH ×3 (08:43→20:00)
[2021-09-11] MEDS: BENZTROPINE 1 MG TAB PO SCH ×2 (08:43→20:00)
[2021-09-11] MEDS: MULTIVITAMINS/MINERALS THERAP 1 TAB PO SCH (08:43)
[2021-09-11] MEDS: NICOTINE 21MG/24HR 1 EA TRANSDERMAL TD SCH (09:00)
[2021-09-11] MEDS ORDERED: NICOTINE POLACRILEX 2 MG GUM PO PRN ×2 (11:15→12:05)
[2021-09-11 13:36] VITALS: BP 144/74
[2021-09-11 18:58] VITALS: BP 127/69
[2021-09-11] MEDS: traZODone 50 MG TAB PO PRN (22:49)
[2021-09-12 06:53] VITALS: BP 126/64
[2021-09-12] MEDS: VALPROIC ACID 250MG/5ML SOL ORAL SYRINGE *DRAW UP EXACT DOSE PO SCH ×3 (08:08→21:46)
[2021-09-12] MEDS: BENZTROPINE 1 MG TAB PO SCH ×2 (08:08→21:46)
[2021-09-12] MEDS: MULTIVITAMINS/MINERALS THERAP 1 TAB PO SCH (08:09)
[2021-09-12] MEDS: NICOTINE 21MG/24HR 1 EA TRANSDERMAL TD SCH (09:00)
[2021-09-12 19:49] VITALS: BP 128/80
[2021-09-12] MEDS: traZODone 50 MG TAB PO PRN (22:32)
[2021-09-13 07:01] VITALS: BP 118/59
[2021-09-13] MEDS: MULTIVITAMINS/MINERALS THERAP 1 TAB PO SCH (08:53)
[2021-09-13] MEDS: VALPROIC ACID 250MG/5ML SOL ORAL SYRINGE *DRAW UP EXACT DOSE PO SCH ×3 (08:53→20:36)
[2021-09-13] MEDS: BENZTROPINE 1 MG TAB PO SCH ×2 (08:53→20:36)
[2021-09-13] MEDS: NICOTINE 21MG/24HR 1 EA TRANSDERMAL TD SCH (08:55)
[2021-09-13 20:21] VITALS: BP 126/76
[2021-09-14 06:58] VITALS: BP 117/68
[2021-09-14] MEDS: MULTIVITAMINS/MINERALS THERAP 1 TAB PO SCH (08:38)
[2021-09-14] MEDS: NICOTINE 21MG/24HR 1 EA TRANSDERMAL TD SCH (08:38)
[2021-09-14] MEDS: BENZTROPINE 1 MG TAB PO SCH ×2 (08:38→20:19)
[2021-09-14] MEDS: VALPROIC ACID 250MG/5ML SOL ORAL SYRINGE *DRAW UP EXACT DOSE PO SCH ×3 (08:38→20:19)
[2021-09-14 16:22] VITALS: BP 122/80
[2021-09-14] MEDS: traZODone 50 MG TAB PO PRN (20:19)
[2021-09-14] MEDS: diphenhydrAMINE 25MG CAP PO PRN (20:19)
[2021-09-15 06:18] VITALS: BP 118/72
[2021-09-15] MEDS ORDERED: TRAZ-252 PO (08:31)
[2021-09-15] MEDS ORDERED: VALP250S PO (08:31)
[2021-09-15] MEDS ORDERED: HALO10AM IM (08:31)
[2021-09-15] MEDS ORDERED: BENZ-52 PO (08:31)
[2021-09-15] MEDS ORDERED: NICO2GUM PO (08:31)
[2021-09-15] MEDS: VALPROIC ACID 250MG/5ML SOL ORAL SYRINGE *DRAW UP EXACT DOSE PO SCH (08:56)
[2021-09-15] MEDS: MULTIVITAMINS/MINERALS THERAP 1 TAB PO SCH (08:56)
[2021-09-15] MEDS: BENZTROPINE 1 MG TAB PO SCH (08:57)
[2021-09-15] MEDS: NICOTINE 21MG/24HR 1 EA TRANSDERMAL TD SCH (08:58)
== END 2021-09-15 13:35 | disposition home or self-care (01) | DRG 750 ==
LOC: M ED 04:24 → M ED INP 13:30 → M PSY 15:31
PROVIDERS: ADMIT Student in an Organized Health Care Education/Training Program; ATTEND Student in an Organized Health Care Education/Training Program
DX: F25.0 Schizoaffective disorder, bipolar type (principal); F17.210 Nicotine dependence, cigarettes, uncomplicated; Z20.822 Contact with and (suspected) exposure to COVID-19; Z59.00 Homelessness unspecified; Z63.5 Disruption of family by separation and divorce; Z78.1 Physical restraint status; Z91.14 Patient's other noncompliance with medication regimen; Z63.8 Other specified problems related to primary support group

== ENCOUNTER → 2022-11-01 | Outpatient (REF) | payer MEDICAID, OTHER ==
[~2022-11-01] MED LIST changes: +BENZ0.5T2; -BENZ0.5T23; +BENZ1TAB5 PO; +HALO10AM IM; +NICO2GUM PO; +VALP250S PO
[2022-11-01 13:42] LABS: BASO % 0.6 % (0.0-1.0); EOS # 0.1 10^3/uL (0.0-0.5); EOS % 1.8 % (0.0-3.0); HEMOGLOBIN 12.8 g/dl (12.0-15.5); LYMPH # 2.6 10^3/uL (1.5-5.0); LYMPH % 39.2 % (24.0-44.0); MEAN CORPUSCULAR HEMOGLOBIN 27.1 pg (27.0-33.0); MEAN CORPUSCULAR VOLUME 84.6 fl (80.0-96.0); MONO # 0.5 10^3/uL (0.0-0.8); MONO % 8.1 % (2.0-8.0); NEUTROPHILS # 3.3 10^3/uL (1.5-8.5); NEUTROPHILS % 50.1 % (36.0-66.0); PLATELET COUNT, AUTOMATED 349 10^3/uL (150-450); RED BLOOD COUNT 4.73 10^6/uL (4.00-5.40); WHITE BLOOD COUNT 6.6 10^3/uL (4.0-10.0)
[2022-11-01 14:11] LABS: PERCENT SATURATION 17.1 % (13.2-45.0)
[2022-11-01 14:14] LABS: FERRITIN 8.6 NG/ML (7.3-270.7)
== END ==
LOC: M LAB REF 12:27
PROVIDERS: ATTEND Nurse Practitioner Family
DX: D50.9 Iron deficiency anemia, unspecified (principal)

== ENCOUNTER 2023-01-30 04:36 | Emergency (ER) | payer OTHER ==
[~2023-01-30] VITALS: Ht 157.5 cm; Wt 42.3 kg
[~2023-01-30 04:36] MED LIST changes: +ALLE10TA62 PO; +FLUT15.820 NARES; +RISP-7
[2023-01-30 05:32] LABS: HEMATOCRIT 39.7 % (36.0-47.0); HEMOGLOBIN 12.5 g/dl (12.0-15.5); MEAN CORPUSCULAR HEMOGLOBIN 27.9 pg (27.0-33.0); MEAN CORPUSCULAR HGB CONC 31.5 g/dl (32.0-36.5); MEAN CORPUSCULAR VOLUME 88.6 fl (80.0-96.0); PLATELET COUNT, AUTOMATED 380 10^3/uL (150-450); RED BLOOD COUNT 4.48 10^6/uL (4.00-5.40); WHITE BLOOD COUNT 9.2 10^3/uL (4.0-10.0)
[2023-01-30 05:57] LABS: AMPHETAMINES LEVEL URINE NEGATIVE (NEGATIVE); BARBITURATES URINE NEGATIVE (NEGATIVE); BENZODIAZEPINES URINE NEGATIVE (NEGATIVE); COCAINE METABOLITE URINE NEGATIVE (NEGATIVE); METHADONE URINE NEGATIVE (NEGATIVE); OPIATES URINE NEGATIVE (NEGATIVE); PHENCYCLIDINE URINE NEGATIVE (NEGATIVE)
[2023-01-30 05:59] LABS: CANNABINOIDS URINE POSITIVE (NEGATIVE)
[2023-01-30 06:00] LABS: ETHYL ALCOHOL (ETHANOL) 0.128 % (0.000-0.010)
[2023-01-30 06:01] LABS: ACETAMINOPHEN LEVEL < 2.0 UG/ML (10.0-20.0); ALBUMIN 4.6 G/DL (3.2-5.2); ALKALINE PHOSPHATASE 61 U/L (46-116); ALT/SGPT 18 U/L (7.0-40); AST/SGOT 12 U/L (<34); BILIRUBIN,DIRECT 0.2 MG/DL (<0.4); BILIRUBIN,TOTAL 0.4 MG/DL (0.3-1.2); BLOOD UREA NITROGEN 6 MG/DL (9-23); CALCIUM LEVEL 9.5 MG/DL (8.5-10.1); CARBON DIOXIDE LEVEL 24 MMOL/L (20-31); CHLORIDE LEVEL 107 MMOL/L (98-107); CREATININE FOR GFR 0.66 MG/DL (0.55-1.30); GLOMERULAR FILTRATION RATE > 60.0 (>60); GLUCOSE, FASTING 98 MG/DL (60-100); POTASSIUM SERUM 3.9 MMOL/L (3.5-5.1); SALICYLATE LEVEL < 3.0 MG/DL (<30); SODIUM LEVEL 143 MMOL/L (136-145); TOTAL PROTEIN 7.7 G/DL (5.7-8.2)
[2023-01-30 06:04] LABS: THYROID STIMULATING HORMONE 0.977 uIU/ML (0.55-4.78)
[2023-01-30 06:11] LABS: HCG, SERUM QUALITATIVE NEGATIVE (NEGATIVE)
[2023-01-30 11:38] VITALS: BP 138/75; TEMP 97.2; O2SAT 99
== END 2023-01-30 11:43 | disposition home or self-care (01) ==
LOC: M ED 04:36
DX: F10.129 Alcohol abuse with intoxication, unspecified (principal); F43.9 Reaction to severe stress, unspecified; F12.10 Cannabis abuse, uncomplicated; F31.9 Bipolar disorder, unspecified

== ENCOUNTER 2023-03-22 23:32 | Emergency (ER) | payer OTHER ==
[~2023-03-22] VITALS: Ht 157.5 cm; Wt 39.5 kg
[2023-03-22 23:32] VITALS: BP 139/94; TEMP 97.4; O2SAT 100
== END 2023-03-23 02:53 | disposition left against medical advice (07) ==
LOC: M ED 23:32
DX: Z53.21 Procedure and treatment not carried out due to patient leaving prior to being seen by health care provider (principal)

== ENCOUNTER 2023-03-23 21:58 | Emergency (ER) | payer OTHER ==
[2023-03-23 21:59] VITALS: BP 157/96; TEMP 98.8; O2SAT 96
== END 2023-03-23 22:20 | disposition left against medical advice (07) ==
LOC: M ED 21:58
DX: Z53.21 Procedure and treatment not carried out due to patient leaving prior to being seen by health care provider (principal)

== ENCOUNTER 2023-03-23 23:46 | Emergency (ER) | payer OTHER ==
[2023-03-23 23:47] VITALS: BP 163/93; TEMP 98.5; O2SAT 100
== END 2023-03-24 01:21 | disposition left against medical advice (07) ==
LOC: M ED 23:46
DX: Z53.21 Procedure and treatment not carried out due to patient leaving prior to being seen by health care provider (principal)

== ENCOUNTER 2023-03-24 02:20 | Inpatient (IN) | payer MEDICAID, OTHER ==
[~2023-03-24] VITALS: Ht 165.1 cm; Wt 39.7 kg
[2023-03-24] MEDS ORDERED: HALOPERIDOL 5MG/ML 1ML VIAL IM ONE (02:35)
[2023-03-24] MEDS ORDERED: diphenhydrAMINE 50MG/ML VIAL IM ONE (02:35)
[2023-03-24] MEDS ORDERED: MIDAZOLAM INJ 2MG/2ML VIAL IM ONE (02:35)
[2023-03-24 02:51] LABS: HEMATOCRIT 41.8 % (36.0-47.0); HEMOGLOBIN 13.9 g/dl (12.0-15.5); MEAN CORPUSCULAR HEMOGLOBIN 29.4 pg (27.0-33.0); MEAN CORPUSCULAR HGB CONC 33.3 g/dl (32.0-36.5); MEAN CORPUSCULAR VOLUME 88.4 fl (80.0-96.0); PLATELET COUNT, AUTOMATED 363 10^3/uL (150-450); RED BLOOD COUNT 4.73 10^6/uL (4.00-5.40); WHITE BLOOD COUNT 13.6 10^3/uL (4.0-10.0)
[2023-03-24 03:14] LABS: ETHYL ALCOHOL (ETHANOL) < 0.003 % (0.000-0.010)
[2023-03-24 03:15] LABS: METHADONE URINE NEGATIVE (NEGATIVE); PHENCYCLIDINE URINE NEGATIVE (NEGATIVE)
[2023-03-24 03:16] LABS: ACETAMINOPHEN LEVEL < 2.0 UG/ML (10.0-20.0); ALBUMIN 4.9 G/DL (3.2-5.2); ALKALINE PHOSPHATASE 61 U/L (46-116); ALT/SGPT 21 U/L (7.0-40); AMPHETAMINES LEVEL URINE NEGATIVE (NEGATIVE); AST/SGOT 17 U/L (<34); BARBITURATES URINE NEGATIVE (NEGATIVE); BENZODIAZEPINES URINE NEGATIVE (NEGATIVE); BILIRUBIN,DIRECT 0.2 MG/DL (<0.4); BILIRUBIN,TOTAL 0.5 MG/DL (0.3-1.2); BLOOD UREA NITROGEN 8 MG/DL (9-23); CALCIUM LEVEL 9.5 MG/DL (8.5-10.1); CARBON DIOXIDE LEVEL 22 MMOL/L (20-31); CHLORIDE LEVEL 108 MMOL/L (98-107); COCAINE METABOLITE URINE NEGATIVE (NEGATIVE); CREATININE FOR GFR 0.74 MG/DL (0.55-1.30); GLOMERULAR FILTRATION RATE > 60.0 (>60); GLUCOSE, FASTING 107 MG/DL (60-100); POTASSIUM SERUM 3.6 MMOL/L (3.5-5.1); SALICYLATE LEVEL < 3.0 MG/DL (<30); SODIUM LEVEL 140 MMOL/L (136-145); TOTAL PROTEIN 7.6 G/DL (5.7-8.2)
[2023-03-24 03:17] LABS: HCG, SERUM QUALITATIVE NEGATIVE (NEGATIVE)
[2023-03-24 03:20] LABS: OPIATES URINE NEGATIVE (NEGATIVE)
[2023-03-24 03:22] LABS: CANNABINOIDS URINE POSITIVE (NEGATIVE)
[2023-03-24] MEDS ORDERED: HOME MED LIST COMPLETE! XX SCH (09:10)
[2023-03-24] MEDS ORDERED: MAALOX 30 ML SUSP *UDC PO PRN (15:45)
[2023-03-24] MEDS ORDERED: diphenhydrAMINE 25MG CAP PO PRN (15:45)
[2023-03-24] MEDS ORDERED: MOM 30ML SUSPENSION UDC PO PRN (15:45)
[2023-03-24] MEDS ORDERED: LORazepam 1 MG TAB PO PRN (15:45)
[2023-03-24] MEDS ORDERED: DIVALPROEX 250MG *ER* TAB PO SCH (21:00)
[2023-03-24 21:28] VITALS: BP 145/83; TEMP 98.3; O2SAT 98
[2023-03-25 07:00] VITALS: BP 121/76; TEMP 98.1; O2SAT 99
[2023-03-25] MEDS: DIVALPROEX 250MG *ER* TAB PO SCH ×4 (09:00→20:08)
[2023-03-25] MEDS: NICOTINE 14 MG/24 HR TRANSDERMAL TD SCH (09:00)
[2023-03-25 10:46] LABS: HEMATOCRIT 38.8 % (36.0-47.0); HEMOGLOBIN 13.2 g/dl (12.0-15.5); MEAN CORPUSCULAR HEMOGLOBIN 30.1 pg (27.0-33.0); MEAN CORPUSCULAR VOLUME 88.4 fl (80.0-96.0); PLATELET COUNT, AUTOMATED 311 10^3/uL (150-450); RED BLOOD COUNT 4.39 10^6/uL (4.00-5.40); WHITE BLOOD COUNT 7.1 10^3/uL (4.0-10.0)
[2023-03-25] MEDS: IBUPROFEN 400MG TAB PO PRN ×2 (12:19→20:43)
[2023-03-25] MEDS: ACETAMINOPHEN TAB 650MG DOSE (2X325MG) PO PRN (16:19)
[2023-03-25 18:47] VITALS: BP 137/78; TEMP 97.1
[2023-03-25] MEDS: traZODone 50 MG TAB PO PRN (20:08)
[2023-03-26 06:05] VITALS: BP 118/66; TEMP 98.8; O2SAT 100
[2023-03-26] MEDS: IBUPROFEN 400MG TAB PO PRN (06:26)
[2023-03-26 08:22] LABS: CHOLESTEROL RISK RATIO 2.13 (<5); HDL CHOLESTEROL 44.9 MG/DL (>40); LDL CHOLESTEROL 40.7 MG/DL (<100); NON-HDL-C 51.1 MG/DL
[2023-03-26] MEDS: DIVALPROEX 250MG *ER* TAB PO SCH ×3 (08:56→20:02)
[2023-03-26] MEDS: NICOTINE 14 MG/24 HR TRANSDERMAL TD SCH (08:57)
[2023-03-26 18:18] VITALS: BP 118/73; TEMP 98.3; O2SAT 100
[2023-03-26 19:02] VITALS: BP 118/73; TEMP 98.3; O2SAT 100
[2023-03-26] MEDS: traZODone 50 MG TAB PO PRN (20:02)
[2023-03-26] MEDS: ACETAMINOPHEN TAB 650MG DOSE (2X325MG) PO PRN (20:02)
[2023-03-27 06:24] VITALS: BP 112/60; TEMP 98.1; O2SAT 100
[2023-03-27] MEDS: NICOTINE 14 MG/24 HR TRANSDERMAL TD SCH (09:00)
[2023-03-27] MEDS: DIVALPROEX 250MG *ER* TAB PO SCH ×3 (09:34→20:01)
[2023-03-27] MEDS: ACETAMINOPHEN TAB 650MG DOSE (2X325MG) PO PRN ×2 (13:29→23:27)
[2023-03-27 18:33] VITALS: BP 129/80; TEMP 98; O2SAT 100
[2023-03-27] MEDS: IBUPROFEN 400MG TAB PO PRN (20:01)
[2023-03-27] MEDS: traZODone 50 MG TAB PO PRN (21:42)
[2023-03-28 06:35] VITALS: BP 117/74; TEMP 97.6; O2SAT 100
[2023-03-28] MEDS: NICOTINE 14 MG/24 HR TRANSDERMAL TD SCH ×2 (07:51→08:26)
[2023-03-28] MEDS: DIVALPROEX 250MG *ER* TAB PO SCH ×3 (07:53→20:09)
[2023-03-28] MEDS: IBUPROFEN 400MG TAB PO PRN ×2 (09:14→20:14)
[2023-03-28] MEDS: ACETAMINOPHEN TAB 650MG DOSE (2X325MG) PO PRN (15:22)
[2023-03-28 18:14] VITALS: BP 129/69; TEMP 96.6; O2SAT 100
[2023-03-28] MEDS: traZODone 50 MG TAB PO PRN (20:09)
[2023-03-29] MEDS: ACETAMINOPHEN TAB 650MG DOSE (2X325MG) PO PRN (03:30)
[2023-03-29 06:38] VITALS: BP 133/81; TEMP 98.4; O2SAT 99
[2023-03-29] MEDS: NICOTINE 14 MG/24 HR TRANSDERMAL TD SCH (09:00)
[2023-03-29] MEDS: DIVALPROEX 250MG *ER* TAB PO SCH (09:36)
[2023-03-29] MEDS: IBUPROFEN 400MG TAB PO PRN (13:35)
[2023-03-29 16:09] VITALS: BP 122/80; TEMP 98.9; O2SAT 99
[2023-03-29] MEDS: DIVALPROEX 500MG *ER* TAB PO SCH (20:05)
[2023-03-29] MEDS: traZODone 50 MG TAB PO PRN (20:27)
[2023-03-30] MEDS: IBUPROFEN 400MG TAB PO PRN ×2 (06:32→17:59)
[2023-03-30 06:42] VITALS: BP 130/68; TEMP 97.8; O2SAT 100
[2023-03-30] MEDS: DIVALPROEX 500MG *ER* TAB PO SCH ×2 (08:02→20:17)
[2023-03-30] MEDS: NICOTINE 14 MG/24 HR TRANSDERMAL TD SCH (08:02)
[2023-03-30] MEDS: PILL CUTTER 1 EACH XX PRN ×2 (08:03→20:17)
[2023-03-30] MEDS ORDERED: HALOPERIDOL DECANOATE 100 MG/ML 1ML VIAL IM SCH (13:00)
[2023-03-30 16:25] VITALS: BP 132/72; TEMP 99; O2SAT 98
[2023-03-30] MEDS: traZODone 50 MG TAB PO PRN (20:17)
[2023-03-31 06:27] VITALS: BP 130/76; TEMP 98.7; O2SAT 99
[2023-03-31] MEDS: PILL CUTTER 1 EACH XX PRN ×2 (08:11→21:01)
[2023-03-31] MEDS: IBUPROFEN 400MG TAB PO PRN ×2 (08:12→14:48)
[2023-03-31] MEDS: DIVALPROEX 500MG *ER* TAB PO SCH ×2 (08:12→21:01)
[2023-03-31] MEDS: NICOTINE 14 MG/24 HR TRANSDERMAL TD SCH (08:13)
[2023-03-31] MEDS: traZODone 50 MG TAB PO PRN (21:01)
[2023-04-01] MEDS: IBUPROFEN 400MG TAB PO PRN ×2 (05:47→15:54)
[2023-04-01 06:21] VITALS: BP 120/72; TEMP 97.7; O2SAT 100
[2023-04-01] MEDS: DIVALPROEX 500MG *ER* TAB PO SCH ×2 (08:08→20:06)
[2023-04-01] MEDS: PILL CUTTER 1 EACH XX PRN ×2 (08:08→20:06)
[2023-04-01] MEDS: NICOTINE 14 MG/24 HR TRANSDERMAL TD SCH (08:08)
[2023-04-01 16:36] VITALS: BP 120/60; TEMP 98.8; O2SAT 98
[2023-04-01] MEDS: traZODone 50 MG TAB PO PRN (20:06)
[2023-04-02] MEDS: ACETAMINOPHEN TAB 650MG DOSE (2X325MG) PO PRN (06:16)
[2023-04-02 06:36] VITALS: BP 115/75; TEMP 98.9; O2SAT 95
[2023-04-02] MEDS: NICOTINE 14 MG/24 HR TRANSDERMAL TD SCH (07:29)
[2023-04-02] MEDS: PILL CUTTER 1 EACH XX PRN (07:31)
[2023-04-02] MEDS: DIVALPROEX 500MG *ER* TAB PO SCH ×2 (07:32→20:17)
[2023-04-02] MEDS: IBUPROFEN 400MG TAB PO PRN (15:42)
[2023-04-02 16:17] VITALS: BP 129/68; TEMP 98.2; O2SAT 98
[2023-04-02] MEDS: traZODone 50 MG TAB PO PRN (20:17)
[2023-04-03 06:39] VITALS: BP 120/65; TEMP 97.6; O2SAT 98
[2023-04-03] MEDS: NICOTINE 14 MG/24 HR TRANSDERMAL TD SCH (08:11)
[2023-04-03] MEDS: DIVALPROEX 500MG *ER* TAB PO SCH ×2 (08:11→20:51)
[2023-04-03 15:40] VITALS: BP 129/59; TEMP 98.8; O2SAT 100
[2023-04-03] MEDS: traZODone 50 MG TAB PO PRN (20:51)
[2023-04-03] MEDS: PILL CUTTER 1 EACH XX PRN (20:51)
[2023-04-04 05:49] VITALS: BP 117/55; TEMP 98.2; O2SAT 99
[2023-04-04] MEDS: ACETAMINOPHEN TAB 650MG DOSE (2X325MG) PO PRN (08:07)
[2023-04-04] MEDS: DIVALPROEX 500MG *ER* TAB PO SCH (08:07)
[2023-04-04] MEDS: NICOTINE 14 MG/24 HR TRANSDERMAL TD SCH ×2 (08:08→09:00)
[2023-04-04] MEDS ORDERED: HALO5TAB33 PO (11:40)
[2023-04-04] MEDS ORDERED: TRAZ-252 PO (11:40)
[2023-04-04] MEDS ORDERED: HALD100I2 IM (11:40)
[2023-04-04] MEDS ORDERED: NICO14PA TD (11:40)
[2023-04-04] MEDS ORDERED: DEPA500T2 PO (11:40)
== END 2023-04-04 12:39 | disposition home or self-care (01) | DRG 750 ==
LOC: M ED 02:20 → M PSY 20:46
PROVIDERS: ADMIT Student in an Organized Health Care Education/Training Program; ATTEND Student in an Organized Health Care Education/Training Program
DX: F25.0 Schizoaffective disorder, bipolar type (principal); Z59.00 Homelessness unspecified; F17.210 Nicotine dependence, cigarettes, uncomplicated; F17.290 Nicotine dependence, other tobacco product, uncomplicated

== ENCOUNTER 2023-04-08 01:49 | Emergency (ER) | payer OTHER ==
[~2023-04-08] VITALS: Ht 154.9 cm; Wt 40.5 kg
[~2023-04-08 01:49] MED LIST changes: +DEPA500T2 PO; +HALD100I2 IM; +HALO5TAB33 PO; +NICO14PA TD
[2023-04-08] MEDS ORDERED: LORazepam 2 MG TAB PO ONE (02:10)
[2023-04-08] MEDS ORDERED: OLANZapine ORAL DISINTEGRATING TAB 5MG PO ONE (02:10)
[2023-04-08 03:00] LABS: HEMATOCRIT 40.6 % (36.0-47.0); HEMOGLOBIN 13.1 g/dl (12.0-15.5); MEAN CORPUSCULAR HEMOGLOBIN 29.8 pg (27.0-33.0); MEAN CORPUSCULAR HGB CONC 32.3 g/dl (32.0-36.5); MEAN CORPUSCULAR VOLUME 92.3 fl (80.0-96.0); PLATELET COUNT, AUTOMATED 357 10^3/uL (150-450); WHITE BLOOD COUNT 14.4 10^3/uL (4.0-10.0)
[2023-04-08 03:25] LABS: HCG, SERUM QUALITATIVE NEGATIVE (NEGATIVE)
[2023-04-08] MEDS ORDERED: NS 1,000 ML IV ONE (07:45)
[2023-04-08 10:57] LABS: BLOOD UREA NITROGEN 14 MG/DL (7-21); CARBON DIOXIDE LEVEL 20 MEQ/L (22-30); CHLORIDE LEVEL 99 MEQ/L (98-107); CREATININE FOR GFR 0.6 MG/DL (0.7-1.5); GLOMERULAR FILTRATION RATE > 60.0 (>60); GLUCOSE, FASTING 100 MG/DL (70-99); POTASSIUM SERUM 4.4 MEQ/L (3.6-5.0); SODIUM LEVEL 136 MEQ/L (134-153)
[2023-04-08 10:58] LABS: ALBUMIN 4.7 G/DL (3.9-5.0); ALKALINE PHOSPHATASE 59 U/L (35-104); ALT/SGPT 18 U/L (1-33); AST/SGOT 20 U/L (5-40); BILIRUBIN,DIRECT < 0.2 MG/DL (0.1-0.4); BILIRUBIN,TOTAL < 0.7 MG/DL (0.2-1.3); CALCIUM LEVEL 9.4 MG/DL (8.4-10.2); TOTAL PROTEIN 7.2 G/DL (6.3-8.2)
[2023-04-08 10:59] LABS: ETHYL ALCOHOL (ETHANOL) 0.01 % (0.00-0.01); SALICYLATE LEVEL < 3.0 MG/DL (2.0-20.0)
[2023-04-08 11:00] LABS: THYROID STIMULATING HORMONE 1.77 UIU/ML (0.47-5.01)
[2023-04-08 12:05] LABS: AMPHETAMINES LEVEL URINE NEGATIVE (NEGATIVE); BARBITURATES URINE NEGATIVE (NEGATIVE); BENZODIAZEPINES URINE NEGATIVE (NEGATIVE)
[2023-04-08 12:06] LABS: CANNABINOIDS URINE POSITIVE (NEGATIVE); COCAINE METABOLITE URINE NEGATIVE (NEGATIVE); OPIATES URINE NEGATIVE (NEGATIVE); PHENCYCLIDINE URINE NEGATIVE (NEGATIVE)
[2023-04-08] MEDS ORDERED: ACETAMINOPHEN TAB 650MG DOSE (2X325MG) PO ONE (15:45)
[2023-04-08 16:59] VITALS: BP 132/78; TEMP 98; O2SAT 98
[2023-04-08] MEDS ORDERED: IBUP-1022 PO (22:14)
== END 2023-04-08 17:01 | disposition home or self-care (01) ==
LOC: M ED 01:49
DX: F43.0 Acute stress reaction (principal); F25.9 Schizoaffective disorder, unspecified; F17.290 Nicotine dependence, other tobacco product, uncomplicated; F12.90 Cannabis use, unspecified, uncomplicated

== ENCOUNTER 2023-04-10 03:29 | Emergency (ER) | payer OTHER ==
[~2023-04-10] VITALS: Ht 157.5 cm; Wt 39.5 kg
[2023-04-10 04:10] LABS: BASO # 0.1 10^3/uL (0.0-0.2); BASO % 0.6 % (0.0-1.0); EOS # 0.3 10^3/uL (0.0-0.5); EOS % 3.3 % (0.0-3.0); HEMATOCRIT 35.7 % (36.0-47.0); HEMOGLOBIN 11.9 g/dl (12.0-15.5); LYMPH # 3.1 10^3/uL (1.5-5.0); LYMPH % 30.5 % (24.0-44.0); MEAN CORPUSCULAR HEMOGLOBIN 30.1 pg (27.0-33.0); MEAN CORPUSCULAR HGB CONC 33.3 g/dl (32.0-36.5); MEAN CORPUSCULAR VOLUME 90.2 fl (80.0-96.0); MONO # 0.7 10^3/uL (0.0-0.8); MONO % 6.9 % (2.0-8.0); NEUTROPHILS # 5.9 10^3/uL (1.5-8.5); NEUTROPHILS % 58.3 % (36.0-66.0); PLATELET COUNT, AUTOMATED 335 10^3/uL (150-450); RED BLOOD COUNT 3.96 10^6/uL (4.00-5.40); WHITE BLOOD COUNT 10.1 10^3/uL (4.0-10.0)
[2023-04-10] MEDS ORDERED: POTASSIUM CHLORIDE 10MEQ SR TABLET PO ONE (04:15)
[2023-04-10 05:30] VITALS: BP 128/88; TEMP 97.6; O2SAT 98
== END 2023-04-10 05:31 | disposition home or self-care (01) ==
LOC: M ED 03:29
DX: M25.552 Pain in left hip (principal); F32.A Depression, unspecified; Z79.899 Other long term (current) drug therapy

== ENCOUNTER 2023-04-10 17:17 | Emergency (ER) | payer OTHER ==
[~2023-04-10] VITALS: Ht 154.9 cm; Wt 39.5 kg
[2023-04-10 18:29] VITALS: BP 128/70; TEMP 98.1; O2SAT 100
== END 2023-04-10 18:35 | disposition home or self-care (01) ==
LOC: M ED 17:17
DX: Z71.1 Person with feared health complaint in whom no diagnosis is made (principal); F41.9 Anxiety disorder, unspecified; M41.9 Scoliosis, unspecified; F25.9 Schizoaffective disorder, unspecified; F17.200 Nicotine dependence, unspecified, uncomplicated

== ENCOUNTER 2023-04-11 05:34 | Emergency (ER) | payer OTHER ==
[~2023-04-11] VITALS: Ht 154.9 cm; Wt 41.3 kg
[2023-04-11] MEDS ORDERED: diphenhydrAMINE 25MG CAP PO ONE (06:10)
[2023-04-11 07:52] VITALS: BP 140/82; TEMP 98.4; O2SAT 100
== END 2023-04-11 08:15 | disposition home or self-care (01) ==
LOC: M ED 05:34
DX: F41.9 Anxiety disorder, unspecified (principal); F19.10 Other psychoactive substance abuse, uncomplicated; M54.50 Low back pain, unspecified; F32.A Depression, unspecified; F20.9 Schizophrenia, unspecified; F12.10 Cannabis abuse, uncomplicated; Z79.1 Long term (current) use of non-steroidal anti-inflammatories (NSAID); Z79.83 Long term (current) use of bisphosphonates

== ENCOUNTER 2023-04-11 08:13 | Emergency (ER) | payer OTHER ==
[~2023-04-11] VITALS: Ht 157.5 cm; Wt 39.5 kg
[2023-04-11 08:13] VITALS: BP 151/79; TEMP 99; O2SAT 100
== END 2023-04-11 09:04 | disposition home or self-care (01) ==
LOC: M ED 08:13
DX: R41.82 Altered mental status, unspecified (principal); F17.290 Nicotine dependence, other tobacco product, uncomplicated

== ENCOUNTER 2023-04-14 02:57 | Emergency (ER) | payer OTHER ==
[~2023-04-14] VITALS: Ht 154.9 cm; Wt 41.0 kg
[2023-04-14 02:58] VITALS: BP 127/72; TEMP 98.6; O2SAT 99
== END 2023-04-14 03:24 | disposition left against medical advice (07) ==
LOC: M ED 02:57
DX: R10.9 Unspecified abdominal pain (principal)

== ENCOUNTER 2023-04-18 16:32 | Emergency (ER) | payer OTHER ==
[~2023-04-18] VITALS: Ht 154.9 cm; Wt 41.0 kg
[2023-04-18 17:00] VITALS: O2SAT 100
[2023-04-18 17:47] LABS: ETHYL ALCOHOL (ETHANOL) 0.003 % (0.000-0.010)
[2023-04-18 17:48] LABS: HCG, SERUM QUALITATIVE NEGATIVE (NEGATIVE)
[2023-04-18 17:49] LABS: ALBUMIN 4.5 G/DL (3.2-5.2); ALKALINE PHOSPHATASE 59 U/L (46-116); ALT/SGPT 17 U/L (7.0-40); AST/SGOT 13 U/L (<34); BILIRUBIN,DIRECT 0.2 MG/DL (<0.4); BILIRUBIN,TOTAL 0.5 MG/DL (0.3-1.2); BLOOD UREA NITROGEN 10 MG/DL (9-23); CARBON DIOXIDE LEVEL 23 MMOL/L (20-31); CHLORIDE LEVEL 104 MMOL/L (98-107); CREATININE FOR GFR 0.59 MG/DL (0.55-1.30); GLOMERULAR FILTRATION RATE > 60.0 (>60); GLUCOSE, FASTING 90 MG/DL (60-100); POTASSIUM SERUM 4.2 MMOL/L (3.5-5.1); SALICYLATE LEVEL < 3.0 MG/DL (<30); SODIUM LEVEL 139 MMOL/L (136-145); TOTAL PROTEIN 7.5 G/DL (5.7-8.2)
[2023-04-18 17:50] LABS: THYROID STIMULATING HORMONE 0.843 uIU/ML (0.55-4.78)
[2023-04-18 17:53] LABS: HEMATOCRIT 44.2 % (36.0-47.0); HEMOGLOBIN 14.3 g/dl (12.0-15.5); MEAN CORPUSCULAR HEMOGLOBIN 30.1 pg (27.0-33.0); MEAN CORPUSCULAR HGB CONC 32.4 g/dl (32.0-36.5); MEAN CORPUSCULAR VOLUME 93.1 fl (80.0-96.0); PLATELET COUNT, AUTOMATED 467 10^3/uL (150-450); RED BLOOD COUNT 4.75 10^6/uL (4.00-5.40); WHITE BLOOD COUNT 9.8 10^3/uL (4.0-10.0)
[2023-04-18 19:18] LABS: AMPHETAMINES LEVEL URINE NEGATIVE (NEGATIVE); BARBITURATES URINE NEGATIVE (NEGATIVE); BENZODIAZEPINES URINE NEGATIVE (NEGATIVE); COCAINE METABOLITE URINE NEGATIVE (NEGATIVE); METHADONE URINE NEGATIVE (NEGATIVE); OPIATES URINE NEGATIVE (NEGATIVE); PHENCYCLIDINE URINE NEGATIVE (NEGATIVE)
[2023-04-18 19:19] LABS: CANNABINOIDS URINE POSITIVE (NEGATIVE)
[2023-04-18 21:11] VITALS: BP 130/72; TEMP 97.2
== END 2023-04-18 21:16 | disposition home or self-care (01) ==
LOC: M ED 16:32
DX: R41.82 Altered mental status, unspecified (principal); F17.290 Nicotine dependence, other tobacco product, uncomplicated; Z79.1 Long term (current) use of non-steroidal anti-inflammatories (NSAID); Z79.899 Other long term (current) drug therapy

== ENCOUNTER 2024-07-16 04:21 | Inpatient (IN) | payer OTHER, SELFPAY ==
[~2024-07-16] VITALS: Ht 154.9 cm; Wt 45.9 kg
[~2024-07-16 04:21] MED LIST changes: +GABA-1172; -GABA-282; +ONDA-282 PO; -ONDA4TAB6 PO; -RISP-7; +RISP0.5T82; -VALP250S PO; +VALP250S26 PO
[2024-07-16 04:58] LABS: HEMATOCRIT 41.6 % (36.0-47.0); MEAN CORPUSCULAR HEMOGLOBIN 30.2 pg (27.0-33.0); MEAN CORPUSCULAR HGB CONC 33.7 g/dl (32.0-36.5); MEAN CORPUSCULAR VOLUME 89.8 fl (80.0-96.0); PLATELET COUNT, AUTOMATED 371 10^3/uL (150-450); RED BLOOD COUNT 4.63 10^6/uL (4.00-5.40); WHITE BLOOD COUNT 9.6 10^3/uL (4.0-10.0)
[2024-07-16 05:25] LABS: AMPHETAMINES LEVEL URINE NEGATIVE (NEGATIVE); BARBITURATES URINE NEGATIVE (NEGATIVE); BENZODIAZEPINES URINE NEGATIVE (NEGATIVE); COCAINE METABOLITE URINE NEGATIVE (NEGATIVE); METHADONE URINE NEGATIVE (NEGATIVE); OPIATES URINE NEGATIVE (NEGATIVE)
[2024-07-16 05:26] LABS: PHENCYCLIDINE URINE NEGATIVE (NEGATIVE)
[2024-07-16 05:28] LABS: ETHYL ALCOHOL (ETHANOL) 0.004 % (0.000-0.010)
[2024-07-16 05:30] LABS: ALBUMIN 4.6 G/DL (3.2-5.2); ALKALINE PHOSPHATASE 67 U/L (35-104); ALT/SGPT 23 U/L (7.0-40); AST/SGOT 16 U/L (<34); BILIRUBIN,DIRECT 0.2 MG/DL (<0.4); BILIRUBIN,TOTAL 0.6 MG/DL (0.3-1.2); BLOOD UREA NITROGEN 9 MG/DL (9-23); CALCIUM LEVEL 9.1 MG/DL (8.5-10.1); CARBON DIOXIDE LEVEL 23 MMOL/L (20-31); CHLORIDE LEVEL 104 MMOL/L (98-107); CREATININE FOR GFR 0.59 MG/DL (0.55-1.30); GLOMERULAR FILTRATION RATE > 60.0 (>60); GLUCOSE, FASTING 105 MG/DL (60-100); POTASSIUM SERUM 3.8 MMOL/L (3.5-5.1); SALICYLATE LEVEL < 3.0 MG/DL (<30); SODIUM LEVEL 140 MMOL/L (136-145); TOTAL PROTEIN 7.8 G/DL (5.7-8.2)
[2024-07-16 05:32] LABS: CANNABINOIDS URINE POSITIVE (NEGATIVE); THYROID STIMULATING HORMONE 0.752 uIU/ML (0.55-4.78)
[2024-07-16] MEDS ORDERED: HOME MED LIST COMPLETE! XX SCH (06:50)
[2024-07-16] MEDS ORDERED: OLANZapine 5 MG TAB PO PRN (07:25)
[2024-07-16] MEDS ORDERED: MOM 30ML SUSPENSION UDC PO PRN (07:25)
[2024-07-16] MEDS ORDERED: IBUPROFEN 400MG TAB PO PRN (07:25)
[2024-07-16] MEDS ORDERED: diphenhydrAMINE 25MG CAP PO PRN (07:25)
[2024-07-16] MEDS: NICOTINE 14 MG/24 HR TRANSDERMAL TD SCH (09:00)
[2024-07-16 09:06] VITALS: BP 116/59; TEMP 98; O2SAT 100
[2024-07-16] MEDS: diphenhydrAMINE 50MG CAP PO ONE (12:04)
[2024-07-16] MEDS: LORazepam 1 MG TAB PO ONE (12:04)
[2024-07-16 16:07] VITALS: BP 136/79; TEMP 98; O2SAT 100
[2024-07-16] MEDS: DIVALPROEX 500 MG TAB PO SCH (21:00)
[2024-07-16] MEDS: OLANZapine 5 MG TAB PO SCH (21:00)
[2024-07-16] MEDS: traZODone 50 MG TAB PO PRN (21:18)
[2024-07-17 06:33] VITALS: BP 125/60; TEMP 97.7; O2SAT 99
[2024-07-17 09:54] LABS: HCG, SERUM QUALITATIVE NEGATIVE (NEGATIVE)
[2024-07-17 15:18] VITALS: BP 125/57; TEMP 97.5; O2SAT 100
[2024-07-18 06:40] VITALS: BP 125/71; TEMP 96.9; O2SAT 100
[2024-07-18 15:49] VITALS: BP 139/66; TEMP 97.8; O2SAT 100
[2024-07-18] MEDS: OLANZapine 5 MG TAB PO SCH (21:00)
[2024-07-19] MEDS: MAALOX 30 ML SUSP *UDC PO PRN (06:35)
[2024-07-19 06:42] VITALS: BP 137/83; TEMP 97.8; O2SAT 100
[2024-07-19] MEDS: CETIRIZINE (ZyrTEC) 10 MG TAB PO SCH (13:36)
[2024-07-19] MEDS: FLUTICASONE PROP 0.05% NASAL SPRAY 16 GM (FLONASE) NARES SCH (13:52)
[2024-07-19 17:28] VITALS: BP 132/72; TEMP 98.1; O2SAT 100
[2024-07-20 06:37] VITALS: BP_SYST 141; BP_DIAS 80; BP_DIAS 90; TEMP 97.3; O2SAT 97
[2024-07-20 16:23] VITALS: BP 135/85; TEMP 98.3; O2SAT 100
[2024-07-20] MEDS: ACETAMINOPHEN 325 MG TAB PO PRN (20:22)
[2024-07-21 06:40] VITALS: BP 124/81; TEMP 97.8; O2SAT 100
[2024-07-21 15:35] VITALS: BP 147/83; TEMP 97.7; O2SAT 97
[2024-07-22 06:51] VITALS: BP 165/83; TEMP 98; O2SAT 95
[2024-07-22 15:45] VITALS: BP 144/85; TEMP 98; O2SAT 99
[2024-07-23 07:07] VITALS: BP 131/84; TEMP 97.5; O2SAT 99
[2024-07-23 18:10] VITALS: BP 144/80; TEMP 98.6; O2SAT 100
[2024-07-24 07:19] VITALS: BP 185/85; TEMP 97.9; O2SAT 100
[2024-07-24 16:14] VITALS: BP 144/81; TEMP 98.2; O2SAT 99
[2024-07-24] MEDS: traZODone 100 MG TAB PO PRN (20:11)
[2024-07-24] MEDS: OLANZapine 5 MG TAB PO SCH (20:12)
[2024-07-25 06:52] VITALS: BP 128/75; TEMP 97.5; O2SAT 99
[2024-07-25 15:46] VITALS: BP 143/81; TEMP 98.2; O2SAT 100
[2024-07-26 06:32] VITALS: BP 153/78; TEMP 97.8; O2SAT 100
[2024-07-26 14:57] VITALS: BP 154/90; TEMP 98.3; O2SAT 99
[2024-07-27 06:34] VITALS: BP 142/81; TEMP 97.4; O2SAT 100
[2024-07-27] MEDS ORDERED: TRAZ-257 PO (10:48)
[2024-07-27] MEDS ORDERED: OLAN1TAB16 PO (10:48)
[2024-07-27] MEDS ORDERED: DEPA1TAB3 PO (10:48)
== END 2024-07-27 11:29 | disposition home or self-care (01) | DRG 753 ==
LOC: M ED 04:21 → M ED INP 07:21 → M PSY 08:31
PROVIDERS: ADMIT Psychiatry & Neurology Neurology; ATTEND Psychiatry & Neurology Neurology
DX: F31.13 Bipolar disorder, current episode manic without psychotic features, severe (principal); F41.9 Anxiety disorder, unspecified; F17.200 Nicotine dependence, unspecified, uncomplicated

== ENCOUNTER → 2024-10-03 | Outpatient (REF) | payer OTHER ==
[~2024-10-03] MED LIST changes: +DEPA1TAB3 PO; +TRAZ-257 PO
== END ==
LOC: M PLALAB 14:03
PROVIDERS: ATTEND Nurse Practitioner Family
DX: Z53.9 Procedure and treatment not carried out, unspecified reason (principal)

== ENCOUNTER → 2024-12-31 | Outpatient (REF) | payer OTHER ==
[2024-12-31 14:35] LABS: Trichomonas vaginalis (AMP) NOT DETECTED (NEGATIVE)
[2024-12-31 14:59] LABS: GC DNA AMPLIFICATION NEGATIVE (NEGATIVE)
== END ==
LOC: M SFHCWAGY 13:11
PROVIDERS: ATTEND Advanced Practice Midwife
DX: Z34.82 Encounter for supervision of other normal pregnancy, second trimester (principal)

== ENCOUNTER → 2025-02-04 | Outpatient (CLI) | payer OTHER | LOC: M WHC 10:12 | PROVIDERS: ATTEND Obstetrics & Gynecology | DX: Z34.80 Encounter for supervision of other normal pregnancy, unspecified trimester (principal) ==

== ENCOUNTER → 2025-02-13 | Outpatient (CLI) | payer OTHER ==
[~2025-02-13] MED LIST changes: -IBUP-1022 PO; +IBUP600T42 PO
[2025-02-13 14:15] LABS: PLATELET COUNT, AUTOMATED 339 10^3/uL (150-450)
[2025-02-13 14:40] LABS: GLUCOSE CHALLENGE TEST 1 HOUR 142 MG/DL (LESS THAN 140)
[2025-02-13 15:40] LABS: HIV 1&2 SCREEN NEGATIVE (NEGATIVE)
[2025-02-13 15:47] LABS: HEPATITIS C VIRUS ABY INDEX < 0.02 INDEX (<0.8)
== END ==
LOC: M PLALAB 08:45
PROVIDERS: ATTEND Advanced Practice Midwife
DX: Z34.82 Encounter for supervision of other normal pregnancy, second trimester (principal)

== ENCOUNTER → 2025-02-19 | Outpatient (CLI) | payer OTHER | LOC: M RAD 14:30 | PROVIDERS: ATTEND Obstetrics & Gynecology | DX: Z34.82 Encounter for supervision of other normal pregnancy, second trimester (principal); Z3A.31 31 weeks gestation of pregnancy ==

== ENCOUNTER → 2025-02-28 | Outpatient (CLI) | payer OTHER | LOC: M LAB 06:39 | PROVIDERS: ATTEND Advanced Practice Midwife | DX: O99.810 Abnormal glucose complicating pregnancy (principal); Z3A.00 Weeks of gestation of pregnancy not specified ==

== ENCOUNTER → 2025-03-07 | Outpatient (REF) | payer OTHER | LOC: M PLALAB 15:45 | PROVIDERS: ATTEND Student in an Organized Health Care Education/Training Program | DX: Z36.89 Encounter for other specified antenatal screening (principal); Z3A.35 35 weeks gestation of pregnancy ==

== ENCOUNTER 2025-03-25 16:07 | Inpatient (IN) | payer OTHER ==
[~2025-03-25] VITALS: Ht 157.5 cm; Wt 57.3 kg
[2025-03-25] MEDS ORDERED: CARBOPROST TROMETHAMINE 250 MCG/ML AMP IM PRN (16:25)
[2025-03-25] MEDS ORDERED: METHYLERGONOVINE MALEATE 0.2 MG/ML 1 ML VIAL IM PRN (16:25)
[2025-03-25] MEDS ORDERED: OXYTOCIN INJ 10UNITS/ML 1ML VIAL IM PRN (16:25)
[2025-03-25] MEDS ORDERED: HOME MED LIST COMPLETE! XX SCH (16:25)
[2025-03-25] MEDS ORDERED: TRANEXAMIC ACID INJection 1,000 MG in NS 100 ML IV PRN (16:25)
[2025-03-25] MEDS: AMPICILLIN SOD 2 GM in DEXTROSE 5% (D5W) MINI-BAG PLU 100 ML IV STA (16:31)
[2025-03-25 16:42] VITALS: BP 136/84
[2025-03-25 16:51] LABS: PLATELET COUNT, AUTOMATED 369 10^3/uL (150-450)
[2025-03-25] MEDS: ONDANSETRON 4MG 2ML VIAL IV PRN (17:09)
[2025-03-25] MEDS: LR 1,000 ML IV ONE (17:10)
[2025-03-25 17:38] LABS: HIV 1&2 SCREEN NEGATIVE (NEGATIVE)
[2025-03-25] MEDS: OXYTOCIN DRIP 30 UNITS in IV 1 EA IV PRN (17:43)
[2025-03-25 17:45] LABS: HEPATITIS C VIRUS ABY INDEX < 0.02 INDEX (<0.8)
[2025-03-25] MEDS: LIDOCAINE 1% MDV 20 ML VIAL INFIL PRN (17:47)
[2025-03-25 17:50] VITALS: BP 126/65
[2025-03-25 18:05] VITALS: BP 124/66
[2025-03-25 18:34] VITALS: BP 119/59
[2025-03-25] MEDS ORDERED: RHOGAM 300MCG (1500IU) INJ IM SCH (18:45)
[2025-03-25] MEDS ORDERED: ANUSOL HC CREAM 30 GM TOP PRN (18:45)
[2025-03-25] MEDS ORDERED: IBUPROFEN 600 MG TAB PO PRN (18:45)
[2025-03-25] MEDS ORDERED: DIBUCAINE 1% OINTMENT 30 GM TOP PRN (18:45)
[2025-03-25] MEDS ORDERED: ACETAMINOPHEN 325 MG TAB PO PRN (18:45)
[2025-03-25] MEDS ORDERED: IBUPROFEN 800 MG TAB PO PRN (18:45)
[2025-03-25] MEDS ORDERED: DOCUSATE SODIUM 100 MG CAPSULE PO PRN (18:45)
[2025-03-25] MEDS ORDERED: MOM 30 ML SUSPENSION UDC PO PRN (18:45)
[2025-03-25] MEDS: ACETAMINOPHEN 500 MG TAB PO PRN (18:58)
[2025-03-25 19:54] VITALS: BP 125/63; O2SAT 98
[2025-03-26 06:06] VITALS: BP 110/57; O2SAT 97
[2025-03-26] MEDS: PRENATAL VITAMINS CHEWABLE TABLET PO SCH (09:39)
[2025-03-26 12:38] LABS: BASO # 0.1 10^3/uL (0.0-0.2); BASO % 0.3 % (0.0-1.0); EOS # 0.1 10^3/uL (0.0-0.5); EOS % 0.4 % (0.0-3.0); LYMPH # 2.4 10^3/uL (1.5-5.0); LYMPH % 15.0 % (24.0-44.0); MONO # 1.1 10^3/uL (0.0-0.8); MONO % 6.7 % (2.0-8.0); NEUTROPHILS # 12.5 10^3/uL (1.5-8.5); NEUTROPHILS % 77.0 % (36.0-66.0); PLATELET COUNT, AUTOMATED 353 10^3/uL (150-450)
[2025-03-26 18:18] VITALS: BP 137/75; O2SAT 100
[2025-03-27 06:03] VITALS: BP 116/55; O2SAT 98
[2025-03-27] MEDS ORDERED: MEASLES,MUMPS,RUBELLA VACCINE INJ (MMR-II) SC.IMMUN ONE (09:00)
[2025-03-27] MEDS: FLUZONE VACCINE TRI PF(25-26) 0.5ML SYRINGE IM.IMMUN ONE (09:00)
== END 2025-03-27 16:20 | disposition home or self-care (01) | DRG 560 ==
LOC: M LDO 16:07 → M LDI 16:27 → M OBS 19:53
PROVIDERS: ADMIT Advanced Practice Midwife; ATTEND Advanced Practice Midwife
PROC: 10E0XZZ Delivery of Products of Conception, External Approach (ICD-10-PCS; principal; 2025-03-25)
PROC: 0HQ9XZZ Repair Perineum Skin, External Approach (ICD-10-PCS; 2025-03-25)
DX: O62.3 Precipitate labor (principal); F17.210 Nicotine dependence, cigarettes, uncomplicated; Z3A.38 38 weeks gestation of pregnancy; O99.334 Smoking (tobacco) complicating childbirth; O99.824 Streptococcus B carrier state complicating childbirth; O70.0 First degree perineal laceration during delivery; Z37.0 Single live birth